=== PATIENT | male | born 1975 ===

== ENCOUNTER → 2020-04-21 14:13 | Outpatient (BNVA) | payer OTHER, SELFPAY | PROVIDERS: PCP Student in an Organized Health Care Education/Training Program; Referring Provider Student in an Organized Health Care Education/Training Program; Visit Provider Internal Medicine | DX: E83.52 Hypercalcemia (principal); E21.3 Hyperparathyroidism, unspecified; E55.9 Vitamin D deficiency, unspecified; Z79.899 Other long term (current) drug therapy | CPT/HCPCS: 99202 ==

== ENCOUNTER 2020-04-28 14:43 | Outpatient (REF) | payer OTHER, SELFPAY | END 2020-04-28 14:44 | disposition home or self-care (01) | LOC: HO.LAB 14:43 | PROVIDERS: PCP Student in an Organized Health Care Education/Training Program; Visit Provider Internal Medicine | DX: Z20.828 Contact with and (suspected) exposure to other viral communicable diseases (principal) | CPT/HCPCS: C9803; U0003 ==

== ENCOUNTER 2020-05-18 12:07 | Outpatient (REF) | payer OTHER, SELFPAY ==
[2020-05-18 13:45] LABS: Albumin Level 4.7 g/dL (3.5-5.0); Estimated Glomerular Filt Rate > 60; Phosphorus 2.6 mg/dL (2.7-4.5)
[2020-05-18 14:01] LABS: Free T4 (Free Thyroxine) 0.89 ng/dL (0.71-1.85); Thyroid Stimulating Hormone 0.96 uIU/mL (0.32-4.0)
[2020-05-19 22:43] LABS: Calcium (PTHI) 11.8 mg/dL (8.6-10.3); PTHI 44 pg/mL (14-64)
[2020-05-20 15:17] LABS: Calcium, Ionized 6.2 mg/dL (4.8-5.6)
[2020-05-22 14:07] LABS: Vitamin D 25-OH, D2 <4 ng/mL; Vitamin D 25-OH, D3 20 ng/mL; Vitamin D 25-OH, Total 20 ng/mL (30-100)
== END 2020-05-18 12:08 | disposition home or self-care (01) ==
LOC: HO.LAB 12:07
PROVIDERS: PCP Student in an Organized Health Care Education/Training Program; Visit Provider Internal Medicine
DX: E21.3 Hyperparathyroidism, unspecified (principal); E55.9 Vitamin D deficiency, unspecified
CPT/HCPCS: 82040; 82306; 82310; 82330; 82565; 83970; 84100; 84439; 84443

== ENCOUNTER 2020-05-20 12:25 | Outpatient (REF) | payer OTHER, SELFPAY ==
[2020-05-20 14:52] LABS: Total Volume 24 Hour Urine 1600 mL
[2020-05-20 15:05] LABS: Creatinine, 24Hr Urine 0.8 G/Day (1.0-2.0); Creatinine, mg/dL 47.94
[2020-05-24 18:18] LABS: Calcium, 24 Hr Urine 189 mg/24 h; Calcium/Creatinine Ratio 231 mg/g creat (30-210); Creatinine 24Hr Urine 0.82 g/24 h (0.50-2.15)
== END 2020-05-20 12:26 | disposition home or self-care (01) ==
LOC: HO.LNP 12:25
PROVIDERS: Visit Provider Internal Medicine
DX: E21.3 Hyperparathyroidism, unspecified (principal)
CPT/HCPCS: 82340; 82570

== ENCOUNTER 2020-05-31 13:13 | Outpatient (REF) | payer OTHER, SELFPAY ==
--- NOTE | 2020-05-31 13:17 | MM_ITS ---
EXAMINATION: BONE DENSITOMETRY CLINICAL INDICATION: Hyperparathyroidism, unspecified. Age 44, male. COMPARISON: None (current study represents initial baseline exam). TECHNIQUE: Using a [employer] DXA System (software version: 13.1) manufactured by [employer], dual-energy x-ray absorptiometry was performed of the lumbar spine, left hip, and left forearm radius 33%. The images are of good technical quality. Based on ISCD (International Society for Clinical Densitometry) standards of reporting, Z-scores instead of T-scores are reported in this male patient younger than age 50. Summary results are attached. FINDINGS: AP SPINE L1-L4: BMD 0.883 g/cm2, T-score -2.8, Z-score -2.4, Z-score below expected range for age. LEFT FEMUR, NECK: BMD 0.774 g/cm2, T-score -2.3, Z-score -1.6, Z-score within expected range for age. LEFT FEMUR, TOTAL: BMD 0.821 g/cm2, T-score -1.9, Z-score -1.5, Z-score within expected range for age. LEFT FOREARM RADIUS 33%: BMD 0.924 g/cm2, T-score -0.8, Z-score -0.8, Z-score within expected range for age. IDENTIFIED RISK FACTORS: Hyperparathyroidism, secondary osteoporosis. HISTORY OF FRACTURE: None listed. MEDICATIONS: Vitamin D. MM/XR DEXA appendicular skeleton IMPRESSION: 1. DIAGNOSIS: Based on the lowest Z-score value of -2.4 in the lumbar spine, the patient's bone density is below the expected range for age. 2. 10-YEAR FRACTURE RISK PREDICTION, FRAX: Major osteoporotic fracture (clinical spine, forearm, hip or shoulder) 1.8%. Hip fracture 0.4%. 3. Treatment Recommendations: NOF guidelines recommend consideration for treatment in postmenopausal women and men age 50 and older presenting with the following: -A hip or vertebral (clinical or morphometric) fracture. -T-score less than or equal to -2.5 at the femoral neck or spine after appropriate evaluation to exclude secondary causes. -Low bone mass at the hip or spine and a 10-year fracture probability by FRAX of greater than or equal to 3% for hip fracture or greater than or equal to 20% for major osteoporotic fracture based on the [place] adapted WHO algorithm. 4. Other Recommendations: All treatment decisions require clinical judgment and consideration of individual patient factors, including patient preferences, comorbidities, previous drug use, risk factors not captured in the FRAX model (e.g. frailty, falls, vitamin D deficiency, increased bone turnover, interval significant decline in bone density) and possible under or overestimation of fracture risk by FRAX. Additional medical evaluation for secondary cause of low bone mineral density may be appropriate. FUTURE SCAN RECOMMENDATION: People with diagnosed cases of osteoporosis or at high risk for fracture should have regular bone mineral density tests. For patients eligible for Medicare, routine testing is allowed once every 2 years. The testing frequency can be increased to one year for patients who have rapidly progressing disease, those who are receiving or discontinuing medical therapy to restore bone mass, or have additional risk factors.
--- NOTE | 2020-05-31 13:49 | US_ITS ---
EXAMINATION: US THYROID CLINICAL INFORMATION: Hyperparathyroidism. COMPARISON: None TECHNIQUE: Linear transducer turner-scale and color Doppler examination with attention to the region of the thyroid. FINDINGS: SIZE: Measurements of the thyroid lobes and nodules are given in sagittal, anteroposterior and transverse dimensions respectively. Right Thyroid Lobe: 3.8 x 1.3 x 1.4 cm, volume 3.6 mL. Parenchyma: The gland echotexture is homogeneous. Thyroid vascularity is normal. Left Thyroid Lobe: 3.1 x 1.0 x 1.5 cm, volume 2.4 mL. Parenchyma: The gland echotexture is homogeneous. Thyroid vascularity is normal. Isthmus: 0.3 cm in maximum AP dimension. RIGHT THYROID LOBE: No nodules. ISTHMUS: No nodules. LEFT THYROID LOBE: No nodules. NODES: No lymphadenopathy is seen in the tissue surrounding the thyroid gland. US/US thyroid IMPRESSION: Unremarkable sonographic appearance of the thyroid gland. No focal thyroid nodules identified.
== END 2020-05-31 13:14 | disposition home or self-care (01) ==
LOC: HO.MAMMO 13:13
PROVIDERS: Visit Provider Internal Medicine
DX: E21.3 Hyperparathyroidism, unspecified (principal)
CPT/HCPCS: 76536; 77081

== ENCOUNTER → 2020-06-03 11:16 | Outpatient (BNVA) | payer OTHER, SELFPAY | PROVIDERS: PCP Student in an Organized Health Care Education/Training Program; Visit Provider Internal Medicine | DX: Z13.89 Encounter for screening for other disorder (principal) | CPT/HCPCS: Q3014 ==

== ENCOUNTER 2020-06-13 15:21 | Emergency (ER) | payer OTHER, SELFPAY ==
[2020-06-13 17:17] VITALS: BP 168/85; PULSE 90; RESP 18; TEMP 36.4; O2SAT 99; BMI 25.0
--- NOTE | 2020-06-13 18:38 | CT_ITS ---
EXAMINATION: CT ABDOMEN AND PELVIS WITH CONTRAST CLINICAL INFORMATION: Abdominal pain. Flank pain. COMPARISON: CT scan abdomen pelvis 08/17/2019 TECHNIQUE: Multidetector volumetric images were obtained from the superior aspect of the liver through the pubic symphysis following administration 85 mL of Omnipaque 350 intravenous contrast. Sagittal and coronal reformatted images were obtained on the technologist's workstation. Oral contrast: No This CT examination was performed using dose optimization techniques as appropriate, variously including the following: *Automated exposure control *Adjustment of mA and/or kV according to patient size (this includes techniques or standardized protocols for targeted exams where dose is matched to indication/reason for exam; i.e. extremities or head) *Use of iterative reconstruction technique DLP: 567 mGy-cm FINDINGS: LUNG BASES: There is a small hiatal hernia. Lung bases are normally aerated. There is no pleural effusion. LIVER, GALLBLADDER, AND BILIARY TREE: The liver is normal in size, shape, and attenuation. No focal hepatic lesion or biliary ductal dilatation is present. Status post cholecystectomy. PANCREAS: Unremarkable. SPLEEN: Unremarkable. ADRENAL GLANDS: Unremarkable. KIDNEYS AND URETERS: The kidneys are normal in size, shape, and attenuation. No hydronephrosis, hydroureter, or calculi seen. No perinephric stranding. 1.3 cm cortical cyst upper pole of right kidney. There is a several millimeter cyst in the cortex upper pole of left kidney. BLADDER: Unremarkable. GASTROINTESTINAL TRACT: The small and large bowel are unremarkable. The appendix is unremarkable. There is a hiatal hernia. ABDOMINAL WALL: No significant hernia is appreciated. LYMPH NODES: Normal. VASCULAR: Unremarkable. PELVIC VISCERA: Unremarkable. OSSEOUS STRUCTURES: Unremarkable. CT/CT abdomen pelvis w con IMPRESSION: No acute abnormality CT scan abdomen pelvis.
[2020-06-13 18:46] LABS: MANUAL DIFF FLAG NO
[2020-06-13 18:53] LABS: Basophils Absolute Auto 0.1 X10*3/uL (0.0-0.2); Basophils Percent Auto 0.5 % (0-2); Eosinophils Absolute Auto 0.2 X10*3/uL (0.0-0.4); Eosinophils Percent Auto 1.7 % (0-4); Hematocrit 37.3 % (42-52); Imm Gran Abs Auto 0.04 X10*3/uL (0.00-0.03); Imm Gran Pct Auto 0.3 % (0.0-0.4); Lymphocytes Absolute Auto 3.4 X10*3/uL (1.2-4.9); Lymphocytes Percent Auto 29.3 % (20-40); Mean Corpuscular HGB Conc 32.2 g/dl (31.0-36.0); Mean Corpuscular Hemoglobin 26.7 pg (27.0-33.0); Mean Corpuscular Volume 82.9 fL (80-98); Mean Platelet Volume 11.4 fL (9.4-12.4); Monocytes Absolute Auto 0.9 X10*3/uL (0.1-1.2); Monocytes Percent Auto 7.9 % (2-11); Neutrophils Absolute Auto 6.9 X10*3/uL (2.0-8.3); Neutrophils Percent Auto 60.3 % (45-73); Platelet Count 498 X10*3/uL (160-400); Red Cell Distribution Width 14.8 % (11.0-16.0); White Blood Count 11.5 X10*3/uL (4.8-10.8)
[2020-06-13 18:55] LABS: INTERNATIONAL NORM RATIO 1.1 (0.9-1.1); Prothrombin Time 13.2 SEC (10.8-13.0)
[2020-06-13] MEDS: 0.9 % Sodium Chloride 1,000 ML 999 ML IV (18:57)
[2020-06-13] MEDS: Morphine Sulfate 4 MG/ML CARTRIDGE IVPUSH (18:58)
[2020-06-13] MEDS: ondansetron HCL 4 MG/2 ML VIAL IVPUSH (18:58)
[2020-06-13 19:32] LABS: Alanine Aminotransferase 20 U/L (0-40); Albumin Level 5.1 g/dL (3.5-5.0); Alkaline Phosphatase 82 U/L (39-117); Anion Gap 15 (12-20); Aspartate Amino Transferase 22 U/L (5-37); Bilirubin Total 0.2 mg/dL (0.0-1.0); Blood Urea Nitrogen 14 mg/dL (9-16); Calcium 12.5 mg/dL (8.4-10.2); Carbon Dioxide 26 mmol/L (22-29); Chloride 107 mmol/L (96-108); Creatinine Clr Calc Pharmacy 58.2; Estimated Glomerular Filt Rate > 60; Glucose Random 90 mg/dL (60-115); Potassium 4.1 mmol/l (3.3-5.1); Sodium 144 mmol/L (135-145); Total Protein 8.6 g/dL (6.5-8.0)
[2020-06-13 20:00] VITALS: BP 106/69; PULSE 70
[2020-06-13] MEDS: iohexoL 350 MG/ML 100 ML INFUS..BTL IV (20:41)
--- NOTE | 2020-06-13 21:50 | ECG_ITS ---
Test Reason : ABDOMINAL PAIN Blood Pressure : / mmHG Vent. Rate : 067 BPM Atrial Rate : 067 BPM P-R Int : 152 ms QRS Dur : 114 ms QT Int : 386 ms P-R-T Axes : 056 011 007 degrees QTc Int : 407 ms Normal sinus rhythm Incomplete right bundle branch block Borderline ECG When compared with ECG of 07-APR-2016 01:44, Vent. rate has decreased BY 41 BPM Incomplete right bundle branch block has replaced Right bundle branch block QT has shortened Referred By: Ab Ridley Electronically Signed By:URIAH CUETO
[2020-06-13 21:54] LABS: Influenza A PCR NEGATIVE (Negative); Influenza B PCR NEGATIVE (Negative); Resp Syncy Virus RNA Qual PCR NEGATIVE (Negative); SARS COV2 PCR INHOUSE NEGATIVE (Negative)
--- NOTE | 2020-06-13 22:16 | ED.ABDPAIN ---
HPI - Abdominal Pain General Chief Complaint: Abdominal Pain Stated Complaint: abdominal pain Time Seen by Provider: 06/13/20 18:28 Source: patient and family Mode of arrival: wheelchair Limitations: physical limitation History of Present Illness HPI narrative: This is 44-year-old male with past medical history that is significant for hypertension, cerebral palsy chronically bed/wheelchair bound, chronic anemia, gastroesophageal reflux disease, chronic gastritis, chronic hyperglycemia with surgical history of cholecystectomy who presents with his sister with complaint of 1 day of lower back/right flank pain radiating to the front. Pain described as positional improved with certain positions but worse with certain positions. There is no associated nausea vomiting diarrhea. No fever. MD elicited complaint: flank pain Pertinent past history: none Associated symptoms: denies other symptoms Related Data Home Medications Medication Instructions Recorded Confirmed baclofen 10 mg tablet 10 mg PO TID 04/21/20 06/03/20 clonazepam 0.5 mg tablet 0.5 mg PO BEDTIME 04/21/20 06/03/20 fenofibrate 150 mg capsule 150 mg PO DAILY 04/21/20 06/03/20 hydrochlorothiazide 25 mg tablet 25 mg PO DAILY 04/21/20 06/03/20 pantoprazole 40 mg tablet,delayed 40 mg PO DAILY 04/21/20 06/03/20 release simvastatin 40 mg tablet 40 mg PO DAILY 04/21/20 06/03/20 ascorbic acid (vitamin C) 500 mg 500 mg PO BID 06/03/20 06/03/20 tablet gemfibrozil 600 mg tablet 600 mg PO BID 06/03/20 06/03/20 glycerin (adult) supp IA DAILY 06/03/20 06/03/20 ketoconazole 2 % shampoo TOPICAL 06/03/20 06/03/20 lansoprazole 30 mg delayed 30 mg SUBLINGUAL BID 06/03/20 06/03/20 release,disintegrating tablet ondansetron HCl 4 mg tablet 0 mg PO 06/03/20 06/03/20 polyethylene glycol 3350 17 17 g PO DAILY 06/03/20 06/03/20 gram/dose oral powder Previous Rx's Medication Instructions Recorded metoclopramide HCl 5 mg/5 mL oral 5 mg PO QIDACHS 30 Days #600 ml NS 04/25/20 solution cholecalciferol (vitamin D3) 25 25 mcg PO DAILY 30 Days #30 cap 06/04/20 mcg (1,000 unit) capsule simethicone 125 mg capsule 125 mg PO TID-QID 30 Days #120 cap 06/10/20 Allergies Allergy/AdvReac Type Severity Reaction Status Date / Time No Known Allergies Allergy Verified 06/03/20 11:20 [No Known Allergies*] Review of Systems Review of Systems Constitutional: No Weight loss, No Fever, No Chills, No Night Sweats, No Fatigue, No Malaise ENT/Mouth: No Hearing loss, No Ear Pain, No Nasal Congestion, No Sinus Pain, No Hoarseness, No sore throat, No Rhinorrhea, No Swallowing Difficulty Eyes: No Eye Pain, No Swelling, No Redness, No Foreign Body, No Discharge, No Vision Changes Cardiovascular: No Chest Pain, No SOB, No Dyspnea on Exertion, No Orthopnea, No Edema, No Palpitations Respiratory: No Cough, No Sputum, No Wheezing, No Smoke Exposure, No Dyspnea Gastrointestinal: No Nausea, No Vomiting, No Diarrhea, No Constipation, + abdominal Pain Genitourinary: no irregular bleeding, No Dysuria, No Urinary Frequency, No Hematuria, No Urinary Incontinence, No Urgency, No Flank Pain, No Urinary Flow Changes, No Hesitancy Musculoskeletal: No joint pain, No Myalgias, No Joint Swelling Skin: No Skin Lesions, No rash Neuro: No Weakness, No Numbness, No Paresthesias, No Loss of Consciousness, No Dizziness, No Headache Psych: No Social Issues Heme/Lymph: No Bruising, No Bleeding,No Lymphadenopathy Endocrine: No Polyuria, No Polydipsia, No Temperature Intolerance Physical Exam Vital Signs: Vital Signs: Last Vital Signs Temp 97.6 F 06/13/20 17:17 Pulse 70 06/13/20 20:00 Resp 18 06/13/20 17:17 BP 106/69 06/13/20 20:00 Pulse Ox 99 06/13/20 17:17 Body Mass Index 25.0 Reviewed Const: Other: Appears and chronic contracted state with lower extremity General: cooperative and healthy appearing; No acute distress or intoxicated appearing Orientation/consciousness: patient oriented x3 HENMT: Head: Yes normal to inspection Ears: hearing grossly normal bilaterally Eyes: General: appearance normal, both eyes and all related structures Visual : normal visual by confrontation Neck: Neck: Yes normal visual inspection and No tender Thyroid: Thyroid normal Chest: Chest palpation & inspection: normal inspection of the chest Resp: Effort & Inspection: normal respiratory effort Cardio: Jugular venous distension: no JVD GI: Inspection: Yes normal to inspection Percussion: Yes normal to percussion Auscultation: normal bowel sounds : General: Yes no CVA tenderness Back/Spine/Pelvis: Back: no CVA tenderness Skin: General skin exam: no rashes or lesions noted Neuro: General: patient oriented x3 Extrem: General: Yes normal to inspection Course Course Course Narrative: In reviewed 44-year-old male with past medical history of cerebral palsy, hypertension, chronic anemia, gastroesophageal reflux disease, hypercalcemia who is being followed for this by Endocrinology as well as primary care question hydration related versus parathyroid and surgical history of cholecystectomy presenting with complaint of nonspecific flank/back/abdomen pain. Will check labs given his limited history will check abdomen/pelvis CT with IV contrast. Additional notes review- Endocrinology is no hypercalcemia thought to be related to hyperparathyroidism due to his inappropriate PTH head-up patient workup plan for surgical parathyroidectomy Procedure has been pushed back couple times secondary to the COVID. Reevaluation(s) Reevaluation #1: Labs show hypercalcemia at 12.5 otherwise overtly chronic appearing. Abdominal/pelvis CT with IV contrast unremarkable. Pain likely related to the hyperglycemia patient was initially given 500 cc given body weight case discussed with attending Dr. Melara recommendation for additional fluids, EKG and recheck calcium. At this time plan for repeat calcium at 23:30 patient has been resting comfortably. EKG nondiagnostic. Findings/plan reviewed with the sister if the repeat calcium is improved to increase hydration to be discharged home with close follow-up. Sign-out to PA January pending repeat labs and re-evaluation. MDM - Abdominal Pain Medical Records Attestation: I reviewed the patient's medical records. Medical records narrative: 08/17/2019 admission for nausea vomiting reviewed Lab Data Attestation: I reviewed the patient's lab results. Lab results narrative: Result diagrams: 06/13/20 18:40 06/13/20 18:40 Labs: Lab Results 06/13/20 06/13/20 06/13/20 Range/Units 18:40 18:40 18:40 WBC 11.5 H (4.8-10.8) X10*3/uL RBC 4.50 L (4.60-5.80) X10*6/uL Hgb 12.0 L (14.0-18.0) g/dl Hct 37.3 L (42-52) % MCV 82.9 (80-98) fL MCH 26.7 L (27.0-33.0) pg MCHC 32.2 (31.0-36.0) g/dl RDW 14.8 (11.0-16.0) % Plt Count 498 H (160-400) X10*3/uL MPV 11.4 (9.4-12.4) fL Immature Gran % (Auto) 0.3 (0.0-0.4) % Neut % (Auto) 60.3 (45-73) % Lymph % (Auto) 29.3 (20-40) % [place] % (Auto) 7.9 (2-11) % Eos % (Auto) 1.7 (0-4) % Baso % (Auto) 0.5 (0-2) % Lymph # (Auto) 3.4 (1.2-4.9) X10*3/uL [place] # (Auto) 0.9 (0.1-1.2) X10*3/uL Eos # (Auto) 0.2 (0.0-0.4) X10*3/uL Baso # (Auto) 0.1 (0.0-0.2) X10*3/uL Abs Immat Gran (auto) 0.04 H (0.00-0.03) X10*3/uL Absolute Neuts (auto) 6.9 (2.0-8.3) X10*3/uL Absolute Nucleated RBC 0.000 (0.0-0.012) X10*3/uL Nucleated RBC % (auto) 0.0 (0.0-0.2) /100WBC PT 13.2 H (10.8-13.0) SEC INR 1.1 (0.9-1.1) APTT 38.0 (24.1-38.0) SEC Sodium 144 (135-145) mmol/L Potassium 4.1 (3.3-5.1) mmol/l Chloride 107 (96-108) mmol/L Carbon Dioxide 26 (22-29) mmol/L Anion Gap 15 (12-20) BUN 14 (9-16) mg/dL Creatinine 1.05 (0.5-1.4) mg/dL Estim Creat Clear Calc 58.2 Estimated GFR > 60 Random Glucose 90 (60-115) mg/dL Calcium 12.5 H* (8.4-10.2) mg/dL Total Bilirubin 0.2 (0.0-1.0) mg/dL AST 22 (5-37) U/L ALT 20 (0-40) U/L Alkaline Phosphatase 82 (39-117) U/L Total Protein 8.6 H (6.5-8.0) g/dL Albumin 5.1 H (3.5-5.0) g/dL Coronavirus (PCR) (Negative) Influenza Type A (PCR) (Negative) Influenza Type B (PCR) (Negative) RSV RNA Qual (PCR) (Negative) 06/13/20 Range/Units 21:01 WBC (4.8-10.8) X10*3/uL RBC (4.60-5.80) X10*6/uL Hgb (14.0-18.0) g/dl Hct (42-52) % MCV (80-98) fL MCH (27.0-33.0) pg MCHC (31.0-36.0) g/dl RDW (11.0-16.0) % Plt Count (160-400) X10*3/uL MPV (9.4-12.4) fL Immature Gran % (Auto) (0.0-0.4) % Neut % (Auto) (45-73) % Lymph % (Auto) (20-40) % [place] % (Auto) (2-11) % Eos % (Auto) (0-4) % Baso % (Auto) (0-2) % Lymph # (Auto) (1.2-4.9) X10*3/uL [place] # (Auto) (0.1-1.2) X10*3/uL Eos # (Auto) (0.0-0.4) X10*3/uL Baso # (Auto) (0.0-0.2) X10*3/uL Abs Immat Gran (auto) (0.00-0.03) X10*3/uL Absolute Neuts (auto) (2.0-8.3) X10*3/uL Absolute Nucleated RBC (0.0-0.012) X10*3/uL Nucleated RBC % (auto) (0.0-0.2) /100WBC PT (10.8-13.0) SEC INR (0.9-1.1) APTT (24.1-38.0) SEC Sodium (135-145) mmol/L Potassium (3.3-5.1) mmol/l Chloride (96-108) mmol/L Carbon Dioxide (22-29) mmol/L Anion Gap (12-20) BUN (9-16) mg/dL Creatinine (0.5-1.4) mg/dL Estim Creat Clear Calc Estimated GFR Random Glucose (60-115) mg/dL Calcium (8.4-10.2) mg/dL Total Bilirubin (0.0-1.0) mg/dL AST (5-37) U/L ALT (0-40) U/L Alkaline Phosphatase (39-117) U/L Total Protein (6.5-8.0) g/dL Albumin (3.5-5.0) g/dL Coronavirus (PCR) NEGATIVE (Negative) Influenza Type A (PCR) NEGATIVE (Negative) Influenza Type B (PCR) NEGATIVE (Negative) RSV RNA Qual (PCR) NEGATIVE (Negative) Discharge Plan Discharge Clinical Impression: Hypercalcemia Prescriptions: No Action metoclopramide HCl 5 mg/5 mL solution 5 mg PO QIDACHS 30 Days Qty: 600 RF: 5 cholecalciferol (vitamin D3) 25 mcg (1,000 unit) capsule 25 mcg PO DAILY 30 Days Qty: 30 RF: 11 simethicone [Gas Relief (simethicone)] 125 mg capsule 125 mg PO TID-QID 30 Days Qty: 120 RF: 2 hydrochlorothiazide 25 mg tablet 25 mg PO DAILY RF: 0 baclofen 10 mg tablet 10 mg PO TID RF: 0 clonazepam 0.5 mg tablet 0.5 mg PO BEDTIME RF: 0 simvastatin 40 mg tablet 40 mg PO DAILY RF: 0 pantoprazole [Protonix] 40 mg tablet,delayed release (DR/EC) 40 mg PO DAILY RF: 0 fenofibrate 150 mg capsule 150 mg PO DAILY RF: 0 ondansetron HCl 4 mg tablet 0 mg PO RF: 0 ketoconazole 2 % shampoo topical RF: 0 ascorbic acid (vitamin C) 500 mg tablet 500 mg PO BID RF: 0 polyethylene glycol 3350 17 gram/dose powder 17 g PO DAILY RF: 0 gemfibrozil 600 mg tablet 600 mg PO BID RF: 0 glycerin (adult) Suppository IA DAILY RF: 0 lansoprazole 30 mg tablet,disintegrat, delay rel 30 mg sublingual BID RF: 0 PMFSH Past Medical History Medical History (Updated 06/13/20 @ 22:33 by Ab Ridley NP) Abdominal bloating GERD (gastroesophageal reflux disease) HTN (hypertension) Hypercalcemia Hyperparathyroidism Iron deficiency anemia Osteoporosis Vitamin D deficiency Surgical History History of esophagogastroduodenoscopy (EGD) Hx of cholecystectomy Hx of oral surgery Family History Family History Father Emphysema of lung Liver disease Mother Scoliosis Hepatitis Phlebitis Lymphoma Sister Nephrolithiasis Social History Social History Alcohol intake: never Smoking Status: Never smoker Smoked in Last 30 Days: No Use of substances other than those prescribed or required for medical reasons: No Advance Directives: No Advance Directives Information Provided: Yes
[2020-06-13] MEDS: 0.9 % Sodium Chloride 1,500 ML 999 ML IV (22:43)
[2020-06-13 23:16] LABS: Glucose Urine UA NEG (NEG); Leukocyte Esterase Urine NEG (NEG); Nitrite Urine NEG (NEG); Urine Blood NEG (NEG); Urine Ketones NEG (NEG); Urine Protein NEG (NEG-TRACE)
[2020-06-13 23:17] LABS: Appearance Urine CLEAR; Color Urine YELLOW
[2020-06-14] VITALS: BP 122/77; PULSE 66; RESP 16; TEMP 36.7; O2SAT 99
[2020-06-14] MEDS: Ketorolac Tromethamine 30 MG/ML VIAL IVPUSH (00:29)
[2020-06-14 02:00] VITALS: BP 130/70; PULSE 69; TEMP 36.7; O2SAT 99
[2020-06-14 02:02] LABS: Squamous Epithelial Cell Urine TRACE /LPF
[2020-06-14 02:03] LABS: Bacteria Urine TRACE /LPF
== END 2020-06-14 02:47 | disposition home or self-care (01) ==
PROVIDERS: Nurse Practitioner Primary Care; Physician Assistant; Emergency Provider Student in an Organized Health Care Education/Training Program; PCP Student in an Organized Health Care Education/Training Program
DX: E83.52 Hypercalcemia (principal); R10.13 Epigastric pain; G80.9 Cerebral palsy, unspecified; I10 Essential (primary) hypertension; Z79.899 Other long term (current) drug therapy; Z11.59 Encounter for screening for other viral diseases
CPT/HCPCS: 0241U; 36415; 74177; 80053; 81001; 82310; 85025; 85610; 85730; 93005; 96361; 96374; 96375; 99284; J1885; J2270; J2405; Q9967

== ENCOUNTER 2020-06-17 09:45 | Outpatient (REF) | payer OTHER, SELFPAY ==
[2020-06-17 11:05] LABS: Albumin Level 4.7 g/dL (3.5-5.0); Calcium 10.8 mg/dL (8.4-10.2); Estimated Glomerular Filt Rate > 60
== END 2020-06-17 09:46 | disposition home or self-care (01) ==
LOC: HO.LAB 09:45
PROVIDERS: PCP Student in an Organized Health Care Education/Training Program; Visit Provider Internal Medicine
DX: E21.3 Hyperparathyroidism, unspecified (principal)
CPT/HCPCS: 82040; 82310; 82565

== ENCOUNTER 2020-06-23 08:12 | Outpatient (REF) | payer OTHER, SELFPAY ==
[2020-06-23 13:39] LABS: Albumin Level 4.8 g/dL (3.5-5.0); Estimated Glomerular Filt Rate > 60
== END 2020-06-23 08:13 | disposition home or self-care (01) ==
LOC: HO.LAB 08:12
PROVIDERS: Absent Provider Internal Medicine; PCP Student in an Organized Health Care Education/Training Program; Visit Provider Internal Medicine Gastroenterology
DX: E21.3 Hyperparathyroidism, unspecified (principal); K21.9 Gastro-esophageal reflux disease without esophagitis; K58.1 Irritable bowel syndrome with constipation; E83.52 Hypercalcemia; Z99.3 Dependence on wheelchair; R11.0 Nausea; K30 Functional dyspepsia; Z79.899 Other long term (current) drug therapy
CPT/HCPCS: 36415; 82040; 82310; 82565; 99212

== ENCOUNTER 2020-07-02 09:42 | Outpatient (REF) | payer OTHER, SELFPAY ==
[2020-07-02 10:52] LABS: Blood Urea Nitrogen 11 mg/dL (9-16); Estimated Glomerular Filt Rate > 60
== END 2020-07-02 09:43 | disposition home or self-care (01) ==
LOC: HO.MDS 09:42
PROVIDERS: PCP Student in an Organized Health Care Education/Training Program; Visit Provider Internal Medicine
DX: M81.0 Age-related osteoporosis without current pathological fracture (principal)
CPT/HCPCS: 36415; 82565; 84520; 96365; J3489

== ENCOUNTER 2020-07-13 12:10 | Outpatient (REF) | payer OTHER, SELFPAY ==
[2020-07-13 12:55] LABS: Hematocrit 33.3 % (42-52); Hemoglobin 10.2 g/dl (14.0-18.0); Mean Corpuscular HGB Conc 30.6 g/dl (31.0-36.0); Mean Corpuscular Hemoglobin 25.4 pg (27.0-33.0); Mean Corpuscular Volume 82.8 fL (80-98); Mean Platelet Volume 11.6 fL (9.4-12.4); Platelet Count 508 X10*3/uL (160-400); Red Blood Count 4.02 X10*6/uL (4.60-5.80); Red Cell Distribution Width 14.1 % (11.0-16.0); White Blood Count 6.4 X10*3/uL (4.8-10.8)
[2020-07-13 13:18] LABS: Albumin Level 4.7 g/dL (3.5-5.0); Blood Urea Nitrogen 12 mg/dL (9-16); Estimated Glomerular Filt Rate > 60
[2020-07-13 13:19] LABS: Alanine Aminotransferase 18 U/L (0-40); Albumin Level 4.8 g/dL (3.5-5.0); Alkaline Phosphatase 88 U/L (39-117); Anion Gap 13 (12-20); Aspartate Amino Transferase 21 U/L (5-37); Bilirubin Direct 0.2 mg/dL (0.0-0.5); Bilirubin Total 0.3 mg/dL (0.0-1.0); Blood Urea Nitrogen 11 mg/dL (9-16); Carbon Dioxide 25 mmol/L (22-29); Chloride 108 mmol/L (96-108); Cholesterol 119 mg/dL; Estimated Glomerular Filt Rate > 60; Glucose Random 90 mg/dL (60-115); HDL Cholesterol 34 mg/dL; LDL Cholesterol Calculated 63 mg/dl; Potassium 4.7 mmol/l (3.3-5.1); Sodium 141 mmol/L (135-145); Total Protein 8.1 g/dL (6.5-8.0); Triglycerides 114 mg/dL
[2020-07-13 13:26] LABS: Calcium 11.3 mg/dL (8.4-10.2)
[2020-07-13 13:39] LABS: Vitamin D 25-OH Total 29.7 ng/mL (>30)
[2020-07-14 15:52] LABS: Calcium (PTHI) 11.4 mg/dL (8.6-10.3); PTHI 121 pg/mL (14-64)
== END 2020-07-13 12:11 | disposition home or self-care (01) ==
LOC: HO.LAB 12:10
PROVIDERS: PCP Student in an Organized Health Care Education/Training Program; Referring Provider Student in an Organized Health Care Education/Training Program; Visit Provider Internal Medicine
DX: E55.9 Vitamin D deficiency, unspecified (principal); M81.0 Age-related osteoporosis without current pathological fracture; E21.3 Hyperparathyroidism, unspecified
CPT/HCPCS: 36415; 80048; 80061; 80076; 82040; 82306; 82310; 82565; 83970; 84520; 85027

== ENCOUNTER 2020-07-21 13:00 | Outpatient (REF) | payer OTHER, SELFPAY ==
[2020-07-21 14:38] LABS: Albumin Level 4.6 g/dL (3.5-5.0); Phosphorus 1.7 mg/dL (2.7-4.5)
[2020-07-21 15:00] LABS: Vitamin D 25-OH Total 30.5 ng/mL (>30)
[2020-07-22 12:47] LABS: Calcium (PTHI) 11.5 mg/dL (8.6-10.3); PTHI 55 pg/mL (14-64)
[2020-07-22 15:07] LABS: Calcium, Ionized 6.2 mg/dL (4.8-5.6)
== END 2020-07-21 13:01 | disposition home or self-care (01) ==
LOC: HO.LAB 13:00
PROVIDERS: PCP Student in an Organized Health Care Education/Training Program; Visit Provider Internal Medicine
DX: E55.9 Vitamin D deficiency, unspecified (principal); E21.3 Hyperparathyroidism, unspecified
CPT/HCPCS: 36415; 82040; 82306; 82310; 82330; 83970; 84100

== ENCOUNTER 2020-07-28 07:55 | Outpatient (REF) | payer OTHER, SELFPAY ==
[2020-07-28 10:17] LABS: Albumin Level 4.6 g/dL (3.5-5.0); Calcium 10.4 mg/dL (8.4-10.2); Phosphorus 1.7 mg/dL (2.7-4.5)
[2020-07-29 10:02] LABS: Calcium (PTHI) 10.7 mg/dL (8.6-10.3); PTHI 70 pg/mL (14-64)
== END 2020-07-28 07:56 | disposition home or self-care (01) ==
LOC: HO.LAB 07:55
PROVIDERS: PCP Student in an Organized Health Care Education/Training Program; Visit Provider Internal Medicine
DX: E21.3 Hyperparathyroidism, unspecified (principal)
CPT/HCPCS: 36415; 82040; 82310; 83970; 84100

== ENCOUNTER 2020-08-04 11:09 | Outpatient (REF) | payer OTHER, SELFPAY ==
[2020-08-04 12:11] LABS: Albumin Level 4.8 g/dL (3.5-5.0)
[2020-08-04 12:36] LABS: Vitamin D 25-OH Total 34.2 ng/mL (>30)
[2020-08-06 10:37] LABS: Calcium (PTHI) 11.4 mg/dL (8.6-10.3); PTHI 75 pg/mL (14-64)
== END 2020-08-04 11:10 | disposition home or self-care (01) ==
LOC: HO.LAB 11:09
PROVIDERS: PCP Student in an Organized Health Care Education/Training Program; Visit Provider Internal Medicine
DX: E83.52 Hypercalcemia (principal)
CPT/HCPCS: 36415; 82040; 82306; 82310; 83970

== ENCOUNTER 2020-08-16 10:28 | Outpatient (REF) | payer OTHER, SELFPAY ==
[2020-08-18 10:36] LABS: Calcium (PTHI) 12.8 mg/dL (8.6-10.3); PTHI 1 pg/mL (14-64)
== END 2020-08-16 10:29 | disposition home or self-care (01) ==
LOC: HO.LAB 10:28
PROVIDERS: Visit Provider Internal Medicine
DX: E21.3 Hyperparathyroidism, unspecified (principal)
CPT/HCPCS: 36415; 82310; 83970

== ENCOUNTER 2020-08-20 18:13 | Emergency (ER) | payer OTHER, SELFPAY ==
--- NOTE | 2020-08-20 | ECG_ITS ---
Test Reason : NUMBNESS Blood Pressure : / mmHG Vent. Rate : 074 BPM Atrial Rate : 074 BPM P-R Int : 144 ms QRS Dur : 110 ms QT Int : 404 ms P-R-T Axes : 041 013 020 degrees QTc Int : 448 ms Normal sinus rhythm Incomplete right bundle branch block Possible Inferior infarct , age undetermined but could be normal variant Abnormal ECG When compared with ECG of 13-JUN-2020 22:17, No significant change was found Referred By: Generic ED Physician Electronically Signed By:URIAH CUETO
[2020-08-20 18:29] VITALS: BP 117/75; PULSE 76; RESP 18; TEMP 36.9; O2SAT 98; BMI 26.5
--- NOTE | 2020-08-20 19:52 | ED.NEUROSD ---
HPI - Neuro Symptoms/Deficit General Chief Complaint: Neuro Symptoms/Deficit Stated Complaint: endocrine issue Time Seen by Provider: 08/20/20 19:08 Source: patient and family Limitations: no limitations History of Present Illness HPI Narrative: Patient history of cerebral palsy hyperparathyroidism status post parathyroidectomy done on 08/09 was on 6 tablets of calcium since then for last 4 days rate decreased to 2 tablets a day after blood report showed calcium level of 12 for last 2 days patient complaining of tingling sensation in the legs in the hands and around the lips feeling numbness also feeling muscle cramps no diarrhea no nausea no vomiting Onset (ago): day(s) (2) Related Data Home Medications Medication Instructions Recorded Confirmed baclofen 10 mg tablet 10 mg PO TID 04/21/20 06/23/20 clonazepam 0.5 mg tablet 0.5 mg PO BEDTIME 04/21/20 06/23/20 fenofibrate 150 mg capsule 150 mg PO DAILY 04/21/20 06/23/20 hydrochlorothiazide 25 mg tablet 25 mg PO DAILY 04/21/20 06/23/20 pantoprazole 40 mg tablet,delayed 40 mg PO DAILY 04/21/20 06/03/20 release simvastatin 40 mg tablet 40 mg PO DAILY 04/21/20 06/23/20 ascorbic acid (vitamin C) 500 mg 500 mg PO BID 06/03/20 06/23/20 tablet gemfibrozil 600 mg tablet 600 mg PO BID 06/03/20 06/23/20 glycerin (adult) supp MN DAILY 06/03/20 06/23/20 ketoconazole 2 % shampoo TOPICAL 06/03/20 06/23/20 lansoprazole 30 mg delayed 30 mg SUBLINGUAL BID 06/03/20 06/23/20 release,disintegrating tablet ondansetron HCl 4 mg tablet 0 mg PO 06/03/20 06/23/20 polyethylene glycol 3350 17 17 g PO DAILY 06/03/20 06/23/20 gram/dose oral powder Previous Rx's Medication Instructions Recorded metoclopramide HCl 5 mg/5 mL oral 5 mg PO QIDACHS 30 Days #600 ml NS 04/25/20 solution cholecalciferol (vitamin D3) 25 25 mcg PO DAILY 30 Days #30 cap 06/04/20 mcg (1,000 unit) capsule simethicone 125 mg capsule 125 mg PO TID-QID 30 Days #120 cap 06/10/20 zoledronic acid 5 mg/100 mL in See Rx Instructions IV ONCE 1 Days 06/24/20 mannitol 5 %-water intravenous #100 ml piggybck cinacalcet 30 mg tablet 30 mg PO DAILY 30 Days #30 tab 07/15/20 Allergies Allergy/AdvReac Type Severity Reaction Status Date / Time No Known Allergies Allergy Verified 08/20/20 18:29 [No Known Allergies*] Review of Systems Review of Systems: Constitutional : No Weight loss, No Fever, No Chills ENT/Mouth : No sore throat, No Rhinorrhea Eyes: No Eye Pain, No Swelling Cardiovascular : No Chest Pain, no palpitations Respiratory : No Cough, No Sputum, no shortness of breath Gastrointestinal : no Nausea, No Vomiting, No Diarrhea, No abdominal Pain, no black stools Genitourinary : No Dysuria, No Urinary Frequency Musculoskeletal : No joint pain, No Myalgias, No Joint Swelling Skin : No Skin Lesions, No rash Neuro : No new Weakness, + Numbness, No Dizziness, No Headache Psych : No Anxiety/Panic, No Depression Heme/Lymph: No Bruising, No Lymphadenopathy Endocrine : No Polyuria, No Polydipsia All other systems reviewed and are negative [facility] Past Medical History Medical History (Updated 08/21/20 @ 00:00 by Ayaka Avila) Abdominal bloating Cerebral palsy GERD (gastroesophageal reflux disease) HTN (hypertension) Hypercalcemia Hyperparathyroidism Iron deficiency anemia Nausea Osteoporosis Vitamin D deficiency Surgical History History of esophagogastroduodenoscopy (EGD) Hx of cholecystectomy Hx of colonoscopy Hx of oral surgery Family History Family History Father Emphysema of lung Liver disease Mother Scoliosis Hepatitis Phlebitis Lymphoma Sister Nephrolithiasis Diabetes Lymphoma Social History Social History Household Members: Family Housing: Apartment Alcohol intake: never Smoking Status: Never smoker Use of substances other than those prescribed or required for medical reasons: No Advance Directives: No Advance Directives Information Provided: Yes Physical Exam Vital Signs: Vital Signs: Last Vital Signs Temp 98.4 F 08/20/20 18:29 Pulse 79 08/20/20 20:00 Resp 15 08/20/20 20:00 BP 113/65 08/20/20 20:00 Pulse Ox 99 08/20/20 20:00 Body Mass Index 26.5 Appearance: Alert. Oriented X3. No acute distress. Eyes: Pupils equal, round and reactive to light. ENT: Pharynx normal. Neck: Normal inspection. Neck supple. CVS: Normal heart rate and rhythm. Pulses normal. Respiratory: No respiratory distress. Breath sounds normal. Abdomen: Soft and nontender. Bowel sounds are present, no mass palpable, no CVA tenderness Skin: Skin warm and dry. Normal skin color. Normal skin turgor. Extremities: No lower extremity edema. Neuro: Oriented X 3. Residual weakness lower extremities from cerebral palsy nonambulatory MDM - Neuro Symptoms/Deficit MDM Narrative Medical decision making narrative: Patient nonspecific paresthesia initially it was thought because of hypocalcemia patient having symptoms but labs came back to normal. Etiology of paresthesia not very clear patient advised to follow with his PCP Medical Records Attestation: I reviewed the patient's medical records. Lab Data Attestation: I reviewed the patient's lab results. Result diagrams: 08/20/20 20:14 08/20/20 20:14 Labs: Lab Results 08/20/20 08/20/20 Range/Units 20:14 20:14 WBC 9.0 (4.8-10.8) X10*3/uL RBC 3.43 L (4.60-5.80) X10*6/uL Hgb 8.4 L (14.0-18.0) g/dl Hct 27.5 L (42-52) % MCV 80.2 (80-98) fL MCH 24.5 L (27.0-33.0) pg MCHC 30.5 L (31.0-36.0) g/dl RDW 13.9 (11.0-16.0) % Plt Count 534 H (160-400) X10*3/uL MPV 11.1 (9.4-12.4) fL Immature Gran % (Auto) 0.3 (0.0-0.4) % Neut % (Auto) 60.7 (45-73) % Lymph % (Auto) 28.0 (20-40) % Gooding % (Auto) 8.7 (2-11) % Eos % (Auto) 1.7 (0-4) % Baso % (Auto) 0.6 (0-2) % Lymph # (Auto) 2.5 (1.2-4.9) X10*3/uL Gooding # (Auto) 0.8 (0.1-1.2) X10*3/uL Eos # (Auto) 0.2 (0.0-0.4) X10*3/uL Baso # (Auto) 0.1 (0.0-0.2) X10*3/uL Abs Immat Gran (auto) 0.03 (0.00-0.03) X10*3/uL Absolute Neuts (auto) 5.5 (2.0-8.3) X10*3/uL Absolute Nucleated RBC 0.000 (0.0-0.012) X10*3/uL Nucleated RBC % (auto) 0.0 (0.0-0.2) /100WBC Sodium 140 (135-145) mmol/L Potassium 3.7 (3.3-5.1) mmol/L Chloride 107 (96-108) mmol/L Carbon Dioxide 26 (22-29) mmol/L Anion Gap 11 L (12-20) BUN 13 (9-16) mg/dL Creatinine 1.04 (0.5-1.4) mg/dL Estim Creat Clear Calc 73.7 Estimated GFR > 60 Random Glucose 107 (60-115) mg/dL Calcium 9.3 D (8.4-10.2) mg/dL Phosphorus 2.8 (2.7-4.5) mg/dL Magnesium 2.0 (1.6-2.6) mg/dL Total Bilirubin 0.2 (0.0-1.0) mg/dL Direct Bilirubin < 0.2 (0.0-0.5) mg/dL AST 18 (5-37) U/L ALT 12 (0-40) U/L Alkaline Phosphatase 79 (39-117) U/L Total Protein 7.7 (6.5-8.0) g/dL Albumin 4.4 (3.5-5.0) g/dL ECG Data Attestation: I personally reviewed and interpreted this ECG as follows: Interpretation: Normal sinus rhythm and incomplete right motor branch block no acute ST T wave changes normal axis impression no acute ischemia Discharge Plan Discharge Clinical Impression: Paresthesia Patient Disposition: Home, Self-Care Instructions: Paresthesia (ED) Additional Instructions: Continue medications as prescribed by PCP Your calcium level is normal. Follow with PCP Prescriptions: No Action metoclopramide HCl 5 mg/5 mL solution 5 mg PO QIDACHS 30 Days Qty: 600 RF: 5 cholecalciferol (vitamin D3) 25 mcg (1,000 unit) capsule 25 mcg PO DAILY 30 Days Qty: 30 RF: 11 simethicone [Gas Relief (simethicone)] 125 mg capsule 125 mg PO TID-QID 30 Days Qty: 120 RF: 2 zoledronic [id number] [Reclast] 5 mg/100 mL piggyback See Rx Instructions IV ONCE 1 Days Qty: 100 RF: 0 cinacalcet 30 mg tablet 30 mg PO DAILY 30 Days Qty: 30 RF: 1 hydrochlorothiazide 25 mg tablet 25 mg PO DAILY RF: 0 baclofen 10 mg tablet 10 mg PO TID RF: 0 clonazepam 0.5 mg tablet 0.5 mg PO BEDTIME RF: 0 simvastatin 40 mg tablet 40 mg PO DAILY RF: 0 pantoprazole [Protonix] 40 mg tablet,delayed release (DR/EC) 40 mg PO DAILY RF: 0 fenofibrate 150 mg capsule 150 mg PO DAILY RF: 0 ondansetron HCl 4 mg tablet 0 mg PO RF: 0 ketoconazole 2 % shampoo topical RF: 0 ascorbic acid (vitamin C) 500 mg tablet 500 mg PO BID RF: 0 polyethylene glycol 3350 17 gram/dose powder 17 g PO DAILY RF: 0 gemfibrozil 600 mg tablet 600 mg PO BID RF: 0 glycerin (adult) Suppository MN DAILY RF: 0 lansoprazole 30 mg tablet,disintegrat, delay rel 30 mg sublingual BID RF: 0 Interventions: ED Discharge Assessment Last Done: 08/20/20 21:17 Discharge Date/Time: 08/20/20 21:38 Print Language: Indonesian
[2020-08-20 20:00] VITALS: BP 113/65; PULSE 79; RESP 15; O2SAT 99
[2020-08-20 20:20] LABS: MANUAL DIFF FLAG NO
[2020-08-20 20:23] LABS: Basophils Absolute Auto 0.1 X10*3/uL (0.0-0.2); Basophils Percent Auto 0.6 % (0-2); Eosinophils Absolute Auto 0.2 X10*3/uL (0.0-0.4); Eosinophils Percent Auto 1.7 % (0-4); Hematocrit 27.5 % (42-52); Hemoglobin 8.4 g/dl (14.0-18.0); Imm Gran Abs Auto 0.03 X10*3/uL (0.00-0.03); Imm Gran Pct Auto 0.3 % (0.0-0.4); Lymphocytes Absolute Auto 2.5 X10*3/uL (1.2-4.9); Mean Corpuscular HGB Conc 30.5 g/dl (31.0-36.0); Mean Corpuscular Hemoglobin 24.5 pg (27.0-33.0); Mean Corpuscular Volume 80.2 fL (80-98); Mean Platelet Volume 11.1 fL (9.4-12.4); Monocytes Absolute Auto 0.8 X10*3/uL (0.1-1.2); Monocytes Percent Auto 8.7 % (2-11); Neutrophils Absolute Auto 5.5 X10*3/uL (2.0-8.3); Neutrophils Percent Auto 60.7 % (45-73); Platelet Count 534 X10*3/uL (160-400); Red Blood Count 3.43 X10*6/uL (4.60-5.80); Red Cell Distribution Width 13.9 % (11.0-16.0)
[2020-08-20] MEDS: Calcium Gluconate/NaCl,Iso-Osm 2 GM/100 ML PLAST..BAG IV (20:40)
[2020-08-20 20:46] LABS: Alanine Aminotransferase 12 U/L (0-40); Albumin Level 4.4 g/dL (3.5-5.0); Alkaline Phosphatase 79 U/L (39-117); Anion Gap 11 (12-20); Aspartate Amino Transferase 18 U/L (5-37); Bilirubin Direct < 0.2 mg/dL (0.0-0.5); Bilirubin Total 0.2 mg/dL (0.0-1.0); Blood Urea Nitrogen 13 mg/dL (9-16); Calcium 9.3 mg/dL (8.4-10.2); Carbon Dioxide 26 mmol/L (22-29); Chloride 107 mmol/L (96-108); Creatinine Clr Calc Pharmacy 73.7; Estimated Glomerular Filt Rate > 60; Glucose Random 107 mg/dL (60-115); Phosphorus 2.8 mg/dL (2.7-4.5); Potassium 3.7 mmol/L (3.3-5.1); Sodium 140 mmol/L (135-145); Total Protein 7.7 g/dL (6.5-8.0)
== END 2020-08-20 21:38 | disposition home or self-care (01) ==
PROVIDERS: Emergency Provider Internal Medicine; PCP Student in an Organized Health Care Education/Training Program
DX: R20.2 Paresthesia of skin (principal); G80.9 Cerebral palsy, unspecified; I10 Essential (primary) hypertension; E05.90 Thyrotoxicosis, unspecified without thyrotoxic crisis or storm; Z90.89 Acquired absence of other organs; Z79.899 Other long term (current) drug therapy
CPT/HCPCS: 36415; 80048; 80076; 83735; 84100; 85025; 93005; 96365; 96366; 99284; J0610

== ENCOUNTER 2020-08-23 08:25 | Outpatient (REF) | payer OTHER, SELFPAY ==
[2020-08-23 09:25] LABS: Albumin Level 4.4 g/dL (3.5-5.0); Calcium 9.5 mg/dL (8.4-10.2)
[2020-08-24 13:57] LABS: Calcium (PTHI) 9.9 mg/dL (8.6-10.3); PTHI 15 pg/mL (14-64)
== END 2020-08-23 08:26 | disposition home or self-care (01) ==
LOC: HO.LAB 08:25
PROVIDERS: PCP Student in an Organized Health Care Education/Training Program; Visit Provider Internal Medicine
DX: E83.52 Hypercalcemia (principal)
CPT/HCPCS: 36415; 82040; 82310; 83970

== ENCOUNTER 2020-08-30 10:28 | Outpatient (REF) | payer OTHER, SELFPAY ==
[2020-08-30 12:08] LABS: Albumin Level 4.5 g/dL (3.5-5.0); Calcium 10.2 mg/dL (8.4-10.2)
[2020-08-31 16:16] LABS: Calcium (PTHI) 10.2 mg/dL (8.6-10.3); PTHI 6 pg/mL (14-64)
== END 2020-08-30 10:29 | disposition home or self-care (01) ==
LOC: HO.LAB 10:28
PROVIDERS: PCP Student in an Organized Health Care Education/Training Program; Visit Provider Internal Medicine
DX: E21.3 Hyperparathyroidism, unspecified (principal); D64.9 Anemia, unspecified
CPT/HCPCS: 36415; 82040; 82310; 83970

== ENCOUNTER → 2020-08-30 11:11 | Outpatient (BNV) | payer OTHER, SELFPAY | PROVIDERS: PCP Student in an Organized Health Care Education/Training Program; Visit Provider Internal Medicine Medical Oncology | DX: D64.9 Anemia, unspecified (principal) | CPT/HCPCS: 99213; 99214 ==

== ENCOUNTER → 2020-09-01 08:48 | Outpatient (BNVA) | payer OTHER, SELFPAY | PROVIDERS: PCP Student in an Organized Health Care Education/Training Program; Visit Provider Internal Medicine Gastroenterology | DX: Z13.89 Encounter for screening for other disorder (principal) | CPT/HCPCS: Q3014 ==

== ENCOUNTER 2020-09-07 12:52 | Outpatient (REF) | payer OTHER, SELFPAY | END 2020-09-07 12:53 | disposition home or self-care (01) | LOC: HO.LAB 12:52 | PROVIDERS: PCP Student in an Organized Health Care Education/Training Program; Visit Provider Internal Medicine | DX: Z13.89 Encounter for screening for other disorder (principal) ==

== ENCOUNTER → 2020-09-08 12:05 | Outpatient (BNVA) | payer OTHER, SELFPAY | PROVIDERS: PCP Student in an Organized Health Care Education/Training Program; Visit Provider Internal Medicine | DX: Z13.89 Encounter for screening for other disorder (principal) | CPT/HCPCS: Q3014 ==

== ENCOUNTER 2020-10-11 12:11 | Outpatient (REF) | payer OTHER, SELFPAY ==
[2020-10-11 14:34] LABS: Albumin Level 4.4 g/dL (3.5-5.0); Calcium 9.7 mg/dL (8.4-10.2); Estimated Glomerular Filt Rate > 60
[2020-10-12 14:01] LABS: Calcium (PTHI) 9.8 mg/dL (8.6-10.3); PTHI 12 pg/mL (14-64)
== END 2020-10-11 12:12 | disposition home or self-care (01) ==
LOC: HO.LAB 12:11
PROVIDERS: PCP Student in an Organized Health Care Education/Training Program; Visit Provider Internal Medicine
DX: E21.3 Hyperparathyroidism, unspecified (principal)
CPT/HCPCS: 36415; 82040; 82310; 82565; 83970

== ENCOUNTER → 2020-11-08 11:11 | Outpatient (BNVA) | payer OTHER, SELFPAY | PROVIDERS: PCP Student in an Organized Health Care Education/Training Program; Visit Provider Internal Medicine | DX: Z13.89 Encounter for screening for other disorder (principal) | CPT/HCPCS: Q3014 ==

== ENCOUNTER 2020-12-17 14:41 | Outpatient (REF) | payer OTHER, SELFPAY | END 2020-12-17 14:42 | disposition home or self-care (01) | LOC: HO.LAB 14:41 | PROVIDERS: PCP Student in an Organized Health Care Education/Training Program; Referring Provider Student in an Organized Health Care Education/Training Program; Visit Provider Internal Medicine | DX: Z13.89 Encounter for screening for other disorder (principal) ==

== ENCOUNTER → 2021-01-10 10:20 | Outpatient (BNVA) | payer OTHER, SELFPAY | PROVIDERS: PCP Student in an Organized Health Care Education/Training Program; Visit Provider Internal Medicine Gastroenterology | DX: Z13.89 Encounter for screening for other disorder (principal) | CPT/HCPCS: Q3014 ==

== ENCOUNTER → 2021-02-07 10:54 | Outpatient (BNVA) | payer OTHER, SELFPAY | PROVIDERS: PCP Student in an Organized Health Care Education/Training Program; Visit Provider Internal Medicine | DX: E21.3 Hyperparathyroidism, unspecified (principal); E55.9 Vitamin D deficiency, unspecified; M81.0 Age-related osteoporosis without current pathological fracture; E83.52 Hypercalcemia; Z79.899 Other long term (current) drug therapy | CPT/HCPCS: Q3014 ==

== ENCOUNTER 2021-06-19 16:54 | Emergency (ER) | payer OTHER, SELFPAY ==
--- NOTE | ~2021-06-19 | XR_ITS ---
EXAMINATION: XR CHEST CLINICAL INFORMATION: Chest pain. COMPARISON: Chest radiograph dated from 08/17/2019. TECHNIQUE: AP view of the chest was obtained. FINDINGS: Stable appearance of the cardiomediastinal silhouette with a persistent hiatal hernia. Similar asymmetrically decreased left-sided lung volumes and mild elevation of left hemidiaphragm with left lower lobe subsegmental atelectasis. No new focal airspace opacities, pleural effusions or pneumothorax. No acute osseous abnormalities. Right upper quadrant surgical clips. XR/XR chest 1V IMPRESSION: No acute cardiopulmonary findings.
--- NOTE | ~2021-06-19 | CT_ITS ---
EXAMINATION: CT ANGIOGRAM OF THE CHEST WITH AND WITHOUT CONTRAST (CT PULMONARY ANGIOGRAM FOR PE) CLINICAL INFORMATION: Reason for Exam pleuritic CP, SOB COMPARISON: 01/22/2015 TECHNIQUE: Prior to contrast administration, noncontrast localization images were obtained. Subsequently, multidetector volumetric imaging was performed from the thoracic inlet to below the diaphragms following the administration of 65 mL Omnipaque 350 intravenous contrast. No contrast reaction reported Sagittal, coronal, and MIP oblique sagittal reformatted images were obtained on the CT workstation, uploaded to PACS, and reviewed. This CT examination was performed using dose optimization techniques as appropriate, variously including the following: *Automated exposure control *Adjustment of mA and/or kV according to patient size (this includes techniques or standardized protocols for targeted exams where dose is matched to indication/reason for exam; i.e. extremities or head) *Use of iterative reconstruction technique Total exam dose-length product 284 mGy-cm FINDINGS: QUALITY OF STUDY/CONTRAST BOLUS: Satisfactory. PULMONARY ARTERIES: No central or segmental pulmonary emboli. THORACIC AORTA: No aneurysm or dissection. LUNG: No focal consolidation, nodules or masses. Mild dependent atelectasis. PLEURA: No pleural effusion or pneumothorax. MEDIASTINUM: There is a moderate-sized sliding-type hiatal hernia. There is thickening of the distal esophagus with fluid fluid level, likely due to reflux esophagitis. Heart is normal in size. No adenopathy. Thyroid gland is normal. No evidence of septal bowing or right heart strain. CHEST WALL/AXILLA: No axillary or internal mammary lymphadenopathy. OSSEOUS STRUCTURES: No acute or suspicious osseous abnormality. UPPER ABDOMEN: Status post cholecystectomy. No reflux of contrast into the hepatic veins to suggest elevated right heart pressures. CT/CT angio chest PE protocol IMPRESSION: 1. No acute pulmonary findings. No evidence of pulmonary emboli. 2. Moderate sized hiatal hernia. Wall thickening and fluid in the distal esophagus vs. the possibility of reflux esophagitis. VTE: negative
[2021-06-19 17:42] VITALS: BP 113/68; PULSE 104; RESP 18; TEMP 37; O2SAT 98; BMI 26.5
--- NOTE | 2021-06-19 17:45 | ECG_ITS ---
Test Reason : chest tightness Blood Pressure : / mmHG Vent. Rate : 072 BPM Atrial Rate : 072 BPM P-R Int : 124 ms QRS Dur : 104 ms QT Int : 404 ms P-R-T Axes : 025 -05 000 degrees QTc Int : 442 ms Normal sinus rhythm with sinus arrhythmia Incomplete right bundle branch block Minimal voltage criteria for LVH, may be normal variant ( R in aVL ) Borderline ECG When compared with ECG of 20-AUG-2020 19:20, No significant change was found Referred By: Generic ED Physician Electronically Signed By:EDGARDO HOSKINS MD
[2021-06-19 18:02] LABS: MANUAL DIFF FLAG NO
[2021-06-19 18:04] LABS: Basophils Percent Auto 0.2 % (0-2); Eosinophils Absolute Auto 0.1 X10*3/uL (0.0-0.4); Eosinophils Percent Auto 0.7 % (0-4); Hematocrit 36.3 % (42.0-52.0); Hemoglobin 10.9 g/dl (14.0-18.0); Imm Gran Abs Auto 0.06 X10*3/uL (0.00-0.03); Imm Gran Pct Auto 0.3 % (0.0-0.4); Lymphocytes Absolute Auto 2.2 X10*3/uL (1.2-4.9); Lymphocytes Percent Auto 12.3 % (20-40); Mean Corpuscular Hemoglobin 21.5 pg (27.0-33.0); Mean Corpuscular Volume 71.7 fL (80.0-98.0); Mean Platelet Volume 10.4 fL (9.4-12.4); Monocytes Absolute Auto 1.1 X10*3/uL (0.1-1.2); Neutrophils Absolute Auto 14.3 x10*3/uL (2.0-8.3); Neutrophils Percent Auto 80.5 % (45-73); Platelet Count 328 X10*3/uL (160-400); Red Blood Count 5.06 X10*6/uL (4.60-5.80); Red Cell Distribution Width 18.3 % (11.0-16.0); White Blood Count 17.8 X10*3/uL (4.8-10.8)
[2021-06-19 18:17] LABS: Anion Gap 11 (12-20); Blood Urea Nitrogen 23 mg/dL (9-16); Calcium 9.3 mg/dL (8.4-10.2); Carbon Dioxide 26 mmol/L (22-29); Chloride 108 mmol/L (96-108); Creatinine Clr Calc Pharmacy 105.3; Estimated Glomerular Filt Rate > 60; Glucose Random 96 mg/dL (60-115); Potassium 3.7 mmol/L (3.3-5.1); Sodium 141 mmol/L (135-145)
[2021-06-19 18:17] LABS: COVID-19 Test Negative (Negative)
[2021-06-19 18:24] LABS: Troponin-I High Sensitivity < 3.5 ng/L (<3.5-35.0)
--- NOTE | 2021-06-19 19:42 | ED.GENADULT ---
HPI - General Adult General Chief complaint: Upper Respiratory Symptoms <MANASA Goode - Last Filed: 06/19/21 21:02> Stated complaint: chest pain vomiting <MANASA Goode - Last Filed: 06/19/21 21:02> Time Seen by Provider: 06/19/21 19:29 <MANASA Goode - Last Filed: 06/19/21 21:02> Source: patient <MANASA Goode - Last Filed: 06/19/21 21:02> Mode of arrival: ambulatory <MANASA Goode Last Filed: 06/19/21 21:02> Limitations: no limitations <MANASA Goode Last Filed: 06/19/21 21:02> History of Present Illness HPI narrative: This is a 45-year-old male past medical history significant for cerebral palsy, hyperparathyroidism, GERD, HTNm anemia presenting to the emergency department with 5 days of nausea, vomiting, diarrhea, dry cough and chest tightness. Patient tells me that his chest tightness is worse with inspiration. He also reports shortness of breath with just sitting there. He is wheelchair-bound. At home his family members are all getting over COVID-19. He is fully vaccinated, he does not smoke. Patient tells me he has not been able to drink much or EEG due to his diarrhea. <MANASA Goode - Last Filed: 06/19/21 21:02> Onset (ago): day(s) (5) <MANASA Goode - Last Filed: 06/19/21 21:02> Location: chest <MANASA Goode - Last Filed: 06/19/21 21:02> Radiation: non-radiation <MANASA Goode Last Filed: 06/19/21 21:02> Severity: moderate <MANASA Goode Last Filed: 06/19/21 21:02> Quality: other (pressure) <MANASA Goode Last Filed: 06/19/21 21:02> Pain Consistency: constant <MANASA Goode Last Filed: 06/19/21 21:02> Relieving factors: none <MANASA Goode - Last Filed: 06/19/21 21:02> Exacerbating factors: none <MANASA Goode - Last Filed: 06/19/21 21:02> Associated symptoms: loss of appetite, nausea/vomiting and shortness of breath <MANASA Goode - Last Filed: 06/19/21 21:02> Treatments prior to arrival: none <MANASA Goode - Last Filed: 06/19/21 21:02> Related Data Home medications: Home Medications Medication Instructions Recorded Confirmed baclofen 10 mg tablet 10 mg PO TID 04/21/20 02/07/21 clonazepam 0.5 mg tablet 0.5 mg PO BEDTIME 04/21/20 02/07/21 fenofibrate 150 mg capsule 150 mg PO DAILY 04/21/20 02/07/21 hydrochlorothiazide 25 mg tablet 25 mg PO DAILY 04/21/20 02/07/21 simvastatin 40 mg tablet 40 mg PO DAILY 04/21/20 02/07/21 ascorbic acid (vitamin C) 500 mg 500 mg PO BID 06/03/20 02/07/21 tablet gemfibrozil 600 mg tablet 600 mg PO BID 06/03/20 02/07/21 glycerin (adult) 1 supp TN DAILY 06/03/20 02/07/21 ketoconazole 2 % shampoo 2 appl TOPICAL DAILY 06/03/20 02/07/21 polyethylene glycol 3350 17 17 g PO DAILY 06/03/20 02/07/21 gram/dose oral powder ondansetron HCl 4 mg tablet 4 mg PO .COMPLEX tab 11/08/20 02/07/21 Previous Rx's Medication Instructions Recorded cholecalciferol (vitamin D3) 25 25 mcg PO DAILY 30 Days #30 cap 06/04/20 mcg (1,000 unit) capsule zoledronic acid 5 mg/100 mL in See Rx Instructions IV ONCE 1 Days 06/24/20 mannitol 5 %-water intravenous #100 ml piggybck (Reclast) metoclopramide HCl 5 mg/5 mL oral 10 mg (10 mL) PO .TID and HS #600 02/09/21 solution ml simethicone 125 mg capsule (Gas 125 mg PO .QID #120 cap 02/09/21 Relief Extra Strength) lansoprazole 30 mg delayed 30 mg PO BID #60 tab 03/03/21 release,disintegrating tablet azithromycin 250 mg tablet See Rx Instructions .ROUTE 06/19/21 .COMPLEX #6 tab <MANASA Goode - Last Filed: 06/19/21 21:02> Allergies/adverse reactions: Allergies Allergy/AdvReac Type Severity Reaction Status Date / Time No Known Allergies Allergy Verified 02/07/21 12:58 [No Known Allergies*] <MANASA Goode Last Filed: 06/19/21 21:02> Review of Systems Review of Systems: Constitutional : No Weight loss, No Fever, No Chills, No Fatigue, No Malaise ENT/Mouth : No sore throat, No Rhinorrhea Eyes: No Eye Pain, No Swelling, No Redness Cardiovascular : + Chest Pain, + SOB, No Dyspnea on Exertion, No Orthopnea, No Edema, No Palpitations Respiratory : + Cough, No Sputum, No Wheezing Gastrointestinal : + Nausea, + Vomiting, + Diarrhea, No Constipation, No abdominal Pain, No Hematochezia, No Melena Genitourinary : No Dysuria, No Urinary Frequency, No Hematuria, Musculoskeletal : No joint pain, No Myalgias, No Joint Swelling Skin : No Skin Lesions, No rash Neuro : No Weakness, No Numbness, No Dizziness, No Headache Psych : No Anxiety/Panic, No Depression All other systems reviewed and are negative <MANASA Goode - Last Filed: 06/19/21 21:02> Yes all other systems are reviewed and are negative <MANASA Goode - Last Filed: 06/19/21 21:02> PENDING SALE TO [facility] Past Medical History Attestation statement: The following information was validated with the patient. <MANASA Goode - Last Filed: 06/19/21 21:02> Source: old records reviewed and nursing notes reviewed <MANASA Goode Last Filed: 06/19/21 21:02> Medical History: Medical History Abdominal bloating Cerebral palsy Constipation by delayed colonic transit Delayed gastric emptying GERD (gastroesophageal reflux disease) HTN (hypertension) Hypercalcemia Hyperparathyroidism Iron deficiency anemia Nausea Osteoporosis Vitamin D deficiency <MANASA Goode - Last Filed: 06/19/21 21:02> Surgical History: Surgical History History of esophagogastroduodenoscopy (EGD) Hx of cholecystectomy Hx of colonoscopy Hx of oral surgery S/P removal of parathyroid gland <MANASA Goode - Last Filed: 06/19/21 21:02> Family History Family History: Family History Father Emphysema of lung Liver disease Mother Scoliosis Hepatitis Phlebitis Lymphoma Sister Nephrolithiasis Diabetes Lymphoma <MANASA Goode - Last Filed: 06/19/21 21:02> Social History Social History: Social History Household Members: Family Housing: Apartment Alcohol intake: current Alcohol intake frequency: does not drink Advance Directives: No Advance Directives Information Provided: Yes <MANASA Goode - Last Filed: 06/19/21 21:02> Physical Exam Vital Signs: Vital Signs: Last Vital Signs Temp 98.6 F 06/19/21 17:42 Pulse 104 H 06/19/21 17:42 Resp 18 06/19/21 17:42 BP 113/68 06/19/21 17:42 Pulse Ox 98 06/19/21 17:42 BMI result Body Mass Index 26.5 VSS <MANASA Goode - Last Filed: 06/19/21 21:02> Vital Signs: Last Vital Signs Temp 98.6 F 06/19/21 17:42 Pulse 104 H 06/19/21 17:42 Resp 18 06/19/21 17:42 BP 113/68 06/19/21 17:42 Pulse Ox 98 06/19/21 17:42 BMI result Body Mass Index 26.5 <Jocelyn Lewis MD - Last Filed: 06/19/21 22:23> Appearance: Alert.? Oriented X3.? No acute distress.? Head: Normocephalic, atraumatic, no step-offs or deformities Eyes: Pupils equal, round and reactive to light.? ENT: Pharynx normal.? Neck: Normal inspection.? Neck supple.? CVS: Normal heart rate and rhythm.? Pulses normal.? Respiratory: No respiratory distress.? Breath sounds normal.? Abdomen: Soft and nontender.? Skin: Skin warm and dry.? Normal skin color.? Normal skin turgor.? Extremities: No lower extremity edema.? No calf ttp. 5/5 strength to bilateral upper and lower extremities Back: No midline tenderness, no C-spine tenderness, full range of motion, no CVA tenderness bilaterally Neuro: Oriented X 3.? No motor deficit.? No sensory deficit. <MANASA Goode - Last Filed: 06/19/21 21:02> Course Course Course Narrative: I discussed the CT findings with the patient and him and his family/caretakers. Patient does not have a P. However, patient did test positive for RSV. Patient's oxygen saturation remains at 98% on room air. Patient cannot be ambulated, patient is chronically wheelchair-bound. I discussed with the patient's floor representative that if he develops any respiratory distress, new symptoms, he needs to return to the emergency room. At this time, patient is calm, breathing comfortably, oxygen saturation 98% on room air. <Jocelyn Lewis MD - Last Filed: 06/19/21 22:23> Reevaluation(s) Reevaluation #1: Elevated white blood cell count, will be given Rocephin. White blood cell count could be elevated secondary to patients nausea, vomiting and diarrhea. Baseline anemia is noted. BUN is noted to be elevated 23 likely secondary to dehydration and poor p.o. intake. Troponin negative. Rapid COVID negative. Flu/COVID/RSV pending. D-dimer is noted to be elevated, CTA of the chest will be done to rule out PE. <MANASA Goode - Last Filed: 06/19/21 21:02> Time: 20:53 <MANASA Goode - Last Filed: 06/19/21 21:02> Reevaluation #2: Sign out will be given to Mecca Lewis Pending CTA. <MANASA Goode - Last Filed: 06/19/21 21:02> Time: 20:58 <MANASA Goode - Last Filed: 06/19/21 21:02> Medical Decision Making MDM Narrative Medical decision making narrative: 1944 45 yo M pmhx cerebral palsy, hyperparathyroidism, GERD, HTN, anemia presenting w/ 5 days N/V/D, dry cough, pleuritic CP, and anorexia X5 days. + Recent sick contacts, family members who he lives with recovering from COVID PE benign. Patient in wheelchair Plan: labs, covid, fluids, zofran, trop, ekg, dimer <MANASA Goode - Last Filed: 06/19/21 21:02> Medical Records Medical records reviewed: Yes I reviewed the patient's medical records. <MANASA Goode - Last Filed: 06/19/21 21:02> Lab Data Lab results reviewed: Yes I reviewed the patient's lab results. <MANASA Goode - Last Filed: 06/19/21 21:02> Result diagrams: : 06/19/21 17:58 06/19/21 17:58 <MANASA Goode - Last Filed: 06/19/21 21:02> Labs: Lab Results 06/19/21 06/19/21 06/19/21 Range/Units 17:50 17:57 17:58 WBC 17.8 H (4.8-10.8) X10*3/uL RBC 5.06 (4.60-5.80) X10*6/uL Hgb 10.9 L (14.0-18.0) g/dl Hct 36.3 L (42.0-52.0) % MCV 71.7 L (80.0-98.0) fL MCH 21.5 L (27.0-33.0) pg MCHC 30.0 L (31.0-36.0) g/dl RDW 18.3 H (11.0-16.0) % Plt Count 328 (160-400) X10*3/uL MPV 10.4 (9.4-12.4) fL Immature Gran % (Auto) 0.3 (0.0-0.4) % Neut % (Auto) 80.5 H (45-73) % Lymph % (Auto) 12.3 L (20-40) % [place] % (Auto) 6.0 (2-11) % Eos % (Auto) 0.7 (0-4) % Baso % (Auto) 0.2 (0-2) % Lymph # (Auto) 2.2 (1.2-4.9) X10*3/uL [place] # (Auto) 1.1 (0.1-1.2) X10*3/uL Eos # (Auto) 0.1 (0.0-0.4) X10*3/uL Baso # (Auto) 0.0 (0.0-0.2) X10*3/uL Abs Immat Gran (auto) 0.06 H (0.00-0.03) X10*3/uL Absolute Neuts (auto) 14.3 H (2.0-8.3) x10*3/uL Absolute Nucleated RBC 0.000 (0.0-0.012) X10*3/uL Nucleated RBC % (auto) 0.0 (0.0-0.2) /100WBC D-Dimer High Sensitivty NG/ML Sodium (135-145) mmol/L Potassium (3.3-5.1) mmol/L Chloride (96-108) mmol/L Carbon Dioxide (22-29) mmol/L Anion Gap (12-20) BUN (9-16) mg/dL Creatinine (0.5-1.4) mg/dL Estim Creat Clear Calc Estimated GFR Random Glucose (60-115) mg/dL Calcium (8.4-10.2) mg/dL Troponin I High Sens < 3.5 (<3.5-35.0) ng/L COVID-19 (JAIME) Negative (Negative) COVID-19 Clin Com See Note Influenza Type A (PCR) (Negative) Influenza Type B (PCR) (Negative) RSV RNA Qual (PCR) (Negative) SARS-CoV-2 RNA (RT-PCR) (Negative) 06/19/21 06/19/21 06/19/21 Range/Units 17:58 19:58 20:36 WBC (4.8-10.8) X10*3/uL RBC (4.60-5.80) X10*6/uL Hgb (14.0-18.0) g/dl Hct (42.0-52.0) % MCV (80.0-98.0) fL MCH (27.0-33.0) pg MCHC (31.0-36.0) g/dl RDW (11.0-16.0) % Plt Count (160-400) X10*3/uL MPV (9.4-12.4) fL Immature Gran % (Auto) (0.0-0.4) % Neut % (Auto) (45-73) % Lymph % (Auto) (20-40) % [place] % (Auto) (2-11) % Eos % (Auto) (0-4) % Baso % (Auto) (0-2) % Lymph # (Auto) (1.2-4.9) X10*3/uL [place] # (Auto) (0.1-1.2) X10*3/uL Eos # (Auto) (0.0-0.4) X10*3/uL Baso # (Auto) (0.0-0.2) X10*3/uL Abs Immat Gran (auto) (0.00-0.03) X10*3/uL Absolute Neuts (auto) (2.0-8.3) x10*3/uL Absolute Nucleated RBC (0.0-0.012) X10*3/uL Nucleated RBC % (auto) (0.0-0.2) /100WBC D-Dimer High Sensitivty 264 NG/ML Sodium 141 (135-145) mmol/L Potassium 3.7 (3.3-5.1) mmol/L Chloride 108 (96-108) mmol/L Carbon Dioxide 26 (22-29) mmol/L Anion Gap 11 L (12-20) BUN 23 H (9-16) mg/dL Creatinine 0.72 (0.5-1.4) mg/dL Estim Creat Clear Calc 105.3 Estimated GFR > 60 Random Glucose 96 (60-115) mg/dL Calcium 9.3 (8.4-10.2) mg/dL Troponin I High Sens (<3.5-35.0) ng/L COVID-19 (JAIME) (Negative) COVID-19 Clin Com Influenza Type A (PCR) NEGATIVE (Negative) Influenza Type B (PCR) NEGATIVE (Negative) RSV RNA Qual (PCR) POSITIVE A (Negative) SARS-CoV-2 RNA (RT-PCR) NEGATIVE (Negative) <MANASA Goode - Last Filed: 06/19/21 21:02> Lab Results 06/19/21 06/19/21 06/19/21 Range/Units 17:50 17:57 17:58 WBC 17.8 H (4.8-10.8) X10*3/uL RBC 5.06 (4.60-5.80) X10*6/uL Hgb 10.9 L (14.0-18.0) g/dl Hct 36.3 L (42.0-52.0) % MCV 71.7 L (80.0-98.0) fL MCH 21.5 L (27.0-33.0) pg MCHC 30.0 L (31.0-36.0) g/dl RDW 18.3 H (11.0-16.0) % Plt Count 328 (160-400) X10*3/uL MPV 10.4 (9.4-12.4) fL Immature Gran % (Auto) 0.3 (0.0-0.4) % Neut % (Auto) 80.5 H (45-73) % Lymph % (Auto) 12.3 L (20-40) % [place] % (Auto) 6.0 (2-11) % Eos % (Auto) 0.7 (0-4) % Baso % (Auto) 0.2 (0-2) % Lymph # (Auto) 2.2 (1.2-4.9) X10*3/uL [place] # (Auto) 1.1 (0.1-1.2) X10*3/uL Eos # (Auto) 0.1 (0.0-0.4) X10*3/uL Baso # (Auto) 0.0 (0.0-0.2) X10*3/uL Abs Immat Gran (auto) 0.06 H (0.00-0.03) X10*3/uL Absolute Neuts (auto) 14.3 H (2.0-8.3) x10*3/uL Absolute Nucleated RBC 0.000 (0.0-0.012) X10*3/uL Nucleated RBC % (auto) 0.0 (0.0-0.2) /100WBC D-Dimer High Sensitivty NG/ML Sodium (135-145) mmol/L Potassium (3.3-5.1) mmol/L Chloride (96-108) mmol/L Carbon Dioxide (22-29) mmol/L Anion Gap (12-20) BUN (9-16) mg/dL Creatinine (0.5-1.4) mg/dL Estim Creat Clear Calc Estimated GFR Random Glucose (60-115) mg/dL Calcium (8.4-10.2) mg/dL Troponin I High Sens < 3.5 (<3.5-35.0) ng/L COVID-19 (JAIME) Negative (Negative) COVID-19 Clin Com See Note Influenza Type A (PCR) (Negative) Influenza Type B (PCR) (Negative) RSV RNA Qual (PCR) (Negative) SARS-CoV-2 RNA (RT-PCR) (Negative) 06/19/21 06/19/21 06/19/21 Range/Units 17:58 19:58 20:36 WBC (4.8-10.8) X10*3/uL RBC (4.60-5.80) X10*6/uL Hgb (14.0-18.0) g/dl Hct (42.0-52.0) % MCV (80.0-98.0) fL MCH (27.0-33.0) pg MCHC (31.0-36.0) g/dl RDW (11.0-16.0) % Plt Count (160-400) X10*3/uL MPV (9.4-12.4) fL Immature Gran % (Auto) (0.0-0.4) % Neut % (Auto) (45-73) % Lymph % (Auto) (20-40) % [place] % (Auto) (2-11) % Eos % (Auto) (0-4) % Baso % (Auto) (0-2) % Lymph # (Auto) (1.2-4.9) X10*3/uL [place] # (Auto) (0.1-1.2) X10*3/uL Eos # (Auto) (0.0-0.4) X10*3/uL Baso # (Auto) (0.0-0.2) X10*3/uL Abs Immat Gran (auto) (0.00-0.03) X10*3/uL Absolute Neuts (auto) (2.0-8.3) x10*3/uL Absolute Nucleated RBC (0.0-0.012) X10*3/uL Nucleated RBC % (auto) (0.0-0.2) /100WBC D-Dimer High Sensitivty 264 NG/ML Sodium 141 (135-145) mmol/L Potassium 3.7 (3.3-5.1) mmol/L Chloride 108 (96-108) mmol/L Carbon Dioxide 26 (22-29) mmol/L Anion Gap 11 L (12-20) BUN 23 H (9-16) mg/dL Creatinine 0.72 (0.5-1.4) mg/dL Estim Creat Clear Calc 105.3 Estimated GFR > 60 Random Glucose 96 (60-115) mg/dL Calcium 9.3 (8.4-10.2) mg/dL Troponin I High Sens (<3.5-35.0) ng/L COVID-19 (JAIME) (Negative) COVID-19 Clin Com Influenza Type A (PCR) NEGATIVE (Negative) Influenza Type B (PCR) NEGATIVE (Negative) RSV RNA Qual (PCR) POSITIVE A (Negative) SARS-CoV-2 RNA (RT-PCR) NEGATIVE (Negative) <Jocelyn Lewis MD - Last Filed: 06/19/21 22:23> Critical Care Time Critical Care Time Critical Care Time: No <MANASA Goode - Last Filed: 06/19/21 21:02> Discharge Plan Discharge Clinical Impression: Nausea & vomiting, Chest pain not due to acute coronary syndrome, Gastroenteritis, RSV infection <MANASA Goode - Last Filed: 06/19/21 21:02> Patient Disposition: Home, Self-Care <MANASA Goode - Last Filed: 06/19/21 21:02> Instructions: Gastroenteritis (ED), Acute Nausea and Vomiting (ED), Acute Diarrhea (ED) <MANASA Goode Last Filed: 06/19/21 21:02> Additional Instructions: Take your medications as prescribed. If you were prescribed antibiotics today, it is important that you take your medication to their entirety, do not skip any doses, do not finish them early. Follow-up with your primary care provider this week. Return to the emergency department with new or worsening symptoms. In case of emergency call 911 Today COVID test was negative. However, due to patient's recent sick contacts I advised patient to quarantine for 5-7 days. Please wear a mask. Please practice social distancing. <MANASA Goode Last Filed: 06/19/21 21:02> Prescriptions: New azithromycin 250 mg tablet See Rx Instructions .ROUTE .COMPLEX Qty: 6 RF: 0 No Action cholecalciferol (vitamin D3) 25 mcg (1,000 unit) capsule 25 mcg PO DAILY 30 Days Qty: 30 RF: 11 zoledronic [id number] [Reclast] 5 mg/100 mL piggyback See Rx Instructions IV ONCE 1 Days Qty: 100 RF: 0 metoclopramide HCl 5 mg/5 mL solution 10 mg PO .TID and HS Qty: 600 RF: 5 simethicone [Gas Relief Extra Strength] 125 mg capsule 125 mg PO .QID Qty: 120 RF: 5 lansoprazole 30 mg tablet,disintegrat, delay rel 30 mg PO BID Qty: 60 RF: 5 hydrochlorothiazide 25 mg tablet 25 mg PO DAILY RF: 0 baclofen 10 mg tablet 10 mg PO TID RF: 0 clonazepam 0.5 mg tablet 0.5 mg PO BEDTIME RF: 0 simvastatin 40 mg tablet 40 mg PO DAILY RF: 0 fenofibrate 150 mg capsule 150 mg PO DAILY RF: 0 ketoconazole 2 % shampoo 2 appl topical DAILY RF: 0 ascorbic acid (vitamin C) 500 mg tablet 500 mg PO BID RF: 0 polyethylene glycol 3350 17 gram/dose powder 17 g PO DAILY RF: 0 gemfibrozil 600 mg tablet 600 mg PO BID RF: 0 glycerin (adult) Suppository 1 supp TN DAILY RF: 0 ondansetron HCl 4 mg tablet 4 mg PO .COMPLEX RF: 0 <MANASA Goode Last Filed: 06/19/21 21:02> Referrals: Physician,Unknown J [Primary Care Provider] - 2 days <MANASA Goode - Last Filed: 06/19/21 21:02> Stand Alone Forms: Work/School Release <MANASA Goode - Last Filed: 06/19/21 21:02>
[2021-06-19] MEDS: 0.9 % Sodium Chloride 1,000 ML 999 ML IV ×2 (20:17→21:24)
[2021-06-19 20:41] LABS: Influenza A PCR NEGATIVE (Negative); Influenza B PCR NEGATIVE (Negative); Resp Syncy Virus RNA Qual PCR POSITIVE (Negative); SARS COV2 PCR INHOUSE NEGATIVE (Negative)
[2021-06-19 20:48] LABS: D Dimer High Sensitivity 264 NG/ML
[2021-06-19] MEDS: ondansetron HCL 4 MG/2 ML VIAL IVPUSH (21:23)
[2021-06-19] MEDS: cefTRIAXone sodium 1 GM in 0.9 % Sodium Chloride 50 ML IV (21:23)
--- NOTE | 2021-06-19 21:24 | PC.NURSE ---
PT transferred to CT scan via wheelchair.
[2021-06-19] MEDS: iohexoL 350 MG/ML 100 ML INFUS..BTL 65 ML IV (21:38)
== END 2021-06-19 22:59 | disposition home or self-care (01) ==
PROVIDERS: Physician Assistant; Emergency Provider Emergency Medicine
DX: K52.9 Noninfective gastroenteritis and colitis, unspecified (principal); R07.89 Other chest pain; B97.4 Respiratory syncytial virus as the cause of diseases classified elsewhere; D64.9 Anemia, unspecified; I10 Essential (primary) hypertension; G80.9 Cerebral palsy, unspecified; Z20.822 Contact with and (suspected) exposure to COVID-19; Z99.3 Dependence on wheelchair
CPT/HCPCS: 0241U; 36415; 71045; 71275; 80048; 84484; 85025; 85379; 87635; 93005; 96361; 96365; 96375; 99284; J0696; J2405; Q9967

== ENCOUNTER → 2021-08-01 10:33 | Outpatient (BNVA) | payer OTHER, SELFPAY | PROVIDERS: PCP Student in an Organized Health Care Education/Training Program; Visit Provider Internal Medicine Gastroenterology | DX: K59.01 Slow transit constipation (principal); K30 Functional dyspepsia | CPT/HCPCS: 99212 ==

== ENCOUNTER 2021-08-08 10:06 | Outpatient (REF) | payer OTHER, SELFPAY ==
[2021-08-08 11:30] LABS: Albumin Level 4.2 g/dL (3.5-5.0); Calcium 9.5 mg/dL (8.4-10.2); Estimated Glomerular Filt Rate > 60
[2021-08-08 11:34] LABS: Vitamin D 25-OH Total 31.1 ng/mL (>30)
[2021-08-08 11:41] LABS: Phosphorus 2.5 mg/dL (2.7-4.5)
[2021-08-09 13:02] LABS: Calcium (PTHI) 9.3 mg/dL (8.6-10.3); PTHI 19 pg/mL (14-64)
[2021-08-09 14:26] LABS: Calcium, Ionized 4.9 mg/dL (4.8-5.6)
== END 2021-08-08 10:07 | disposition home or self-care (01) ==
LOC: HO.LAB 10:06
PROVIDERS: PCP Student in an Organized Health Care Education/Training Program; Visit Provider Internal Medicine
DX: E55.9 Vitamin D deficiency, unspecified (principal); E21.3 Hyperparathyroidism, unspecified
CPT/HCPCS: 36415; 82040; 82306; 82310; 82330; 82565; 83970; 84100

== ENCOUNTER → 2021-08-10 09:10 | Outpatient (BNVA) | payer OTHER, SELFPAY | PROVIDERS: PCP Student in an Organized Health Care Education/Training Program; Visit Provider Internal Medicine | DX: E21.3 Hyperparathyroidism, unspecified (principal); E55.9 Vitamin D deficiency, unspecified; M81.0 Age-related osteoporosis without current pathological fracture | CPT/HCPCS: Q3014 ==

== ENCOUNTER 2021-09-17 06:21 | Emergency (ER) | payer OTHER, SELFPAY ==
--- NOTE | ~2021-09-17 | XR_ITS ---
EXAMINATION: XR CHEST CLINICAL INFORMATION: Cough COMPARISON: CTA chest and chest x-ray 06/19/2021 TECHNIQUE: Frontal view of the chest was obtained. FINDINGS: Cardiac silhouette is at the upper limits of normal in size. Lungs are hypoinflated. There is no lobar consolidation. No pleural effusion or pneumothorax. XR/XR chest 1V IMPRESSION: No acute pulmonary pathology.
[2021-09-17 06:47] VITALS: BP 151/68; PULSE 92; RESP 18; TEMP 36.6; O2SAT 97; BMI 26.5
[2021-09-17 08:54] VITALS: BP 111/58; PULSE 82; RESP 16; TEMP 37.2; O2SAT 98
--- NOTE | 2021-09-17 09:09 | ED_ITS ---
HPI - URI/Sore Throat General Chief Complaint: Upper Respiratory Symptoms Stated Complaint: cough fever Time Seen by Provider: 09/17/21 08:38 Source: patient and family Mode of arrival: ambulatory Limitations: language barrier ([place]-speaking) History of Present Illness HPI Narrative: 45-year-old male who is [place]-speaking presenting to the ED with family member at bedside he has the significant past medical history for cerebral palsy is wheelchair-bound, hypoparathyroidism, GERD, hypertension and anemia presenting to the ED with complaints of 3 days of subjective fevers, chills, nasal congestion/rhinorrhea, sore throat, dry cough with chest congestion/shortness of breath. Patient is vaccinated to COVID and the flu. They deny any recent travel or sick contacts or any recent hospitalizations. They report that they gave him an albuterol updraft last night which helped for his cough/shortness of breath. They also have been giving him Robitussin. Family member reports that 2 days ago he was having some diarrhea which has resolved. They deny any actual measured fevers, dizziness, headaches, neck pain/stiffness, trouble swallowing, dyspnea on exertion, orthopnea, palpitations, chest pain, paresthesias, nausea/vomiting/constipation, abdominal pain, lower extremity edema or calf tenderness, rashes or any other symptoms complaints or concerns at this time. MD elicited complaint: fever, cough, sore throat, rhinorrhea and nasal congestion Onset (ago): day(s) (3) Consistency: constant and progressively worsening Severity: moderate Able to tolerate fluids by mouth: Yes Exacerbating factors: swallowing and deep breaths Relieving factors: nothing Associated symptoms: fever, chills, myalgias, rhinorrhea, nasal congestion, sore throat, cough, shortness of breath and diarrhea Treatments prior to arrival: none Related Data Home Medications Medication Instructions Recorded Confirmed baclofen 10 mg tablet 10 mg PO TID 04/21/20 08/10/21 clonazepam 0.5 mg tablet 0.5 mg PO BEDTIME PRN 04/21/20 08/10/21 fenofibrate 150 mg capsule 150 mg PO DAILY 04/21/20 08/10/21 simvastatin 40 mg tablet 40 mg PO DAILY 04/21/20 08/10/21 ascorbic acid (vitamin C) 500 mg 500 mg PO BID 06/03/20 08/10/21 tablet gemfibrozil 600 mg tablet 600 mg PO BID 06/03/20 08/10/21 glycerin (adult) 1 supp CO DAILY 06/03/20 08/10/21 ketoconazole 2 % shampoo 2 appl TOPICAL DAILY 06/03/20 08/10/21 polyethylene glycol 3350 17 17 g PO DAILY 06/03/20 08/10/21 gram/dose oral powder ondansetron HCl 4 mg tablet 4 mg PO .COMPLEX PRN tab 11/08/20 08/10/21 cholecalciferol (vitamin D3) 25 25 mcg PO DAILY 08/01/21 08/10/21 mcg (1,000 unit) tablet Previous Rx's Medication Instructions Recorded metoclopramide HCl 5 mg/5 mL oral 10 mg (10 mL) PO .TID and HS #600 02/09/21 solution ml lansoprazole 30 mg delayed 30 mg PO BID #60 tab 08/23/21 release,disintegrating tablet simethicone 125 mg capsule (Gas 125 mg PO .QID #120 cap 09/02/21 Relief Extra Strength) albuterol sulfate 0.63 mg/3 mL 0.63 mg (3 mL) INHALATION QID PRN 09/17/21 solution for nebulization #75 ml albuterol sulfate 90 mcg/actuation 1 inh INHALATION QID PRN #8.5 g 09/17/21 aerosol inhaler azithromycin 250 mg tablet See Rx Instructions .ROUTE 09/17/21 .COMPLEX #6 tab codeine 10 mg-guaifenesin 100 mg/5 5 ml PO Q6H PRN #120 ml 09/17/21 mL oral liquid (Guaifenesin AC) prednisone 20 mg tablet 40 mg PO DAILY 5 Days #10 tab 09/17/21 Allergies Allergy/AdvReac Type Severity Reaction Status Date / Time No Known Allergies Allergy Verified 08/10/21 11:19 [No Known Allergies*] Review of Systems Review of Systems: Constitutional : No Weight loss, + Fever, + Chills, No Night Sweats, + Fatigue, + Malaise ENT/Mouth : No Hearing loss, + Ear Pain, + Nasal Congestion, No Sinus Pain, No Hoarseness, + sore throat, + Rhinorrhea, No Swallowing Difficulty Eyes: No Eye Pain, No Swelling, No Redness, No Foreign Body, No Discharge, No Vision Changes Cardiovascular : No Chest Pain, + SOB, No Dyspnea on Exertion, No Orthopnea, No Edema, No Palpitations Respiratory : + Cough, No Sputum, No Wheezing, No Smoke Exposure Gastrointestinal : No Nausea, No Vomiting, No Diarrhea, No Constipation, No abdominal Pain, No Hematochezia, No Melena Genitourinary : no irregular bleeding, No Dysuria, No Urinary Frequency, No Hematuria, No Urinary Incontinence, No Urgency, No Flank Pain, No Urinary Flow Changes, No Hesitancy Musculoskeletal : No joint pain, + Myalgias, No Joint Swelling Skin : No Skin Lesions, No rash Neuro : No Weakness, No Numbness, No Paresthesias, No Loss of Consciousness, No Dizziness, No Headache Psych : No Anxiety/Panic, No Depression, No SI/HI/AH/VH, No Social Issues, Heme/Lymph: No Bruising, No Bleeding,No Lymphadenopathy Endocrine : No Polyuria, No Polydipsia, No Temperature Intolerance Yes all other systems are reviewed and are negative [facility] Past Medical History Attestation statement: The following information was validated with the patient. Medical History Abdominal bloating Cerebral palsy Constipation by delayed colonic transit Delayed gastric emptying GERD (gastroesophageal reflux disease) HTN (hypertension) Hypercalcemia Hyperparathyroidism Iron deficiency anemia Nausea Osteoporosis Vitamin D deficiency Surgical History History of esophagogastroduodenoscopy (EGD) Hx of cholecystectomy Hx of colonoscopy Hx of oral surgery S/P removal of parathyroid gland Family History Family History Father Emphysema of lung Liver disease Mother Scoliosis Hepatitis Phlebitis Lymphoma Sister Nephrolithiasis Diabetes Lymphoma Social History Social History Household Members: Family Housing: Apartment Alcohol intake: current Alcohol intake frequency: does not drink Patient Tobacco Use Status: Never used Tobacco Advance Directives: Yes Advance Directives Information Provided: Yes Advance Directives on File: No Physical Exam Vital Signs: Vital Signs: Last Vital Signs Temp 98.9 F 09/17/21 08:54 Pulse 82 09/17/21 08:54 Resp 16 09/17/21 08:54 BP 111/58 L 09/17/21 08:54 Pulse Ox 98 09/17/21 08:54 BMI result Body Mass Index 26.5 vital signs have been reviewed as normal and appeared to be correct. Blood pressure 151/68. Heart rate normal. Respiration rate normal. Temperature normal. Oxygen saturation normal. Appearance: Alert. Oriented X3. No acute distress. Head: Normal external exam. Normocephalic. Atraumatic. Eyes: PERRLA. EOMI. Conjunctiva and sclera normal. Eyelids normal. ENT: EAC normal. TM's Normal. Pharynx normal. Uvula midline. Moist mucous membranes. No lesions/ulcerations or masses noted on the tongue. Normal voice. No trismus noted. No drooling noted. No muffled voice noted. Neck: Normal inspection. Neck supple. FROM. No adenopathy. Thyroid Normal. No meningeal signs. No neck mass noted. CVS: Normal heart rate and rhythm. Heart sound normal. Pulses normal throughout. No murmurs/rales/gallops. Respiratory: No respiratory distress. Painless inspiration. Breath sounds normal. No wheezes/rales/rhonchi noted. Chest nontender. No crepitus is noted. No accessory muscle usage noted or decreased air movement noted. No signs of trauma. Abdomen: Soft and nontender. Bowel sounds normal in all 4 quadrants. No distention noted. No organomegaly noted. No visible injury noted. Back: No CVA tenderness. Full range of motion noted. Nontender. No signs of trauma. Patient neuro intact bilaterally and distally on all 4 extremities. Patient's reflexes intact bilaterally and distally on all 4 extremities. No rashes/lesion/induration/fluctuance or signs of infection noted. Skin: Skin warm and dry. Normal skin color. Normal skin turgor. No rashes/lesions/lacerations noted. Extremities: No lower extremity edema. No calf tenderness is noted. Extremities exhibit normal range of motion and nontender. Neuro: Oriented X 3. Patient at baseline for motor no new deficits. No sensory deficit. Reflexes normal. No focal neuro deficits noted. CN's II-XII intact bilaterally? Vascular: + radial pulses/+ 2 distal pedal pulses/+2 dorsalis pedis b/l. Normal cap refill. No cyanosis noted to upper extremity nails and lower extremity toes nails. Course Course Course Narrative: 9am - 45-year-old male who is [place]-speaking presenting to the ED with family member at bedside he has the significant past medical history for cerebral palsy is wheelchair-bound, hypoparathyroidism, GERD, hypertension and anemia presenting to the ED with complaints of 3 days of subjective fevers, chills, nasal congestion/rhinorrhea, sore throat, dry cough with chest congestion/shortness of breath. Patient is vaccinated to COVID and the flu. They deny any recent travel or sick contacts or any recent hospitalizations. They report that they gave him an albuterol updraft last night which helped for his cough/shortness of breath. They also have been giving him Robitussin. Family member reports that 2 days ago he was having some diarrhea which has resolved. Plan: COVID/flu/strep swab. Chest x-ray and re-evaluate. Reevaluation(s) Reevaluation #1: - patient negative for COVID/flu/strep. Chest x-ray within normal limits. Therefore I discussed with the patient the family at bedside that most likely he has a bronchitis will DC home with antibiotics and symptomatic treatment instructions return if any new or worsening symptoms a follow-up with primary care provider and continue taking his previously prescribed medications as previously prescribed. Patient and family at bedside understand agree this plan. Time: 09:53 MDM - URI/Sore Throat Medical Records Attestation: I reviewed the patient's medical records. Lab Data Attestation: I reviewed the patient's lab results. Labs: Lab Results 09/17/21 09/17/21 09/17/21 Range/Units 09:03 09:03 09:14 COVID-19 (JAIME) Negative (Negative) COVID-19 Clin Com See Note Influenza Type A (SUDEEP) Negative (Negative) Influenza Type B (SUDEEP) Negative (Negative) Influenza A & B Note See Note S. pyogenes GrpA SUDEEP Negative (Negative) Imaging Data Chest x-ray: Attestation: I personally reviewed and interpreted this imaging study as follows: Radiologist's impression: FINDINGS: Cardiac silhouette is at the upper limits of normal in size. Lungs are hypoinflated. There is no lobar consolidation. No pleural effusion or pneumothorax. XR/XR chest 1V IMPRESSION: No acute pulmonary pathology. Discharge Plan Discharge Clinical Impression: Bronchitis Patient Disposition: Home, Self-Care Instructions: Acute Bronchitis (ED) Prescriptions: New albuterol sulfate 0.63 mg/3 mL solution for nebulization 0.63 mg inhalation QID PRN (Reason: shortness of breath or wheezing) Qty: 75 0RF azithromycin 250 mg tablet See Rx Instructions .ROUTE .COMPLEX Qty: 6 0RF Rx Instructions: take 500 mg today (day 1), then 250 mg for 4 days (days 2-5) codeine-guaifenesin [Guaifenesin AC] 10-100 mg/5 mL liquid 5 ml PO Q6H PRN (Reason: cold symptoms) Qty: 120 0RF albuterol sulfate 90 mcg/actuation HFA aerosol inhaler 1 inh inhalation QID PRN (Reason: shortness of breath or wheezing) Qty: 8.5 0RF prednisone 20 mg tablet 40 mg PO DAILY 5 Days Qty: 10 0RF No Action metoclopramide HCl 5 mg/5 mL solution 10 mg PO .TID and HS Qty: 600 5RF lansoprazole 30 mg tablet,disintegrat, delay rel 30 mg PO BID Qty: 60 5RF simethicone [Gas Relief Extra Strength] 125 mg capsule 125 mg PO .QID Qty: 120 5RF baclofen 10 mg tablet 10 mg PO TID 0RF clonazepam 0.5 mg tablet 0.5 mg PO BEDTIME PRN (Reason: Insomnia) 0RF Rx Instructions: administer 30 minutes before bedtime simvastatin 40 mg tablet 40 mg PO DAILY 0RF fenofibrate 150 mg capsule 150 mg PO DAILY 0RF ketoconazole 2 % shampoo 2 appl topical DAILY 0RF ascorbic acid (vitamin C) 500 mg tablet 500 mg PO BID 0RF polyethylene glycol 3350 17 gram/dose powder 17 g PO DAILY 0RF gemfibrozil 600 mg tablet 600 mg PO BID 0RF glycerin (adult) Suppository 1 supp CO DAILY 0RF ondansetron HCl 4 mg tablet 4 mg PO .COMPLEX PRN (Reason: Nausea) 0RF Rx Instructions: 4 mg PO; cholecalciferol (vitamin D3) 25 mcg (1,000 unit) tablet 25 mcg PO DAILY 0RF Referrals: Nicolle Pretty MD [Primary Care Provider] - 2 days Print Language: [place]
[2021-09-17 09:28] LABS: COVID-19 Test Negative (Negative); IDNOW Serial# 16C4AD1C; Influenza A Negative (Negative); Influenza B2 Negative (Negative)
[2021-09-17 09:37] LABS: Strep A Nucleic Acid Negative (Negative)
== END 2021-09-17 10:13 | disposition home or self-care (01) ==
PROVIDERS: Physician Assistant Medical; Emergency Provider Emergency Medicine; PCP Student in an Organized Health Care Education/Training Program
DX: J40 Bronchitis, not specified as acute or chronic (principal); Z20.822 Contact with and (suspected) exposure to COVID-19; I10 Essential (primary) hypertension; G80.9 Cerebral palsy, unspecified; Z79.02 Long term (current) use of antithrombotics/antiplatelets; Z79.899 Other long term (current) drug therapy
CPT/HCPCS: 36415; 71045; 87502; 87635; 87651; 99283; 99285

== ENCOUNTER 2022-02-07 09:58 | Outpatient (REF) | payer OTHER, SELFPAY ==
[2022-02-07 11:26] LABS: Alanine Aminotransferase 32 U/L (0-40); Albumin Level 4.3 g/dL (3.5-5.0); Alkaline Phosphatase 87 U/L (39-117); Anion Gap 14 (12-20); Aspartate Amino Transferase 32 U/L (5-37); Bilirubin Total 0.3 mg/dL (0.0-1.0); Blood Urea Nitrogen 14 mg/dL (9-16); Calcium 9.2 mg/dL (8.4-10.2); Carbon Dioxide 25 mmol/L (22-29); Chloride 106 mmol/L (96-108); Estimated Glomerular Filt Rate > 60; Glucose Random 97 mg/dL (60-115); Phosphorus 3.2 mg/dL (2.7-4.5); Potassium 4.3 mmol/L (3.3-5.1); Sodium 141 mmol/L (135-145); Total Protein 7.8 g/dL (6.5-8.0)
[2022-02-07 11:36] LABS: Vitamin D 25-OH Total 38.9 ng/mL (>30)
[2022-02-09 16:13] LABS: Calcium (PTHI) 9.4 mg/dL (8.6-10.3); PTHI 27 pg/mL (16-77)
== END 2022-02-07 09:59 | disposition home or self-care (01) ==
LOC: HO.LAB 09:58
PROVIDERS: PCP Student in an Organized Health Care Education/Training Program; Visit Provider Internal Medicine
DX: E55.9 Vitamin D deficiency, unspecified (principal); E21.3 Hyperparathyroidism, unspecified
CPT/HCPCS: 36415; 80053; 82306; 83970; 84100

== ENCOUNTER → 2022-02-08 08:59 | Outpatient (BNVA) | payer OTHER, SELFPAY | PROVIDERS: PCP Student in an Organized Health Care Education/Training Program; Visit Provider Internal Medicine | DX: E21.3 Hyperparathyroidism, unspecified (principal); E55.9 Vitamin D deficiency, unspecified; M81.0 Age-related osteoporosis without current pathological fracture | CPT/HCPCS: Q3014 ==

== ENCOUNTER 2022-03-10 10:35 | Outpatient (REF) | payer OTHER, SELFPAY ==
[2022-03-10 12:18] LABS: Alanine Aminotransferase 41 U/L (0-40); Albumin Level 4.3 g/dL (3.5-5.0); Alkaline Phosphatase 86 U/L (39-117); Anion Gap 18 (12-20); Aspartate Amino Transferase 41 U/L (5-37); Bilirubin Total 0.2 mg/dL (0.0-1.0); Blood Urea Nitrogen 13 mg/dL (9-16); Calcium 9.5 mg/dL (8.4-10.2); Carbon Dioxide 20 mmol/L (22-29); Chloride 106 mmol/L (96-108); Estimated Glomerular Filt Rate > 60; Glucose Random 86 mg/dL (60-115); Phosphorus 2.9 mg/dL (2.7-4.5); Potassium 4.4 mmol/L (3.3-5.1); Sodium 140 mmol/L (135-145); Total Protein 8.1 g/dL (6.5-8.0)
[2022-03-10 12:38] LABS: Free T4 (Free Thyroxine) 0.96 ng/dL (0.71-1.85); Thyroid Stimulating Hormone 1.27 uIU/mL (0.32-4.0)
[2022-03-13 17:25] LABS: Calcium (PTHI) 9.6 mg/dL (8.6-10.3); PTHI 16 pg/mL (16-77)
== END 2022-03-10 10:36 | disposition home or self-care (01) ==
LOC: HO.LAB 10:35
PROVIDERS: PCP Student in an Organized Health Care Education/Training Program; Visit Provider Internal Medicine
DX: E21.3 Hyperparathyroidism, unspecified (principal)
CPT/HCPCS: 36415; 80053; 83970; 84100; 84439; 84443

== ENCOUNTER 2022-05-23 12:03 | Outpatient (REF) | payer OTHER, SELFPAY ==
[2022-05-23 14:24] LABS: Alanine Aminotransferase 29 U/L (0-40); Albumin Level 4.4 g/dL (3.5-5.0); Alkaline Phosphatase 84 U/L (39-117); Anion Gap 10 (12-20); Aspartate Amino Transferase 29 U/L (5-37); Bilirubin Direct < 0.2 mg/dL (0.0-0.5); Bilirubin Total 0.2 mg/dL (0.0-1.0); Blood Urea Nitrogen 11 mg/dL (9-16); Calcium 8.9 mg/dL (8.4-10.2); Carbon Dioxide 26 mmol/L (22-29); Chloride 109 mmol/L (96-108); Cholesterol 137 mg/dL; Estimated Glomerular Filt Rate > 60; Glucose Random 90 mg/dL (60-115); HDL Cholesterol 31 mg/dL; LDL Cholesterol Calculated 48 mg/dl; Potassium 4.4 mmol/L (3.3-5.1); Sodium 141 mmol/L (135-145); Total Protein 7.7 g/dL (6.5-8.0); Triglycerides 293 mg/dL
[2022-05-23 14:41] LABS: Alanine Aminotransferase 30 U/L (0-40); Albumin Level 4.4 g/dL (3.5-5.0); Alkaline Phosphatase 86 U/L (39-117); Anion Gap 11 (12-20); Aspartate Amino Transferase 35 U/L (5-37); Bilirubin Total 0.2 mg/dL (0.0-1.0); Blood Urea Nitrogen 11 mg/dL (9-16); Carbon Dioxide 25 mmol/L (22-29); Chloride 108 mmol/L (96-108); Estimated Glomerular Filt Rate > 60; Glucose Random 88 mg/dL (60-115); Phosphorus 2.4 mg/dL (2.7-4.5); Potassium 4.4 mmol/L (3.3-5.1); Sodium 140 mmol/L (135-145); Total Protein 7.7 g/dL (6.5-8.0); Vitamin D 25-OH Total 41.5 ng/mL (>30)
[2022-05-25 14:14] LABS: Calcium (PTHI) 9.2 mg/dL (8.6-10.3); PTHI 34 pg/mL (16-77)
== END 2022-05-23 12:04 | disposition home or self-care (01) ==
LOC: HO.LAB 12:03
PROVIDERS: Internal Medicine; PCP Student in an Organized Health Care Education/Training Program; Visit Provider Student in an Organized Health Care Education/Training Program
DX: E61.1 Iron deficiency (principal); E78.00 Pure hypercholesterolemia, unspecified; I10 Essential (primary) hypertension; E55.9 Vitamin D deficiency, unspecified; E21.3 Hyperparathyroidism, unspecified
CPT/HCPCS: 36415; 80048; 80053; 80061; 80076; 82248; 82306; 83970; 84100

== ENCOUNTER 2022-06-08 08:59 | Outpatient (REF) | payer OTHER, SELFPAY | END 2022-06-08 09:00 | disposition home or self-care (01) | LOC: HO.MDS 08:59 | PROVIDERS: Visit Provider Internal Medicine Medical Oncology | DX: D50.9 Iron deficiency anemia, unspecified (principal) | CPT/HCPCS: 96365; J1756 ==

== ENCOUNTER 2022-06-14 23:14 | Inpatient (IN) | payer OTHER, SELFPAY ==
--- NOTE | ~2022-06-14 | XR_ITS ---
EXAMINATION: XR CHEST CLINICAL INFORMATION: Cough and fever COMPARISON: 09/17/2021 TECHNIQUE: Frontal view of the chest was obtained. FINDINGS: Normal symmetric lung volumes. No parenchymal consolidation. No pleural effusion. No pneumothorax. Cardiomediastinal silhouette and pulmonary vascularity are within normal limits. No acute osseous abnormalities. XR/XR chest 1V IMPRESSION: No acute findings
[2022-06-14 23:20] VITALS: BP 126/86; PULSE 138; RESP 20; TEMP 36.4; O2SAT 97; BMI 26.5
--- NOTE | 2022-06-14 23:38 | ECG_ITS ---
Test Reason : TACHYCARDIA Blood Pressure : / mmHG Vent. Rate : 137 BPM Atrial Rate : 137 BPM P-R Int : 118 ms QRS Dur : 126 ms QT Int : 374 ms P-R-T Axes : 007 015 -01 degrees QTc Int : 564 ms Sinus tachycardia Right bundle branch block Cannot rule out Inferior infarct , age undetermined Abnormal ECG When compared with ECG of 19-JUN-2021 18:03, Vent. rate has increased BY 65 BPM Right bundle branch block has replaced Incomplete right bundle branch block Minimal criteria for Inferior infarct are now Present Referred By: Generic ED Physician Electronically Signed By:EDGARDO HOSKINS MD
--- NOTE | 2022-06-14 23:52 | ED_ITS ---
HPI - General Adult General Chief complaint: General Medical Stated complaint: ?Vomiting Blood/Weakness/Cough Time Seen by Provider: 06/14/22 23:40 Source: patient and family (Sister) Mode of arrival: ambulatory Limitations: no limitations History of Present Illness HPI narrative: 46-year-old male with past medical history significant for cerebral palsy patient is wheelchair/bedbound, hypertension, anemia the patient require iron infusions. Sister at the bedside concern of coughing and patient yesterday had vomiting black vomitus thinks is blood. No lower GI bleeding, another family member at home who is sick. Patient on arrival is tachycardic and have fever. Patient declined CP, no abdominal pain, no diarrhea. Related Data Home Medications Medication Instructions Recorded Confirmed baclofen 10 mg tablet 10 mg PO TID 04/21/20 05/23/22 clonazepam 0.5 mg tablet 0.5 mg PO BEDTIME PRN Insomnia 04/21/20 05/23/22 fenofibrate 150 mg capsule 150 mg PO DAILY 04/21/20 05/23/22 simvastatin 40 mg tablet 40 mg PO DAILY 04/21/20 05/23/22 ascorbic acid (vitamin C) 500 mg 500 mg PO BID 06/03/20 05/23/22 tablet gemfibrozil 600 mg tablet 600 mg PO BID 06/03/20 05/23/22 glycerin (adult) 1 supp SD DAILY 06/03/20 05/23/22 ketoconazole 2 % shampoo 2 appl topical DAILY 06/03/20 05/23/22 cholecalciferol (vitamin D3) 25 25 mcg PO DAILY 08/01/21 05/23/22 mcg (1,000 unit) tablet Previous Rx's Medication Instructions Recorded albuterol sulfate 0.63 mg/3 mL 0.63 mg (3 mL) inhalation QID PRN 09/17/21 solution for nebulization shortness of breath or wheezing #75 mL albuterol sulfate 90 mcg/actuation 1 inh inhalation QID PRN shortness 09/17/21 aerosol inhaler of breath or wheezing #8.5 grams metoclopramide HCl 5 mg/5 mL oral 10 mg (10 mL) PO .TID and HS #600 11/23/21 solution mL calcium carb,cit ER 600 mg-vit D3 1 tab PO BID 30 days #60 tabs 03/15/22 12.5 mcg (500 unit) tablet,ext.rel (Citracal-D3 Slow Release) lansoprazole 30 mg delayed 30 mg PO BID #60 tabs 04/14/22 release,disintegrating tablet Allergies Allergy/AdvReac Type Severity Reaction Status Date / Time No Known Allergies Allergy Verified 05/23/22 13:07 [No Known Allergies*] Review of Systems Review of Systems: All other systems are reviewed and are negative Constitutional: Reports as per HPI and Reports no additional constitutional complaints Eyes: Reports as per HPI and Reports no additional eye complaints Reports system reviewed and no additional complaints, except as documented Cardiovascular: Reports as per HPI and Reports no additional cardiovascular complaints Respiratory: Reports as per HPI and Reports no additional respiratory complaints Gastrointestinal: Reports as per HPI and Reports no additional gastrointestinal complaints Genitourinary: Reports no additional female genitourinary complaints Musculoskeletal: Reports no additional musculoskeletal complaints Skin/Breast: Reports system reviewed and no additional complaints, except as d ocu Psychiatric: Reports no additional psychiatric complaints Endocrine: Reports no additional endocrine complaints Hematologic/Lymphatic: Reports no additional hematologic/lymphatic complaints Allergic/Immunologic: Reports no additional allergic/immunologic complaints Reports system reviewed and no additional complaints, except as documented and Reports Abnormal speech present [facility] Past Medical History Medical History Abdominal bloating Cerebral palsy Constipation by delayed colonic transit Delayed gastric emptying GERD (gastroesophageal reflux disease) HTN (hypertension) Hypercalcemia Hyperparathyroidism Iron deficiency anemia Nausea Osteoporosis Vitamin D deficiency Surgical History History of esophagogastroduodenoscopy (EGD) Hx of cholecystectomy Hx of colonoscopy Hx of oral surgery S/P removal of parathyroid gland Family History Family History Father Emphysema of lung Liver disease Mother Scoliosis Hepatitis Phlebitis Lymphoma Sister Nephrolithiasis Diabetes Lymphoma Social History Social History Household Members: Family Housing: Apartment Are you a primary care support representative to a significant other at home: No Do you presently have visiting nurse or other home services: No Alcohol intake: current Alcohol intake frequency: does not drink Patient Tobacco Use Status: Never used Tobacco Advance Directives: No Advance Directives Information Provided: Yes service: No Current occupational status: disabled Physical Exam ED Vital Signs: Vital Signs - 24 hr 06/14/22 23:20 06/14/22 23:55 06/15/22 01:43 Temperature 97.6 F 101.5 F H 98.6 F Pulse Rate 138 H 137 H 121 H Respiratory Rate 20 21 H 36 H Blood Pressure 126/86 113/74 127/69 Pulse Oximetry 97 100 98 Oxygen Delivery Method Room Air Room Air Room Air BMI result Body Mass Index 26.5 Vital signs have been reviewed as appeared to be correct. Blood pressure normal. Heart rate elevated. Respiration rate normal. Temperature elevated. Oxygen saturation normal. Appearance: Alert. No acute distress. Head: Normal external exam. Normocephalic. Atraumatic. No Cedeno signs noted. No raccoon eyes noted Eyes: PERRLA. EOMI. Conjunctiva and sclera normal. Eyelids normal. ENT: TM's Normal. Pharynx normal. Uvula midline. Moist mucous membranes. No trismus noted. No drooling noted. No muffled voice noted. Neck: Normal inspection. Neck supple. FROM. No adenopathy. Thyroid Normal. No meningeal signs. No neck mass noted. CVS: Normal heart rate and rhythm. Heart sound normal. No murmurs noted. Pulses normal throughout. Respiratory: No respiratory distress. Painless inspiration. Breath sounds normal. No wheezes/rales/rhonchi noted. Chest nontender. No accessory muscle usage noted or decreased air movement noted. Abdomen: Soft and nontender. Bowel sounds normal in all 4 quadrants. No distention noted. No organomegaly noted. No visible injury noted. Rectal exam: Brown stool trace positive for blood, no melena. Back: No CVA tenderness. Full range of motion noted. Skin: Skin warm and dry. Normal skin color. Normal skin turgor. No rashes/lesions/lacerations noted. Extremities: No lower extremity edema. Extremities exhibit normal range of motion. Extremities nontender. Course Course Course Narrative: 46-year-old male with history of mild cerebral palsy. 1. Main complaint of hematemesis had 1 episode yesterday but nothing today in the emergency department. Patient was given Protonix in the ED. 2. Patient with chronic anemia with subtle drop of his H&H will transfuse 2 units of blood. 3. Patient meet criteria for search but no actual bacterial infection as a source however patient is positive for influenza a which will exclude the patient from the sepsis measures. 4. Patient initially was tachycardic with high fever which is improved with IV hydration and Tylenol. 5. Admit the patient for monitoring and further evaluation. Medications Administered Discontinued Medications Generic Name Dose Route Start Last Admin Trade Name Freq PRN Reason Stop Dose Admin Acetaminophen 650 mg 06/14/22 23:50 06/15/22 00:17 Acetaminophen 325 Mg Tablet PO 06/14/22 23:51 650 mg ONCE ONE Administration Sodium Chloride 1,000 mls @ 999 mls/hr 06/14/22 23:50 06/15/22 00:17 Ns IV 06/15/22 00:50 999 mls/hr .Q1H1M ONE Administration Ceftriaxone Sodium 1 gm/ 50 mls @ 100 mls/hr 06/14/22 23:50 06/15/22 00:46 Sodium Chloride IV 06/15/22 00:19 Infused ONCE ONE Infusion Ondansetron HCl 4 mg 06/14/22 23:55 06/15/22 00:17 Ondansetron Hcl 4 Mg/2 Ml Vial IVPUSH 06/14/22 23:56 4 mg ONCE ONE Administration Pantoprazole Sodium 40 mg 06/14/22 23:55 06/15/22 00:17 Pantoprazole Sodium 40 Mg/10 Ml Vial IVPUSH 06/14/22 23:56 40 mg ONCE ONE Administration Medical Decision Making Differential Diagnosis Differential Diagnoses: The differential diagnosis associated with the presentation includes (Sepsis/septic shock/pneumonia/viral infection/GI bleed.) Admission/Observation Consideration of admission/observation: Escalation of care including admission/observation considered Consult Healthcare Provider Management of the patient was discussed with: Hospitalist Lab Data MDM Lab Attestation statement: I reviewed the patient's lab results. Result Diagrams: 06/15/22 00:08 06/15/22 00:08 Labs: Lab Results 06/15/22 06/15/22 06/15/22 Range/Units 00:08 00:08 00:08 WBC 16.1 H (4.8-10.8) X10*3/uL RBC 3.78 L (4.60-5.80) X10*6/uL Hgb 7.8 L (14.0-18.0) g/dl Hct 26.7 L (42.0-52.0) % MCV 70.6 L (80.0-98.0) fL MCH 20.6 L (27.0-33.0) pg MCHC 29.2 L (31.0-36.0) g/dl RDW 20.6 H (11.0-16.0) % Plt Count 354 (160-400) X10*3/uL MPV 10.4 (9.4-12.4) fL Absolute Nucleated RBC 0.090 H (0.0-0.012) X10*3/uL Nucleated RBC % (auto) 0.6 H (0.0-0.2) /100WBC Sodium 139 (135-145) mmol/L Potassium 3.9 (3.3-5.1) mmol/L Chloride 101 (96-108) mmol/L Carbon Dioxide 25 (22-29) mmol/L Anion Gap 17 (12-20) BUN 23 H D (9-16) mg/dL Creatinine 0.84 (0.5-1.4) mg/dL Estim Creat Clear Calc 89.3 Estimated GFR > 60 Random Glucose 134 H D (60-115) mg/dL Lactic Acid (0.5-2.0) mmol/L Calcium 9.1 (8.4-10.2) mg/dL Total Bilirubin 0.2 (0.0-1.0) mg/dL AST 46 H (5-37) U/L ALT 40 (0-40) U/L Alkaline Phosphatase 70 (39-117) U/L Troponin I High Sens 18.8 D (<3.5-35.0) ng/L B-Natriuretic Peptide (<100) pg/mL Total Protein 7.5 (6.5-8.0) g/dL Albumin 4.2 (3.5-5.0) g/dL Lipase (8-78) U/L Stool Occult Blood (NEGATIVE) Influenza Type A (PCR) (Negative) Influenza Type B (PCR) (Negative) RSV RNA Qual (PCR) (Negative) SARS-CoV-2 RNA (RT-PCR) (Negative) 06/15/22 06/15/22 06/15/22 Range/Units 00:08 00:08 00:08 WBC (4.8-10.8) X10*3/uL RBC (4.60-5.80) X10*6/uL Hgb (14.0-18.0) g/dl Hct (42.0-52.0) % MCV (80.0-98.0) fL MCH (27.0-33.0) pg MCHC (31.0-36.0) g/dl RDW (11.0-16.0) % Plt Count (160-400) X10*3/uL MPV (9.4-12.4) fL Absolute Nucleated RBC (0.0-0.012) X10*3/uL Nucleated RBC % (auto) (0.0-0.2) /100WBC Sodium (135-145) mmol/L Potassium (3.3-5.1) mmol/L Chloride (96-108) mmol/L Carbon Dioxide (22-29) mmol/L Anion Gap (12-20) BUN (9-16) mg/dL Creatinine (0.5-1.4) mg/dL Estim Creat Clear Calc Estimated GFR Random Glucose (60-115) mg/dL Lactic Acid 3.1 H* (0.5-2.0) mmol/L Calcium (8.4-10.2) mg/dL Total Bilirubin (0.0-1.0) mg/dL AST (5-37) U/L ALT (0-40) U/L Alkaline Phosphatase (39-117) U/L Troponin I High Sens (<3.5-35.0) ng/L B-Natriuretic Peptide 16 (<100) pg/mL Total Protein (6.5-8.0) g/dL Albumin (3.5-5.0) g/dL Lipase 27 (8-78) U/L Stool Occult Blood (NEGATIVE) Influenza Type A (PCR) (Negative) Influenza Type B (PCR) (Negative) RSV RNA Qual (PCR) (Negative) SARS-CoV-2 RNA (RT-PCR) (Negative) 06/15/22 06/15/22 Range/Units 00:10 00:28 WBC (4.8-10.8) X10*3/uL RBC (4.60-5.80) X10*6/uL Hgb (14.0-18.0) g/dl Hct (42.0-52.0) % MCV (80.0-98.0) fL MCH (27.0-33.0) pg MCHC (31.0-36.0) g/dl RDW (11.0-16.0) % Plt Count (160-400) X10*3/uL MPV (9.4-12.4) fL Absolute Nucleated RBC (0.0-0.012) X10*3/uL Nucleated RBC % (auto) (0.0-0.2) /100WBC Sodium (135-145) mmol/L Potassium (3.3-5.1) mmol/L Chloride (96-108) mmol/L Carbon Dioxide (22-29) mmol/L Anion Gap (12-20) BUN (9-16) mg/dL Creatinine (0.5-1.4) mg/dL Estim Creat Clear Calc Estimated GFR Random Glucose (60-115) mg/dL Lactic Acid (0.5-2.0) mmol/L Calcium (8.4-10.2) mg/dL Total Bilirubin (0.0-1.0) mg/dL AST (5-37) U/L ALT (0-40) U/L Alkaline Phosphatase (39-117) U/L Troponin I High Sens (<3.5-35.0) ng/L B-Natriuretic Peptide (<100) pg/mL Total Protein (6.5-8.0) g/dL Albumin (3.5-5.0) g/dL Lipase (8-78) U/L Stool Occult Blood POSITIVE (NEGATIVE) Influenza Type A (PCR) POSITIVE A (Negative) Influenza Type B (PCR) NEGATIVE (Negative) RSV RNA Qual (PCR) NEGATIVE (Negative) SARS-CoV-2 RNA (RT-PCR) NEGATIVE (Negative) Independent Interpretation I performed an independent interpretation of an: Plain X-Ray (No acute pathology.) Radiology Impression Discussion of test interpretation with radiology: I have reviewed the radiologist's reading. Discharge Plan Discharge Clinical Impression: Influenza A, Anemia, Hematemesis, Acidosis, lactic Patient Disposition: Admitted As Inpatient
[2022-06-14 23:55] VITALS: BP 113/74; PULSE 137; RESP 21; TEMP 38.6; O2SAT 100
[2022-06-15] VITALS (14 sets, daily range): BP systolic 108–135; BP diastolic 50–83; PULSE 87–121; RESP 15–36; TEMP 36.8–37.6; O2SAT 94–100
--- OUTSIDE RECORDS SUMMARY | 2022-06-15 00:15 | XMS_ITS | Continuity of Care Document ---
:1975 Author Organization [address] [place] [phone]- Care Team Providers Name Role Phone Nicolle Pretty MD Primary Care Physician [id number] Date(s): 10/25/20 - 11/01/[address] [place] [phone]- Attending Physician: Jersey Rodríguez MD Referring Physician: Nguyen Mir MD Allergies, Adverse Reactions, Alerts Substance Reaction Severity Status NKA Active Medications baclofen 10 mg oral tablet 10 mg, 1, tablet, By Mouth, 3 times a day, Refills 0, Maintenance, 07/20/16 14:00:21 Start Date: 07/20/16 Status: Orderedcholecalciferol 1000 intl units oral tablet 1 tablet = 1,000 International_Units, By Mouth, Daily, # 30 tablet, 0 Refills, Maintenance, 07/08/2112:46:00 EST, Tablet, Partial fill upon patient request if the prescription is for a schedule II opioid drug. Start Date: 07/08/20 Status: Orderedfenofibrate 150 mg oral capsule 1 capsule = 150 mg, By Mouth, Daily, # 90 capsule, 0 Refills, Maintenance, 07/08/20 13:47:00 EST, Capsule, Partial fill upon patient request if the prescription is for a schedule II opioid drug. Start Date: 07/08/20 Status: OrderedFlonase 50 mcg/inh nasal spray 1 sprays, Daily at bedtime, PRN Dry Nasal Passages, 0 Refills, Maintenance, 07/20/16 14:02:37 EST Start Date: 07/20/16 Status: Orderedhydrochlorothiazide 25 mg oral tablet 25 mg, 1, tablet, By Mouth, Daily, # 30 tablet, Refills 0, Maintenance, 09/30/20 12:55:00 EDT, Partial fill upon patient request if the prescription is for a schedule II opioid drug. Start Date: 09/30/20 Status: Orderedketoconazole 2% topical cream 1 application, Topically, Daily, PRN Other, to affected area on head, # 30 Gm, 0 Refills, Maintenance, 07/08/20 13:47:00 EST, Cream, Partial fill upon patient request if the prescription is for a schedule II opioid drug. Start Date: 07/08/20 Status: OrderedKlonoPIN 0.5 mg oral tablet 1 tablet = 0.5 mg, By Mouth, Daily at bedtime, PRN Sleep, 0 Refills, Maintenance, 07/20/16 14:01:39 EST Start Date: 07/20/16 Status: OrderedLopid 600 mg oral tablet 600 mg, 1, tablet, By Mouth, 2 times a day, Refills 0, Maintenance, 07/20/16 14:01:23 Start Date: 07/20/16 Status: Orderedmetoclopramide 5 mg oral tablet 1 tablet = 5 mg, By Mouth, 4 times a day, # 120 tablet, 0 Refills, Maintenance, 07/08/20 13:48:00 EST, Tablet, Partial fill upon patient request if the prescription is for a schedule II opioid drug. Start Date: 07/08/20 Status: Orderedondansetron 4 mg oral tablet 1 tablet = 4 mg, By Mouth, Every 8 hours, PRN Nausea, # 9 tablet, 0 Refills, Maintenance, 07/08/20 13:48:00 EST, Tablet, Partial fill upon patient request if the prescription is for a schedule II opioid drug. Start Date: 07/08/20 Stop Date: 07/11/20 Status: OrderedPrevacid 30 mg oral enteric coated capsule 1 capsule = 30 mg, By Mouth, 2 times a day, 0 Refills, Maintenance, 07/20/16 14:01:12 EST Start Date: 07/20/16 Status: Orderedsimethicone 125 mg oral capsule 1 capsule = 125 mg, By Mouth, 4 times a day, PRN Gas, # 30 capsule, 0 Refills, Maintenance, 07/08/2112:48:00 EST, Capsule, Partial fill upon patient request if the prescription is for a schedule II opioid drug. Start Date: 07/08/20 Status: Orderedsimvastatin 40 mg oral tablet 40 mg, 1, tablet, By Mouth, Daily, Refills 0, Maintenance, 07/20/16 14:00:33 EST Start Date: 07/20/16 Status: OrderedVitamin C 500 mg oral tablet 1 tablet = 500 mg, By Mouth, 2 times a day, 0 Refills, Maintenance, 07/20/16 13:59:54 EST Start Date: 07/20/16 Status: Orderedzoledronic acid 5 mg/100 mL intravenous solution = 5 mg, IV Infusion, Once, 0 Refills, Maintenance, 07/08/20 13:49:00 EST, Partial fill upon patient request if the prescription is for a schedule II opioid drug. Start Date: 07/08/20 Status: Ordered Vital Signs Most recent to oldest [Reference Range]: 1 Height 160 cm (10/25/20 2:22 PM) Pulse Rate [55-90 bpm] 67 bpm (10/25/20 2:22 PM) Blood Pressure [90-138/55-84 mm Hg] 129/80 mm Hg (10/25/20 2:22 PM) Respiratory Rate [16-30 br/min] 16 br/min (10/25/20 2:22 PM) Temperature [96.8-100.4 DegF] 98.9 DegF (10/25/20 2:22 PM) Blood pressure sites Arm, right (10/25/20 2:22 PM) Temperature Route Temporal (10/25/20 2: PM)
--- OUTSIDE RECORDS SUMMARY | 2022-06-15 00:15 | XMS_ITS | Continuity of Care Document ---
:1975 Author Organization [address] [place] [phone]- Care Team Providers Name Role Phone Nicolle Pretty MD Primary Care Physician [facility] Date(s): 08/23/20 - 08/30/[address] [place] [phone]- Encounter Diagnosis Primary hyperparathyroidism (Discharge Diagnosis) - 08/23/20 Postop check (Discharge Diagnosis) - 08/23/20 Attending Physician: Jan Varma Referring Physician: Nicolle Pretty MD Allergies, Adverse Reactions, Alerts Substance Reaction [...] 07/20/16 14:02:37 EST Start Date: 07/20/16 Status: Orderedketoconazole 2% topical cream 1 application, [...] 07/20/16 14:01:12 EST Start Date: 07/20/16 Status: Orderedserum albumin and calcium level serum albumin and calcium level, See Instructions, # 1 each, Refills 0, Tot. Refills 0, Maintenance,please obtain one week after surgery, 08/09/20 12:15:00 EST, Supply Start Date: 08/09/20 Status: Orderedsimethicone 125 mg oral capsule 1 [...] opioid drug. Start Date: 07/08/20 Status: Ordered Problem List Diagnosis Diagnosis Type Effective Health Clinical Informant Dates Status Service Primary Discharge 08/23/20 hyperparathyroidism Diagnosis Postop check Discharge 08/23/20 Diagnosis
--- OUTSIDE RECORDS SUMMARY | 2022-06-15 00:15 | XMS_ITS | Continuity of Care Document ---
:1975 Author Organization [address] [place] [phone]- Care Team Providers Name Role Phone Nicolle Pretty MD [id number] Date(s): 07/08/20 - 07/15/[address] [place] [phone]- Attending Physician: Nguyen Mir MD Referring Physician: Otilia Webber DO Allergies, Adverse Reactions, Alerts Substance Reaction Severity [...] OrderedFlonase 50 mcg/inh nasal spray 1 sprays, Daily, 0 Refills, Maintenance, 07/20/16 14:02:37 Start Date: 07/20/16 Status: Orderedketoconazole 2% ketoconazole 2%, Refills 0, Maintenance, 07/20/16 14:02:04, Compound Start Date: 07/20/16 Status: Orderedketoconazole 2% topical cream 1 application, Topically, Daily, # 30 Gm, 0 Refills, Maintenance, 07/08/20 13:47:00 EST, Cream, Partial fill upon patient request if the prescription is for a schedule II opioid drug. Start Date: 07/08/20 Status: OrderedKlonoPIN 0.5 mg oral tablet 1 tablet = 0.5 mg, By Mouth, 3 times a day, 0 Refills, Maintenance, 07/20/16 14:01:39 Start Date: 07/20/16 Status: OrderedLopid 600 mg [...] II opioid drug. Start Date: 07/08/20 Status: OrderedMiraLax oral powder for reconstitution = 17 Gm, By Mouth, Daily, dissolve in water before taking, # 255 Gm, 0 Refills, Maintenance, 07/20/16 14:00:07, REC Powder Start Date: 07/20/16 Status: Orderedondansetron 4 mg oral tablet 1 tablet = 4 mg, By Mouth, Every 8 hours, # 9 tablet, 0 Refills, Maintenance, 07/08/20 13:48:00 EST,Tablet, Partial fill upon patient request if the prescription is for a schedule II opioid drug. Start Date: 07/08/20 Stop Date: 07/11/20 Status: OrderedPrevacid 30 mg oral enteric coated capsule 1 capsule = 30 mg, By Mouth, Daily, 0 Refills, Maintenance, 07/20/16 14:01:12 Start Date: 07/20/16 Status: Orderedsimethicone 125 mg oral capsule 1 capsule = 125 mg, By Mouth, 4 times a day, # 30 capsule, 0 Refills, Maintenance, 07/08/20 13:48:00EST, Capsule, Partial fill upon patient request if the prescription is for a schedule II opioid drug. Start Date: 07/08/20 Status: Orderedsimvastatin 40 mg oral tablet 40 mg, 1, tablet, By Mouth, Daily at bedtime, Refills 0, Maintenance, 07/20/16 14:00:33 Start Date: 07/20/16 Status: OrderedVitamin C 500 mg oral tablet 1 tablet = 500 mg, By Mouth, Daily, 0 Refills, Maintenance, 07/20/16 13:59:54 Start Date: 07/20/16 Status: Orderedzoledronic acid 5 mg/100 mL intravenous solution = 5 mg, IV Infusion, Once, 0 Refills, Maintenance, 07/08/20 13:49:00 EST, Partial fill upon patient request if the prescription is for a schedule II opioid drug. Start Date: 07/08/20 Status: Ordered Vital Signs Most recent to oldest [Reference Range]: 1 Pulse Rate [55-90 bpm] 71 bpm (07/08/20 1:44 PM) Blood Pressure [90-138/55-84 mm Hg] 143/80 mm Hg *H* (07/08/20 1:44 PM) Respiratory Rate [16-30 br/min] 22 br/min (07/08/20 1:44 PM) Temperature [96.8-100.4 DegF] 98.8 DegF (07/08/20 1:44 PM) Blood pressure sites Arm, right (07/08/20 1:44 PM) Temperature Route Temporal (07/08/20 1:44 PM)
--- OUTSIDE RECORDS SUMMARY | 2022-06-15 00:15 | XMS_ITS | Continuity of Care Document ---
:1975 Author Organization [facility] Address [address] [place] [phone]- Care Team Providers Name Role Phone Nicolle Pretty MD Primary Care Physician Encounter [facility] [place] Date(s): 08/09/20 - 08/09/[address] [phone]- Discharge Disposition: A-D/C Home Attending Physician: Nguyen Mir MD Admitting Physician: Nguyen Mir MD Referring Physician: Nguyen Mir MD Allergies, [...] Start Date: 07/08/20 Stop Date: 07/11/20 Status: OrderedoxyCODONE 5 mg oral tablet 5 mg, 1, tablet, By Mouth, Every 6 hours, PRN, for 3 days, # 8 tablet, Refills 0, Tot. Refills 0, Acute 08/12/20 12:15:00 EST, for pain, 08/09/20 12:15:00 EST, Print Requisition, Partial fill upon patient request if the prescription is for a schedule... Start Date: 08/09/20 Stop Date: 08/12/20 Status: OrderedPrevacid 30 mg oral enteric coated [...] opioid drug. Start Date: 07/08/20 Status: Ordered Procedures Procedure Date Related Diagnosis Body Site Status Parathyroidectomy or exploration of 08/09/20 Completed parathyroid(s); Vital Signs Most recent to oldest 1 2 3 [Reference Range]: Height 160.02 cm 160.02 cm (08/09/20 8:37 AM) (08/06/20 9:59 AM) Oxygen Saturation [94-100 %] 97 % 99 % 98 % (08/09/20 1:30 PM) (08/09/20 1:15 PM) (08/09/20 1:0 0 PM) Pulse Rate [55-90 bpm] 86 bpm (08/09/20 8:37 AM) Blood Pressure [90-138/55-84 137/79 mm Hg 141/89 mm Hg 141 /86 mm Hg mm Hg] (08/09/20 1:30 PM) *H* *H* (08/09/20 1:15 PM) (08/09/20 1:00 PM) Respiratory Rate [16-30 16 br/min 17 br/min 18 br/mi n br/min] (08/09/20 1:30 PM) (08/09/20 1:15 PM) (08/09/20 1:0 0 PM) Temperature [96.8-100.4 98.1 DegF 99 DegF DegF] (08/09/20 12:15 PM) (08/09/20 8:37 AM) Liters per Minute 6 L/min 6 L/min 6 L/min (08/09/20 12:45 PM) (08/09/20 12:30 PM) (08/09/20 1 2:15 PM) Mode of Delivery (Oxygen) Room air Room air Room a ir (08/09/20 1:45 PM) (08/09/20 1:30 PM) (08/09/20 1:1 5 PM) Blood pressure sites Arm, left Arm, left (08/09/20 12:15 PM) (08/09/20 8:37 AM) Temperature Route Temporal Temporal (08/09/20 12:15 PM) (08/09/20 8:37 AM) Dry Weight 68.18 kg (08/06/20 9:59 AM)
--- OUTSIDE RECORDS SUMMARY | 2022-06-15 00:15 | XMS_ITS | Continuity of Care Document ---
:1975 Author Organization [address] [place] [phone]- Care Team Providers Name Role Phone Nicolle Pretty MD Primary Care Physician Encounter [facility] [place] Date(s): 09/07/20 - 10/07/[address] [place] [phone]- Allergies, Adverse Reactions, Alerts Substance Reaction Severity [...]
--- OUTSIDE RECORDS SUMMARY | 2022-06-15 00:15 | XMS_ITS | Continuity of Care Document ---
:1975 [address] Organization [address] [place] [id number]- Care Team Providers Name Role Phone Nicolle Pretty MD [id number] Date(s): 10/25/20 - 11/24/[address] [place] [id number] Attending Physician: Segun Browne Admitting Physician: Segun Browne Referring Physician: Segun Browne Allergies, Adverse Reactions, Alerts Substance Reaction Severity [...]
--- OUTSIDE RECORDS SUMMARY | 2022-06-15 00:15 | XMS_ITS | Continuity of Care Document ---
:1975 Author Organization [address] [place] [id number]- Care Team Providers Name Role Phone Nicolle Pretty MD Primary Care Physician Encounter [facility] [place] Date(s): 08/23/20 - 09/22/[address] [place] [id number] Attending Physician: Segun Browne Admitting Physician: Segun Browne Referring Physician: AdmtrSegun Allergies, Adverse Reactions, Alerts Substance Reaction Severity [...]
[2022-06-15] MEDS: cefTRIAXone sodium 1 GM in 0.9 % Sodium Chloride 50 ML IV (00:16)
[2022-06-15] MEDS: ondansetron HCL 4 MG/2 ML VIAL IVPUSH (00:17)
[2022-06-15] MEDS: Acetaminophen 325 MG TABLET 650 MG PO ×2 (00:17→21:36)
[2022-06-15] MEDS: Pantoprazole Sodium 40 MG/10 ML VIAL IVPUSH ×3 (00:17→17:34)
[2022-06-15] MEDS: 0.9 % Sodium Chloride 1,000 ML 999 ML IV (00:17)
[2022-06-15 00:21] LABS: Hematocrit 26.7 % (42.0-52.0); Hemoglobin 7.8 g/dl (14.0-18.0); Mean Corpuscular HGB Conc 29.2 g/dl (31.0-36.0); Mean Corpuscular Hemoglobin 20.6 pg (27.0-33.0); Mean Corpuscular Volume 70.6 fL (80.0-98.0); Mean Platelet Volume 10.4 fL (9.4-12.4); NRBC Pct Auto 0.6 /100WBC (0.0-0.2); Platelet Count 354 X10*3/uL (160-400); Red Blood Count 3.78 X10*6/uL (4.60-5.80); Red Cell Distribution Width 20.6 % (11.0-16.0); White Blood Count 16.1 X10*3/uL (4.8-10.8)
[2022-06-15 00:36] LABS: OBS Int Ctl Valid YES; OBS1 POSITIVE (NEGATIVE)
[2022-06-15 00:44] LABS: Lactic Acid 3.1 mmol/L (0.5-2.0)
[2022-06-15 00:46] LABS: Alanine Aminotransferase 40 U/L (0-40); Albumin Level 4.2 g/dL (3.5-5.0); Alkaline Phosphatase 70 U/L (39-117); Anion Gap 17 (12-20); Aspartate Amino Transferase 46 U/L (5-37); Bilirubin Total 0.2 mg/dL (0.0-1.0); Blood Urea Nitrogen 23 mg/dL (9-16); Calcium 9.1 mg/dL (8.4-10.2); Carbon Dioxide 25 mmol/L (22-29); Chloride 101 mmol/L (96-108); Creatinine Clr Calc Pharmacy 89.3; Estimated Glomerular Filt Rate > 60; Glucose Random 134 mg/dL (60-115); Lipase 27 U/L (8-78); Potassium 3.9 mmol/L (3.3-5.1); Sodium 139 mmol/L (135-145); Total Protein 7.5 g/dL (6.5-8.0)
[2022-06-15 00:51] LABS: Troponin-I High Sensitivity 18.8 ng/L (<3.5-35.0)
[2022-06-15 01:00] LABS: Influenza A PCR POSITIVE (Negative); Influenza B PCR NEGATIVE (Negative); Resp Syncy Virus RNA Qual PCR NEGATIVE (Negative); SARS COV2 PCR INHOUSE NEGATIVE (Negative)
[2022-06-15 01:30] LABS: B Type Natriuretic Peptide 16 pg/mL (<100)
[2022-06-15 02:15] LABS: Reflex Lactate? Lactic Acid Added
[2022-06-15 02:28] LABS: Appearance Urine Clear; Color Urine Yellow; Glucose Urine UA Negative (Negative); Leukocyte Esterase Urine Negative (Negative); Nitrite Urine Negative (Negative); PH 5.5 (5.0-9.0); Specific Gravity - Urine >= 1.030 (1.005-1.025); UMIC TRIGGER UACC YES; Urine Blood Negative (Negative); Urine Ketones Trace mg/dL (Negative); Urine Protein 100 (2+) mg/dL (Neg-Trace)
--- NOTE | 2022-06-15 02:43 | P.HPHOSP_ITS ---
History of Present Illness Date of Service: 06/15/22 Chief Complaint: coffee-ground emesis, febrile 46 yo M with pmhx of cerebral palsy, GERD, HTN, Hyperpatathyroidism, comes into the hospital from home with multiple episodes of coffee-ground emesis as well as subjective fever and generally feeling ill. according to the sister patient has been using naproxen for body aches, for the past 1 month. History is obtained mostly from his primary caregiver, which is his sister, who is german speaking only all other review of system negative On arrival to the ED patient febrile with a fever of 101.5, heart rate of 137, respiratory rate of 21, satting 100% on room air labs were sig for WBC of 14.8, Hgb of 7.8, bl around 9.3, hematocrit of 26.7, lactic acid of 3.1,UA -ve, Flu positive CXR -ve Review of Systems Review of Systems: Yes all other systems are reviewed and are negative [facility] Medical History Abdominal bloating Cerebral palsy Constipation by delayed colonic transit Delayed gastric emptying GERD (gastroesophageal reflux disease) HTN (hypertension) Hypercalcemia Hyperparathyroidism Iron deficiency anemia Nausea Osteoporosis Vitamin D deficiency Family History Father Emphysema of lung Liver disease Mother Scoliosis Hepatitis Phlebitis Lymphoma Sister Nephrolithiasis Diabetes Lymphoma Surgical History History of esophagogastroduodenoscopy (EGD) Hx of cholecystectomy Hx of colonoscopy Hx of oral surgery S/P removal of parathyroid gland Social History Household Members: Family Housing: Apartment Are you a primary assistant child care teacher to a significant other at home: No Do you presently have visiting nurse or other home services: No Alcohol intake: current Alcohol intake frequency: does not drink Patient Tobacco Use Status: Never used Tobacco Advance Directives: No Advance Directives Information Provided: Yes service: No Current occupational status: disabled Meds Allergies Allergy/AdvReac Type Severity Reaction Status Date / Time No Known Allergies Allergy Verified 05/23/22 13:07 [No Known Allergies*] Active Medications: Current Medications Pharmacy Consult (Consult Rx Perform Med Rec) 1 each MISCELLANE ONCE PRN PRN Reason: Consult order Home Medications Medication Instructions Recorded Confirmed Last Taken Type baclofen 10 mg tablet 10 mg PO TID 04/21/20 05/23/22 Unknown History clonazepam 0.5 mg tablet 0.5 mg PO BEDTIME PRN Insomnia 04/21/20 05/23/22 Unknown History fenofibrate 150 mg capsule 150 mg PO DAILY 04/21/20 05/23/22 Unknown History simvastatin 40 mg tablet 40 mg PO DAILY 04/21/20 05/23/22 Unknown History ascorbic acid (vitamin C) 500 mg 500 mg PO BID 06/03/20 05/23/22 Unknown History tablet gemfibrozil 600 mg tablet 600 mg PO BID 06/03/20 05/23/22 Unknown History glycerin (adult) 1 supp [place] DAILY 06/03/20 05/23/22 Unknown History ketoconazole 2 % shampoo 2 appl topical DAILY 06/03/20 05/23/22 Unknown History cholecalciferol (vitamin D3) 25 25 mcg PO DAILY 08/01/21 05/23/22 Unknown History mcg (1,000 unit) tablet Physical Exam Vital Signs and Narrative: Vital Signs: Last Vital Signs Temp 98.6 F 06/15/22 01:43 Pulse 121 H 06/15/22 01:43 Resp 36 H 06/15/22 01:43 BP 127/69 06/15/22 01:43 Pulse Ox 98 06/15/22 01:43 O2 Del Method 06/15/22 01:43 BMI result Body Mass Index 26.5 Const: General: cooperative and no acute distress Eyes: General: appearance normal, both eyes and all related structures Resp: Effort & Inspection: normal respiratory effort Auscultation: clear to auscultation bilaterally Cardio: Rate: regular rate Rhythm: regular rhythm GI: Palpation (GI): Soft to palpation Auscultation: normal bowel sounds Skin: General skin exam: no rashes or lesions noted Neuro: Cognition (Neuro): normal cognition Extrem: Other: body contracted General: Yes no pedal edema Results Labs CBC and Chem 7: 06/15/22 03:08 06/15/22 03:08 Labs: Laboratory Results - last 24 hr 06/15/22 06/15/22 06/15/22 00:08 00:08 00:08 MCV 70.6 L MCH 20.6 L MCHC 29.2 L RDW 20.6 H Plt Count 354 MPV 10.4 Absolute Nucleated RBC 0.090 H Nucleated RBC % (auto) 0.6 H Anion Gap 17 Estim Creat Clear Calc 89.3 Estimated GFR > 60 Random Glucose 134 H D Lactic Acid Calcium 9.1 Total Bilirubin 0.2 AST 46 H ALT 40 Alkaline Phosphatase 70 Troponin I High Sens 18.8 D B-Natriuretic Peptide Total Protein 7.5 Albumin 4.2 Lipase Urine Color Urine Appearance Urine pH Ur Specific [place] Urine Protein Urine Glucose (UA) Urine Ketones Urine Blood Urine Nitrite Ur Leukocyte Esterase Stool Occult Blood Influenza Type A (PCR) Influenza Type B (PCR) RSV RNA Qual (PCR) SARS-CoV-2 RNA (RT-PCR) Crossmatch 06/15/22 06/15/22 06/15/22 00:08 00:08 00:08 MCV MCH MCHC RDW Plt Count MPV Absolute Nucleated RBC Nucleated RBC % (auto) Anion Gap Estim Creat Clear Calc Estimated GFR Random Glucose Lactic Acid 3.1 H* Calcium Total Bilirubin AST ALT Alkaline Phosphatase Troponin I High Sens B-Natriuretic Peptide 16 Total Protein Albumin Lipase 27 Urine Color Urine Appearance Urine pH Ur Specific [place] Urine Protein Urine Glucose (UA) Urine Ketones Urine Blood Urine Nitrite Ur Leukocyte Esterase Stool Occult Blood Influenza Type A (PCR) Influenza Type B (PCR) RSV RNA Qual (PCR) SARS-CoV-2 RNA (RT-PCR) Crossmatch 06/15/22 06/15/22 06/15/22 00:10 00:28 02:03 MCV MCH MCHC RDW Plt Count MPV Absolute Nucleated RBC Nucleated RBC % (auto) Anion Gap Estim Creat Clear Calc Estimated GFR Random Glucose Lactic Acid Calcium Total Bilirubin AST ALT Alkaline Phosphatase Troponin I High Sens B-Natriuretic Peptide Total Protein Albumin Lipase Urine Color Yellow Urine Appearance Clear Urine pH 5.5 Ur Specific [place] >= 1.030 H Urine Protein 100 (2+) H Urine Glucose (UA) Negative Urine Ketones Trace Urine Blood Negative Urine Nitrite Negative Ur Leukocyte Esterase Negative Stool Occult Blood POSITIVE Influenza Type A (PCR) POSITIVE A Influenza Type B (PCR) NEGATIVE RSV RNA Qual (PCR) NEGATIVE SARS-CoV-2 RNA (RT-PCR) NEGATIVE Crossmatch 06/15/22 02:17 MCV MCH MCHC RDW Plt Count MPV Absolute Nucleated RBC Nucleated RBC % (auto) Anion Gap Estim Creat Clear Calc Estimated GFR Random Glucose Lactic Acid Calcium Total Bilirubin AST ALT Alkaline Phosphatase Troponin I High Sens B-Natriuretic Peptide Total Protein Albumin Lipase Urine Color Urine Appearance Urine pH Ur Specific [place] Urine Protein Urine Glucose (UA) Urine Ketones Urine Blood Urine Nitrite Ur Leukocyte Esterase Stool Occult Blood Influenza Type A (PCR) Influenza Type B (PCR) RSV RNA Qual (PCR) SARS-CoV-2 RNA (RT-PCR) Crossmatch See Detail Imaging Radiologist's Impressions: Impressions Chest X-Ray 06/15/22 00:34 IMPRESSION: No acute findings Assessment and Plan (1) Hematemesis: Status: Acute (2) Acute on chronic anemia: Status: Acute (3) Influenza A: Status: Acute (4) Acidosis, lactic: Status: Acute Plan 26-year-old male with past medical history of cerebral palsy, as well as GERD presents to the hospital with hematemesis, also found to be influenza A positive # hematemesis - likely in the setting of naproxen use with history of GERD/ gastritis - hemoglobin drop of 2 units - being transfused 2 units of PRBC - make NPO - GI consulted - pantoprazole 40 b.i.d. - discussed with sister that he should not be taking any NSAIDs given his underlying GERD/gastritis - follow CBC # acute on chronic anemia - likely secondary to hematemesis - will treat with 2 units of PRBC - follow CBC - GI consult # influenza A - no evidence of pneumonia - no hypoxia - will start on Tamiflu - monitor respiratory status # lactic acidosis - likely secondary to dehydration in the setting of hematemesis and anemia - improved with IV fluids DVT prophylaxis: SCDs given patient's hematemesis with acute anemia patient required minimum 2 night inpatient hospital stay for further management and evaluation by GI Time Spent With Patient Time: Total time managing care of this patient today ____ minutes. Quality Stroke Does the patient have a stroke diagnosis?: No VTE Prior VTE?: No VTE Risk Level:: Medical - moderate - high VTE Device Contraindication: N/A - Device Ordered VTE Drug Contraindication: Treatment Not Indicated
[2022-06-15 03:04] LABS: Bacteria Urine None Seen (None Seen); Hyaline Casts Urine 0-2 /LPF (0-2); Squamous Epithelial Cell Urine 0-2 /HPF (0-2); WBC Urine 0-5 /HPF (0-5)
[2022-06-15 03:13] LABS: MANUAL DIFF FLAG NO
[2022-06-15 03:14] LABS: Basophils Absolute Auto 0.1 X10*3/uL (0.0-0.2); Basophils Percent Auto 0.4 % (0-2); Hematocrit 22.8 % (42.0-52.0); Imm Gran Abs Auto 0.09 X10*3/uL (0.00-0.03); Imm Gran Pct Auto 0.6 % (0.0-0.4); Lymphocytes Absolute Auto 1.5 X10*3/uL (1.2-4.9); Lymphocytes Percent Auto 10.4 % (20-40); Mean Corpuscular HGB Conc 29.8 g/dl (31.0-36.0); Mean Corpuscular Hemoglobin 20.9 pg (27.0-33.0); Mean Corpuscular Volume 69.9 fL (80.0-98.0); Mean Platelet Volume 10.5 fL (9.4-12.4); Monocytes Absolute Auto 1.3 X10*3/uL (0.1-1.2); Monocytes Percent Auto 8.4 % (2-11); NRBC Pct Auto 0.7 /100WBC (0.0-0.2); Neutrophils Absolute Auto 11.9 x10*3/uL (2.0-8.3); Neutrophils Percent Auto 80.2 % (45-73); Platelet Count 299 X10*3/uL (160-400); Red Blood Count 3.26 X10*6/uL (4.60-5.80); Red Cell Distribution Width 20.4 % (11.0-16.0); White Blood Count 14.8 X10*3/uL (4.8-10.8)
[2022-06-15 03:17] LABS: Hemoglobin 6.8 g/dl (14.0-18.0)
[2022-06-15 03:31] LABS: Anion Gap 13 (12-20); Blood Urea Nitrogen 22 mg/dL (9-16); Carbon Dioxide 24 mmol/L (22-29); Chloride 106 mmol/L (96-108); Estimated Glomerular Filt Rate > 60; Glucose Random 135 mg/dL (60-115); Potassium 3.7 mmol/L (3.3-5.1); Sodium 139 mmol/L (135-145)
[2022-06-15 03:34] LABS: ~Lactic Acid-LAB USE ONLY 2.3 mmol/L (0.5-2.0)
[2022-06-15] MEDS: Oseltamivir Phosphate 75 MG CAPSULE PO (03:39)
--- NOTE | 2022-06-15 03:52 | PC.NURSE ---
PT denies pain, no SOB, no CP, no apparent distress, blood continues to be running.
--- NOTE | 2022-06-15 04:57 | PC.NURSE ---
First unit of RBC's completed. Pt alert and oriented to baseline. No apparent distress noted. No blood reaction noted. Sister is at bedside.
[2022-06-15 05:12] LABS: Reflex Lactate? 2 Y
--- NOTE | 2022-06-15 05:29 | PC.NURSE ---
Second unit of RBC's started.
[2022-06-15 07:00] LABS: ~Lactic Acid-LAB USE ONLY 1.8 mmol/L (0.5-2.0)
--- NOTE | 2022-06-15 08:13 | PC.NURSE ---
Second unit of blood infusing. Pt sleeping at this time. Family at bedside
--- NOTE | 2022-06-15 08:35 | PM.GICN ---
History of Present Illness Data of Consult Service Date: 06/15/22 Requesting physician: Heather Valencia Primary Care Provider: Nicolle Pretty MD HPI Reason for consult: Upper GI bleed/coffee-ground emesis 46 YM with cerebral palsy, GERD, HTN, Hyperpatathyroidism,? gastroparesis and chronic anemia, parathyridectomy seen [place] [facility] [place] from home with? multiple episodes of coffee-ground emesis and subjective fever and generally feeling ill.? Unable to obtain hx from patient since he has cerebral palsy. History is obtained from pt's sister and primary caregiver, who is scottish speaking only On arrival to the ED patient febrile with a fever of 101.5, heart rate of 137, respiratory rate of 21, O2 saturation 100% on room air labs were sig for WBC of 14.8, Hgb of 7.8, bl around 9.3, hematocrit of 26.7, lactic acid of 3.1,UA -ve, Flu positive, CXR -ve Pt was admitted for further management and transfused 2 Units of PRBCs. Pt is followed in GI by Dr Ochoa for severe gastroparesis, on reglan on PPI Has ASHA, sees Dr Denny for iron transfusions PAST GI HEARN: colonoscopy 2018--hemorrhoids, otherwise no masses or inflammation EGD 2019--moderate hiatal hernia with erosive esophagitis - circumferential erosive changes over 2-3 cms from the GEJ Antral biopsies were negative for H Pylori. CT 05/2020---nml, no acute findings Pt had a ba swallow and capsule endoscopy at [facility] --reults not available Review of Systems Review of Systems: Yes Unobtainable due to mental status (cerebral palsy) [facility] Past Medical History Medical History Abdominal bloating Cerebral palsy Constipation by delayed colonic transit Delayed gastric emptying GERD (gastroesophageal reflux disease) HTN (hypertension) Hypercalcemia Hyperparathyroidism Iron deficiency anemia Nausea Osteoporosis Vitamin D deficiency Family History Family History Father Emphysema of lung Liver disease Mother Scoliosis Hepatitis Phlebitis Lymphoma Sister Nephrolithiasis Diabetes Lymphoma Surgical History Surgical History History of esophagogastroduodenoscopy (EGD) Hx of cholecystectomy Hx of colonoscopy Hx of oral surgery S/P removal of parathyroid gland Social History Social History Household Members: Family Housing: Apartment Are you a primary vision care associate to a significant other at home: No Do you presently have visiting nurse or other home services: Yes (pt sister is his PAPER MILL MANAGER) Alcohol intake: current Alcohol intake frequency: does not drink Patient Tobacco Use Status: Never used Tobacco Second Hand Smoke Exposure: No service: No Current occupational status: disabled Meds Allergies Allergy/AdvReac Type Severity Reaction Status Date / Time No Known Allergies Allergy Verified 05/23/22 13:07 [No Known Allergies*] Active Medications: Current Medications Acetaminophen (Acetaminophen Supp 650 Mg Supp.Rect) 650 mg DE Q6H PRN PRN Reason: Pain, Mild (Pain Scale 1-3) Docusate Sodium (Docusate Sodium 100 Mg Capsule) 100 mg PO DAILY PRN PRN Reason: Constipation Lactated Ringer's (Lr) 1,000 mls @ 100 mls/hr IVCONT .Q10H [facility], [facility] Last Admin: 06/15/22 07:53 Dose: Not Given Ondansetron HCl (Ondansetron Hcl 4 Mg/2 Ml Vial) 4 mg IVPUSH Q8H PRN PRN Reason: Nausea and Vomiting Oseltamivir Phosphate (Oseltamivir Phosphate 75 Mg Capsule) 75 mg PO Q24H [facility]1983 Stop: 06/19/22 02:46 Last Admin: 06/15/22 03:39 Dose: 75 mg Pantoprazole Sodium (Pantoprazole Sodium 40 Mg/10 Ml Vial) 40 mg IVPUSH BID@0630,1630 [facility] Pharmacy Consult (Consult Rx Perform Med Rec) 1 each MISCELLANE ONCE PRN PRN Reason: Consult order Sodium Chloride (0.9 % Sodium Chloride Flush 3 Ml Syringe) 3 ml IVFLUSH QSHIFT [facility] Home Medications Medication Instructions Recorded Confirmed Last Taken Type baclofen 10 mg tablet 10 mg PO BID 04/21/20 06/15/22 06/14/22 History clonazepam 0.5 mg tablet 0.5 mg PO BEDTIME PRN Insomnia 04/21/20 06/15/22 06/14/22 History simvastatin 40 mg tablet 40 mg PO DAILY 04/21/20 06/15/22 06/14/22 History ascorbic acid (vitamin C) 500 mg 500 mg PO BID 06/03/20 06/15/22 06/14/22 History tablet glycerin (adult) 1 supp DE DAILY PRN Constipation 06/03/20 06/15/22 Unknown History ketoconazole 2 % shampoo 2 appl topical DAILY 06/03/20 06/15/22 06/14/22 History cholecalciferol (vitamin D3) 25 25 mcg PO DAILY 08/01/21 06/15/22 06/14/22 History mcg (1,000 unit) tablet lansoprazole 30 mg delayed 30 mg PO BID@0630,1630 06/15/22 06/15/22 06/14/22 History release,disintegrating tablet metoclopramide HCl 5 mg/5 mL oral 10 mg PO QIDACHS 06/15/22 06/15/22 06/14/22 History solution Physical Exam Vital Signs: Vital Signs: Last Vital Signs Temp 99.6 F 06/15/22 05:41 Pulse 87 06/15/22 07:50 Resp 24 H 06/15/22 07:50 BP 115/50 L 06/15/22 07:50 Pulse Ox 99 06/15/22 07:50 O2 Del Method 06/15/22 07:50 BMI result Body Mass Index 26.5 Const: General: no acute distress Nutritional Appearance: overweight Orientation/consciousness: patient oriented x3 Limitations: language barrier and other limitations (Cerebral palsy) HEENT: Head: Yes normal to inspection Ears: hearing grossly normal bilaterally Eyes: Sclerae: sclerae normal Pupils: Equal, round and reactive pupils present Neck: Neck: Yes normal visual inspection Chest: Chest palpation & inspection: normal inspection of the chest Resp: Effort & Inspection: normal respiratory effort Auscultation: clear to auscultation bilaterally Cardio: Palpation: normal PMI Rate: regular rate Rhythm: regular rhythm Heart sounds: S1 normal heart sound present, S2 normal heart sound present and no murmurs GI: Inspection: Yes scar (RUQ) Palpation (GI): Soft to palpation, nontender and No hepatosplenomegaly present Auscultation: normal bowel sounds Rectal Exam - Male: Yes deferred Skin: General skin exam: no rashes or lesions noted Neuro: General: patient oriented x3, gait normal and moves all extremities Cranial nerves: Yes Equal, round and reactive pupils present Psych: Appearance: grossly normal Mental Status: mental status grossly normal Results Labs 06/16/22 06:00 06/16/22 06:00 Labs: Short CBC 06/15/22 06/15/22 Range/Units 00:08 03:08 WBC 16.1 H 14.8 H (4.8-10.8) X10*3/uL Hgb 7.8 L 6.8 L* (14.0-18.0) g/dl Hct 26.7 L 22.8 L (42.0-52.0) % Plt Count 354 299 (160-400) X10*3/uL BMP 06/15/22 06/15/22 00:08 03:08 Sodium 139 139 Potassium 3.9 3.7 Chloride 101 106 Carbon Dioxide 25 24 BUN 23 H D 22 H Creatinine 0.84 0.79 Calcium 9.1 8.0 L D Liver Function 06/15/22 Range/Units 00:08 Total Bilirubin 0.2 (0.0-1.0) mg/dL AST 46 H (5-37) U/L ALT 40 (0-40) U/L Alkaline Phosphatase 70 (39-117) U/L Albumin 4.2 (3.5-5.0) g/dL Urine 06/15/22 Range/Units 02:03 Urine Color Yellow Urine Appearance Clear Urine pH 5.5 (5.0-9.0) Ur Specific [place] >= 1.030 H (1.005-1.025) Urine Protein 100 (2+) H (Neg-Trace) mg/dL Urine Glucose (UA) Negative (Negative) mg/dL Assessment and Plan (1) Acute on chronic anemia: Status: Resolved (2) Anemia: Status: Inactive (3) GERD (gastroesophageal reflux disease): Status: Inactive (4) Gastroparesis: Status: Inactive Plan 46 YM with cerebral palsy, GERD, HTN, Hyperpatathyroidism,? gastroparesis and chronic anemia, parathyridectomy seen at [facility] [place] from home with? multiple episodes of coffee-ground emesis as well as subjective fever and generally feeling ill.? UGIB likely from recurrent erosive esophagitis, PUD or UGI AVMs. According to the sister patient has been using naproxen for body aches, for the past 1 month. Pt was transfused 2 U of PRBC overnight with increase in H & H to 9.7 & 30.9. RECOMMENDATIONS: 1. Agree with IV PPI twice daily 2. Monitor H & H twice daily x 24 hrs 2. Proceed with EGD today Pt's sister, Winter, was contacted with the help of a Polish rv detailer, Pranay # [id number] and she agreed to proceeding with an EGD today. Pt has a FU appt on 07/14/[address] Ochoa Time Spent With Patient Time: Total time managing care of this patient today ____ minutes. Procedures Date of Service Date of Service: 06/15/22
[2022-06-15] MEDS: 0.9 % Sodium Chloride Flush 3 ML SYRINGE IVFLUSH ×2 (09:00→17:34)
--- NOTE | 2022-06-15 09:57 | PHA.MEDREC ---
Pharmacy Consult ? Medication Reconciliation Pharmacy has completed the medication reconciliation. Patient's family member confirmed all medications. Maty Moraes, KarenD
[2022-06-15 10:16] LABS: Hematocrit 30.9 % (42.0-52.0); Hemoglobin 9.7 g/dl (14.0-18.0); Mean Corpuscular HGB Conc 31.4 g/dl (31.0-36.0); Mean Corpuscular Hemoglobin 23.7 pg (27.0-33.0); Mean Corpuscular Volume 75.6 fL (80.0-98.0); Mean Platelet Volume 10.6 fL (9.4-12.4); NRBC Pct Auto 0.8 /100WBC (0.0-0.2); Platelet Count 242 X10*3/uL (160-400); Red Blood Count 4.09 X10*6/uL (4.60-5.80); Red Cell Distribution Width 21.7 % (11.0-16.0); White Blood Count 12.4 X10*3/uL (4.8-10.8)
[2022-06-15 10:24] LABS: INTERNATIONAL NORM RATIO 1.2 (0.9-1.1); Prothrombin Time 14.3 SEC (10.0-13.1)
--- NOTE | 2022-06-15 11:30 | PM.EVENT ---
Event Note Date of Service: 06/15/22 Event Note: 46 yo M with pmhx of cerebral palsy, GERD, HTN, Hyperpatathyroidism,? comes into the hospital from home with? multiple episodes of coffee-ground emesis as well as subjective fever and generally feeling ill.? according to the sister patient has been using naproxen for body aches, for the past 1 month. History is obtained mostly from his primary caregiver, which is his sister, who is mexican speaking only. At present patient awake alert no recurrent episode of hematemesis since admission Patient awake alert in no distress Lungs clear to auscultation Abdomen soft no epigastric tenderness Assessment plan 26-year-old male with past medical history of cerebral palsy, as well as GERD presents to the hospital with hematemesis, also found to be influenza A positive #? hematemesis? likely in the setting of naproxen use with history of GERD/ gastritis Hemo [place] in home on arrival 7.8 dropped to 6.8 received 2 units of packed RBC hemoglobin improved to 9.7, no recurrent episode of hematemesis Case discussed with Dr. Kumar patient will undergo upper endoscopy, continue NPO, IV Protonix 40 mg b.i.d., follow CBC Recommended not to use NSAIDs due to underlying history of GERD/gastritis #? acute on chronic acute blood loss anemia Follow CBC #? influenza A -? no evidence of pneumonia, no hypoxia, continue Tamiflu, supportive care with cough medication and oxygen # lactic acidosis -? likely secondary to dehydration in the setting of hematemesis and anemia, improved with IV fluids # cerebral palsy continue baclofen and as needed clonazepam, med reconciliation done ?DVT prophylaxis:? SCDs Time Spent With Patient Time: Total time managing care of this patient today ____ minutes.
[2022-06-15] MEDS: Lactated Ringers 1,000 ML 100 ML IVCONT (13:59)
--- NOTE | 2022-06-15 14:57 | PM.OP ---
Brief Operative Note Date of Service: 06/15/22 Pre-op diagnosis: Upper GI bleeding, severe anemia Post-op diagnosis: other (Erosive esophagitis, hiatal hernia, gastritis) Procedure: EGD WITH BIOPSIES Surgeon: Rukhsana Kumar MD Anesthesia: GETA Was an Developer Prover Upholstering used for this Procedure?: Yes Developer Prover Upholstering: Kenisha Hartman Estimated blood loss (mL): 0 Pathology: other (A. Gastric antrum) Condition: stable Disposition: PACU
--- NOTE | 2022-06-15 14:59 | P.OP_ITS ---
Operative Note Operative Note Date of Service: 06/15/22 Narrative: Pre-op diagnosis: Upper GI bleeding, severe anemia Post-op diagnosis:?other (Erosive esophagitis, hiatal hernia, gastritis) Surgeon: Rukhsana Kumar MD Anesthesia:?GETA FLEXIBLE TRANSORAL UPPER GASTROINTESTINAL ENDOSCOPY WITH BIOPSIES Consent: Indications for the procedure and potential complications of bleeding, perforation, reaction to medications and missed diagnosis were discussed with the patient and informed consent was obtained. Instrument: Olympus GIF H 190 mid size upper endoscope Monitoring: Vital signs and clinical assessment, continuous EKG monitoring, Pulse oximetry, Carbon Dioxide monitoring and blood pressure monitoring were done throughout the procedure. Procedure: The patient was placed in the left lateral decubitis position and pre-procedure medications were administered and a bite block was placed. The endoscope was inserted into the mouth and advanced under direct vision to the third part of duodenum. A careful inspection was made as the upper endoscope was withdrawn including a retroflexed examination of the proximal stomach; Findings and interventions are described below. Findings: Larynx: ET tube in place Esophagus: GE junction at 32 cms, hiatal hernia 32 to 35 cms. Severe erosive esophagitis (LA Grade C) with linear erosions and ulcers from 28 to 32 cms. Stomach: Mild gastric erythema. Biopsies were obtained. Grade 2 flap valve on retroflexed examination of the cardia. Duodenum: Normal bulb and descending duodenum Intervention: Biopsies as noted above Impression and Post Procedure Diagnosis: Endoscopy Findings: ESOPHAGUS: GE junction at 32 cms, hiatal hernia 32 to 35 cms. Severe erosive esophagitis (LA Grade C) with linear erosions and ulcers from 28 to 32 cms. STOMACH: Antral gastritis No blood or active bleeding seen in the UGI tract during EGD. Coffee ground emesis likely from severe erosive esophagitis. Plan: Await pathology results. Add sucralfate suspension twice daily for erosive esophagitis. OK to Dc home in the am if repeat H & H is stable Patient has an appointment on 07/14/22 in the GI Clinic with Dr Ochoa. Advise repeat EGD/with possible colonoscopy (crane of anemia) in 3 months to confirm esophagitis has healed. Above findings were reviewed with the patient's sister with the help of a Estonian Electronic Induction Hardener (José # [id number]) GERD handout was given in the discharge area. Pt's sister was advised to discontinue Naproxen and use acetaminophen instead Sister reported pt has been compliant with Prevacid twice a day
[2022-06-15] MEDS: Sucralfate Oral Suspension 1 GM/10 ML ORAL.SUSP PO (21:36)
[2022-06-15] MEDS: Baclofen 10 MG TABLET PO (21:36)
[2022-06-15] MEDS: Ascorbic Acid 500 MG TABLET PO (21:36)
[2022-06-16] VITALS: BP 115/55; PULSE 78; RESP 18; TEMP 37.3; O2SAT 97
[2022-06-16] MEDS: Oseltamivir Phosphate 75 MG CAPSULE PO (03:05)
[2022-06-16] MEDS: Lactated Ringers 1,000 ML 100 ML IVCONT (03:05)
[2022-06-16 03:32] VITALS: BP 122/70; PULSE 77; RESP 18; TEMP 37.1; O2SAT 96
[2022-06-16] MEDS: guaiFENesin DM 100/10/5 ML 5 ML SYRUP PO ×2 (04:42→09:18)
[2022-06-16] MEDS: Pantoprazole Sodium 40 MG/10 ML VIAL IVPUSH (06:16)
[2022-06-16] MEDS: Sucralfate Oral Suspension 1 GM/10 ML ORAL.SUSP PO ×2 (06:16→12:14)
[2022-06-16 06:28] LABS: Anion Gap 10 (12-20); Blood Urea Nitrogen 14 mg/dL (9-16); Calcium 7.9 mg/dL (8.4-10.2); Carbon Dioxide 25 mmol/L (22-29); Chloride 109 mmol/L (96-108); Creatinine Clr Calc Pharmacy 108.8; Estimated Glomerular Filt Rate > 60; Glucose Random 97 mg/dL (60-115); Potassium 3.7 mmol/L (3.3-5.1); Sodium 140 mmol/L (135-145)
[2022-06-16 06:35] LABS: Hematocrit 27.5 % (42.0-52.0); Hemoglobin 8.6 g/dl (14.0-18.0); Mean Corpuscular HGB Conc 31.3 g/dl (31.0-36.0); Mean Corpuscular Hemoglobin 23.8 pg (27.0-33.0); Mean Platelet Volume 10.8 fL (9.4-12.4); NRBC Pct Auto 0.4 /100WBC (0.0-0.2); Platelet Count 236 X10*3/uL (160-400); Red Blood Count 3.62 X10*6/uL (4.60-5.80); Red Cell Distribution Width 21.2 % (11.0-16.0); White Blood Count 9.1 X10*3/uL (4.8-10.8)
[2022-06-16 07:48] VITALS: BP 115/55; PULSE 80; RESP 16; TEMP 37.1; O2SAT 95
--- NOTE | 2022-06-16 07:50 | HO.POSTANES ---
Post Anesthesia Evaluation Post Anesthesia Evaluation Vital Signs: Vital Signs Temp Pulse Resp BP Pulse Ox O2 Del Method 06/16/22 03:32 98.8 F 77 18 122/70 96 Room Air 06/16/22 00:00 99.2 F 78 18 115/55 L 97 Room Air Anesthesia: General Endotracheal-GETA Mental Status: Awake Pain Control: Satisfactory Nausea/Vomiting: None Hydration: Adequate Anesthesia-Related Issues: No Anes. Related Issues
[2022-06-16] MEDS: Ascorbic Acid 500 MG TABLET PO (09:09)
[2022-06-16] MEDS: Cholecalciferol (Vitamin D3) 25 MCG TABLET PO (09:09)
[2022-06-16] MEDS: Baclofen 10 MG TABLET PO (09:09)
[2022-06-16] MEDS: ondansetron HCL 4 MG/2 ML VIAL IVPUSH (09:18)
--- NOTE | 2022-06-16 10:42 | PM.DS ---
DS: Providers Provider Date of Service: 06/16/22 Date of admission: 06/15/22 02:39 Primary care physician: Nicolle Pretty MD Consults: 06/15/22 08:41 Consult to Gastroenterology Routine Consulting Provider: Candido Ochoa Reason for consultation: hemetemesis Has provider been notified: No DS: Diagnosis Discharge Diagnosis (1) Acute on chronic anemia: Status: Acute (2) Anemia: Status: Acute (3) GERD (gastroesophageal reflux disease): Status: Acute (4) Gastroparesis: Status: Acute DS: Summary Hospital Course Hospital Course: Chief Complaint: coffee-ground emesis, febrile 46 yo M with pmhx of cerebral palsy, GERD, HTN, Hyperpatathyroidism,? comes into the hospital from home with? multiple episodes of coffee-ground emesis as well as subjective fever and generally feeling ill.? according to the sister patient has been using naproxen for body aches, for the past 1 month. History is obtained mostly from his primary caregiver, which is his sister, who is haitian speaking only ?all other review of system negative On arrival to the ED patient febrile with a fever of 101.5, heart rate of 137, respiratory rate of 21, satting 100% on room air labs were sig for WBC of 14.8, Hgb of 7.8, bl around 9.3, hematocrit of 26.7, lactic acid of 3.1,UA -ve, Flu positive CXR -ve Hospital course: #?He hematemesis? likely in the setting of naproxen use with history of GERD/ gastritis--He was transffused 2 units with improvement in H/H. He had EGD by Dr. Kumar with the following finding and recommendation ESOPHAGUS: GE junction at 32 cms, hiatal hernia 32 to 35 cms. Severe erosive esophagitis (LA Grade C) with linear erosions and ulcers from 28 to 32 cms. STOMACH: Antral gastritis No blood or active bleeding seen in the UGI tract during EGD. Coffee ground emesis likely from severe erosive esophagitis. Plan: Await pathology results. Add sucralfate suspension twice daily for erosive esophagitis. OK to Dc home in the am if repeat H & H is stable Patient has an appointment on 07/14/22 in the GI Clinic with? Dr Ochoa. Advise repeat EGD/possible colonoscopy in 3 months to confirm esophagitis has healed. Advised to stop Naproxen which is now discontinued #? acute on chronic acute blood loss anemia--transfused as above and to resume weekly iron infusion #? influenza A -? no evidence of pneumonia, no hypoxia, continue Tamiflu x 5 days. Robitussin codein for cough # lactic acidosis -? likely secondary to dehydration in the setting of hematemesis and anemia, improved with IV fluids # cerebral palsy continue baclofen and as needed clonazepam, med reconciliation done Time Spent with Patient Time attestation: Total time managing care of this patient today ____ minutes. Discharge coordination time: Greater than 30 minutes Quality: Safe Use of Opioids Does Pt have an Active Cancer Diagnosis on the Problem List?: No Quality: Stroke Does the patient have a stroke diagnosis?: No Physical Exam Vital Signs: Vital Signs: Last Vital Signs Temp 98.7 F 06/16/22 07:48 Pulse 80 06/16/22 07:48 Resp 16 06/16/22 07:48 BP 115/55 L 06/16/22 07:48 Pulse Ox 95 06/16/22 07:48 O2 Del Method 06/16/22 07:48 O2 Flow Rate 0 06/15/22 15:29 BMI result Body Mass Index 26.5 Const: Other: General: AO X 3, no acute distress Resp: CTA bilateral CVS: S1,S2,RRR GI: +BS, NT, no distention Skin: No rash Neuro: motor grossly intact Psych: appropriate affect DS: Data Data Completed and Pending Pending studies at discharge: Pending at discharge 06/15/22 14:50 Surgical [PTH] Routine Labs on day of discharge: Laboratory Results - last 24 hr 06/16/22 06/16/22 06:00 06:00 WBC 9.1 RBC 3.62 L Hgb 8.6 L Hct 27.5 L MCV 76.0 L MCH 23.8 L MCHC 31.3 RDW 21.2 H Plt Count 236 MPV 10.8 Absolute Nucleated RBC 0.040 H Nucleated RBC % (auto) 0.4 H Sodium 140 Potassium 3.7 Chloride 109 H Carbon Dioxide 25 Anion Gap 10 L BUN 14 Creatinine 0.69 Estim Creat Clear Calc 108.8 Estimated GFR > 60 Random Glucose 97 Calcium 7.9 L Preliminary micro results at discharge 06/15/22 00:09 Blood Culture - Preliminary Blood - Venous No growth after 24 hours. 06/15/22 00:09 Blood Culture - Preliminary Blood - Venous No growth after 24 hours. Discharge Plan Discharge Anticipated Discharge Date/Time: 06/16/22 10:32 Patient Disposition: Home, Self-Care Discharge Diagnosis: Acute on chronic anemia Referrals: Nicolle Pretty MD [Primary Care Provider] - 1 Week Discharge Medications: New oseltamivir [Tamiflu] 75 mg Capsule 75 mg PO BID Qty: 8 0RF codeine-guaifenesin 10-100 mg/5 mL liquid 5 ml PO Q6H PRN (Reason: cough) Qty: 120 0RF Continued albuterol sulfate 0.63 mg/3 mL solution for nebulization 0.63 mg inhalation QID PRN (Reason: shortness of breath or wheezing) Qty: 75 0RF albuterol sulfate 90 mcg/actuation HFA aerosol inhaler 1 inh inhalation QID PRN (Reason: shortness of breath or wheezing) Qty: 8.5 0RF metoclopramide HCl 5 mg/5 mL solution 10 mg PO QIDACHS lansoprazole 30 mg tablet,disintegrat, delay rel 30 mg PO BID@0630,1630 baclofen 10 mg tablet 10 mg PO BID clonazepam 0.5 mg tablet 0.5 mg PO BEDTIME PRN (Reason: Insomnia) Rx Instructions: administer 30 minutes before bedtime simvastatin 40 mg tablet 40 mg PO DAILY ketoconazole 2 % shampoo 2 appl topical DAILY ascorbic acid (vitamin C) 500 mg tablet 500 mg PO BID glycerin (adult) Suppository 1 supp [place] DAILY PRN (Reason: Constipation) cholecalciferol (vitamin D3) 25 mcg (1,000 unit) tablet 25 mcg PO DAILY Discontinued naproxen 500 mg tablet 1 tab PO DAILY PRN (Reason: Pain) Discharge Orders: Discharge Order (Routine); Ordered 06/16/22 Ordered By: Eduardo Dean Diet: Advance to usual diet Activity on Discharge: As tolerated Stand Alone Forms: Patient Portal Discharge page Care Plan Goals: Recovery from influenza. Control of anemia Health Concerns: Chronic anemia Chronic iron deficiency Influenza Plan of Treatment: Take Tamiflu as directed for influenza Follow-up on weekly IM on infusion Take Robitussin with codein for cough Assessment: As above
[2022-06-16 11:34] VITALS: BP 104/58; PULSE 82; RESP 16; TEMP 37.3; O2SAT 96
--- NOTE | 2022-06-16 12:09 | MHC.CM.PN ---
pt lives with sister who is is hcp and service center manager he is being dcd today ,alisia ovi notified of dc
== END 2022-06-16 13:06 | disposition home or self-care (01) | DRG 193 ==
LOC: HO.ED 06-15 02:09 → HO.EDOVER 06-15 02:48 → HO.IMC 06-15 11:56
PROVIDERS: Hospitalist; Internal Medicine Gastroenterology; Admitting Provider Internal Medicine; Emergency Provider Emergency Medicine; PCP Student in an Organized Health Care Education/Training Program; Visit Provider Internal Medicine
PROC: 0DJ08ZZ Inspection of Upper Intestinal Tract, Via Natural or Artificial Opening Endoscopic (ICD-10-PCS; CPT 43235; principal; 2022-06-15 14:00)
DX: J10.1 Influenza due to other identified influenza virus with other respiratory manifestations (principal); K22.11 Ulcer of esophagus with bleeding; K29.71 Gastritis, unspecified, with bleeding; D62 Acute posthemorrhagic anemia; E87.20 Acidosis, unspecified; K44.9 Diaphragmatic hernia without obstruction or gangrene; G80.9 Cerebral palsy, unspecified; E86.0 Dehydration; K31.84 Gastroparesis; T39.315A Adverse effect of propionic acid derivatives, initial encounter; Z99.3 Dependence on wheelchair; Z79.899 Other long term (current) drug therapy
CPT/HCPCS: 0241U; 36415; 71045; 80048; 80053; 81001; 82272; 83605; 83690; 83880; 84484; 85025; 85027; 85610; 86850; 86900; 86901; 86923; 87040; 87205; 88305; 88342; 93005; 99285; J0330; J0696; J1100; J2405; P9016

== ENCOUNTER 2022-06-27 12:05 | Outpatient (REF) | payer OTHER, SELFPAY | END 2022-06-27 12:06 | disposition home or self-care (01) | LOC: HO.MDS 12:05 | PROVIDERS: PCP Student in an Organized Health Care Education/Training Program; Visit Provider Internal Medicine Medical Oncology | DX: D50.9 Iron deficiency anemia, unspecified (principal) | CPT/HCPCS: 96365; J1756 ==

== ENCOUNTER 2022-07-05 11:51 | Outpatient (REF) | payer OTHER, SELFPAY | END 2022-07-05 11:52 | disposition home or self-care (01) | LOC: HO.MDS 11:51 | PROVIDERS: Visit Provider Internal Medicine Medical Oncology | DX: D50.9 Iron deficiency anemia, unspecified (principal) | CPT/HCPCS: 96365; J1756 ==

== ENCOUNTER 2022-07-05 13:35 | Outpatient (REF) | payer OTHER, SELFPAY ==
--- NOTE | ~2022-07-05 | MM_ITS ---
EXAMINATION: BONE DENSITOMETRY CLINICAL INDICATION: Hyperparathyroidism. Male, age 46. COMPARISON: Baseline BD dated 05/31/2020. TECHNIQUE: Using a fintonic DXA System (software version: 13.1) manufactured by [employer], dual-energy x-ray absorptiometry was performed of the lumbar spine, left hip, and left forearm radius 33%. The images are of good technical quality. Based on ISCD (International Society for Clinical Densitometry) standards of reporting, Z-scores instead of T-scores are reported in this male patient younger than age 50. Summary results are attached. FINDINGS: AP SPINE L2-L4 (excluding L1): The data of L1-L4 has been changed to exclude the L1 vertebral body because degenerative changes may cause overestimation of the lumbar spine density. Current: BMD 0.841 g/cm2, T-score -3.3, Z-score -2.9, Z-score below expected range for age, -2.7% decrease from baseline (<5% change is not significant). Baseline: BMD 0.864 g/cm2. LEFT FEMUR, NECK: Current: BMD 0.481 g/cm2, T-score -4.5, Z-score -3.8, Z-score below expected range for age. Baseline: BMD 0.777 g/cm2. LEFT FEMUR, TOTAL: Current: BMD 0.402 g/cm2, T-score -4.9, Z-score -4.4, Z-score below expected range for age, 51.0% decrease from baseline (<5% change is not significant). Baseline: BMD 0.821 g/cm2. LEFT FOREARM RADIUS 33%: BMD 1.006 g/cm2, T-score 0.2, Z-score 0.2, Z-score within expected range for age. Baseline: BMD 0.924 g/cm2. IDENTIFIED RISK FACTORS: Hyperparathyroid, low calcium intake. HISTORY OF FRACTURE: None listed. MEDICATIONS: Calcium, vitamin D. MM/XR DEXA appendicular skeleton IMPRESSION: 1. DIAGNOSIS: Based on the lowest Z-score value of -4.4 in the total femur, the patient's bone density is below the expected range for age. 2. 10-YEAR FRACTURE RISK PREDICTION, FRAX: Not performed in this patient outside the age range of 50-90 years. 3. Treatment Recommendations: NOF guidelines recommend consideration for treatment in postmenopausal women and men age 50 and older presenting with the following: -A hip or vertebral (clinical or morphometric) fracture. -T-score less than or equal to -2.5 at the femoral neck or spine after appropriate evaluation to exclude secondary causes. -Low bone mass at the hip or spine and a 10-year fracture probability by FRAX of greater than or equal to 3% for hip fracture or greater than or equal to 20% for major osteoporotic fracture based on the [place] adapted WHO algorithm. 4. Other Recommendations: All treatment decisions require clinical judgment and consideration of individual patient factors, including patient preferences, comorbidities, previous drug use, risk factors not captured in the FRAX model (e.g. frailty, falls, vitamin D deficiency, increased bone turnover, interval significant decline in bone density) and possible under or overestimation of fracture risk by FRAX. Additional medical evaluation for secondary cause of low bone mineral density may be appropriate. FUTURE SCAN RECOMMENDATION: People with diagnosed cases of osteoporosis or at high risk for fracture should have regular bone mineral density tests. For patients eligible for Medicare, routine testing is allowed once every 2 years. The testing frequency can be increased to one year for patients who have rapidly progressing disease, those who are receiving or discontinuing medical therapy to restore bone mass, or have additional risk factors.
== END 2022-07-05 13:36 | disposition home or self-care (01) ==
LOC: HO.MAMMO 13:35
PROVIDERS: Visit Provider Internal Medicine
DX: Z13.820 Encounter for screening for osteoporosis (principal); E21.3 Hyperparathyroidism, unspecified
CPT/HCPCS: 77081

== ENCOUNTER 2022-07-12 12:00 | Outpatient (REF) | payer OTHER, SELFPAY ==
[2022-07-12 12:41] LABS: MANUAL DIFF FLAG NO
[2022-07-12 12:43] LABS: Basophils Absolute Auto 0.1 X10*3/uL (0.0-0.2); Basophils Percent Auto 0.7 % (0-2); Eosinophils Absolute Auto 0.2 X10*3/uL (0.0-0.4); Eosinophils Percent Auto 2.3 % (0-4); Hematocrit 37.1 % (42.0-52.0); Hemoglobin 11.3 g/dl (14.0-18.0); Imm Gran Abs Auto 0.01 X10*3/uL (0.00-0.03); Imm Gran Pct Auto 0.1 % (0.0-0.4); Lymphocytes Absolute Auto 2.1 X10*3/uL (1.2-4.9); Lymphocytes Percent Auto 27.6 % (20-40); Mean Corpuscular HGB Conc 30.5 g/dl (31.0-36.0); Mean Corpuscular Hemoglobin 23.8 pg (27.0-33.0); Mean Corpuscular Volume 78.1 fL (80.0-98.0); Mean Platelet Volume 10.4 fL (9.4-12.4); Monocytes Absolute Auto 0.6 X10*3/uL (0.1-1.2); Neutrophils Absolute Auto 4.6 x10*3/uL (2.0-8.3); Neutrophils Percent Auto 61.3 % (45-73); Platelet Count 394 X10*3/uL (160-400); Red Blood Count 4.75 X10*6/uL (4.60-5.80); Red Cell Distribution Width 23.3 % (11.0-16.0); White Blood Count 7.4 X10*3/uL (4.8-10.8)
== END 2022-07-12 12:01 | disposition home or self-care (01) ==
LOC: HO.MDS 12:00
PROVIDERS: Visit Provider Internal Medicine Medical Oncology
DX: D50.9 Iron deficiency anemia, unspecified (principal)
CPT/HCPCS: 36415; 85025; 96365; J1756

== ENCOUNTER 2022-07-19 12:16 | Outpatient (REF) | payer OTHER, SELFPAY | END 2022-07-19 12:17 | disposition home or self-care (01) | LOC: HO.MDS 12:16 | PROVIDERS: Visit Provider Internal Medicine Medical Oncology | DX: D50.9 Iron deficiency anemia, unspecified (principal) | CPT/HCPCS: 96365; J1756 ==

== ENCOUNTER 2022-07-25 13:41 | Outpatient (REF) | payer OTHER, SELFPAY ==
[2022-07-25 14:45] LABS: MANUAL DIFF FLAG NO
[2022-07-25 14:48] LABS: Basophils Absolute Auto 0.1 X10*3/uL (0.0-0.2); Basophils Percent Auto 0.8 % (0-2); Eosinophils Absolute Auto 0.1 X10*3/uL (0.0-0.4); Eosinophils Percent Auto 1.4 % (0-4); Hematocrit 42.8 % (42.0-52.0); Hemoglobin 13.5 g/dl (14.0-18.0); Imm Gran Abs Auto 0.03 X10*3/uL (0.00-0.03); Imm Gran Pct Auto 0.3 % (0.0-0.4); Lymphocytes Absolute Auto 2.7 X10*3/uL (1.2-4.9); Lymphocytes Percent Auto 29.9 % (20-40); Mean Corpuscular HGB Conc 31.5 g/dl (31.0-36.0); Mean Corpuscular Hemoglobin 25.2 pg (27.0-33.0); Mean Corpuscular Volume 79.9 fL (80.0-98.0); Mean Platelet Volume 10.5 fL (9.4-12.4); Monocytes Absolute Auto 0.7 X10*3/uL (0.1-1.2); Monocytes Percent Auto 7.6 % (2-11); Neutrophils Absolute Auto 5.4 x10*3/uL (2.0-8.3); Platelet Count 371 X10*3/uL (160-400); Red Blood Count 5.36 X10*6/uL (4.60-5.80); Red Cell Distribution Width 23.6 % (11.0-16.0)
== END 2022-07-25 13:42 | disposition home or self-care (01) ==
LOC: HO.MDS 13:41
PROVIDERS: Visit Provider Internal Medicine Medical Oncology
DX: D50.9 Iron deficiency anemia, unspecified (principal)
CPT/HCPCS: 36415; 85025; J1756

== ENCOUNTER → 2022-08-14 10:45 | Outpatient (BNVA) | payer OTHER, SELFPAY | PROVIDERS: PCP Student in an Organized Health Care Education/Training Program; Visit Provider Internal Medicine | DX: E21.3 Hyperparathyroidism, unspecified (principal); M81.0 Age-related osteoporosis without current pathological fracture; G80.9 Cerebral palsy, unspecified; E55.9 Vitamin D deficiency, unspecified; Z99.3 Dependence on wheelchair | CPT/HCPCS: 99212 ==

== ENCOUNTER 2022-08-14 11:47 | Outpatient (REF) | payer OTHER, SELFPAY ==
[2022-08-14 14:43] LABS: Alanine Aminotransferase 56 U/L (0-40); Albumin Level 4.3 g/dL (3.5-5.0); Alkaline Phosphatase 83 U/L (39-117); Anion Gap 12 (12-20); Aspartate Amino Transferase 28 U/L (5-37); Bilirubin Total 0.2 mg/dL (0.0-1.0); Blood Urea Nitrogen 11 mg/dL (9-16); Calcium 9.5 mg/dL (8.4-10.2); Carbon Dioxide 26 mmol/L (22-29); Chloride 107 mmol/L (96-108); Estimated Glomerular Filt Rate > 60; Glucose Random 85 mg/dL (60-115); Phosphorus 2.5 mg/dL (2.7-4.5); Potassium 4.3 mmol/L (3.3-5.1); Sodium 141 mmol/L (135-145); Total Protein 7.7 g/dL (6.5-8.0)
[2022-08-14 14:57] LABS: Vitamin D 25-OH Total 36.1 ng/mL (>30)
[2022-08-15 13:58] LABS: Calcium (PTHI) 9.9 mg/dL (8.6-10.3); PTHI 14 pg/mL (16-77)
[2022-08-16 22:18] LABS: Alkaline Phosphatase Bone 12.7 mcg/L (7.0-18.3)
[2022-08-18 22:39] LABS: N-Telopeptide 23 (9-60); NTXCreaRU 58 mg/dL (20-320)
== END 2022-08-14 11:48 | disposition home or self-care (01) ==
LOC: HO.10HDL 11:47
PROVIDERS: Visit Provider Internal Medicine
DX: M81.0 Age-related osteoporosis without current pathological fracture (principal); E55.9 Vitamin D deficiency, unspecified
CPT/HCPCS: 36415; 80053; 82306; 82523; 83970; 84075; 84100

== ENCOUNTER → 2022-08-21 13:45 | Outpatient (BNVA) | payer OTHER, SELFPAY | PROVIDERS: PCP Student in an Organized Health Care Education/Training Program; Visit Provider Internal Medicine Gastroenterology | DX: D50.8 Other iron deficiency anemias (principal); K31.84 Gastroparesis; K59.01 Slow transit constipation | CPT/HCPCS: 99212 ==

== ENCOUNTER 2022-08-31 09:48 | Outpatient (REF) | payer OTHER, SELFPAY ==
[2022-08-31 10:47] LABS: Blood Urea Nitrogen 19 mg/dL (9-16); Estimated Glomerular Filt Rate > 60
== END 2022-08-31 09:49 | disposition home or self-care (01) ==
LOC: HO.MDS 09:48
PROVIDERS: Visit Provider Internal Medicine
DX: M81.0 Age-related osteoporosis without current pathological fracture (principal)
CPT/HCPCS: 36415; 82565; 84520; 96365; J3489

== ENCOUNTER → 2022-09-29 10:37 | Outpatient (BNVA) | payer OTHER, SELFPAY | PROVIDERS: PCP Student in an Organized Health Care Education/Training Program; Visit Provider Surgery | DX: K21.00 Gastro-esophageal reflux disease with esophagitis, without bleeding (principal); K44.9 Diaphragmatic hernia without obstruction or gangrene | CPT/HCPCS: 99212 ==

== ENCOUNTER 2022-10-19 08:34 | Day surgery (SDC) | payer OTHER, SELFPAY ==
--- NOTE | 2022-10-18 09:19 | HO.ANESPROP2 ---
Documented by User: Ciara Babcock NP 10/18/22 09:24 HPI - Anesthesia Eval Consult details Narrative: 46yo M for Upper Endoscopy s/p EGD 05/2022 with [facility] Active Problems Active Problems: All Active Problems (Updated 10/13/22 @ 10:03 by Sebastián Denny MD) Esophagitis (Acute) GERD (gastroesophageal reflux disease) (Acute) Hiatal hernia (Acute) Constipation by delayed colonic transit (Acute) Delayed gastric emptying (Acute) Anemia (Acute) Nausea (Acute) Abdominal bloating (Acute) Osteoporosis (Acute) Hyperparathyroidism (Acute) Vitamin D deficiency (Acute) Hypercalcemia (Acute) Past Medical History Medical History (Updated 10/18/22 @ 13:13 by Brittany Klein PA-C) Abdominal bloating Anemia Cerebral palsy Constipation by delayed colonic transit Delayed gastric emptying Gastroparesis GERD (gastroesophageal reflux disease) HTN (hypertension) Hypercalcemia Hyperparathyroidism Iron deficiency anemia Nausea Osteoporosis Vitamin D deficiency Family History Family History Father Emphysema of lung Liver disease Mother Scoliosis Hepatitis Phlebitis Lymphoma Sister Nephrolithiasis Diabetes Lymphoma Surgical History Surgical History History of esophagogastroduodenoscopy (EGD) Hx of cholecystectomy Hx of colonoscopy Hx of oral surgery S/P removal of parathyroid gland Social History Social History Household Members: Family Housing: Apartment Are you a primary child daycare worker to a significant other at home: No Do you presently have visiting nurse or other home services: Yes (pt sister is his [employer]M COVERER) Alcohol intake: current Alcohol intake frequency: does not drink Patient Tobacco Use Status: Never used Tobacco Second Hand Smoke Exposure: No service: No Current occupational status: disabled Meds Allergies Allergy/AdvReac Type Severity Reaction Status Date / Time No Known Allergies Allergy Verified 10/19/22 08:55 [No Known Allergies*] Home Medications Medication Instructions Recorded Confirmed Last Taken Type clonazepam 0.5 mg tablet 0.5 mg PO BEDTIME PRN Insomnia 04/21/20 10/19/22 06/14/22 History simvastatin 40 mg tablet 40 mg PO DAILY 04/21/20 10/19/22 06/14/22 History ascorbic acid (vitamin C) 500 mg 500 mg PO BID 06/03/20 10/19/22 06/14/22 History tablet glycerin (adult) 1 supp [place] DAILY PRN Constipation 06/03/20 10/19/22 Unknown History ketoconazole 2 % shampoo 2 appl topical DAILY 06/03/20 10/19/22 06/14/22 History baclofen 10 mg tablet 20 mg PO BID 08/14/22 10/19/22 Unknown History Exam Exam Date and Time: October 18, 2022 0919 Pertinent Lab Results Pertinent Lab Results: Laboratory Tests 10/13/22 10/13/22 09:40 09:40 WBC 8.6 RBC 5.59 Hgb 14.7 Hct 45.9 Plt Count 333 Sodium 140 Potassium 4.3 Chloride 107 Carbon Dioxide 24 BUN 14 Creatinine 0.78 Narrative Narrative: EKG 05/2022 Vent. Rate : 137 BPM ? ? Atrial Rate : 137 BPM ?? P-R Int : 118 ms? QRS Dur : 126 ms ? ? QT Int : 374 ms ? ? ? P-R-T Axes : 007 015 -01 degrees ?? QTc Int : 564 ms ? Sinus tachycardia Right bundle branch block Cannot rule out Inferior infarct , age undetermined Abnormal ECG When compared with ECG of 19-JUN-2021 18:03, Vent. rate has increased BY? 65 BPM Right bundle branch block has replaced Incomplete right bundle branch block Minimal criteria for Inferior infarct are now Present Assessment and Plan Assessment Anesthesia Assessment: Chart Reviewed Documented by User: Major Ny MD 10/19/22 16:50 HPI - Anesthesia Eval Consult details Narrative: 46yo M for Upper Endoscopy Cerebral palsy , delayed gastric emptying , hiatal hernia Denies any chest pain, SOB or any cardiac problems . s/p EGD 05/2022 [facility] Past Medical History Medical History (Updated 10/18/22 @ 13:13 by Brittany Klein PA-C) Abdominal bloating Anemia Cerebral palsy Constipation by delayed colonic transit Delayed gastric emptying Gastroparesis GERD (gastroesophageal reflux disease) HTN (hypertension) Hypercalcemia Hyperparathyroidism Iron deficiency anemia Nausea Osteoporosis Vitamin D deficiency Functional capacity: wheelchair bound Family History Family History Father Emphysema of lung Liver disease Mother Scoliosis Hepatitis Phlebitis Lymphoma Sister Nephrolithiasis Diabetes Lymphoma Family history of problems with anesthesia: No Surgical History Surgical History History of esophagogastroduodenoscopy (EGD) Hx of cholecystectomy Hx of colonoscopy Hx of oral surgery S/P removal of parathyroid gland History of Problems with Anesthesia: No Social History Social History Household Members: Family Housing: Apartment Are you a primary child daycare worker to a significant other at home: No Do you presently have visiting nurse or other home services: Yes (pt sister is his [employer] COVERER) Alcohol intake: current Alcohol intake frequency: does not drink Patient Tobacco Use Status: Never used Tobacco Second Hand Smoke Exposure: No service: No Current occupational status: disabled Meds Allergies Allergy/AdvReac Type Severity Reaction Status Date / Time No Known Allergies Allergy Verified 10/19/22 08:55 [No Known Allergies*] Home Medications Medication Instructions Recorded Confirmed Last Taken Type clonazepam 0.5 mg tablet 0.5 mg PO BEDTIME PRN Insomnia 04/21/20 10/19/22 06/14/22 History simvastatin 40 mg tablet 40 mg PO DAILY 04/21/20 10/19/22 06/14/22 History ascorbic acid (vitamin C) 500 mg 500 mg PO BID 06/03/20 10/19/22 06/14/22 History tablet glycerin (adult) 1 supp NH DAILY PRN Constipation 06/03/20 10/19/22 Unknown History ketoconazole 2 % shampoo 2 appl topical DAILY 06/03/20 10/19/22 06/14/22 History baclofen 10 mg tablet 20 mg PO BID 08/14/22 10/19/22 Unknown History Exam Airway Mallampati Class: IV Neck ROM: Full Loose/Missing/Broken Teeth: Yes Assessment and Plan Assessment Anesthesia Assessment: Anesthesia Plan Discussed (with HCP , sister ) Final Anesthetic Review Family History of Problems with Anesthesia: No History of Problems with Anesthesia: No NPO: Yes ASA Class: III Final Preanesthetic Review: Meds/Allgs Chart Reviewed and Anes Risks/Benef Reviewed Patient Risk: Intermediate Procedure Risk: Intermediate Assessment/Block/Sedation in SS: Assess/Block/Sedation-SS Anesthetic Plan Anesthetic Plan: MAC: Disposition: Standard PACU
[2022-10-18 14:04] LABS: COVID-19 Test Negative (Negative); IDNOW Serial# BCCEAD1C
--- NOTE | 2022-10-19 07:53 | MHC.SHP ---
Pre-Procedural Eval Section A Date of Service: 10/19/22 The patient is an INPATIENT: No The History & Physical has been completed within 30 days and I have reviewed it.: Yes Section B Chief Complaint: Diaphragmatic hernia without obstruction or gangre Relevant Family History (Specify if Yes): No Relevant Social History: None Present Medications: None Medical History: No relevant PMH History of Previous Operations: No relevant previous surgery Allergies: Allergies Allergy/AdvReac Type Severity Reaction Status Date / Time No Known Allergies Allergy Verified 10/13/22 09:45 [No Known Allergies*] Review of Systems Sugical H&P ROS: Negative: Constitution, Cardiovascular, Respiratory, Neurological, Psychiatric, Hem-Onc, Allergic/Immunologic, Genitourinary, Musculoskeletal, Integumentary, Endocrine and Eyes/Ears/Nose/Throat and Yes, Specify: Gastrointestinal (hematemesis and GERD) Exam Surgical H&P Exam: Normal: HEENT, Normal: Heart, Normal: Lungs, Normal: Extremities, Normal: Abdomen, Normal: Skin and Normal: Neurological Plan Diagnosis/Plan: Unchanged (Plan for EGD to assess the hiatal hernia and the cause of hematemesis. Risks of perforation and bleeding were discussed with the patient) I have reviewed the history and physical and performed a pertinent physical examination on my patient. No changes have occurred unless specified. Time Spent With Patient Time: Total time managing care of this patient today ____ minutes.
[2022-10-19 08:51] VITALS: BMI 26.6
[2022-10-19 09:08] VITALS: BP 132/82; PULSE 65; RESP 16; TEMP 36.6; O2SAT 98
[2022-10-19] MEDS: Lactated Ringers 1,000 ML 100 ML IVCONT (09:21)
[2022-10-19] MEDS: Famotidine/PF 20 MG/2 ML VIAL IVPUSH (10:05)
[2022-10-19] MEDS: Metoclopramide HCl 10 MG/2 ML VIAL 5 MG IVPUSH (10:08)
--- NOTE | 2022-10-19 10:51 | P.BOP_ITS ---
Brief Operative Note Date of Service: 10/19/22 Pre-op diagnosis: Diaphragmatic hernia and hematemesis Post-op diagnosis: same (Same and esophagitis) Procedure: PROCEDURE DATE: 10/19/2022 PREOPERATIVE DIAGNOSIS: GERD and obesity POSTOPERATIVE DIAGNOSIS: ?Same as above. 1) Large hiatal hernia, 2) esophagitis III PROCEDURE: [id number] with biopsies Surgeon: ?Benito Rader M.D.. Ph.D. Roofing Machine Operator: None ? Anesthesia: IV sedation Estimated blood loss: ?Minimal FINDINGS AND PROCEDURE: ? OPERATIVE INDICATIONS: ?The patient is a 46 year old male with cerebral palsy known to me who was referred for a large diaphragmatic hernia. He has severe GERD and recently reported coffee ground emesis. He presents for an endoscopy and a biopsy. Risks and complications of the surgery were discussed with the patient in advance particularly the possibility of perforation or bleeding that may require surgical intervention. The patient understood the risks and was in agreement with the plan. ? PROCEDURE: After informed consent was obtained by the patient, the patient was ?transferred to the Operating Room and was placed in the supine position.? After successful induction of IV sedation, a mouth block was inserted and the patient was placed in the left lateral decubitus position. An upper endoscopy was performed next, the oropharynx and esophagus appeared within the normal limits. There was a large hiatal hernia. The z-line was irregular with tongus of gastric mucosa protruding into the esophagus in more than 50% circumference and it was located at 34cm from incisors.. Two biopsies were obtained from the GE junction. The crura were located about 46cm from incisors The stomach was entered and it appeared to be of normal size. There was no gastritis at distal antrum. There was no stricture or ulcer. A biopsy was obtained from the distal antrum. No significant bleeding was noted from any of the biopsy sites. The scope was then advanced into the duodenum which appeared to be normal as well. At that point the duodenum ?and the stomach were decompressed and the scope was withdrawn from the patient's mouth. The patient extubated and was transferred in stable condition to the Recovery Room for further care. I was present and performed all steps of the procedure. There were no residents to assist with this case. Benito Rader M.D., Ph.D. Surgeon: Jerad Rader MD Anesthesia: MAC Was an Roofing Machine Operator used for this Procedure?: No Estimated blood loss (mL): 0 IV fluids (mL): 400 Urine output (mL): 0 (No [place] to record output) Pathology: other (1) antrum x1, 2) GE junction x2) Condition: stable Disposition: PACU
[2022-10-19 10:52] VITALS: BP 111/50; PULSE 60; RESP 19; TEMP 36.5; O2SAT 100
[2022-10-19 11:07] VITALS: BP 99/51; PULSE 65; RESP 18; O2SAT 100
[2022-10-19 11:22] VITALS: BP 108/57; PULSE 79; RESP 18; TEMP 36.3; O2SAT 97
== END 2022-10-19 11:55 | disposition home or self-care (01) ==
PROVIDERS: Nurse Practitioner; PCP Student in an Organized Health Care Education/Training Program; Visit Provider Surgery
PROC: 0DJ08ZZ Inspection of Upper Intestinal Tract, Via Natural or Artificial Opening Endoscopic (ICD-10-PCS; CPT 43235; principal; 2022-10-19 10:10)
DX: K44.9 Diaphragmatic hernia without obstruction or gangrene (principal); K92.0 Hematemesis; K20.90 Esophagitis, unspecified without bleeding; K21.9 Gastro-esophageal reflux disease without esophagitis; G80.9 Cerebral palsy, unspecified; R09.89 Other specified symptoms and signs involving the circulatory and respiratory systems; D64.9 Anemia, unspecified; K59.01 Slow transit constipation; I10 Essential (primary) hypertension; D50.9 Iron deficiency anemia, unspecified; M81.0 Age-related osteoporosis without current pathological fracture; E55.9 Vitamin D deficiency, unspecified; E21.3 Hyperparathyroidism, unspecified; Z79.899 Other long term (current) drug therapy; Z20.822 Contact with and (suspected) exposure to COVID-19; Z90.49 Acquired absence of other specified parts of digestive tract
CPT/HCPCS: 43239; 87635; 88305; 88342; J2765

== ENCOUNTER → 2022-11-01 10:09 | Outpatient (REF) | payer OTHER, SELFPAY ==
--- NOTE | ~2022-11-01 | XR_ITS ---
EXAMINATION: XR CHEST CLINICAL INFORMATION: Diaphragmatic hernia without obstruction. COMPARISON: 06/15/[address] angiography of the chest of 06/19/2021. TECHNIQUE: 2 views of the chest were obtained. FINDINGS: The cardiopericardial silhouette is enlarged. No evidence of airspace edema. There is some mild vascular prominence seen. Moderate-sized hiatal hernia is evident. No pneumothorax or pleural effusion. XR/XR chest 2V IMPRESSION: Moderate-sized hiatal hernia. Enlarged cardiopericardial silhouette. No significant acute parenchymal disease.
--- NOTE | 2022-11-01 10:15 | ECG_ITS ---
Test Reason : k20.90 Blood Pressure : / mmHG Vent. Rate : 075 BPM Atrial Rate : 075 BPM P-R Int : 142 ms QRS Dur : 130 ms QT Int : 402 ms P-R-T Axes : 071 -11 -05 degrees QTc Int : 448 ms Normal sinus rhythm Right bundle branch block Minimal voltage criteria for LVH, may be normal variant ( R in aVL ) Abnormal ECG When compared with ECG of 14-JUN-2022 23:33, Vent. rate has decreased BY 62 BPM Referred By: Jerad Rader Electronically Signed By:Rayo Alarcon
== END ==
LOC: HO.CARD 10:09
PROVIDERS: PCP Student in an Organized Health Care Education/Training Program; Visit Provider Surgery
DX: K20.90 Esophagitis, unspecified without bleeding (principal); K21.9 Gastro-esophageal reflux disease without esophagitis; K44.9 Diaphragmatic hernia without obstruction or gangrene
CPT/HCPCS: 71046; 93005

== ENCOUNTER 2022-11-07 08:38 | Outpatient (REF) | payer OTHER, SELFPAY ==
--- NOTE | ~2022-11-07 | FL_ITS ---
PROCEDURE: XR FLUOROSCOPY UPPER GI WITH AIR CLINICAL INFORMATION: Gastroesophageal reflux disease without esophagitis. COMPARISON: Previous barium swallow February [address] of the abdomen and pelvis May 2020. TECHNIQUE: Single contrast upper GI was performed with thin barium. Exam was performed with the patient semiupright with assistance. Additional drinking esophagram images were performed with the patient upright in a stretcher with overhead exams. Prone drinking images and air contrast exam not performed due to patient's limited mobility. FINDINGS: The esophagus is slightly dilated or patulous. There is a small fixed hiatal hernia probably similar to prior exams. There is abnormal esophageal motility and delayed emptying contrast from the stomach. No gastroesophageal reflux was observed with the patient in the upright position. Prone drinking PRAKASH esophagram again was not performed. FLUOROSCOPY TIME: 1.1 minutes. DOSE AREA PRODUCT: 8 Gy-cm2. TOTAL DOSE: 39 mGy. IMAGES: 17 fluoroscopic images and 4 overhead images. FL/FL upper GI w air IMPRESSION: Limited exam. Slightly dilated patulous esophagus with the decreased esophageal motility. Small fixed hiatal hernia probably similar to previous exams. There is delayed emptying contrast from the esophagus and stomach. No reflux observed with the patient upright. Prone drinking PRAKASH esophagram not performed.
== END 2022-11-07 08:39 | disposition home or self-care (01) ==
LOC: HO.XRAY 08:38
PROVIDERS: PCP Student in an Organized Health Care Education/Training Program; Visit Provider Surgery
DX: K21.9 Gastro-esophageal reflux disease without esophagitis (principal); K44.9 Diaphragmatic hernia without obstruction or gangrene
CPT/HCPCS: 74246

== ENCOUNTER 2022-11-10 10:13 | Outpatient (REF) | payer OTHER, SELFPAY ==
--- NOTE | ~2022-11-10 | US_ITS ---
EXAMINATION: US COMPLETE ABDOMEN WITH LIVER ELASTOGRAPHY CLINICAL INFORMATION: Diaphragmatic hernia without obstruction or gangrene. COMPARISON: CT abdomen and pelvis dated 08/17/2019; abdominal ultrasound dated 12/10/2014. TECHNIQUE: Real-time imaging of the abdominal viscera. Noninvasive ultrasound liver fibrosis assessment is performed using Carolee ElastPQ point quantification shear wave elastography (2D-SWE) with a C5-2 MHz transducer. Multiple elastography samples are obtained. FINDINGS: PANCREAS: Normal. The visualized pancreatic neck and proximal body are normal in appearance. The remainder of the pancreas is obscured from visualization by the overlying bowel gas. ABDOMINAL AORTA: Poorly visualized due to overlapping bowel gas. INFERIOR VENA CAVA: Visualized portions are normal. LIVER: Normal. The liver demonstrates normal size, contour and echogenicity. No focal lesion or intrahepatic biliary duct dilatation. The right lobe measures 12.5 cm in length. The left lobe measures 10.1 cm in length. Portal flow is towards the liver (hepatopetal). Shear wave liver elastography median stiffness is 1.29 m/s (reference: normal median stiffness is 1.3 m/s or less). IQR/median stiffness to assess sampling precision is 0.09 (reference: good quality data set is IQR/median stiffness of 0.15 or less). GALLBLADDER: Surgically absent. COMMON BILE DUCT: Normal in caliber measuring 0.3 cm in diameter. RIGHT KIDNEY: Imaging limited by overlapping bowel gas. No hydronephrosis. No renal calculi or focal parenchymal lesions. The kidney measures 8.0 cm in maximum dimension. LEFT KIDNEY: Normal. No hydronephrosis. No renal calculi or focal parenchymal lesions. The kidney measures 10.9 cm in maximum dimension. SPLEEN: Normal. The spleen measures 8.0 cm in maximum dimension. FREE FLUID: None. US/US abdomen comp w elastography IMPRESSION: 1. Liver elastography: Measurements are consistent with a high probability of normal liver stiffness. 2. The gallbladder is surgically absent. 3. Technically limited examination. REFERENCE: Society of Radiologists in Ultrasound Liver Stiffness Thresholds (2019): LIVER STIFFNESS THRESHOLDS: *Liver Stiffness equal or less than 1.3 m/s: High probability of being normal. *Liver Stiffness less than 1.7 m/s: In the absence of other known clinical signs, rules out compensated advanced chronic liver disease. *Liver Stiffness 1.7-2.1 m/s: Suggestive of compensated advanced chronic liver disease but need further test for confirmation. *Liver Stiffness over 2.1 m/s: Rules in compensated advanced chronic liver disease. *Liver Stiffness over 2.4 m/s: Suggestive of clinically significant portal hypertension. QUALITY OF DATA SET: *IQR/Median value equal or less than 0.15 implies a quality data set. *IQR/Median value over 0.15 implies a poor quality data set. SIGNIFICANT CHANGE FROM PRIOR EXAM: Significant change if liver stiffness measurement is 10% or greater from prior exam. OTHER CONSIDERATIONS: The stage of liver fibrosis may be overestimated in the setting of acute hepatitis, liver inflammation, elevated liver function tests, hepatic vascular congestion, obstructive cholestasis, non-fasting state, and infiltrative diseases such as amyloidosis and lymphoma. In some patients with NAFLD, the liver stiffness thresholds for compensated advanced chronic liver disease may be lower. In causes other than viral hepatitis and NAFLD, liver stiffness thresholds are not well established.
== END 2022-11-10 10:14 | disposition home or self-care (01) ==
LOC: HO.US 10:13
PROVIDERS: PCP Student in an Organized Health Care Education/Training Program; Visit Provider Surgery
DX: K44.9 Diaphragmatic hernia without obstruction or gangrene (principal); K21.9 Gastro-esophageal reflux disease without esophagitis
CPT/HCPCS: 76705; 76981

== ENCOUNTER 2022-11-22 08:24 | Outpatient (REF) | payer OTHER, SELFPAY | END 2022-11-22 08:25 | disposition home or self-care (01) | LOC: HO.RESP 08:24 | PROVIDERS: PCP Student in an Organized Health Care Education/Training Program; Visit Provider Surgery | DX: Z13.89 Encounter for screening for other disorder (principal) ==

== ENCOUNTER → 2022-11-28 10:15 | Outpatient (BNVA) | payer OTHER, SELFPAY | PROVIDERS: PCP Student in an Organized Health Care Education/Training Program; Visit Provider Surgery | DX: K44.9 Diaphragmatic hernia without obstruction or gangrene (principal); K21.9 Gastro-esophageal reflux disease without esophagitis | CPT/HCPCS: Q3014 ==

== ENCOUNTER 2022-12-07 15:33 | Emergency (ER) | payer OTHER, SELFPAY ==
--- NOTE | ~2022-12-07 | CT_ITS ---
EXAMINATION: CT ABDOMEN AND PELVIS WITHOUT CONTRAST CLINICAL INFORMATION: Back pain. Flank pain. Nausea and vomiting. COMPARISON: CT of the abdomen and pelvis done on 06/13/2020 and abdominal ultrasound done on 11/10/2022. TECHNIQUE: Multidetector volumetric imaging was performed from the superior aspect of the liver through the pubic symphysis. Sagittal and coronal reformatted images were obtained on the technologist's workstation. This CT examination was performed using dose optimization techniques as appropriate, variously including the following: *Automated exposure control *Adjustment of mA and/or kV according to patient size (this includes techniques or standardized protocols for targeted exams where dose is matched to indication/reason for exam; i.e. extremities or head) *Use of iterative reconstruction technique DLP: 348 mGy-cm FINDINGS: Technically limited study due to motion artifacts affecting mid to lower abdominal evaluation. LUNG BASES: Moderate size posterior mediastinal hiatal hernia is noted, similar to prior study. Both lung bases are clear. LIVER, GALLBLADDER, AND BILIARY TREE: The liver is normal in size, shape, and attenuation. No focal hepatic lesion or biliary ductal dilatation is present. The gallbladder is surgically absent. PANCREAS: Unremarkable. SPLEEN: Unremarkable. ADRENAL GLANDS: Unremarkable. KIDNEYS AND URETERS: The kidneys are normal in size, shape, and attenuation. No hydronephrosis, or hydroureter seen. No perinephric stranding. There is a sub-5 mm punctate nonobstructing right renal calculus present at mid posterior calyx (224:4). BLADDER: Unremarkable. GASTROINTESTINAL TRACT: The small and large bowel are unremarkable. The appendix is unremarkable (469:4). ABDOMINAL WALL: No significant hernia is appreciated. LYMPH NODES: Normal. VASCULAR: Unremarkable. PELVIC VISCERA: There is no pelvic mass present. No evidence of any free fluid and/or free air. OSSEOUS STRUCTURES: No suspicious focal lesion. Incidental note is made of a bone island at the right femoral head. CT/CT abdomen pelvis wo IV con IMPRESSION: 1. Solitary sub-5 mm punctate nonobstructing right renal calculus. 2. Moderate-sized posterior mediastinal hiatal hernia and surgically absent gallbladder. 3. Otherwise unremarkable study. Fleischner guidelines were followed.
[2022-12-07 16:02] VITALS: BP 127/85; PULSE 83; RESP 18; TEMP 36.7; O2SAT 99; BMI 45.8
[2022-12-07 16:32] LABS: MANUAL DIFF FLAG NO
[2022-12-07 16:34] LABS: Basophils Absolute Auto 0.1 X10*3/uL (0.0-0.2); Basophils Percent Auto 0.6 % (0-2); Eosinophils Absolute Auto 0.2 X10*3/uL (0.0-0.4); Eosinophils Percent Auto 1.8 % (0-4); Hematocrit 44.4 % (42.0-52.0); Hemoglobin 14.6 g/dl (14.0-18.0); Imm Gran Abs Auto 0.04 X10*3/uL (0.00-0.03); Imm Gran Pct Auto 0.4 % (0.0-0.4); Lymphocytes Absolute Auto 2.7 X10*3/uL (1.2-4.9); Lymphocytes Percent Auto 26.6 % (20-40); Mean Corpuscular HGB Conc 32.9 g/dl (31.0-36.0); Mean Corpuscular Hemoglobin 27.7 pg (27.0-33.0); Mean Corpuscular Volume 84.1 fL (80.0-98.0); Mean Platelet Volume 10.9 fL (9.4-12.4); Monocytes Absolute Auto 0.8 X10*3/uL (0.1-1.2); Neutrophils Absolute Auto 6.4 x10*3/uL (2.0-8.3); Neutrophils Percent Auto 62.6 % (45-73); Platelet Count 332 X10*3/uL (160-400); Red Blood Count 5.28 X10*6/uL (4.60-5.80); Red Cell Distribution Width 14.8 % (11.0-16.0); White Blood Count 10.2 X10*3/uL (4.8-10.8)
[2022-12-07 16:53] LABS: Alanine Aminotransferase 33 U/L (0-40); Albumin Level 4.4 g/dL (3.5-5.0); Alkaline Phosphatase 71 U/L (39-117); Anion Gap 9 (12-20); Aspartate Amino Transferase 26 U/L (5-37); Bilirubin Total 0.4 mg/dL (0.0-1.0); Blood Urea Nitrogen 12 mg/dL (9-16); Calcium 9.2 mg/dL (8.4-10.2); Carbon Dioxide 26 mmol/L (22-29); Chloride 109 mmol/L (96-108); Creatinine Clr Calc Pharmacy 74.7; Estimated Glomerular Filt Rate > 60; Glucose Random 101 mg/dL (60-115); Potassium 3.9 mmol/L (3.3-5.1); Sodium 140 mmol/L (135-145); Total Protein 8.1 g/dL (6.5-8.0)
[2022-12-07 17:45] LABS: Appearance Urine Clear; Color Urine Yellow; Glucose Urine UA Negative (Negative); Leukocyte Esterase Urine Negative (Negative); Nitrite Urine Negative (Negative); Specific Gravity - Urine 1.015 (1.005-1.025); Urine Blood Negative (Negative); Urine Ketones Negative (Negative); Urine Protein Negative (Neg-Trace)
--- NOTE | 2022-12-07 18:23 | ED_ITS ---
HPI - General Adult General Chief complaint: General Medical Stated complaint: Back pain/n Time Seen by Provider: 12/07/22 18:19 Source: patient and family Mode of arrival: wheelchair Limitations: no limitations History of Present Illness HPI narrative: 47 yo male with a history of cerebral palsy, osteoporosis presents to the ER for diffuse back pain and nausea. He states that his back pain started this morning as well as the nausea. He describes his pain as pitching and stabbing pain and states that the pain does not radiate however location of pain changes. Worse with movement better at rest . He denies injury to his back. He has no history of prior kidney stones. Patient denies saddle paresthesias, numbness, tingling, urinary/bowel incontinence and retention, fevers, chills, recent upper respiratory infection, chest pain, shortness of breath, vomiting, abdominal pain, changes in urination or bowel habits Onset (ago): day(s) Location: back Radiation: non-radiation Severity: severe Quality: stabbing and sharp Pain Consistency: intermittent Relieving factors: none Exacerbating factors: none Associated symptoms: nausea/vomiting Treatments prior to arrival: none Related Data Home Medications Medication Instructions Recorded Confirmed clonazepam 0.5 mg tablet 0.5 mg PO BEDTIME PRN Insomnia 04/21/20 10/19/22 simvastatin 40 mg tablet 40 mg PO DAILY 04/21/20 10/19/22 ascorbic acid (vitamin C) 500 mg 500 mg PO BID 06/03/20 10/19/22 tablet glycerin (adult) 1 supp NH DAILY PRN Constipation 06/03/20 10/19/22 ketoconazole 2 % shampoo 2 appl topical DAILY 06/03/20 10/19/22 baclofen 10 mg tablet 20 mg PO BID 08/14/22 10/19/22 Previous Rx's Medication Instructions Recorded cholecalciferol (vitamin D3) 25 25 mcg PO DAILY 30 days #30 tabs 07/13/22 mcg (1,000 unit) tablet sucralfate 100 mg/mL oral 1 g (10 mL) PO BID #414 mL 08/21/22 suspension lansoprazole 30 mg delayed 30 mg PO BID@0630,1630 #60 tabs 09/26/22 release,disintegrating tablet famotidine 40 mg/5 mL (8 mg/mL) 40 mg (5 mL) PO DAILY 30 days #150 11/06/22 oral suspension mL metoclopramide HCl 5 mg/5 mL oral 10 mg (10 mL) PO QIDACHS #500 mL 12/06/22 solution lidocaine 5 % topical patch 1 patch topical DAILY PRN pain #15 12/07/22 ea morphine 15 mg immediate release 15 mg PO Q6H PRN pain 5 days #10 12/07/22 tablet tabs ondansetron 4 mg disintegrating 4 mg PO Q6H PRN nausea and 12/07/22 tablet vomiting #14 tabs Allergies Allergy/AdvReac Type Severity Reaction Status Date / Time No Known Allergies Allergy Verified 11/28/22 10:42 [No Known Allergies*] Review of Systems Review of Systems: Constitutional : No Weight loss, No Fever, No Chills, ENT/Mouth : No Hearing loss, No Ear Pain, No Nasal Congestion, No Sinus Pain, No Hoarseness, No sore throat, No Rhinorrhea, No Swallowing Difficulty Cardiovascular : No Chest Pain, No SOB Respiratory : No Cough, No Dyspnea Gastrointestinal : No Nausea, No Vomiting, No Diarrhea, No abdominal Pain, No Hematochezia, No Melena Genitourinary : No Dysuria, No Urinary Frequency, No Hematuria, No Urinary Incontinence, Musculoskeletal : positive back pain Skin : No Skin Lesions, No rash Neuro : No Weakness, No Numbness, No Paresthesias, no loss of bowel or bladder incontinence, no saddle anesthesia Yes all other systems are reviewed and are negative PMFSH Past Medical History Attestation statement: The following information was validated with the patient. Source: old records reviewed and nursing notes reviewed Medical History Abdominal bloating Anemia Cerebral palsy Constipation by delayed colonic transit Delayed gastric emptying Gastroparesis GERD (gastroesophageal reflux disease) HTN (hypertension) Hypercalcemia Hyperparathyroidism Iron deficiency anemia Nausea Osteoporosis Vitamin D deficiency Surgical History History of esophagogastroduodenoscopy (EGD) Hx of cholecystectomy Hx of colonoscopy Hx of oral surgery S/P removal of parathyroid gland Family History Family History Father Emphysema of lung Liver disease Mother Scoliosis Hepatitis Phlebitis Lymphoma Sister Nephrolithiasis Diabetes Lymphoma Social History Social History Household Members: Family Housing: Apartment Are you a primary primary health care nurse to a significant other at home: No Do you presently have visiting nurse or other home services: Yes (pt sister is his TELECOMMUNICATIONS NETWORK ENGINEER) Alcohol intake: never Patient Tobacco Use Status: Never used Tobacco Smoked in Last 30 Days: No Second Hand Smoke Exposure: No Use of substances other than those prescribed or required for medical reasons: No Advance Directives: Yes Advance Directives on File: Yes Advance Directives Date on File: 10/20/22 service: No Current occupational status: disabled Physical Exam ED Vital Signs: Vital Signs - 24 hr 12/07/22 16:02 12/07/22 19:45 Temperature 98.1 F 98.6 F Pulse Rate 83 72 Respiratory Rate 18 16 Blood Pressure 127/85 129/82 Pulse Oximetry 99 96 Oxygen Delivery Method Room Air Room Air BMI result Body Mass Index 45.8 vss Appearance: Alert.? Oriented X3.? No acute distress.? Head: Normocephalic, atraumatic, no step-offs or deformities Eyes: Pupils equal, round and reactive to light.? ENT: Pharynx normal.? Neck: Normal inspection.? Neck supple.? CVS: Normal heart rate and rhythm.? Pulses normal.? Respiratory: No respiratory distress.? Breath sounds normal.? Abdomen: Soft and nontender.? Skin: Skin warm and dry.? Normal skin color.? Normal skin turgor.? Extremities: No lower extremity edema.? No calf ttp. 5/5 strength to bilateral upper and lower extremities Back: No midline tenderness, no C-spine tenderness, full range of motion, no CVA tenderness bilaterally + tenderness to lumbar and thoracic bilateral paraspinous muscles throughout. Neuro: Oriented X 3.? No motor deficit.? No sensory deficit. CN 2-12 intact . No saddle paresthesias. Course Reevaluation(s) Reevaluation #1: CBC appears to be within normal limits. Chemistry unremarkable. Normal inflammatory markers therefore low suspicion for epidural abscess, cauda equina. Patient's UA without infection, no red blood cells. CT of the abdomen pelvis with a saddle sub 5 mm punctate nonobstructing right renal calculi, moderate- sized posterior mediastinal hiatal hernia in surgically absent gallbladder, will have him follow-up with General surgery for this hernia as soon as possible ( patient and family aware of this finding from previous scans and has been seen by multiple specialists) . I suspect patient's back pain is musculoskeletal in nature. Patient feeling better after pain medicine. Will have him follow up with [facility]. Educated patient on diagnosis and treatment plan, answered all question, patient verbalizes understanding. At this time patient will be discharged home, advised to return with new or worsening symptoms. Educated on worrisome signs and symptoms and when to return. At this time I feel comfortable discharge home. Time: 20:21 Medications Administered Discontinued Medications Generic Name Dose Route Start Last Admin Trade Name Freq PRN Reason Stop Dose Admin Lidocaine 2 patch 12/07/22 19:04 12/07/22 19:36 Lidocaine 4 % Patch Adh..Patch TRANSDERMA 12/07/22 19:05 2 patch ONCE ONE Administration Protocol Morphine Sulfate 5 mg 12/07/22 19:11 12/07/22 19:35 Morphine Sulfate Oral Olga 10 Mg/5 Ml Solution PO 12/07/22 19:12 5 mg ONCE ONE Administration Medical Decision Making Medical Decision Making [facility] Narrative: 47-year-old male presents with back pain, nausea that started this morning. Physical exam significant for tenderness to lumbar and thoracic bilateral paraspinous muscles throughout. Concerns for thoracic/lumbar paraspinous spasms. Unlikely cauda equina, epidural abscess, cord compression. Will rule out kidney stones, UTI. I do not suspect dissection, fracture dislocation as this is atraumatic. PErC negative [facility] PE Plan labs, urine, imaging, pain meds. Differential Diagnosis Differential Diagnoses: The differential diagnosis associated with the presentation includes Concerns for thoracic/lumbar paraspinous spasms. Unlikely cauda equina, epidural abscess, cord compression. Will rule out kidney stones, UTI. I do not suspect dissection, fracture dislocation as this is atraumatic.PErC negative [facility] PE Admission/Observation Consideration of admission/observation: Escalation of care including admission/observation considered Unlikely Lab Data [facility] Lab Attestation statement: I reviewed the patient's lab results. 12/07/22 16:27 12/07/22 16:27 Labs: Lab Results 12/07/22 12/07/22 12/07/22 Range/Units 16:27 16:27 16:43 WBC 10.2 (4.8-10.8) X10*3/uL RBC 5.28 (4.60-5.80) X10*6/uL Hgb 14.6 (14.0-18.0) g/dl Hct 44.4 (42.0-52.0) % MCV 84.1 (80.0-98.0) fL MCH 27.7 (27.0-33.0) pg MCHC 32.9 (31.0-36.0) g/dl RDW 14.8 (11.0-16.0) % Plt Count 332 (160-400) X10*3/uL MPV 10.9 (9.4-12.4) fL Immature Gran % (Auto) 0.4 (0.0-0.4) % Neut % (Auto) 62.6 (45-73) % Lymph % (Auto) 26.6 (20-40) % [place] % (Auto) 8.0 (2-11) % Eos % (Auto) 1.8 (0-4) % Baso % (Auto) 0.6 (0-2) % Lymph # (Auto) 2.7 (1.2-4.9) X10*3/uL [place] # (Auto) 0.8 (0.1-1.2) X10*3/uL Eos # (Auto) 0.2 (0.0-0.4) X10*3/uL Baso # (Auto) 0.1 (0.0-0.2) X10*3/uL Abs Immat Gran (auto) 0.04 H (0.00-0.03) X10*3/uL Absolute Neuts (auto) 6.4 (2.0-8.3) x10*3/uL Absolute Nucleated RBC 0.000 (0.0-0.012) X10*3/uL Nucleated RBC % (auto) 0.0 (0.0-0.2) /100WBC Sodium 140 (135-145) mmol/L Potassium 3.9 (3.3-5.1) mmol/L Chloride 109 H (96-108) mmol/L Carbon Dioxide 26 (22-29) mmol/L Anion Gap 9 L (12-20) BUN 12 (9-16) mg/dL Creatinine 0.71 (0.5-1.4) mg/dL Estim Creat Clear Calc 74.7 Estimated GFR > 60 Random Glucose 101 (60-115) mg/dL Calcium 9.2 (8.4-10.2) mg/dL Total Bilirubin 0.4 (0.0-1.0) mg/dL AST 26 (5-37) U/L ALT 33 (0-40) U/L Alkaline Phosphatase 71 (39-117) U/L C-Reactive Protein 0.10 (< or = 0.50) mg/dL Total Protein 8.1 H (6.5-8.0) g/dL Albumin 4.4 (3.5-5.0) g/dL Urine Color Yellow Urine Appearance Clear Urine pH 8.0 (5.0-9.0) Ur Specific [place] 1.015 (1.005-1.025) Urine Protein Negative (Neg-Trace) mg/dL Urine Glucose (UA) Negative (Negative) mg/dL Urine Ketones Negative (Negative) mg/dL Urine Blood Negative (Negative) Urine Nitrite Negative (Negative) Ur Leukocyte Esterase Negative (Negative) Independent Interpretation I performed an independent interpretation of an: CT Scan ( CT/CT abdomen pelvis wo IV con IMPRESSION: 1. Solitary sub-5 mm punctate nonobstructing right renal calculus. 2. Moderate-sized posterior mediastinal hiatal hernia and surgically absent gallbladder. 3. Otherwise unremarkable study. Fleischner guidelines were followed.) Radiology Impression Discussion of test interpretation with radiology: I have reviewed the radiologist's reading. External Record Review External record reviewed: Inpatient record, Office record, Outpatient record, Prior outpatient labs, Prior outpatient radiology, Primary care record and Outside ED record Prescription Management I considered prescription management with: Pain Medication Core Measures AMI core measures followed: Yes Measure exclusions: not indicated Critical Care Time Critical Care Time Critical Care Time: No Discharge Plan Discharge Clinical Impression: Back pain, Kidney stone, Hernia, hiatal Patient Disposition: Home, Self-Care Instructions: Hiatal Hernia (ED), Back Pain (ED) Additional Instructions: Take your medications as prescribed. If you were prescribed antibiotics today, it is important that you take your medication to their entirety, do not skip any doses, do not finish them early. Follow-up with your primary care provider this week. Please follow-up as soon as possible with General surgery to discuss hiatal hernia. Return to the emergency department with new or worsening symptoms. Such as fevers, chills, chest pain, shortness of breath, nausea, vomiting, dizziness, headache, vision changes, lethargy, loss of control of urine or stool, numbness or tingling In case of emergency call 911 Please ask the pharmacist bowel a pill crusher screen repairer/can you crush morphine in to your foods A narcotic has been sent to your pharmacy please take this as prescribed. Do not take more than the prescribed dose. Narcotic medications can cause addiction. Please do not mix them with alcohol. Do not take them while driving or operating machinery. Do not take them with any other narcotics. Do not sh are them with friends or family. They can cause constipation. Take them only for severe pain. [place] cele medicamentos seg?n lo prescrito. Si le recetaron antibi?ticos hoy, es importante que tome lay medicamento en lay totalidad, no se salte ninguna dosis, no los termine antes de tiempo. Seguimiento con lay proveedor de atenci?n primaria esta semana. Realice un seguimiento lo antes posible con Cirug?a general para hablar sobre la hernia de hiato. Regrese al departamento de emergencias con s?ntomas nuevos o que empeoran. Hasty fiebre, escalofr?os, dolor de pecho, dificultad para respirar, n?useas, v?mitos, mareos, dolor de daniela, cambios en la visi?n, letargo, p?rdida del control de la orina o las heces, entumecimiento u hormigueo. En fabian de emergencia llama al 911 Por favor, p?ricky al farmac?utico que le d? un triturador de pastillas/?puede triturar la morfina en cele alimentos? Se mcclure enviado un narc?luis a lay farmacia, t?gonzalez seg?n lo prescrito. No tome m?s de la dosis prescrita. Los medicamentos narc?ticos pueden causar adicci?n. Por favor, no los mezcle con alcohol. No los tome mientras conduce u opera maquinaria. No los tome con lexx?n otro narc?luis. No los comparta con amigos o familiares. Pueden causar estre?imiento. T?melos s?lo para el dolor hali. CT/CT abdomen pelvis wo IV con IMPRESSION: ? 1. Solitary sub-5 mm punctate nonobstructing right renal calculus. 2. Moderate-sized posterior mediastinal hiatal hernia and surgically absent gallbladder. 3. Otherwise unremarkable study. ? Fleischner guidelines were followed. CT/CT abdomen pelvis wo IV con IMPRESI?N: 1. C?lculo renal derecho puntiforme nii de menos de 5 mm que no obstruye. 2. Hernia hiatal mediast?bita posterior de chana?o moderado y cirug?a ves?cula biliar ausente. 3. Por lo dem?s, estudio anodino. Se siguieron las pautas de Maximusner. Prescriptions: New morphine 15 mg tablet 15 mg PO Q6H PRN (Reason: pain) 5 Days Qty: 10 0RF Rx Instructions: Partial Fill upon patient request. lidocaine 5 % adhesive patch,medicated 1 patch topical DAILY PRN (Reason: pain) Qty: 15 0RF Rx Instructions: leave on most painful area for up to 12 hrs ondansetron 4 mg tablet,disintegrating 4 mg PO Q6H PRN (Reason: nausea and vomiting) Qty: 14 0RF No Action cholecalciferol (vitamin D3) 25 mcg (1,000 unit) tablet 25 mcg PO DAILY 30 Days Qty: 30 11RF lansoprazole 30 mg tablet,disintegrat, delay rel 30 mg PO BID@0630,1630 Qty: 60 1RF famotidine 40 mg/5 mL (8 mg/mL) suspension 40 mg PO DAILY 30 Days Qty: 150 2RF metoclopramide HCl 5 mg/5 mL solution 10 mg PO QIDACHS Qty: 500 0RF clonazepam 0.5 mg tablet 0.5 mg PO BEDTIME PRN (Reason: Insomnia) Rx Instructions: administer 30 minutes before bedtime simvastatin 40 mg tablet 40 mg PO DAILY baclofen 10 mg tablet 20 mg PO BID ketoconazole 2 % shampoo 2 appl topical DAILY ascorbic acid (vitamin C) 500 mg tablet 500 mg PO BID glycerin (adult) Suppository 1 supp NH DAILY PRN (Reason: Constipation) sucralfate 100 mg/mL suspension 1 g PO BID Qty: 414 0RF [place] [facility] [place] Group[place] - 1 day Physician,Unknown J [Primary Care Provider] - 2 days Stand Alone Forms: Work/School Release
[2022-12-07] MEDS: Morphine Sulfate Oral Sol 10 MG/5 ML SOLUTION 5 MG PO (19:35)
[2022-12-07] MEDS: Lidocaine 4 % Patch ADH..PATCH 2 PATCH TRANSDERMA (19:36)
[2022-12-07 19:45] VITALS: BP 129/82; PULSE 72; RESP 16; TEMP 37; O2SAT 96
[2022-12-07 20:00] VITALS: BP 134/80; PULSE 73; RESP 16; TEMP 36.2; O2SAT 98
[2022-12-07 20:27] LABS: Erythrocyte Sedimentation Rate 10 MM/HR (0-15)
--- NOTE | 2022-12-07 20:49 | PC.NURSE ---
d/c w wind turbine technician андрей. no questions from family/pt upon discharge. has belongings. no PIV. vss. talking w/o issue. no visible distress noted.
== END 2022-12-07 20:52 | disposition home or self-care (01) ==
PROVIDERS: Physician Assistant; Emergency Provider Emergency Medicine
DX: M54.9 Dorsalgia, unspecified (principal); N20.0 Calculus of kidney; K44.9 Diaphragmatic hernia without obstruction or gangrene; Z79.899 Other long term (current) drug therapy
CPT/HCPCS: 36415; 74176; 80053; 81003; 85025; 85652; 86140; 99284

== ENCOUNTER 2023-01-04 14:26 | Outpatient (REF) | payer OTHER, SELFPAY | END 2023-01-04 14:27 | disposition home or self-care (01) | LOC: HO.LNP 14:26 | PROVIDERS: Visit Provider Student in an Organized Health Care Education/Training Program | DX: F41.9 Anxiety disorder, unspecified (principal); R45.0 Nervousness | CPT/HCPCS: 80307 ==

== ENCOUNTER 2023-02-12 09:00 | Outpatient (AMB) | payer OTHER, SELFPAY ==
--- NOTE | 2023-02-12 09:01 | A.OFFVIS_ITS ---
Intake Intake Visit Reasons: Hyperparathyroidism Intake Note: Hyperparathyroidism follow up Circular Ripsaw Operator Required: No Allergies No Known Allergies [No Known Allergies*] Allergy (Verified 02/12/23 09:34) Medication List - Last Reconciled 02/12/23 by Otilia Webber, ascorbic acid (vitamin C) 500 mg PO BID baclofen 20 mg PO BID cholecalciferol (vitamin D3) 25 mcg PO DAILY 30 days clonazepam 0.5 mg PO BEDTIME PRN famotidine 40 mg (5 mL) PO DAILY 30 days glycerin (adult) 1 supp CA DAILY PRN ketoconazole 2% 2 appl topical DAILY lansoprazole 30 mg PO BID@0630,1630 lidocaine 5% 1 patch topical DAILY PRN metoclopramide HCl 10 mg (10 mL) PO QIDACHS morphine 15 mg PO Q6H PRN 5 days ondansetron 4 mg PO Q6H PRN simvastatin 40 mg PO DAILY HPI HPI Comments History of Present Illness Details 47 YO M with PMHx Iron Deficiency Anemia who is seen in F/U for hyperparathyroidism. He is also wheelchair bound and nonambulatory due to cerebral palsy. First noted to have high calcium in 2018, but was first made aware of this in 2019. Calcium dating back to 2018 has been as high as 12.0. He was recently evaluated by Heme-Onc for iron deficiency anemia and was noted to have labs consistent with hyperparathyroidism 02/10/2020 with Clacium 11.9, Albumin 4.4, Creatinine 0.86 and PTH 51. Unfortunately Vitamin D was not checked. He was on HCTZ at that time. I asked him to stop the HCTZ and labs were repeated 3 weeks later 05/18/2020. This confirmed hyperparathyroidism with Calcium 11.8, Albumin 4.7, Vitamin D 20 and PTH 44. 24 Hour urinary calcium was WNL. He did have a DEXA scan which revealed Osteoporosis of the spine, and Osteopenia of the hips. His distal forearm was WNL. He was treated with 1 dose of IV Reclast in Jun 2020 due to severe hypercalcemia with symptoms of intractable abdominal pain. Calcium did not decline after this, so he was started on Sensipar and continued this until shortly before his parathyroidectomy. He was referred to Dr. Nguyen Mir and underwent a R superior and R inferior parathyroidectomy 08/09/2020. Intraoperative PTH declined from 79-21, indicating cure. Remains on Citracal 2 tabs PO daily. Has not repeated labs. Sister states he received IV reclast in early 2022, but unable to locate documentation. DEXA: 07/05/2022 FINDINGS: AP SPINE L2-L4 (excluding L1):? The data of L1-L4 has been changed to exclude the L1 vertebral body because degenerative changes may cause overestimation of the lumbar spine density.? Current: BMD 0.841 g/cm2, T-score -3.3, Z-score -2.9, Z-score below expected range for age, -2.7% decrease from baseline (<5% change is not significant).? Baseline: BMD 0.864 g/cm2. LEFT FEMUR, NECK: Current: BMD 0.481 g/cm2, T-score -4.5, Z-score -3.8, Z-score below expected range for age. Baseline: BMD 0.777 g/cm2. LEFT FEMUR, TOTAL: Current: BMD 0.402 g/cm2, T-score -4.9, Z-score -4.4, Z-score below expected range for age, 51.0% decrease from baseline (<5% change is not significant).? Baseline: BMD 0.821 g/cm2. LEFT FOREARM RADIUS 33%: BMD 1.006 g/cm2, T-score 0.2, Z-score 0.2, Z-score within expected range for age.? Baseline: BMD 0.924 g/cm2. Thyroid US: 05/31/2020 FINDINGS: SIZE: Measurements of the thyroid lobes and nodules are given in sagittal, anteroposterior and transverse dimensions respectively. Right Thyroid Lobe: 3.8 x 1.3 x 1.4 cm, volume 3.6 mL. Parenchyma: The gland echotexture is homogeneous. Thyroid vascularity is normal. Left Thyroid Lobe: 3.1 x 1.0 x 1.5 cm, volume 2.4 mL. Parenchyma: The gland echotexture is homogeneous. Thyroid vascularity is normal. Isthmus: 0.3 cm in maximum AP dimension. RIGHT THYROID LOBE: No nodules. ISTHMUS: No nodules. LEFT THYROID LOBE: No nodules. NODES: No lymphadenopathy is seen in the tissue surrounding the thyroid gland. Labs: Laboratory Tests 06/16/22 06:00 Sodium 140 Potassium 3.7 Creatinine 0.69 Estimated GFR > 60 PFSH Medical History Abdominal bloating Anemia Cerebral palsy Constipation by delayed colonic transit Delayed gastric emptying Gastroparesis GERD (gastroesophageal reflux disease) HTN (hypertension) Hypercalcemia Hyperparathyroidism Iron deficiency anemia Nausea Osteoporosis Vitamin D deficiency Surgical History History of esophagogastroduodenoscopy (EGD) Hx of cholecystectomy Hx of colonoscopy Hx of oral surgery S/P removal of parathyroid gland Family History Father Emphysema of lung Liver disease Mother Scoliosis Hepatitis Phlebitis Lymphoma Sister Nephrolithiasis Diabetes Lymphoma Social History Household Members: Family Housing: Apartment Are you a primary director of career resources to a significant other at home: No Do you presently have visiting nurse or other home services: Yes (pt sister is his ENTERTAINMENT DIRECTOR) Alcohol intake: never Patient Tobacco Use Status: Never used Tobacco Second Hand Smoke Exposure: No Advance Directives Date on File: 10/20/22 service: No Current occupational status: disabled Assessment & Plan Assessment & Plan (1) Osteoporosis: Code(s): M81.0 - Age-related osteoporosis without current pathological fracture Qualifiers: Osteoporosis type: unspecified Presence of current pathological fracture: unspecified Qualified Code(s): M81.0 - Age-related osteoporosis without current pathological fracture Plan: Patient with Osteoporsis of the spine and Osteopenia of the hip. Osteoporosis is severe. We reviewed he is at high risk for a fracture. I have asked my nurse to inquire and locate documentation of IV reclast. If he did not receive it, we will dose it now given his decline in BMD. If he did receive it, he will be due for his next dose 1 year from prior. I asked that he repeat labs today and I will notify them of any abnormalities. All questions were answered. He is in agreement with this plan of care. I spent 20 minutes in reviewing the record, seeing the patient and documenting in the medical record, including 5 minutes on the phone with the Patient. (2) Hyperparathyroidism: Code(s): E21.3 - Hyperparathyroidism, unspecified Plan: Patient is S/P a 2 gland parathyroidectomy. PTH did meet curative criteria. Remains on Calcium citrate 600 mg PO BID. Will continue. (3) Vitamin D deficiency: Code(s): E55.9 - Vitamin D deficiency, unspecified Plan: Patient remains on Vitamin D supplementation. Will repeat levels now. Telehealth Telehealth Location of provider rendering services: practice address Location of patient: address on file Patient Identification confirmed using: Name, : Yes Telehealth method: voice only Patient verbally consented to treatment: Yes Patient verbally consented to billing insurance company: Yes Patient informed of any privacy concerns related to visit: Yes Coding Level of Care Code Tele Est Pt Level 3 (13416) Diagnoses Osteoporosis M81.0 Osteoporosis type: unspecified Presence of current pathological fracture: unspecified Hyperparathyroidism E21.3 Vitamin D deficiency E55.9
== END 2023-02-12 11:52 | disposition home or self-care (01) ==
LOC: HO.ENCR 09:00
PROVIDERS: Visit Provider Internal Medicine
DX: M81.0 Age-related osteoporosis without current pathological fracture (principal); E21.3 Hyperparathyroidism, unspecified; E55.9 Vitamin D deficiency, unspecified
CPT/HCPCS: 99441

== ENCOUNTER → 2023-02-12 09:00 | Outpatient (BNVA) | payer OTHER, SELFPAY | PROVIDERS: Visit Provider Internal Medicine ==

== ENCOUNTER 2023-02-13 13:29 | Outpatient (REF) | payer OTHER, SELFPAY ==
[2023-02-13 16:33] LABS: Alanine Aminotransferase 40 U/L (0-40); Albumin Level 4.4 g/dL (3.5-5.0); Alkaline Phosphatase 69 U/L (39-117); Anion Gap 12 (12-20); Aspartate Amino Transferase 32 U/L (5-37); Bilirubin Total 0.3 mg/dL (0.0-1.0); Blood Urea Nitrogen 15 mg/dL (9-16); Calcium 10.1 mg/dL (8.4-10.2); Carbon Dioxide 25 mmol/L (22-29); Chloride 109 mmol/L (96-108); Estimated Glomerular Filt Rate > 60; Glucose Random 79 mg/dL (60-115); Phosphorus 2.3 mg/dL (2.7-4.5); Potassium 3.8 mmol/L (3.3-5.1); Sodium 142 mmol/L (135-145)
[2023-02-13 16:49] LABS: Vitamin D 25-OH Total 42.5 ng/mL (>30)
[2023-02-14 16:29] LABS: Calcium (PTHI) 9.7 mg/dL (8.6-10.3); PTHI 15 pg/mL (16-77)
[2023-02-17 22:53] LABS: Alkaline Phosphatase Bone 9.6 mcg/L (7.0-18.3)
== END 2023-02-13 13:30 | disposition home or self-care (01) ==
LOC: HO.LAB 13:29
PROVIDERS: PCP Student in an Organized Health Care Education/Training Program; Visit Provider Internal Medicine
DX: M81.0 Age-related osteoporosis without current pathological fracture (principal); E55.9 Vitamin D deficiency, unspecified
CPT/HCPCS: 36415; 80053; 82306; 83970; 84075; 84100

== ENCOUNTER 2023-02-14 12:37 | Outpatient (REF) | payer OTHER, SELFPAY ==
[2023-02-21 20:48] LABS: N-Telopeptide 37 (9-60); NTXCreaRU 147 mg/dL (20-320)
== END 2023-02-14 12:38 | disposition home or self-care (01) ==
LOC: HO.LNP 12:37
PROVIDERS: Visit Provider Internal Medicine
DX: M81.0 Age-related osteoporosis without current pathological fracture (principal)
CPT/HCPCS: 82523

== ENCOUNTER 2023-04-13 11:23 | Outpatient (AMB) | payer OTHER, SELFPAY ==
[2023-04-13 11:30] VITALS: BP 112/68; PULSE 82; BMI 46.7
--- NOTE | 2023-04-13 11:30 | MHC.OFFVIS ---
Intake Vital Signs 04/13/23 11:30 Height 4 ft Weight 153 lb BMI 46.7 BP 112/68 Blood Pressure Location Rt brachial Position Sitting Pulse 82 Intake Visit Reasons: follow up Intake Note: Eliazar presents in the office as a follow up. CC: Needs refill for his acid medications and gas. 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 RECAP: Had been seeing Jacques before Has JB, sees Dr Denny for iron transfusions Severe gastroparesis, on reglan on PPI ?had a ba swallow and capsule endoscopy at [facility] --reults not available he had admission 05/2022 with coffee ground emesis and had EGD with LA grade C esophagitis TESTS: colonoscopy 2017--hemorrhoids, otherwise no masses or inflammation EGD 2018--moderate hiatal hernia with erosive esophagitis CT 05/2020---nml, no acute findings I referred him to Dr Ramírez in Bariatrics for hiatal hernia repair but managed conservatively per his last note as he was improving INTERIM: He is doing well per mum minimal reflux and regurg diet changes have helped denies abdominal pain good appetite he has to use enemas for constipation still taking reglan-- would like refill on carfate EXAM: GENERAL: The patient is in wheelchair, contractures noted VITAL SIGNS:see workflow HEENT: Nonicteric sclerae, PERRLA, EOMI. Oropharynx clear. Moist mucous membranes. Conjunctivae appear well perfused. No thyroid mass. CHEST: Chest wall is nontender. HEART: Regular rate and rhythm without murmurs. LUNGS: Clear to auscultation bilaterally. ABDOMEN: Soft, positive bowel sounds, nontender, no organomegaly.no flank tenderness SKIN: No rash, no excessive bruising, petechiae, or purpura. NEUROLOGIC: contracted, thin legs, minimal movement A/P: 1/ Chronic Jb anemia prob due to esophagitis from his hiatal hernia--this has improved 2/ Gastroparesis, related to CP 3/ constipation related to slow GI motility PLAN: // cont with current treatment plan, labs look good, HGB has normalized as well 2/ periodic check on nutrients b12, ferritin, Mag, Vit D--shoudl take MV daily and vit D supplement PFSH Medical History Gastroparesis Anemia Constipation by delayed colonic transit Delayed gastric emptying Cerebral palsy Nausea Abdominal bloating Osteoporosis GERD (gastroesophageal reflux disease) HTN (hypertension) Iron deficiency anemia Hyperparathyroidism Vitamin D deficiency Hypercalcemia Surgical History S/P removal of parathyroid gland Hx of colonoscopy History of esophagogastroduodenoscopy (EGD) Hx of oral surgery Hx of cholecystectomy Family History Father Emphysema of lung Liver disease Mother Scoliosis Hepatitis Phlebitis Lymphoma Sister Nephrolithiasis Diabetes Lymphoma Social History Household Members: Family Housing: Apartment Are you a primary patient centered care specialist to a significant other at home: No Do you presently have visiting nurse or other home services: Yes (pt sister is his COMPUTER SYSTEMS SECURITY ANALYST) Alcohol intake: never Patient Tobacco Use Status: Never used Tobacco Second Hand Smoke Exposure: No Advance Directives Date on File: 10/20/22 service: No Current occupational status: disabled Physical Exam Vital Signs: Last Vital Signs Pulse 82 04/13/23 11:30 BP 112/68 04/13/23 11:30 BMI result Body Mass Index 46.7 Assessment & Plan Assessment & Plan (1) Esophagitis: Code(s): K20.90 - Esophagitis, unspecified without bleeding (2) GERD (gastroesophageal reflux disease): Comment: known moderate size hiatal hernia Code(s): K21.9 - Gastro-esophageal reflux disease without esophagitis (3) Hiatal hernia: Code(s): K44.9 - Diaphragmatic hernia without obstruction or gangrene Medications: New sucralfate 10 mL PO BID 1,000 mL 2RF Refilled famotidine 40 mg (5 mL) PO DAILY 30 days 150 mL 2RF Coding Level of Care Code Est Pt Level 3 (45058) Diagnoses Esophagitis K20.90 GERD (gastroesophageal reflux disease) K21.9 Hiatal hernia K44.9
== END 2023-04-13 12:25 | disposition home or self-care (01) ==
PROVIDERS: PCP Student in an Organized Health Care Education/Training Program; Visit Provider Internal Medicine Gastroenterology
DX: K20.90 Esophagitis, unspecified without bleeding (principal); K21.9 Gastro-esophageal reflux disease without esophagitis; K44.9 Diaphragmatic hernia without obstruction or gangrene
CPT/HCPCS: 99213

== ENCOUNTER → 2023-04-13 11:23 | Outpatient (BNVA) | payer OTHER, SELFPAY | PROVIDERS: Visit Provider Internal Medicine Gastroenterology | DX: K20.90 Esophagitis, unspecified without bleeding (principal); K21.9 Gastro-esophageal reflux disease without esophagitis; K44.9 Diaphragmatic hernia without obstruction or gangrene | CPT/HCPCS: 99212 ==

== ENCOUNTER 2023-08-13 11:37 | Outpatient (REF) | payer OTHER, SELFPAY ==
[2023-08-16 02:18] LABS: TS Negative Control Passed; TS Panel A 0; TS Panel B 0; TS Positive Control Passed; TSpotTB Negative (Negative)
== END 2023-08-13 11:38 | disposition home or self-care (01) ==
LOC: HO.HHCL 11:37
PROVIDERS: Visit Provider Student in an Organized Health Care Education/Training Program
DX: Z11.1 Encounter for screening for respiratory tuberculosis (principal)
CPT/HCPCS: 36415; 86481

== ENCOUNTER 2023-08-21 13:43 | Outpatient (REF) | payer OTHER, SELFPAY | END 2023-08-21 13:44 | disposition home or self-care (01) | LOC: HO.LAB 13:43 | PROVIDERS: PCP Student in an Organized Health Care Education/Training Program; Visit Provider Internal Medicine Endocrinology, Diabetes & Metabolism | DX: Z13.89 Encounter for screening for other disorder (principal) ==

== ENCOUNTER 2023-08-23 14:46 | Outpatient (REF) | payer OTHER, SELFPAY ==
[2023-08-23 15:59] LABS: Albumin Level 4.4 g/dL (3.5-5.0); Calcium 9.5 mg/dL (8.4-10.2)
[2023-08-23 16:13] LABS: Parathyroid Hormone Intact 26.4 pg/mL (8.7-77.1)
== END 2023-08-23 14:47 | disposition home or self-care (01) ==
LOC: HO.LAB 14:46
PROVIDERS: Visit Provider Internal Medicine Endocrinology, Diabetes & Metabolism
DX: M81.0 Age-related osteoporosis without current pathological fracture (principal)
CPT/HCPCS: 36415; 82040; 82310; 83970

== ENCOUNTER 2023-08-27 13:42 | Outpatient (AMB) | payer OTHER, SELFPAY ==
--- NOTE | 2023-08-27 13:47 | A.OFFVIS_ITS ---
Intake Vital Signs 08/27/23 13:48 Height 4 ft BP 104/72 Blood Pressure Location Lt brachial Position Sitting Pulse 90 Pulse Source Pulse Oximeter Intake Visit Reasons: Hyperparathyroidism-confirmed Intake Note: Patient present today for Hyperparathyroidism follow up visit. Lithographic Stripper Required: Yes Lithographic Stripper Language: Mining Engineer Name: Scarlett medical staff Information Interpreted: non-clinical & clinical Accompanied by: Sister Allergies No Known Allergies [No Known Allergies*] Allergy (Verified 08/27/23 13:54) Medication List - Last Reconciled 08/27/23 by Robin Miller MD ascorbic acid (vitamin C) 500 mg PO BID baclofen 20 mg PO BID cholecalciferol (vitamin D3) 25 mcg PO DAILY clonazepam 0.5 mg PO BEDTIME PRN famotidine 5 mL PO DAILY ketoconazole 2% 2 appl topical DAILY lansoprazole 30 mg PO BID lidocaine 5% 1 patch topical DAILY PRN lidocaine-prilocaine 2.5-2.5 % topical DAILY metoclopramide HCl 10 mg (10 mL) PO QID ondansetron 4 mg PO Q6H PRN simvastatin 40 mg PO DAILY sucralfate 10 mL PO BID HPI HPI Comments History of Present Illness0 Details 47 YO M with PMHx Iron Deficiency Anemia who is seen in F/U for hyperparathyroidism. He is also wheelchair bound and nonambulatory due to cerebral palsy. Patient last saw Dr. Amin 02/12/2023 First noted to have high calcium in 2018, but was first made aware of this in 2019. Calcium dating back to 2018 has been as high as 12.0. He was recently evaluated by Heme-Onc for iron deficiency anemia and was noted to have labs consistent with hyperparathyroidism 02/10/2020 with Clacium 11.9, Albumin 4.4, Creatinine 0.86 and PTH 51. Unfortunately Vitamin D was not checked. He was on HCTZ at that time. I asked him to stop the HCTZ and labs were repeated 3 weeks later 05/18/2020. This confirmed hyperparathyroidism with Calcium 11.8, Albumin 4.7, Vitamin D 20 and PTH 44. 24 Hour urinary calcium was WNL. He did have a DEXA scan which revealed Osteoporosis of the spine, and Osteopenia of the hips. His distal forearm was WNL. He was treated with 1 dose of IV Reclast in Jun 2020 due to severe hypercalcemia with symptoms of intractable abdominal pain. Calcium did not decline after this, so he was started on Sensipar and continued this until shortly before his parathyroidectomy. He was referred to Dr. Nguyen Mir and underwent a R superior and R inferior parathyroidectomy 08/09/2020. Intraoperative PTH declined from 79-21, indicating cure. Remains on Citracal 2 tabs PO daily. Has not repeated labs. Sister states he received IV reclast in early 2022, but unable to locate documentation. DEXA: 07/05/2022 FINDINGS: AP SPINE L2-L4 (excluding L1):? The data of L1-L4 has been changed to exclude the L1 vertebral body because degenerative changes may cause overestimation of the lumbar spine density.? Current: BMD 0.841 g/cm2, T-score -3.3, Z-score -2.9, Z-score below expected range for age, -2.7% decrease from baseline (<5% change is not significant).? Baseline: BMD 0.864 g/cm2. LEFT FEMUR, NECK: Current: BMD 0.481 g/cm2, T-score -4.5, Z-score -3.8, Z-score below expected range for age. Baseline: BMD 0.777 g/cm2. LEFT FEMUR, TOTAL: Current: BMD 0.402 g/cm2, T-score -4.9, Z-score -4.4, Z-score below expected range for age, 51.0% decrease from baseline (<5% change is not significant).? Baseline: BMD 0.821 g/cm2. LEFT FOREARM RADIUS 33%: BMD 1.006 g/cm2, T-score 0.2, Z-score 0.2, Z-score within expected range for age.? Baseline: BMD 0.924 g/cm2. Thyroid US: 05/31/2020 FINDINGS: SIZE: Measurements of the thyroid lobes and nodules are given in sagittal, anteroposterior and transverse dimensions respectively. Right Thyroid Lobe: 3.8 x 1.3 x 1.4 cm, volume 3.6 mL. Parenchyma: The gland echotexture is homogeneous. Thyroid vascularity is normal. Left Thyroid Lobe: 3.1 x 1.0 x 1.5 cm, volume 2.4 mL. Parenchyma: The gland echotexture is homogeneous. Thyroid vascularity is normal. Isthmus: 0.3 cm in maximum AP dimension. RIGHT THYROID LOBE: No nodules. ISTHMUS: No nodules. LEFT THYROID LOBE: No nodules. NODES: No lymphadenopathy is seen in the tissue surrounding the thyroid gland. Labs: Laboratory Tests 06/16/22 06:00 Sodium 140 Potassium 3.7 Creatinine 0.69 Estimated GFR > 60 PFSH Medical History Gastroparesis Anemia Constipation by delayed colonic transit Delayed gastric emptying Cerebral palsy Nausea Abdominal bloating Osteoporosis GERD (gastroesophageal reflux disease) HTN (hypertension) Iron deficiency anemia Hyperparathyroidism Vitamin D deficiency Hypercalcemia Surgical History S/P removal of parathyroid gland Hx of colonoscopy History of esophagogastroduodenoscopy (EGD) Hx of oral surgery Hx of cholecystectomy Family History Father Emphysema of lung Liver disease Mother Scoliosis Hepatitis Phlebitis Lymphoma Sister Nephrolithiasis Diabetes Lymphoma Social History Household Members: Family Housing: Apartment Are you a primary nurse care manager to a significant other at home: No Do you presently have visiting nurse or other home services: Yes (pt sister is his GO CART MECHANIC) Alcohol intake: never Patient Tobacco Use Status: Never used Tobacco Second Hand Smoke Exposure: No Advance Directives Date on File: 10/20/22 service: No Current occupational status: disabled Physical Exam Vital Signs: Last Vital Signs Pulse 90 08/27/23 13:48 BP 104/72 08/27/23 13:48 Assessment & Plan Assessment & Plan (1) Osteoporosis: Code(s): M81.0 - Age-related osteoporosis without current pathological fracture Qualifiers: Osteoporosis type: unspecified Presence of current pathological fracture: unspecified Qualified Code(s): M81.0 - Age-related osteoporosis without current pathological fracture Plan: This is a 47-year-old male with a history of severe osteoporosis and cerebral palsy and primary hyperparathyroidism status post parathyroidectomy with normalization of PTH and calcium. Plan is to talk to the patient about potentially starting anabolic. I would rather avoid the use of Forteo or Tymlos considering the past history of primary hyperparathyroidism and would favor the use of Evenity off-label this is does not have a male indication of present. If this is not possible, would use an alternative anabolic like Tymlos or Forteo Coding Level of Care Code Est Pt Level 3 (20843) Diagnoses Osteoporosis, unspecified osteoporosis type, unspecified pathological fracture presence M81.0 Osteoporosis type: unspecified Presence of current pathological fracture: unspecified
[2023-08-27 13:48] VITALS: BP 104/72; PULSE 90
== END 2023-08-27 14:11 | disposition home or self-care (01) ==
PROVIDERS: Referring Provider Student in an Organized Health Care Education/Training Program; Visit Provider Internal Medicine Endocrinology, Diabetes & Metabolism
DX: M81.0 Age-related osteoporosis without current pathological fracture (principal)
CPT/HCPCS: 99213

== ENCOUNTER → 2023-08-27 13:42 | Outpatient (BNVA) | payer OTHER, SELFPAY | PROVIDERS: Referring Provider Student in an Organized Health Care Education/Training Program; Visit Provider Internal Medicine Endocrinology, Diabetes & Metabolism | DX: M81.0 Age-related osteoporosis without current pathological fracture (principal) | CPT/HCPCS: 99212 ==

== ENCOUNTER 2023-09-19 11:12 | Outpatient (REF) | payer OTHER, SELFPAY ==
[2023-09-19 13:21] LABS: MANUAL DIFF FLAG NO
[2023-09-19 13:47] LABS: Basophils Absolute Auto 0.1 X10*3/uL (0.0-0.2); Basophils Percent Auto 0.5 % (0-2); Eosinophils Absolute Auto 0.3 X10*3/uL (0.0-0.4); Eosinophils Percent Auto 2.8 % (0-4); Hemoglobin 14.1 g/dl (14.0-18.0); Imm Gran Abs Auto 0.03 X10*3/uL (0.00-0.03); Imm Gran Pct Auto 0.3 % (0.0-0.4); Lymphocytes Absolute Auto 2.7 X10*3/uL (1.2-4.9); Lymphocytes Percent Auto 29.3 % (20-40); Mean Corpuscular HGB Conc 31.3 g/dl (31.0-36.0); Mean Corpuscular Hemoglobin 26.7 pg (27.0-33.0); Mean Corpuscular Volume 85.1 fL (80.0-98.0); Mean Platelet Volume 11.4 fL (9.4-12.4); Monocytes Absolute Auto 0.9 X10*3/uL (0.1-1.2); Monocytes Percent Auto 10.1 % (2-11); Neutrophils Absolute Auto 5.2 x10*3/uL (2.0-8.3); Platelet Count 359 X10*3/uL (160-400); Red Blood Count 5.29 X10*6/uL (4.60-5.80); Red Cell Distribution Width 14.8 % (11.0-16.0); White Blood Count 9.2 X10*3/uL (4.8-10.8)
[2023-09-19 14:07] LABS: Alanine Aminotransferase 65 U/L (0-40); Albumin Level 4.4 g/dL (3.5-5.0); Alkaline Phosphatase 89 U/L (39-117); Anion Gap 14 (12-20); Aspartate Amino Transferase 50 U/L (5-37); Bilirubin Total 0.2 mg/dL (0.0-1.0); Blood Urea Nitrogen 11 mg/dL (9-16); Calcium 9.4 mg/dL (8.4-10.2); Carbon Dioxide 25 mmol/L (22-29); Chloride 106 mmol/L (96-108); Estimated Glomerular Filt Rate > 60; Glucose Random 100 mg/dL (60-115); Magnesium 2.2 mg/dL (1.6-2.6); Potassium 4.3 mmol/L (3.3-5.1); Sodium 141 mmol/L (135-145); Total Protein 8.2 g/dL (6.5-8.0)
[2023-09-19 14:24] LABS: Parathyroid Hormone Intact 35.3 pg/mL (8.7-77.1)
[2023-09-19 14:25] LABS: TSH reflex Free T4 1.71 uIU/mL (0.32-4.0); Vitamin D 25-OH Total 47.5 ng/mL (>30)
[2023-09-19 14:33] LABS: Folate 15.4 ng/mL (> or = 4.0); Vitamin B12 841 pg/mL (200-900)
== END 2023-09-19 11:13 | disposition home or self-care (01) ==
LOC: HO.HHCL 11:12
PROVIDERS: Visit Provider Family Medicine
DX: E66.9 Obesity, unspecified (principal); E55.9 Vitamin D deficiency, unspecified
CPT/HCPCS: 36415; 80053; 82306; 82607; 82746; 83735; 83970; 84443; 85025

== ENCOUNTER → 2023-10-03 10:53 | Outpatient (BNVA) | payer OTHER, SELFPAY | PROVIDERS: Visit Provider Internal Medicine Endocrinology, Diabetes & Metabolism ==

== ENCOUNTER 2024-02-27 12:56 | Outpatient (AMB) | payer OTHER, SELFPAY ==
--- NOTE | 2024-02-27 13:20 | A.OFFVIS_ITS ---
Vital Signs 02/27/24 13:21 BMI Reason not done Patient refused/unable BP 124/74 Blood Pressure Location Rt brachial Position Sitting Pulse 81 Pulse Source Pulse Oximeter Intake Visit Reasons: f/u osteoporosis Intake Note: Patient present today for Osteoporosis follow up. Weights And Measures Inspector Required: Yes Weights And Measures Inspector Language: Developmental Mathematics Instructor Services: Weights And Measures Inspector Present Weights And Measures Inspector Name: Bessie BIGGS Information Interpreted: non-clinical & clinical Accompanied by: Mother Allergies No Known Allergies [No Known Allergies*] Allergy (Verified 02/27/24 13:22) Medication List - Last Reconciled 02/27/24 by Robin Miller MD ascorbic acid (vitamin C) 500 mg PO BID baclofen 20 mg PO BID cholecalciferol (vitamin D3) 25 mcg PO DAILY clonazepam 0.5 mg PO BEDTIME PRN famotidine 5 mL PO DAILY ketoconazole 2% 2 appl topical DAILY lansoprazole 30 mg PO BID lidocaine 5% 1 patch topical DAILY PRN metoclopramide HCl 10 mg (10 mL) PO QID ondansetron 4 mg PO Q6H PRN simvastatin 40 mg PO DAILY sucralfate 10 mL PO BID HPI Comments Details: 47 YO M with PMHx Iron Deficiency Anemia who is seen in F/U for hyperparathyroidism. He is also wheelchair bound and nonambulatory due to cerebral palsy. Patient last saw Dr. Amin 02/12/2023 First noted to have high calcium in 2018, but was first made aware of this in 2019. Calcium dating back to 2018 has been as high as 12.0. He was recently evaluated by Heme-Onc for iron deficiency anemia and was noted to have labs consistent with hyperparathyroidism 02/10/2020 with Clacium 11.9, Albumin 4.4, Creatinine 0.86 and PTH 51. Unfortunately Vitamin D was not checked. He was on HCTZ at that time. I asked him to stop the HCTZ and labs were repeated 3 weeks later 05/18/2020. This confirmed hyperparathyroidism with Calcium 11.8, Albumin 4.7, Vitamin D 20 and PTH 44. 24 Hour urinary calcium was WNL. He did have a DEXA scan which revealed Osteoporosis of the spine, and Osteopenia of the hips. His distal forearm was WNL. He was treated with 1 dose of IV Reclast in Jun 2020 due to severe hypercalcemia with symptoms of intractable abdominal pain. Calcium did not decline after this, so he was started on Sensipar and continued this until shortly before his parathyroidectomy. He was referred to Dr. Nguyen Mir and underwent a R superior and R inferior parathyroidectomy 08/09/2020. Intraoperative PTH declined from 79-21, indicating cure. Remains on Citracal 2 tabs PO daily. Has not repeated labs. Sister states he received IV reclast in early 2022, but unable to locate documentation. DEXA: 07/05/2022 FINDINGS: AP SPINE L2-L4 (excluding L1):? The data of L1-L4 has been changed to exclude the L1 vertebral body because degenerative changes may cause overestimation of the lumbar spine density.? Current: BMD 0.841 g/cm2, T-score -3.3, Z-score -2.9, Z-score below expected range for age, -2.7% decrease from baseline (<5% change is not significant).? Baseline: BMD 0.864 g/cm2. LEFT FEMUR, NECK: Current: BMD 0.481 g/cm2, T-score -4.5, Z-score -3.8, Z-score below expected range for age. Baseline: BMD 0.777 g/cm2. LEFT FEMUR, TOTAL: Current: BMD 0.402 g/cm2, T-score -4.9, Z-score -4.4, Z-score below expected range for age, 51.0% decrease from baseline (<5% change is not significant).? Baseline: BMD 0.821 g/cm2. LEFT FOREARM RADIUS 33%: BMD 1.006 g/cm2, T-score 0.2, Z-score 0.2, Z-score within expected range for age.? Baseline: BMD 0.924 g/cm2. Thyroid US: 05/31/2020 FINDINGS: SIZE: Measurements of the thyroid lobes and nodules are given in sagittal, anteroposterior and transverse dimensions respectively. Right Thyroid Lobe: 3.8 x 1.3 x 1.4 cm, volume 3.6 mL. Parenchyma: The gland echotexture is homogeneous. Thyroid vascularity is normal. Left Thyroid Lobe: 3.1 x 1.0 x 1.5 cm, volume 2.4 mL. Parenchyma: The gland echotexture is homogeneous. Thyroid vascularity is normal. Isthmus: 0.3 cm in maximum AP dimension. RIGHT THYROID LOBE: No nodules. ISTHMUS: No nodules. LEFT THYROID LOBE: No nodules. NODES: No lymphadenopathy is seen in the tissue surrounding the thyroid gland. Labs: Laboratory Tests 06/16/22 06:00 Sodium 140 Potassium 3.7 Creatinine 0.69 Estimated GFR > 60 On Tymlos for 5 mos . No fx since last . Tolerating medication nicely. PFSH Medical History Gastroparesis Anemia Constipation by delayed colonic transit Delayed gastric emptying Cerebral palsy Nausea Abdominal bloating Osteoporosis GERD (gastroesophageal reflux disease) HTN (hypertension) Iron deficiency anemia Hyperparathyroidism Vitamin D deficiency Hypercalcemia Surgical History S/P removal of parathyroid gland Hx of colonoscopy History of esophagogastroduodenoscopy (EGD) Hx of oral surgery Hx of cholecystectomy Family History Father Emphysema of lung Liver disease Mother Scoliosis Hepatitis Phlebitis Lymphoma Sister Nephrolithiasis Diabetes Lymphoma Social History Household Members: Family Housing: Apartment Are you a primary intensive care specialist to a significant other at home: No Do you presently have visiting nurse or other home services: Yes (pt sister is his ELECTRONIC SCIENCE TEACHER) Alcohol intake: never Patient Tobacco Use Status: Never used Tobacco Second Hand Smoke Exposure: No Advance Directives Date on File: 10/20/22 service: No Current occupational status: disabled Physical Exam Vital Signs: Last Vital Signs Pulse 81 02/27/24 13:21 BP 124/74 02/27/24 13:21 Assessment & Plan Assessment & Plan (1) Osteoporosis: Code(s): M81.0 - Age-related osteoporosis without current pathological fracture Category: Medical Qualifiers: Osteoporosis type: unspecified Presence of current pathological fracture: unspecified Qualified Code(s): M81.0 - Age-related osteoporosis without current pathological fracture Plan: This is a 47-year-old male with a history of severe osteoporosis and cerebral palsy and primary hyperparathyroidism status post parathyroidectomy with normalization of PTH and calcium. Plan is to continue the Tymlos for full 18 month course and then transition to Prolia Orders: Orders XR DEXA axial skeleton 5 Months M81.0 - Age-related osteoporosis without current pathological fracture Coding Level of Care Code Est Pt Level 3 (91069) Diagnoses Osteoporosis, unspecified osteoporosis type, unspecified pathological fracture presence M81.0 Osteoporosis type: unspecified Presence of current pathological fracture: unspecified
[2024-02-27 13:21] VITALS: BP 124/74; PULSE 81
== END 2024-02-27 13:44 | disposition home or self-care (01) ==
PROVIDERS: Visit Provider Internal Medicine Endocrinology, Diabetes & Metabolism
DX: M81.0 Age-related osteoporosis without current pathological fracture (principal)
CPT/HCPCS: 99213

== ENCOUNTER → 2024-02-27 12:56 | Outpatient (BNVA) | payer OTHER, SELFPAY | PROVIDERS: Visit Provider Internal Medicine Endocrinology, Diabetes & Metabolism | DX: M81.0 Age-related osteoporosis without current pathological fracture (principal); Z99.3 Dependence on wheelchair | CPT/HCPCS: 99212 ==

== ENCOUNTER 2024-03-20 14:17 | Outpatient (REF) | payer OTHER, SELFPAY ==
[2024-03-26 12:04] LABS: Nordiazepam, GCMS Urine NEGATIVE
[2024-03-26 12:05] LABS: Alphahydroxymidazolam,GCMS Ur NEGATIVE; Alphahydroxytriazolam, GCMS Ur NEGATIVE; Alprazolam, GCMS Urine NEGATIVE; Flurazepam Metabolite,GCMS Ur NEGATIVE; Lorazepam GCMS Urine NEGATIVE; Oxazepam, GCMS Urine NEGATIVE; Temazepam, GCMS Urine NEGATIVE
[2024-03-26 12:08] LABS: Aminoclonazepam, GCMS Urine 88 (H)
== END 2024-03-20 14:18 | disposition home or self-care (01) ==
LOC: HO.CHCLNP 14:17
PROVIDERS: Visit Provider Student in an Organized Health Care Education/Training Program
DX: F41.9 Anxiety disorder, unspecified (principal)
CPT/HCPCS: 80346

== ENCOUNTER 2024-04-25 09:33 | Outpatient (AMB) | payer OTHER, SELFPAY ==
--- NOTE | 2024-04-25 09:41 | MHC.OFFVIS ---
Vital Signs 04/25/24 09:42 Height 5 ft 3 in Weight 152 lb BMI 26.9 BP 125/74 Blood Pressure Location Lt brachial Position Sitting Pulse 71 Intake Visit Reasons: 8 month follow N/S last appt 02/01/24 Intake Note: Eliazar presents in the office as a 8 month follow up. CC: No concners just a routine follow up! 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 RECAP: Had been seeing Jacques before Has JB, sees Dr Denny for iron transfusions Severe gastroparesis, on reglan on PPI had a ba swallow and capsule endoscopy at [facility] --reults not available he had admission 05/2022 with coffee ground emesis and had EGD with LA grade C esophagitis TESTS: colonoscopy 2017--hemorrhoids, otherwise no masses or inflammation EGD 2018--moderate hiatal hernia with erosive esophagitis CT 05/2020---nml, no acute findings I referred him to Dr Ramírez in Bariatrics for hiatal hernia repair but managed conservatively per his last note as he was improving INTERIM: He has improved heartburn with meds and diet changes still has constipation and requires enema 4 times/week denies abdominal pain good appetite no blood in stool, or melena HGB has been stable at 14 g/dl EXAM: GENERAL: The patient is in wheelchair, contractures noted VITAL SIGNS:see workflow HEENT: Nonicteric sclerae, PERRLA, EOMI. Oropharynx clear. Moist mucous membranes. Conjunctivae appear well perfused. No thyroid mass. CHEST: Chest wall is nontender. HEART: Regular rate and rhythm without murmurs. LUNGS: Clear to auscultation bilaterally. ABDOMEN: Soft, positive bowel sounds, nontender, no organomegaly.no flank tenderness SKIN: No rash, no excessive bruising, petechiae, or purpura. NEUROLOGIC: contracted, thin legs, minimal movement A/P: 1/ Chronic Jb anemia --resolved with PPI 2/ Gastroparesis, related to CP-on reglan -no SE 3/ constipation related to slow GI motility PLAN: /1/ cont with current treatment plan, HGB has normalized with treatment 2/ periodic check on nutrients b12, ferritin, Mag, Vit D--taking MV daily and vit D supplement PFSH Medical History Gastroparesis Anemia Constipation by delayed colonic transit Delayed gastric emptying Cerebral palsy Nausea Abdominal bloating Osteoporosis GERD (gastroesophageal reflux disease) HTN (hypertension) Iron deficiency anemia Hyperparathyroidism Vitamin D deficiency Hypercalcemia Surgical History S/P removal of parathyroid gland Hx of colonoscopy History of esophagogastroduodenoscopy (EGD) Hx of oral surgery Hx of cholecystectomy Family History Father Emphysema of lung Liver disease Mother Scoliosis Hepatitis Phlebitis Lymphoma Sister Nephrolithiasis Diabetes Lymphoma Social History Household Members: Family Housing: Apartment Are you a primary child care giver to a significant other at home: No Do you presently have visiting nurse or other home services: Yes (pt sister is his DUPLIGRAPH OPERATOR) Alcohol intake: never Patient Tobacco Use Status: Never used Tobacco Second Hand Smoke Exposure: No Advance Directives Date on File: 10/20/22 service: No Current occupational status: disabled Physical Exam Vital Signs: Last Vital Signs Pulse 71 04/25/24 09:42 BP 125/74 04/25/24 09:42 BMI result Body Mass Index 26.9 Assessment & Plan Assessment & Plan (1) Esophagitis: Code(s): K20.90 - Esophagitis, unspecified without bleeding Category: Medical Plan: see above Coding Level of Care Code Est Pt Level 3 (45276) Diagnoses Esophagitis K20.90
[2024-04-25 09:42] VITALS: BP 125/74; PULSE 71; BMI 26.9
== END 2024-04-25 10:20 | disposition home or self-care (01) ==
PROVIDERS: Visit Provider Internal Medicine Gastroenterology
DX: K20.90 Esophagitis, unspecified without bleeding (principal)
CPT/HCPCS: 99213

== ENCOUNTER → 2024-04-25 09:33 | Outpatient (BNVA) | payer OTHER, SELFPAY | PROVIDERS: Visit Provider Internal Medicine Gastroenterology | DX: K20.90 Esophagitis, unspecified without bleeding (principal) | CPT/HCPCS: 99212 ==

== ENCOUNTER 2024-06-05 17:31 | Outpatient (REF) | payer OTHER, SELFPAY ==
[2024-06-09 11:56] LABS: Alphahydroxymidazolam,GCMS Ur NEGATIVE; Alphahydroxytriazolam, GCMS Ur NEGATIVE; Alprazolam, GCMS Urine NEGATIVE; Aminoclonazepam, GCMS Urine 84 (H); Flurazepam Metabolite,GCMS Ur NEGATIVE; Lorazepam GCMS Urine NEGATIVE; Nordiazepam, GCMS Urine NEGATIVE; Oxazepam, GCMS Urine NEGATIVE; Temazepam, GCMS Urine NEGATIVE
== END 2024-06-05 17:32 | disposition home or self-care (01) ==
LOC: HO.HHCLNP 17:31
PROVIDERS: Visit Provider Student in an Organized Health Care Education/Training Program
DX: F41.9 Anxiety disorder, unspecified (principal)
CPT/HCPCS: 80346

== ENCOUNTER 2024-07-14 12:03 | Outpatient (REF) | payer OTHER, SELFPAY ==
[2024-07-14 14:03] LABS: Alanine Aminotransferase 37 U/L (0-40); Albumin Level 4.5 g/dL (3.5-5.0); Alkaline Phosphatase 103 U/L (39-117); Anion Gap 12 (12-20); Aspartate Amino Transferase 36 U/L (5-37); Bilirubin Direct 0.1 mg/dL (0.0-0.5); Bilirubin Total 0.4 mg/dL (0.0-1.0); Blood Urea Nitrogen 16 mg/dL (9-16); Calcium 9.8 mg/dL (8.4-10.2); Carbon Dioxide 28 mmol/L (22-29); Chloride 106 mmol/L (96-108); Cholesterol 142 mg/dL (<200); Estimated Glomerular Filt Rate > 60; Glucose Random 90 mg/dL (60-115); HDL Cholesterol 35 mg/dL (>40); LDL Cholesterol Calculated 34 mg/dL (<100); Potassium 3.6 mmol/L (3.3-5.1); Sodium 142 mmol/L (135-145); Total Protein 8.6 g/dL (6.5-8.0); Triglycerides 368 mg/dL (<150)
--- OUTSIDE RECORDS SUMMARY | 2024-07-14 17:01 | XMS_ITS | Encounter Summary ---
Author Organization [facility] Address [address] [place] [address] Care Team Providers Care Forester Aide Name Role Phone Nicolle Pretty MD Primary Care Provider [phone] Reason for Visit * Reason Onset Date Comments Durable Medical Equipment 08/14/2023 Encounter Details Date Type Department Care Team ([facility] st Contact Info) Description 08/14/2023 Telephone [facility] MEDICINE [address] [place], [place] [phone] Nicolle Pretty MD [address] [place], [place] [phone] Durable Medical Equipment Social History Tobacco Use Types Packs/Day Years Used Date Smoking Tobacco: Never Passive Smoke Exposure: Never Smokeless Tobacco: Never Alcohol Use Standard Drinks/Week Comments Never 0 (1 standard drink = 0.6 oz pur e alcohol) Housing Stability Answer Date Recorded What is your housing situation today? I have lelo moya 04/09/[address] you li ve. Do you have problems with any of the following? None of the above 04/09/2023 Food Insecurity Answer Date Recorded Within the past 12 months, y ou worried that your food would run out before you got money to buy more: Never True 04/09/2023 Within the past 12 months,th e food you bought just didn't last and you didn't have enough money to get more: Never True Transportation Answer Date Recorded In the past 12 months, has l ack of transportation kept you from medical appts, meetings, work or from getting things needed for daily living? No 04/09/2023 Utilities Answer Date Recorded In the past 12 months, has t he electric, gas, oil or water company threatened to shut off services in your home? No 04/09/2023 Sex and Gender Information Value Date Recorded Sex Assigned at Male 04/17/2022 10:17 AM EDT Legal Sex Male 10:17 AM EDT Gender Identity Choose not to disclose 10:17 AM EDT Sexual Orientation Choose not to disclose 2021 10:17 AM EDT documented as of this encounter Miscellaneous Notes * Telephone Encounter - Nicolle Pretty MD - 08/15/2023 12:02 PM EST Ok to send script * Telephone Encounter - Andressa Parekh LPN - 08/14/2023 2:33 PM EST Please review message below and advise. * Telephone Encounter - Olga Talavera - 08/14/2023 2:01 PM EST Tc from pt sister requesting DME on position bed mattress. documented in this encounter Plan of Treatment Upcoming Encounters Date Type Department Care Team (Late st Contact Info) Description 08/25/2024 2:30 PM EDT Telemedicine [facility] MED & PEDS [address] [place] [address] Nolvia Gonzalez, DONAVAN [address] [place] [address] 09/26/2024 1:00 PM EDT Office Visit [facility] ADULT DENTAL [address] [place] [address] Elizabeth, Shahrzad [address] [place] [address] documented as of this encounter Visit Diagnoses Not on filedocumented in this encounter Care Teams Forester Aide Relationship Specialty Start Date End Date Nicolle Pretty MD [address] [place] [address] PCP - General Family Medicine 04/29/12 Dr. choudhary Consulting Physician 09/13/23 Dr. Cloud Consulting Physician Hematology 09/13/23 Dr. Adam Miller Consulting Physician Endocrinology 09/13/23 documented as of this encounter
--- OUTSIDE RECORDS SUMMARY | 2024-07-14 17:01 | XMS_ITS | Encounter Summary ---
Author Organization [facility] Address [address] [place] [address] [address] [place] [address] Care Team Providers Care X Ray Inspector Name Role Phone Nicolle Pretty MD Primary Care Provider [phone] Encounter Details Date Type Department Care Team (Latest Contact Info) Description 01/26/2022 Abstract [facility] CONVERSIONS Dental, Provider, DDS Social History Tobacco Use Types Packs/Day Years Used Date Smoking Tobacco: Never Assessed Sex and Gender Information Value Date Recorded Sex Assigned at Male 04/17/2022 10:17 AM EDT Legal Sex Male 10:17 AM EDT Gender Identity Choose not to disclose 10:17 AM EDT Sexual Orientation Choose not to disclose 2021 10:17 AM EDT documented as of this encounter Plan of Treatment Upcoming Encounters Date Type Department Care Team (Late st Contact Info) Description 08/25/2024 2:30 PM EDT Telemedicine [facility] MED & PEDS [address] [place] [address] Nolvia Gonzalez, DONAVAN [address] [place] [address] 09/26/2024 1:00 PM EDT Office Visit [facility] ADULT DENTAL [address] [place] [address] Elizabeth, Shahrzad [address] [place] [address] documented as of this encounter Visit Diagnoses Not on filedocumented in this encounter Care Teams X Ray Inspector Relationship Specialty Start Date End Date Nicolle Pretty MD [address] [place] [address] PCP - General Family Medicine 04/29/12 Dr. choudhary Consulting Physician 09/13/23 Dr. Cloud Consulting Physician Hematology 09/13/23 Dr. Adam Miller Consulting Physician Endocrinology 09/13/23 documented as of this encounter
--- OUTSIDE RECORDS SUMMARY | 2024-07-14 17:01 | XMS_ITS | Encounter Summary ---
Author Organization [employer] Address [address] [place] [address] Care Team Providers Care Hospital Corpsman Name Role Phone Nicolle Pretty MD Primary Care Provider [phone] Reason for Visit * Reason Onset Date Comments Prior Authorization 12/18/2023 Paperwork/Forms 12/18/2023 Encounter Details Date Type Department Care Team (Late st Contact Info) Description 12/18/2023 Telephone [facility] MEDICINE [address] [place] [address] Nicolle Pretty MD [address] [place] [address] Prior Authorization; Paperwork/Forms Social History Tobacco Use Types Packs/Day Years [...] encounter Miscellaneous Notes * Telephone Encounter - Chris Rubi - 12/18/2023 9:41 AM EDT Tc from [facility] with [facility] stating they received a script for air conditioning however [facility] is requesting a letter of medical necessity. Please contact at [phone] documented in this encounter Plan of Treatment Upcoming Encounters Date Type Department Care Team (Late st Contact Info) Description 08/25/2024 2:30 PM EDT Telemedicine [facility] MED [facility] PEDS [address] [place] [address] Nolvia Gonzalez, DONAVAN [address] [place] [address] 09/26/2024 1:00 PM EDT Office Visit [facility] ADULT DENTAL [address] [place] [address] Elizabeth, Shahrzad [address] [place] [address] documented as of this encounter Visit Diagnoses Not on filedocumented in this encounter Care Teams Hospital Corpsman Relationship Specialty Start Date End Date Nicolle Pretty MD [address] [place] [address] PCP - General Family Medicine 04/29/12 Dr. choudhary Consulting Physician 09/13/23 Dr. Cloud Consulting Physician Hematology 09/13/23 Dr. Adam Miller Consulting Physician Endocrinology 09/13/23 documented as of this encounter
--- OUTSIDE RECORDS SUMMARY | 2024-07-14 17:01 | XMS_ITS | Encounter Summary ---
Author Organization [facility] Address [address] [place] [address] Care Team Providers Care Theoretical Physicist Name Role Phone Nicolle Pretty MD Primary Care Provider [phone] Reason for Visit * Reason Onset Date Comments Appointment Request 01/29/2024 Encounter Details Date Type Department Care Team ([facility] st Contact Info) Description 01/29/2024 Telephone [facility] MEDICINE [address] [place], [place] [phone] Nicolle Pretty MD [address] [place], [place] [phone] Appointment Request Social History Tobacco Use Types Packs/Day Years [...] t he electric, gas, oil or water [employer] threatened to shut off services in your home? No 04/09/2023 Sex and Gender Information Value Date Recorded Sex Assigned at Male 04/17/2022 10:17 AM EDT Legal Sex Male 10:17 AM EDT Gender Identity Choose not to disclose 10:17 AM EDT Sexual Orientation Choose not to disclose 2021 10:17 AM EDT documented as of this encounter Miscellaneous Notes * Telephone Encounter - Olegario Mcmahan Lebron - 01/29/2024 11:23 AM EDT Tc from pt sister requesting to r/s WAITER[employer] appt for 01/30/24 due to Brother being COVID POSITIVE documented in this encounter Plan of Treatment Upcoming Encounters Date Type Department Care Team (Late st Contact Info) Description 08/25/2024 2:30 PM EDT Telemedicine [facility] CHC MED & PEDS [address] [place] [address] Nolvia Gonzalez, RN [address] [place] [address] 09/26/2024 1:00 PM EDT Office Visit [facility] ADULT DENTAL [address] [place] [address] Elizabeth, Shahrzad [address] [place] [address] documented as of this encounter Visit Diagnoses Not on filedocumented in this encounter Care Teams Theoretical Physicist Relationship Specialty Start Date End Date Nicolle Pretty MD [address] [place] [address] PCP - General Family Medicine 04/29/12 Dr. choudhary Consulting Physician 09/13/23 Dr. Cloud Consulting Physician Hematology 09/13/23 Dr. Adam Miller Consulting Physician Endocrinology 09/13/23 documented as of this encounter
--- OUTSIDE RECORDS SUMMARY | 2024-07-14 17:01 | XMS_ITS | Clinical Summary ---
Author Organization [employer] Address [address] [facility] 7t [place] [address] Care Team Providers Care Curing Press Maintainer Name Role Phone Nicolle Pretty MD Primary Care Provider [phone] Allergies No known active allergies Medications lansoprazole (Prevacid) [address] capsule Take 1 capsule by mouth every 12 (twelve) hours. 02/23/20 22 Active glycerin (GNP Glycerin, Adult,) 2.1 g suppository use per rectum daily 11/23/19 22 Active acetaminophen (Tylenol) 500 MG tablet Take 2 tablets by mouth in the morning and 2 tablets at noon and 2 tablets in the evening and 2 tablets before bedtime. 12/27/19 18 Active fluticasone (Flonase) 50 MCG/ACT nasal spray Administer 2 sprays into affected nostril(s) at bed time. 04/12/20 16 Active Cholecalciferol 25 MCG (1000 UT) chewable tablet Acti ve cinacalcet (Sensipar) 30 MG tablet Take 1 tablet by mouth at bed time. Active ferrous sulfate 300 (60 Fe) MG/5ML syrup Take 10 mL by mouth at bed time. 11/20/19 19 Active gemfibrozil (Lopid) 600 MG tablet Take 1 tablet by mouth every 12 (twelve) hours. 11/08/19 19 Active zoledronic acid (Reclast) 5 MG/100ML solution Ac tive clonazePAM (KlonoPIN) 0.5 MG tabletIndications :Anxiety TAKE 1 TABLET BY MOUTH AT BEDTIME NEEDED FOR ANXIETY 20 tablet 06/14/20 23 Active famotidine (Pepcid) 40 MG/5ML suspension TAKE 5ml BY MOUTH EVERY DAY 09/06/19 24 Active ondansetron ODT (Zofran-ODT) 4 MG disintegrating tablet DISSOLVE 1 TABLET ON TONGUE EVERY 6 HOURS NEEDED FOR NAUSEA AND VOMITING 12/09/19 23 Active sucralfate (Carafate) 1 GM/10ML suspension TAKE 10 ML BY MOUTH TWICE DAILY 08/10/19 24 Active metoclopramide (Reglan) 5 MG/5ML solutionIndicatio ns:Gastroparesis Take 10 mg by mouth 3 times daily. Active Diclofenac Sodium 1 % gel APPLY 5 GRAMS TO AFFECTED AREA(S) FOUR TIMES DAILY 200 g 3 11/02/19 24 Active Tymlos 3120 MCG/1.56ML solution pen-injector 10/29/19 24 Active simvastatin (Zocor) 40 MG tablet TAKE 1 TABLET BY MOUTH EVERY DAY IN THE EVENING 90 tablet 3 03/20/20 24 Active baclofen (Lioresal) 20 MG tabletIndications :Spastic hemiplegic cerebral palsy (CMS/HCC) TAKE 1 TABLET BY MOUTH TWICE DAILY 60 tablet 2 07/08/19 25 Active ketoconazole (NIZOral) 2 % shampooIndication s:Seborrheic dermatitis APPLY TOPICALLY TO THE AFFECTED AREA(S) EVERY DAY FOR 7 DAYS (LEAVE ON FOR 5 MINUTES THEN RINSE) 120 mL 2 07/08/19 25 Active clonazePAM (KlonoPIN) 0.5 MG tabletIndications :Anxiety disorder, unspecified TAKE 1 TABLET BY MOUTH EVERY DAY AT BEDTIME NEEDED 20 tablet 07/10/19 25 Active baclofen (Lioresal) 20 MG tabletIndications :Spastic hemiplegic cerebral palsy (CMS/HCC) TAKE 1 TABLET BY MOUTH TWICE DAILY 60 tablet 2 04/09/20 24 2024 Discontinued ketoconazole (NIZOral) 2 % shampooIndication s:Seborrheic dermatitis APPLY TOPICALLY TO THE AFFECTED AREA(S) EVERY DAY FOR 7 DAYS, LEAVE ON FOR 5 MINUTES, THEN RINSE OFF 120 mL 2 04/09/20 24 2024 Discontinued clonazePAM (KlonoPIN) 0.5 MG tabletIndications :Anxiety disorder, unspecified TAKE 1 TABLET BY MOUTH EVERY DAY AT BEDTIME NEEDED 20 tablet 06/06/20 24 2024 Discontinued Active Problems Problem Noted Date Diagnosed Date Dental abscess 11/02/2023 Hiatal hernia 09/13/2023 Vitamin D deficiency 09/13/2023 Osteoporosis 09/13/2023 Hyperparathyroidism 09/13/2023 Hypercalcemia 09/13/2023 Delayed gastric emptying 09/13/2023 Constipation by delayed colonic transit 09/13/19 Abdominal bloating 09/13/2023 Decreased mobility 09/13/2023 Dental calculus 12/05/2022 Pain of right lower extremity 11/22/2017 Abdominal pain 07/26/2011 Cerebral palsy 07/26/2011 Gallbladder calculus 07/26/2011 Gastroesophageal reflux disease 04/21/2011 Anemia 04/05/2009 Pure hypercholesterolemia 04/05/2009 Essential hypertension 03/05/2009 Encounters Date Type Department Care Team Description 07/10/2024 Refill [facility] [address] [place] [address] Bessie Mishra MD Anxiety disorder, unspecified 07/05/2024 Refill [facility] MEDICINE [address] [place] [address] Nicolle Pretty MD Spastic hemiplegic cerebral palsy (CMS/HCC); Seborrheic dermatitis 06/05/2024 2:00 PM EST Clinical Support [facility] [address] [place] [address] Nolvia Gonzalez RN Anxiety 06/05/2024 Refill [facility] [address] [place] [address] Nolvia Gonzalez RN Anxiety disorder, unspecified 06/05/2024 Travel 06/05/2024 Telephone [facility] [address] [place] [address] Nicolle Pretty MD Med Refill 05/22/2024 1:00 PM EST Office Visit [facility] ADULT DENTAL [address] [place] [address] Shahrzad Johnson Dental calculus (Primary Dx) 05/06/2024 Refill [facility] [address] [place] [address] Nicolle Pretty MD Anxiety disorder, unspecified 04/24/2024 11:00 AM EST Office Visit [facility] [address] [place] [address] Nicolle Pretty MD Essential hypertension (Primary Dx); Pure hypercholesterolemia ; Encounter for immunization 04/24/2024 Travel 04/17/2024 Patient Outreach [facility] MED & PEDS [address] [place] [address] Nicolle Pretty MD Pre-visit Planning ([facility] screening is completed) from Last 3 Months Immunizations Name Administration Dates Next Due Influenza injectable quadriv alent IIV4 with preservative 03/25/2019,05/02/2018,03/06/2017,03/02 Influenza injectable quadriv alent preservative free 03/19/2023,03/10/2022,03/10/2021,03/09 Influenza, IIV3, injectable 03/30/2014 Influenza, Injectable, MDCK, preservative free 03/20/2024 Influenza, Split (incl. esequiel fied surface antigen) 03/28/2012 Moderna Covid-19 Vaccine 12+ 06/02/2021,10/27/19 21,09/28/2020 Pfizer Covid-19 Vaccine 12+ 04/24/2024, Pfizer Covid-19 Vaccine 12+ Bivalent 05/17/2022 Pneumococcal Polysaccharide PPSV23 01/15/2015 Tdap 03/06/2017 Social History Tobacco Use Types Packs/Day Years Used Date Smoking Tobacco: Never Passive Smoke Exposure: Never Smokeless Tobacco: Never Tobacco Cessation:Counseling Given: Not Answered Alcohol Use Standard Drinks/Week Comments Never 0 (1 standard drink = 0.6 oz pur e alcohol) Housing Stability Answer Date Recorded What is your housing situation today? I have leloc[place]enne moya 04/09/[address] you [...] not to disclose 2021 10:17 AM EDT Last Filed Vital Signs Vital Sign Reading Time Taken Comments Blood Pressure 132/72 05/22/2024 1:05 PM EST Pulse 74 04/24/2024 10:37 AM EST Temperature 36.3 ??C (97.3 ??F) 04/24/2024 10:[address] Respiratory Rate 12 04/24/2024 10:37 AM EST Oxygen Saturation 96% 04/24/2024 10:37 AM EST Inhaled Oxygen Concentration - - Weight 68.9 kg (152 lb) 04/24/2024 10:37 AM EST Height - - Body Mass Index - - Plan of Treatment Upcoming Encounters Date Type Department Care Team (Late st Contact Info) Description 08/25/2024 2:30 PM EDT Telemedicine [facility] MED & PEDS [address] [place] [address] Nolvia Gonzalez, RN [address] [place] [address] 09/26/2024 1:00 PM EDT Office Visit [facility] ADULT DENTAL [address] [place] [address] Elizabeth, Shahrzad [address] [place] [address] Health Maintenance Due Date Last Done Comments CT Colonography 1976 Colonoscopy 1976 Colorectal Cancer Screening 1976 Depression Screening 1976 FIT DNA/Cologuard 1976 FIT 1976 FOBT 1976 HIV Screening 1976 Sigmoidoscopy 1976 Alcohol/Substance Use Screening 1988 Family Planning (PISQ) 11/12/1991 Hepatitis C Screening 1994 Hepatitis B Vaccines (1 of 3 - 19+ 3-dose series) 11/12/1995 Dental Oral Exam 05/05/2024 11/02/2023, , 01/26/2022, Additional history exists SDOH Screening 09/04/2024 09/05/2023 Dental X-Ray: Bitewings 11/02/2024 11/02/19 24, 01/26/2022, 07/28/2020, Additional history exists Dental Prophylaxis 11/21/2024 05/22/2024, 0 02/20/2024, 11/02/2023, Additional history exists Tobacco Screening 05/22/2025 05/22/2024 Dental X-Ray: Full Mouth 11/02/2026 11/02/2023, 09/2015 Zoster Vaccines (1 of 2) 2026 DTaP/Tdap/Td Vaccines (2 - Td or Tdap) 03/06/2027 03/06/2017 Lipid Panel 05/23/2027 07/14/2024, 12/0 11/2021, 12/14/2021 RSV Patients and Patients Aged 60 years or older (1 - 1-dose 75+ series) 11/12/2051 Pneumococcal Vaccine: Pediatrics (0 to 5 Years) and At-Risk Patients (6 to 64 Years) Aged Out 01/15/2015 No longer eligible based on patient's age to complete this topic Influenza Vaccine Completed 03/20/2024, , 03/10/2022, Additional history exists COVID-19 Vaccine Completed 04/24/2024, , 05/17/2022, Additional history exists HIB Vaccines Aged Out No longer eligi ble based on patient's age to complete this topic HPV Vaccines Aged Out No longer eligi ble based on patient's age to complete this topic Hepatitis A Vaccines Aged Out No long er eligible based on patient's age to complete this topic IPV Vaccines Aged Out No longer eligi ble based on patient's age to complete this topic Meningococcal Vaccine Aged Out No duran frank eligible based on patient's age to complete this topic RSV under 20 months Aged Out No longe r eligible based on patient's age to complete this topic Rotavirus Vaccines Aged Out No longer eligible based on patient's age to complete this topic Procedures Procedure Name Priority Date/Time Associated Diagnosis Comments HEPATIC FUNCTION PANEL Routine 07/14/2024 12:05 PM EST Essential hypertension LIPID PANEL, STANDARD Routine 07/14/2024 12:05 PM EST Essential hypertension Pure hypercholesterolemia BASIC METABOLIC PANEL Routine 07/14/2024 12:05 PM EST Essential hypertension POCT BISMARK-14 URINE DRUG SCREEN Routine 06/05/2024 1:30 PM EST Anxiety DRUG MONITORING, BENZODIAZEPINES, QUANTITATIVE, URINE Routine 06/05/2024 12:00 AM EST ADJUNCTIVE GENERAL SERVICES - PROFESSIONAL VISITS - CASE PRESENTATION, SUBSEQUENT TO DETAILED AND EXTENSIVE TREATMENT PLANNING Routine 05/22/2024 1:00 PM EST Dental calculus ORAL HYGIENE INSTRUCTIONS Routine 05/22/2024 1:00 PM EST Dental calculus PROPHYLAXIS - ADULT Routine 05/22/2024 1 :00 PM EST Dental calculus DIAGNOSTIC - DIAGNOSTIC IMAGING - INTRAORAL - COMPREHENSIVE SERIES OF RADIOGRAPHIC IMAGES Routine 11/02/2023 10:00 AM EDT Dental calculus Dental abscess PERIODIC ORAL EVALUATION - ESTABLISHED PATIENT Routine 11/02/2023 10:00 AM EDT from Last 3 Months or Most Recently Relevant to Health Maintenance Results * (ABNORMAL) Hepatic Function Panel (07/14/2024 12:05 PM EST) Bilirubin, Total 0.4 0.0 - 1.0 mg/dL [facility] Bilirubin, Direct 0.1 0.0 - 0.5 mg/dL [facility] Aspartate Amino Transferase 36 5 - 37 U/L [facility] Alanine Aminotransferase 37 0 - 40 U/L [facility] Total Protein 8.6(H) 6.5 - 8.0 g/dL [facility] Albumin Level 4.5 3.5 - 5.0 g/dL [facility] Alkaline Phosphatase 103 39 - 117 U/L [facility] Blood Venous blood specimen / Unknown 07/14/2024 12:05 PM EST 07/14/2024 1:22 PM EST Nicolle Pretty MD LAB BLOOD ORDERABLES Final Resul t Performing Organization Address [facility] Co de Phone Number [facility] [address] [place] [address] [phone] * (ABNORMAL) Lipid Panel, Standard (07/14/2024 12:05 PM EST) Triglycerides 368(H) <150 mg/dL [facility] Comment:Desirable Triglyceri de: less than 150 mg/dLBorderline High Triglyceride 150-199 mg/dLHigh Triglyceride: 200-499 mg/dLVery High Triglyceride: greater than or equal to 5OO mg/dL Cholesterol 142 <200 mg/dL [facility] Comment:Desirable Cholestero l: less than 200 mg/dLBorderline High Cholesterol: 200-239 mg/dLHigh Cholesterol: greater than 239 mg/dL LDL Cholesterol Calculated 34 <100 mg/dL [facility] Comment:Desirable LDL: less than 100 mg/dLNear Optimal/Above Optimal LDL: 110- 129 mg/dLBorderline High LDL: 130-159 mg/dLHigh LDL: 160-189 mg/dLVery High LDL: greater than or equal to 190 mg/dL HDL Cholesterol 35(L) >40 mg/dL [facility] Comment:Desirable HDL: great er than 40 mg/dL Note: This HDL assay may give artificially low results in patients with liver disease. Blood Venous blood specimen / Unknown 07/14/2024 12:05 PM EST 07/14/2024 1:22 PM EST us Nicolle Pretty MD LAB BLOOD ORDERABLES Final Resul t Performing Organization Address [facility]/ZIP Co de Phone Number [facility] [address] [place] [address] [phone] * Basic Metabolic Panel (07/14/2024 12:05 PM EST) Sodium 142 135 - 145 mmol/L [facility] Potassium 3.6 3.3 - 5.1 mmol/L [facility] Chloride 106 96 - 108 mmol/L [facility] Carbon Dioxide 28 22 - 29 mmol/L [facility] Anion Gap 12 12 - 20 [facility] Urea Nitrogen (BUN) 16 9 - 16 mg/dL [facility] Creatinine, Serum 0.77 0.5 - 1.4 mg/dL [facility] Estimated Glomerular Filt Rate >60 [facility] Comment:Chronic Kidney Disea se: Estimated GFR < 60 mL/min/1.29l7Bewugt Kidney Disease: Estimated GFR < 15 mL/min/1.73m2 Glucose 90 60 - 115 mg/dL [facility] Calcium 9.8 8.4 - 10.2 mg/dL [facility] Blood Venous blood specimen / Unknown 07/14/2024 12:05 PM EST 07/14/2024 1:22 PM EST Nicolle Pretty MD LAB BLOOD ORDERABLES Final Resul t [facility] [address] [place] [address] [phone] * POCT BISMARK-14 Urine Drug Screen (06/05/2024 1:30 PM EST) Urine Urine specimen obtained by clean catch procedure / Unknown 06/05/2024 1:30 PM EST Narrative Nolvia Gonzalez RN - 06/05/2024 1:30 PM EST negative for THC, MOP, OXY, SONIA, MET, AMP, BZO, BAR, MTD, BUPG, TCA, MDMA, PCP, PPX. Lot# [id number] Exp: 05-24-25 Nicolle Pretty MD POINT OF CARE TEST ENTER/EDIT OR DERABLES Final Result * Drug Monitoring, Benzodiazepines, Quantitative, Urine (06/05/2024 12:00 AM EST) Nordiazepam, GCMS Urine NEGATIVE [facility] Oxazepam, GCMS Urine NEGATIVE [facility] Lorazepam GCMS Urine NEGATIVE [facility] Alprazolam, GCMS Urine NEGATIVE [facility] Alphahydroxytriazolam, GCMS Ur NEGATIVE [facility] Temazepam, GCMS Urine NEGATIVE [facility] Alphahydroxymidazolam, GCMS Ur NEGATIVE [facility] Aminoclonazepam, GCMS Urine 84 (H) [facility] Comment:REFERENCE RANGE: <25 ng/mLTHIS TEST PERFORMED AT:[employer] [address] [phone] DIRECTOR: RINKU ANDREWS MD Flurazepam Metabolite,GCMS Ur NEGATIVE [facility] Benzodiazepines Comments SEE NOTE [facility] Comment:This drug testing is for medical treatment only.Analysis was performed as non-forensic testing andthese results should be used only by healthcareproviders to render diagnosis or treatment, or tomonitor progress of medical conditions.Benzodiazepines Notes:Aminoclonazepam detected is consistent with the use ofthe drug Clonazepam.LDT Notes:Confirmation tests were developed and their analyticalperformance characteristics have been determined by[employer]. It has not been cleared or approvedby the FDA. This assay has been validated pursuant tothe CLIA regulations and is used for clinical purposes.Healthcare Providers needing Interpretation assistance,please contact us at [phone] ( )M- F, 8am to 10pm EST 06/05/2024 06/05/2024 us Nicolle Pretty MD LAB URINE ORDERABLES Final Resul t [facility] [address] [place] [address] [phone] from Last 3 Months Insurance [facility] - [facility] Care Teams Curing Press Maintainer Relationship Specialty Start Date End Date Nicolle Pretty MD [address] [place] [phone] PCP - General Family Medicine 04/29/12 Dr. choudhary Consulting Physician 09/13/23 Dr. Cloud Consulting Physician Hematology 09/13/23 Dr. Adam Miller Consulting Physician Endocrinology 09/13/23
--- OUTSIDE RECORDS SUMMARY | 2024-07-14 17:01 | XMS_ITS | Encounter Summary ---
Author Organization [employer] Address [address] [place] [address] Care Team Providers Care Consulting Actuary Name Role Phone Nicolle Pretty MD Primary Care Provider [phone] Reason for Visit * Reason Comments Med Refill Encounter Details Date Type Department Care Team ([facility] st Contact Info) Description 07/05/2024 Refill [facility] MEDICINE [address] [place] [address] Nicolle Pretty MD [address] [place], [place] [phone] Spastic hemiplegic cerebral palsy (CMS/HCC); Seborrheic dermatitis Social History Tobacco Use Types Packs/Day Years [...] Info) Description 08/25/2024 2:30 PM EDT Telemedicine [facility] MED & PEDS [address] [place] [address] Nolvia Gonzalez, DONAVAN [address] [place] [address] 09/26/2024 1:00 PM EDT Office Visit [facility] ADULT DENTAL [address] [place] [address] Elizabeth, Shahrzad [address] [place] [address] documented as of this encounter Visit Diagnoses Diagnosis Spastic hemiplegic cerebral palsy (CMS/HCC) Seborrheic dermatitis Unspecified seborrheic dermatitis documented in this encounter Care Teams Consulting Actuary Relationship Specialty Start Date End Date Nicolle Pretty MD [address] [place] [address] PCP - General Family Medicine 04/29/12 Dr. choudhary Consulting Physician 09/13/23 Dr. Cloud Consulting Physician Hematology 09/13/23 Dr. Adam Miller Consulting Physician Endocrinology 09/13/23 documented as of this encounter
--- OUTSIDE RECORDS SUMMARY | 2024-07-14 17:01 | XMS_ITS | Encounter Summary ---
Author Organization [employer] [facility] Address [address] [place] [address] 7t [place] [address] Care Team Providers Care Derrick Hand Name Role Phone Nicolle Pretty MD Primary Care Provider [phone] Encounter Details Date Type Department Care Team (Latest Contact Info) Description 07/28/2020 Abstract [facility] CONVERSIONS Dental, Provider, DDS Social History Tobacco [...] Info) Description 08/25/2024 2:30 PM EDT Telemedicine [facility] MED & PEDS [address] [place] [address] Nolvia Gonzalez, DONAVAN [address] [place] [address] 09/26/2024 1:00 PM EDT Office Visit [facility] ADULT DENTAL [address] [place] [address] Elizabeth, Shahrzad [address] [place] [address] documented as of this encounter Visit Diagnoses Not on filedocumented in this encounter Care Teams Derrick Hand Relationship Specialty Start Date End Date Nicolle Pretty MD [address] [place] [address] PCP - General Family Medicine 04/29/12 Dr. choudhary Consulting Physician 09/13/23 Dr. Cloud Consulting Physician Hematology 09/13/23 Dr. Adam Miller Consulting Physician Endocrinology 09/13/23 documented as of this encounter
--- OUTSIDE RECORDS SUMMARY | 2024-07-14 17:01 | XMS_ITS | Encounter Summary ---
Author Organization [employer] Address [address] [place] [address] Care Team Providers Care Php Consultant Name Role Phone Nicolle Pretty MD Primary Care Provider Reason for Visit * Reason Onset Date Comments Durable Medical Equipment 12/31/2023 Encounter Details Date Type Department Care Team ([facility] st Contact Info) Description 12/31/2023 Telephone [facility] MEDICINE [address] [place], [place] [phone] Nicolle Pretty MD [address] [place], [place] [phone] Durable Medical Equipment Social History Tobacco Use [...] encounter Miscellaneous Notes * Telephone Encounter - Wing Wolf RN - 12/31/2023 12:37 PM EDT Please advise, tc from [facility]y at [facility]. Requesting for medical necessity letter for air conditioning.They received the order for the air conditioning but need the medical necessity letter. Pt has apptwith PCP on 01/20 to disucss this. Stated to Handy will ask PCP if she will make an addendum to the last medical necessity letter that had was for the shower chair. Handy verbalized understanding andagreement with plan. documented in this encounter Plan of Treatment Upcoming Encounters Date Type Department Care Team (Late st Contact Info) Description 08/25/2024 2:30 PM EDT Telemedicine [facility] MED & PEDS [address] [place] [address] Nolvia Gonzalez, RN [address] [place] [address] 09/26/2024 1:00 PM EDT Office Visit [facility] ADULT DENTAL [address] [place] [address] Elizabeth, Shahrzad [address] [place] [address] documented as of this encounter Visit Diagnoses Not on filedocumented in this encounter Care Teams Php Consultant Relationship Specialty Start Date End Date Nicolle Pretty MD [address] [place] [address] PCP - General Family Medicine 04/29/12 Dr. choudhary Consulting Physician 09/13/23 Dr. Cloud Consulting Physician Hematology 09/13/23 Dr. Adam Miller Consulting Physician Endocrinology 09/13/23 documented as of this encounter
--- OUTSIDE RECORDS SUMMARY | 2024-07-14 17:01 | XMS_ITS | Encounter Summary ---
Author Organization [employer] [facility] Address [address] [place] [address] 7t [place] [address] Care Team Providers Care Quilt Sewer Name Role Phone Nicolle Pretty MD Primary Care Provider Reason for Visit * Reason Comments Med Refill Encounter Details Date Type Department Care Team (Late Contact Info) Description 01/31/2023 Refill [facility] MED & PEDS [address] [place] [address] Nicolle Pretty MD [address] [place] [address] Anxiety disorder, unspecified Social History Tobacco Use Types Packs/Day Years Used Date Smoking Tobacco: Never Passive Smoke Exposure: Never Smokeless Tobacco: Never Alcohol Use Standard Drinks/Week Comments Never 0 (1 standard drink = 0.6 oz pur e alcohol) Sex and Gender Information Value Date Recorded Sex Assigned at Male 04/17/2022 10:17 AM EDT Legal Sex Male 10:17 AM EDT Gender Identity Choose not to disclose 10:17 AM EDT Sexual Orientation Choose not to disclose 2021 10:17 AM EDT documented as of this encounter Plan of Treatment Upcoming Encounters Date Type Department Care Team (Late Contact Info) Description 08/25/2024 2:30 PM EDT Telemedicine [facility] MED & PEDS [address] [place] [address] Nolvia Gonzalez RN [address] [place] [address] 09/26/2024 1:00 PM EDT Office Visit [facility] ADULT DENTAL [address] [place] [address] Shahrzad Johnson [address] [place] [address] documented as of this encounter Visit Diagnoses Diagnosis Anxiety disorder, unspecified documented in this encounter Care Teams Quilt Sewer Relationship Specialty Start Date End Date Nicolle Pretty MD [address] [place] [address] PCP - General Family Medicine 04/29/12 Dr. choudhary Consulting Physician 09/13/23 Dr. Cloud Consulting Physician Hematology 09/13/23 Dr. Adam Miller Consulting Physician Endocrinology 09/13/23 documented as of this encounter
--- OUTSIDE RECORDS SUMMARY | 2024-07-14 17:01 | XMS_ITS | Encounter Summary ---
Author Organization [facility] Address [address] [place] [address] 7t [place] [address] Care Team Providers Care Material Man Name Role Phone Nicolle Pretty MD Primary Care Provider [phone] Encounter Details Date Type Department Care Team (Latest Contact Info) Description 07/01/2018 Abstract [facility] CONVERSIONS Dental, Provider, DDS Social History [...] Info) Description 08/25/2024 2:30 PM EDT Telemedicine [facility] CHC MED & PEDS [address] [place] [address] Nolvia Gonzalez, DONAVAN 505 [place] [address] 09/26/2024 1:00 PM EDT Office Visit [facility] ADULT DENTAL 230 [place] [address] Elizabeth, Shahrzad [address] [place] [address] documented as of this encounter Visit Diagnoses Not on filedocumented in this encounter Care Teams Material Man Relationship Specialty Start Date End Date Nicolle Pretty MD 230 [place] [address] PCP - General Family Medicine 04/29/12 Dr. choudhary Consulting Physician 09/13/23 Dr. Cloud Consulting Physician Hematology 09/13/23 Dr. Adam Miller Consulting Physician Endocrinology 09/13/23 documented as of this encounter
--- OUTSIDE RECORDS SUMMARY | 2024-07-14 17:01 | XMS_ITS | Encounter Summary ---
Demographics Address [address] [place] [address] Work Phone Mobile Phone Home Phone Preferred Language es Marital Status Single Bahai Affiliation Unknown Race Other Race Ethnic Group or Author Organization [employer] Address [address] 7t [place] [address] Care Team Providers Care Lot Porter Name Role Phone Nicolle Pretty MD Primary Care Provider [phone] Reason for Visit * Reason Comments Med Refill Encounter Details Date Type Department Care Team ([facility] st Contact Info) Description 07/10/2024 Refill [facility] CHC MED & PEDS [address] [place], [place] [phone] Bessie Mishra MD 505 [place], [place] [phone] Anxiety disorder, unspecified Social History Tobacco Use [...] Info) Description 08/25/2024 2:30 PM EDT Telemedicine [facility] CHC MED & PEDS [address] [place] [address] Nolvia Gonzalez, RN 505 [place] [address] 09/26/2024 1:00 PM EDT Office Visit [facility] ADULT DENTAL 230 [place] [address] Elizabeth, Shahrzad [address] [place] [address] documented as of this encounter Visit Diagnoses Diagnosis Anxiety disorder, unspecified documented in this encounter Care Teams Lot Porter Relationship Specialty Start Date End Date Nicolle Pretty MD 230 [place] [address] PCP - General Family Medicine 04/29/12 Dr. choudhary Consulting Physician 09/13/23 Dr. Cloud Consulting Physician Hematology 09/13/23 Dr. Adam Miller Consulting Physician Endocrinology 09/13/23 documented as of this encounter
== END 2024-07-14 12:04 | disposition home or self-care (01) ==
LOC: HO.HHCL 12:03
PROVIDERS: Visit Provider Student in an Organized Health Care Education/Training Program
DX: I10 Essential (primary) hypertension (principal); E78.00 Pure hypercholesterolemia, unspecified
CPT/HCPCS: 36415; 80048; 80061; 80076

== ENCOUNTER 2024-08-28 14:16 | Outpatient (REF) | payer OTHER, SELFPAY ==
--- NOTE | ~2024-08-28 | MM_ITS ---
EXAMINATION: DXA BONE DENSITY EXTREMITY HISTORY: Osteoporosis TECHNIQUE: Appography Dual energy absorptiometry (DEXA) of the lumbar spine, total left hip femoral neck, and distal radius was performed. COMPARISON: Comparison is made with the prior examination dated 07/05/2022. FINDINGS: The bone mineral density of the lumbar spine is 0.934 with a T-score of -2.4, and a Z-score of -1.9. This represents a BMD change of 7.1% compared to the prior exam. This is statistically significant. The bone mineral density of the left total hip is 0.847 with a T-score of -1.8, and a Z-score of -1.3. This represents a BMD change of 110.7% compared to the prior exam. This is statistically significant. The bone mineral density of the left femoral neck is 0.649 with a T-score of -3.2, and a Z-score of -2.5. This represents a BMD change of 34.9% compared to the prior exam. The bone mineral density of the distal radius is 1.005 with a T-score of 0.2, and a Z-score of 0.2. This represents a BMD change of -0.1% compared to the prior exam. This is not statistically significant. MM/XR DEXA appendicular skeleton IMPRESSION: Based on bone mineral density, and according to World Health Organization (WHO) criteria, the diagnosis is consistent with osteoporosis. All bone density values are in grams per centimeter squared (g/cm2). Statistically, 68% of repeat scans fall within 1 SD (+/- 0.010 g/cm2 for AP spine L1-L4) and 1 SD (+/- 0.012 g/cm2 for femur total) FRAX is a trademark of the [employer] [place] for Metabolic Bone Disease, a World Health Organization (WHO) Collaborating Center. Electronically signed by: Robin Waldron MD 08/28/2024 03:07 PM EDT
--- OUTSIDE RECORDS SUMMARY | 2024-08-28 18:08 | XMS_ITS | Encounter Summary ---
Author Organization [employer] Address [address] 7[address] [place] [address] Care Team Providers Care Sewer Contractor Name Role Phone Nicolle Pretty MD Primary Care Provider [phone] Reason for Visit * Reason Comments controlled substance treatment Encounter Details Date Type Department Care Team (Latest Contact Info) Description 08/25/2024 2:30 PM EDT Telemedicine [facility] MED & PEDS 505 [place] [address] Nolvia Gonzalez, DONAVAN [address] [place], [place] Long-term current use of benzodiazepine Social History Tobacco Use Types Packs/Day Years [...] the past 12 months, has t he [employer], gas, oil or water company threatened to shut off services in your home? No 04/09/2023 Sex and Gender Information Value Date Recorded Sex Assigned at Male 04/17/2022 10:17 AM EDT Legal Sex Male 10:17 AM EDT Gender Identity Male 08/08/2024 10:07 AM EST Sexual Orientation Straight 08/08/2024 10 :07 AM EST documented as of this encounter Progress Notes * Nolvia Gonzalez RN - 08/25/2024 2:30 PM EDT S: [facility] Televisit. Patient here with sister Winter who is on HIPAA. Patient is taking Clonazepam 0.5mg QHS PRN. Sister meredith has been giving Eliazar Clonazepam at bedtime. States Elkins has been without pills for a few days. Will queue med refill to the provider. Reports no adverse reactions. Denies smoking, ETOH or illicit drugs use. Last PCP appointment was on 04/24/24, no changes in anxiety meds. No other questions/ concerns at this time. O: VSS. Low Risk. FIRER PORTABLE BOILER checked on 08/25/24. Pill count performed over the phone, patient has 0 pills left, 0 expected. A: Benzodiazepine use r/t anxiety. P: Patient to cont. with current medication regimen as needed and take medication only as directed.f/u for next PHYSICIAN OFFICE CLIN [facility] [place] scheduled for 11/24/24 @2pm. f/u sooner PRN. Patient verbalized understanding andagreed to plan. documented in this encounter Plan of Treatment Upcoming Encounters Date Type Department Care Team (Late st Contact Info) Description 09/26/2024 1:00 PM EDT Office Visit [facility] ADULT DENTAL 230 [place] [address] Shahrzad Johnson 230 [place] [address] 10/16/2024 11:30 AM EDT Office Visit [facility] CHC MED & PEDS 505 [place] [address] Nicolle Pretty MD 505 [place] [address] 12/11/2024 11:00 AM EDT Office Visit [facility] OPTOMETRY [address] [place], [place] [phone] Whitney Mejía, CHRISTIANO [address] [place] [address] documented as of this encounter Visit Diagnoses Diagnosis Long-term current use of benzodiazepine documented in this encounter Care Teams Sewer Contractor Relationship Specialty Start Date End Date Nicolle Pretty MD 230 [place] [address] PCP - General Family Medicine 04/29/12 Dr. choudhary Consulting Physician 09/13/23 Dr. Cloud Consulting Physician Hematology 09/13/23 Dr. Adam Miller Consulting Physician Endocrinology 09/13/23 documented as of this encounter
--- OUTSIDE RECORDS SUMMARY | 2024-08-28 18:08 | XMS_ITS | Encounter Summary ---
Demographics Address [address] [place] [address] Work Phone Mobile Phone Home Phone Preferred Language es Marital Status Single Samaritan Affiliation Unknown Race Other Race Ethnic Group or Author Organization [employer] Address [address] 7[address] [place] [address] Care Team Providers Care Systems Designer Name Role Phone Nicolle Pretty MD Primary Care Provider [phone] Encounter Details Date Type Department Care Team (Late st Contact Info) Description 08/28/2024 Orders Only [facility] External Provider, [facility] Social History Tobacco Use Types Packs/Day Years [...] AM EST documented as of this encounter Plan of Treatment Upcoming Encounters Date Type Department Care Team (Late st Contact Info) Description 09/26/2024 1:00 PM EDT Office Visit [facility] ADULT DENTAL 230 [place] [address] Elizabeth, Shahrzad [address] [place] [address] 10/16/2024 11:30 AM EDT Office Visit [facility] CHC MED & PEDS [address] [place] [address] Nicolle Pretty MD 505 [place] [address] 12/11/2024 11:00 AM EDT Office Visit [facility] OPTOMETRY [address] [place] [address] Whitney Mejía, OD [address] [place] [address] documented as of this encounter Procedures Procedure Name Priority Date/Time Associated Diagnosis Comments XR DEXA APPENDICULAR SKELETON Routine 08/28/2024 2:30 PM EDT documented in this encounter Results * XR DEXA APPENDICULAR SKELETON (08/28/2024 2:30 PM EDT) Anatomical Region Laterality Modality Abdomen Radiographic Gabrielle ging 08/28/2024 2:30 PM EDT Narrative 08/28/2024 3:10 PM EDT ? [facility] [place] ? [address] ?[place] [address] ? Mammography Report ? Signed ? Patient: Anavitate,Eliazar ?MR#: [id number] ?? [id number] ? : 1975 ?Acct:[id number] ? Age/Sex: 48 / M ?ADM Date: 03/13/25 ? Loc: HO.MAMMO ? Attending Dr: Robin Miller MD ? Ordering Physician: Robin Miller MD ?Results: ? Date of Service: 08/28/24 ?Follow Up: ? Procedure(s): XR DEXA appendicular skeleton ?? Accession Number(s): [id number] ? cc: Robin Miller MD; Nicolle Pretty MD ? EXAMINATION: ??DXA BONE DENSITY EXTREMITY ? HISTORY: ??Osteoporosis ? TECHNIQUE: Md7 Dual energy absorptiometry (DEXA) ?? of the lumbar spine, total left hip femoral neck, and distal radius was ?? performed. ? COMPARISON: Comparison is made with the prior examination dated ?? 07/05/2022. ? FINDINGS: ? The bone mineral density of the lumbar spine is 0.934 with a T-score of ?? -2.4, and a Z-score of -1.9. ? This represents a BMD change of 7.1% compared to the prior exam. ??This ?? is statistically significant. ? The bone mineral density of the left total hip is 0.847 with a T-score ?? of -1.8, and a Z-score of -1.3. ? This represents a BMD change of 110.7% compared to the prior exam. ? This is statistically significant. ? The bone mineral density of the left femoral neck is 0.649 with a ?? T-score of -3.2, and a Z-score of -2.5. ? This represents a BMD change of 34.9% compared to the prior exam. ? The bone mineral density of the distal radius is 1.005 with a T-score ?? of 0.2, and a Z-score of 0.2. ? This represents a BMD change of -0.1% compared to the prior exam. ??This ?? is not statistically significant. ? MM/XR DEXA appendicular skeleton ?? IMPRESSION: ?? Based on bone mineral density, and according to World Health ?? Organization (WHO) criteria, the diagnosis is consistent with ?? osteoporosis. ? All bone density values are in grams per centimeter squared (g/cm2). ?? Statistically, 68% of repeat scans fall within 1 SD (+/- 0.010 g/cm2 ?? for AP spine L1-L4) and 1 SD (+/- 0.012 g/cm2 for femur total) ?? FRAX is a trademark of the [employer]'s ?? [place] for Metabolic Bone Disease, a World Health Organization (WHO) ?? Collaborating Center. ? Electronically signed by: ??Robin Waldron MD ??08/28/2024 03:07 PM EDT ? Dictated By: ?Robin Waldron MD ? Signed By: ?<Electronically signed by Robin Waldron MD in OV> ?08/28/24 1507 ? DD/ 1430 ? TD/TT: 08/28/24 1459 ? Speed Operator: ? Procedure Note Eliezerannedelmarkimberlyn, Image - 08/28/2024 [facility] [address] [place], [place] [address] Mammography Report Signed Patient: Neisha Wells#: [id number] : 1975Acct:[id number] Age/Sex: 48 / MADM Date: 08/28/24 Loc: HO.MAMMO Attending Dr: Robin Miller MD Ordering Physician: Robin Millerults: Date of Service: 08/28/24Follow Up: Procedure(s): XR DEXA appendicular skeleton Accession Number(s): [id number] cc: Robin Miller MD; Nicolle Pretty MD EXAMINATION: DXA BONE DENSITY EXTREMITY HISTORY: Osteoporosis TECHNIQUE: Md7 Dual energy absorptiometry (DEXA) of the lumbar spine, total left hip femoral neck, and distal radius was performed. COMPARISON: Comparison is made with the prior examination dated 07/05/2022. FINDINGS: The bone mineral density of the lumbar spine is 0.934 with a T-score of -2.4, and a Z-score of -1.9. This represents a BMD change of 7.1% compared to the prior exam. This is statistically significant. The bone mineral density of the left total hip is 0.847 with a T-score of -1.8, and a Z-score of -1.3. This represents a BMD change of 110.7% compared to the prior exam. This is statistically significant. The bone mineral density of the left femoral neck is 0.649 with a T-score of -3.2, and a Z-score of -2.5. This represents a BMD change of 34.9% compared to the prior exam. The bone mineral density of the distal radius is 1.005 with a T-score of 0.2, and a Z-score of 0.2. This represents a BMD change of -0.1% compared to the prior exam. This is not statistically significant. MM/XR DEXA appendicular skeleton IMPRESSION: Based on bone mineral density, and according to World Health Organization (WHO) criteria, the diagnosis is consistent with osteoporosis. All bone density values are in grams per centimeter squared (g/cm2). Statistically, 68% of repeat scans fall within 1 SD (+/- 0.010 g/cm2 for AP spine L1-L4) and 1 SD (+/- 0.012 g/cm2 for femur total) FRAX is a trademark of the [employer] [place] for Metabolic Bone Disease, a World Health Organization (WHO) Collaborating Center. Electronically signed by: Robin Waldron MD 08/28/2024 03:07 PM EDT RP Dictated By: Robin Waldron MD Signed By: <Electronically signed by Robin Waldron MD in OV> 08/28/24 1507 DD/ 1430 TD/TT: 08/28/24 1459 Speed Operator: [facility] External Provider IMG XR PROCEDURES Edited Result - Final documented in this encounter Visit Diagnoses Not on filedocumented in this encounter Care Teams Systems Designer Relationship Specialty Start Date End Date Nicolle Pretty MD [address] [place] [place] [address] PCP - General Family Medicine 04/29/12 Dr. choudhary Consulting Physician 09/13/23 Dr. Cloud Consulting Physician Hematology 09/13/23 Dr. Adam Miller Consulting Physician Endocrinology 09/13/23 documented as of this encounter
--- OUTSIDE RECORDS SUMMARY | 2024-08-28 18:08 | XMS_ITS | Encounter Summary ---
Author Organization [employer] Address [address] [place] [address] 7t [place] [address] Care Team Providers Care Restaurant Kitchen Manager Name Role Phone Nicolle Pretty MD Primary Care Provider [phone] Reason for Visit * Reason Comments Med Refill Encounter Details Date Type Department Care Team (Late Contact Info) Description 01/31/2023 Refill [facility] MED & PEDS [address] [place] [address] Nicolle Pretty MD 505 [place] [address] Anxiety disorder, unspecified Social History Tobacco Use [...] Department Care Team (Late Contact Info) Description 09/26/2024 1:00 PM EDT Office Visit [facility] ADULT DENTAL [address] [place], [place] [phone] Elizabeth, Shahrzad [address] [place] [address] 10/16/2024 11:30 AM EDT Office Visit [facility] MED & PEDS [address] [place] [address] Nicolle Pretty MD [address] [place] [address] 12/11/2024 11:00 AM EDT Office Visit [facility] OPTOMETRY [address] [place] [address] Whitney Mejía, OD [address] [place] [address] documented as of this encounter Visit Diagnoses Diagnosis Anxiety disorder, unspecified documented in this encounter Care Teams Restaurant Kitchen Manager Relationship Specialty Start Date End Date Nicolle Pertty MD 230 [place] [address] PCP - General Family Medicine 04/29/12 Dr. choudhary Consulting Physician 09/13/23 Dr. Cloud Consulting Physician Hematology 09/13/23 Dr. Adam Miller Consulting Physician Endocrinology 09/13/23 documented as of this encounter
--- OUTSIDE RECORDS SUMMARY | 2024-08-28 18:08 | XMS_ITS | Encounter Summary ---
Author Organization [employer] Address [address] 7t [place] [address] Care Team Providers Care Single End Sewer Name Role Phone Nicolle Pretty MD Primary Care Provider [phone] Reason for Visit * Reason Onset Date Comments Nurse Triage 07/31/2024 Encounter Details Date Type Department Care Team ([facility] st Contact Info) Description 07/31/2024 Telephone [facility] MEDICINE [address] [place], [place] [phone] Nicolle Pretty MD [address] [place], [place] [phone] Nurse Triage Social History Tobacco Use Types Packs/Day Years [...] t he electric, gas, oil or water [employer] threatened to shut off services in your home? No 04/09/2023 Sex and Gender Information Value Date Recorded Sex Assigned at Male 04/17/2022 10:17 AM EDT Legal Sex Male 10:17 AM EDT Gender Identity Male 08/08/2024 10:07 AM EST Sexual Orientation Straight 08/08/2024 10 :07 AM EST documented as of this encounter Miscellaneous Notes * Telephone Encounter - Jessica Arreola RN - 07/31/2024 11:07 AM EST Called pt via [facility] filler shredder helper [phone] [place]. Sister Winter answered phone and states that pt. Has been having cough, nausea, body pain and fever x 2 days. Pt. Has Cerebral Palsy. Pt did have Covid test done and it was negative. Pt. Does not have phlegm but has strong cough. Sister has been giving pt. Nyquill and Dayquill for cough and fever. Sister is giving water and apple juice. Last urination was 1 hour. Sister states that she has a nebulizer machine and Albuterol and is wondering if she cangive that to pt. For cough. I can hear pt. In background coughing. Sister denies any wheezing but, cough is consistent at present. Advised that she can give a treatment and see if it helps. Pt. Sister had no idea that she could have pt. Seen by [facility]. Sister declines need for visit today but, [facility] and [facility] read [facility] to me and verified phone number. Advised to callback if anything worsens or changes. Pt. Sister in agreement. Protocol Used: Cough (Adult) Protocol-Based Disposition: Home Care Positive Triage Question: * Cough with no complications * All higher-acuity triage questions were negative Care Advice Discussed: * Reassurance and Education - Cough * Cough Medicines * Coughing Spells * Prevent Dehydration * Avoid Tobacco Smoke * Humidifier * Telephone Encounter - Lenin Jonse - 07/31/2024 11:04 AM EST Symptoms: Cough, Fever, Vomiting, Body Aches Outcome: Talk to a nurse or provider within 15 minutes Reason: Severe headache The caller accepted this outcome. documented in this encounter Plan of Treatment Upcoming Encounters Date Type Department Care Team (Late st Contact Info) Description 09/26/2024 1:00 PM EDT Office Visit [facility] ADULT DENTAL [address] [place] [address] Elizabeth, Shahrzad [address] [place] [address] 10/16/2024 11:30 AM EDT Office Visit [facility] CHC MED & PEDS 505 [place], [place] [phone] Nicolle Pretty MD 505 [place], [place] [phone] 12/11/2024 11:00 AM EDT Office Visit [facility] OPTOMETRY [address] [place] [address] Whitney Mejía, OD [address] [place] [address] documented as of this encounter Visit Diagnoses Not on filedocumented in this encounter Care Teams Single End Sewer Relationship Specialty Start Date End Date Nicolle Pretty MD [address] [place] [address] PCP - General Family Medicine 04/29/12 Dr. choudhary Consulting Physician 09/13/23 Dr. Cloud Consulting Physician Hematology 09/13/23 Dr. Adam Miller Consulting Physician Endocrinology 09/13/23 documented as of this encounter
--- OUTSIDE RECORDS SUMMARY | 2024-08-28 18:08 | XMS_ITS | Encounter Summary ---
Author Organization [employer] Address [address] 7[address] [place] [address] Care Team Providers Care Material Processor Name Role Phone Nicolle Pretty MD Primary Care Provider [phone] Reason for Visit * Reason Onset Date Comments Appointment Request 01/29/2024 Encounter Details Date Type Department Care Team ([facility] st Contact Info) Description 01/29/2024 Telephone [facility] MEDICINE [address] [place], [place] [phone] Nicolle Pretty MD [address] [place], [place] [phone] Appointment Request Social History Tobacco Use Types [...] t he electric, gas, oil or water [employer] threatened to shut off services in your home? No 04/09/2023 Sex and Gender Information Value Date Recorded Sex Assigned at Male 04/17/2022 10:17 AM EDT Legal Sex Male 10:17 AM EDT Gender Identity Male 08/08/2024 10:07 AM EST Sexual Orientation Straight 08/08/2024 10 :07 AM EST documented as of this encounter Miscellaneous Notes * Telephone Encounter - Maldonadochidi Mcmahan Lebron - 01/29/2024 11:23 AM EDT Tc from pt sister requesting to r/s [facility] appt for 01/30/24 due to Brother being COVID POSITIVE documented in this encounter Plan of Treatment Upcoming Encounters Date Type Department Care Team (Late st Contact Info) Description 09/26/2024 1:00 PM EDT Office Visit [facility] ADULT DENTAL [address] [place] [address] Elizabeth, Shahrzad [address] [place] [address] 10/16/2024 11:30 AM EDT Office Visit [facility] CHC MED & PEDS [address] [place] [address] Nicolle Pretty MD 505 [place] [address] 12/11/2024 11:00 AM EDT Office Visit [facility] OPTOMETRY [address] [place] [address] Whitney Mejía, CHRISTIANO [address] [place] [address] documented as of this encounter Visit Diagnoses Not on filedocumented in this encounter Care Teams Material Processor Relationship Specialty Start Date End Date Nicolle Pretty MD [address] [place] [address] PCP - General Family Medicine 04/29/12 Dr. choudhary Consulting Physician 09/13/23 Dr. Cloud Consulting Physician Hematology 09/13/23 Dr. Adam Miller Consulting Physician Endocrinology 09/13/23 documented as of this encounter
--- OUTSIDE RECORDS SUMMARY | 2024-08-28 18:08 | XMS_ITS | Encounter Summary ---
Author Organization [employer] Address [address] [place] [address] Care Team Providers Care Tracer Bullet Section Supervisor Name Role Phone Nicolle Pretty MD Primary Care Provider [phone] Reason for Visit * Reason Onset Date Comments Durable Medical Equipment 12/31/2023 Encounter Details Date Type Department Care Team ([facility] st Contact Info) Description 12/31/2023 Telephone [facility] MEDICINE [address] [place], [place] [phone] Nicolle Pretty MD 505 [place], [place] [phone] Durable Medical Equipment Social History Tobacco Use [...] EDT Please advise, tc from [facility] at [facility]. Requesting for medical necessity letter for [...] Description 09/26/2024 1:00 PM EDT Office Visit [facility] ADULT DENTAL [address] [place] [address] Elizabeth, Shahrzad [address] [place] [address] 10/16/2024 11:30 AM EDT Office Visit [facility] CHC MED & PEDS [address] [place] [address] Nicolle Pretty MD [address] [place] [address] 12/11/2024 11:00 AM EDT Office Visit [facility] OPTOMETRY [address] [place] [address] Whitney Mejía OD [address] [place] [address] documented as of this encounter Visit Diagnoses Not on filedocumented in this encounter Care Teams Tracer Bullet Section Supervisor Relationship Specialty Start Date End Date Nicolle Pretty MD [address] [place] [address] PCP - General Family Medicine 04/29/12 Dr. choudhary Consulting Physician 09/13/23 Dr. Cloud Consulting Physician Hematology 09/13/23 Dr. Adam Miller Consulting Physician Endocrinology 09/13/23 documented as of this encounter
--- OUTSIDE RECORDS SUMMARY | 2024-08-28 18:08 | XMS_ITS | Encounter Summary ---
Author Organization [employer] Address [address] [facility] [address] 7[address] [place] [address] Care Team Providers Care Powderer Name Role Phone Nicolle Pretty MD Primary Care Provider [phone] Reason for Visit * Reason Onset Date Comments Durable Medical Equipment 08/14/2023 Encounter Details Date Type Department Care Team ([facility] st Contact Info) Description 08/14/2023 Telephone [facility] MEDICINE [address] [place], [place] [phone] Nicolle Pretty MD [address] [place], [place] [phone] Durable Medical Equipment Social History Tobacco Use [...] Description 09/26/2024 1:00 PM EDT Office Visit [facility] ADULT DENTAL 230 [place] [address] Elizabeth Shahrzad 230 [place] [address] 10/16/2024 11:30 AM EDT Office Visit [facility] CHC MED & PEDS 505 [place] [address] Nicolle Pretty MD 505 [place] [address] 12/11/2024 11:00 AM EDT Office Visit [facility] OPTOMETRY [address] [place] [address] Whitney Mejía OD 267 [place] [address] documented as of this encounter Visit Diagnoses Not on filedocumented in this encounter Care Teams Powderer Relationship Specialty Start Date End Date Nicolle Pretty MD [address] [place] [phone] PCP - General Family Medicine 04/29/12 Dr. choudhary Consulting Physician 09/13/23 Dr. Cloud Consulting Physician Hematology 09/13/23 Dr. Adam Miller Consulting Physician Endocrinology 09/13/23 documented as of this encounter
--- OUTSIDE RECORDS SUMMARY | 2024-08-28 18:08 | XMS_ITS | Encounter Summary ---
Author Organization [employer] Address [address] 7t [place] [address] Care Team Providers Care Bonderite Operator Name Role Phone Nicolle Pretty MD Primary Care Provider [phone] Encounter Details Date Type Department Care Team (Latest Contact Info) Description 08/25/2024 Travel Social History Tobacco Use Types Packs/Day Years [...] Description 09/26/2024 1:00 PM EDT Office Visit [facility] ADULT DENTAL 230 [place] [address] Shahrzad Johnson 230 [place] [address] 10/16/2024 11:30 AM EDT Office Visit [facility] CHC MED & PEDS 505 [place], [place] [phone] Nicolle Pretty MD 505 [place] [address] 12/11/2024 11:00 AM EDT Office Visit [facility] OPTOMETRY [address] [place] [address] Whitney Mejía, OD 267 [place] [address] documented as of this encounter Visit Diagnoses Not on filedocumented in this encounter Care Teams Bonderite Operator Relationship Specialty Start Date End Date Nicolle Pretty MD 230 [place] [address] PCP - General Family Medicine 04/29/12 Dr. choudhary Consulting Physician 09/13/23 Dr. Cloud Consulting Physician Hematology 09/13/23 Dr. Adam Miller Consulting Physician Endocrinology 09/13/23 documented as of this encounter
--- OUTSIDE RECORDS SUMMARY | 2024-08-28 18:08 | XMS_ITS | Encounter Summary ---
Author Organization [employer] [facility] Address [address] [place] [address] 7 [place] [address] Care Team Providers Care Patient Service Technician Pst Name Role Phone Nicolle Pretty MD Primary Care Provider [phone] Encounter Details Date Type Department Care Team (Latest Contact Info) Description 07/28/2020 Abstract [facility] CONVERSIONS Dental, Provider, DDS Social History [...] Description 09/26/2024 1:00 PM EDT Office Visit [facility] ADULT DENTAL 230 [place] [address] ElizabethBradfordShahrzad 230 [place] [address] 10/16/2024 11:30 AM EDT Office Visit [facility] CHC MED & PEDS 505 [place] [address] Nicolle Pretty MD 505 [place] [address] 12/11/2024 11:00 AM EDT Office Visit [facility] OPTOMETRY [address] [place] [address] Whitney Mejía, OD 267 [place] [address] documented as of this encounter Visit Diagnoses Not on filedocumented in this encounter Care Teams Patient Service Technician Pst Relationship Specialty Start Date End Date Nicolle Pretty MD [address] [place] [address] PCP - General Family Medicine 04/29/12 Dr. choudhary Consulting Physician 09/13/23 Dr. Cloud Consulting Physician Hematology 09/13/23 Dr. Adam Miller Consulting Physician Endocrinology 09/13/23 documented as of this encounter
--- OUTSIDE RECORDS SUMMARY | 2024-08-28 18:08 | XMS_ITS | Encounter Summary ---
Author Organization [employer] [facility] Address [address] [place] [address] 7 [place] [address] Care Team Providers Care Cheese Specialist Name Role Phone Nicolle Pretty MD Primary Care Provider [phone] Encounter Details Date Type Department Care Team (Latest Contact Info) Description 01/26/[address] [facility] CONVERSIONS Dental, Provider, DDS Social History Tobacco [...] Description 09/26/2024 1:00 PM EDT Office Visit [facility] ADULT DENTAL 230 [place] [address] ElizabethBradfordShahrzad [address] [place] [address] 10/16/2024 11:30 AM EDT Office Visit [facility] CHC MED & PEDS 505 [place] [address] Nicolle Pretty MD 505 [place] [address] 12/11/2024 11:00 AM EDT Office Visit [facility] OPTOMETRY [address] [place] [address] Whitney Mejía, OD 267 [place] [address] documented as of this encounter Visit Diagnoses Not on filedocumented in this encounter Care Teams Cheese Specialist Relationship Specialty Start Date End Date Nicolle Pretty MD [address] [place] [address] PCP - General Family Medicine 04/29/12 Dr. choudhary Consulting Physician 09/13/23 Dr. Cloud Consulting Physician Hematology 09/13/23 Dr. Adam Miller Consulting Physician Endocrinology 09/13/23 documented as of this encounter
--- OUTSIDE RECORDS SUMMARY | 2024-08-28 18:08 | XMS_ITS | Clinical Summary ---
Author Organization [employer] Address [address] [facility] 7t [place] [address] Care Team Providers Care Elder Counselor Name Role Phone Nicolle Pretty MD Primary Care Provider [phone] Allergies No known active allergies Medications lansoprazole (Prevacid) [address] capsule Take 1 capsule by mouth every 12 (twelve) hours. Active glycerin (GNP Glycerin, Adult,) 2.1 g suppository use per rectum daily Active acetaminophen (Tylenol) 500 MG tablet Take 2 tablets by mouth in the morning and 2 tablets at noon and 2 tablets in the evening and 2 tablets before bedtime. 018 Active fluticasone (Flonase) 50 MCG/ACT nasal spray Administer 2 sprays into affected nostril(s) at bed time. 016 Active Cholecalciferol 25 MCG (1000 UT) chewable tablet Acti ve cinacalcet (Sensipar) 30 MG tablet Take 1 tablet by mouth at bed time. Active ferrous sulfate 300 (60 Fe) MG/5ML syrup Take 10 mL by mouth at bed time. 019 Active gemfibrozil (Lopid) 600 MG tablet Take 1 tablet by mouth every 12 (twelve) hours. 019 Active zoledronic acid (Reclast) 5 MG/100ML solution Ac tive famotidine (Pepcid) 40 MG/5ML suspension TAKE 5ml BY MOUTH EVERY DAY 024 Active ondansetron ODT (Zofran-ODT) 4 MG disintegrating tablet DISSOLVE 1 TABLET ON TONGUE EVERY 6 HOURS NEEDED FOR NAUSEA AND VOMITING 023 Active sucralfate (Carafate) 1 GM/10ML suspension TAKE 10 ML BY MOUTH TWICE DAILY 024 Active metoclopramide (Reglan) 5 MG/5ML solutionIndicatio ns:Gastroparesis Take 10 mg by mouth 3 times daily. Active Diclofenac Sodium 1 % gel APPLY 5 GRAMS TO AFFECTED AREA(S) FOUR TIMES DAILY 200 g 3 024 Active Tymlos 3120 MCG/1.56ML solution pen-injector 024 Active simvastatin (Zocor) 40 MG tablet TAKE 1 TABLET BY MOUTH EVERY DAY IN THE EVENING 90 tablet 3 024 Active baclofen (Lioresal) 20 MG tabletIndications :Spastic hemiplegic cerebral palsy (CMS/HCC) TAKE 1 TABLET BY MOUTH TWICE DAILY 60 tablet 2 025 Active ketoconazole (NIZOral) 2 % shampooIndication s:Seborrheic dermatitis APPLY TOPICALLY TO THE AFFECTED AREA(S) EVERY DAY FOR 7 DAYS (LEAVE ON FOR 5 MINUTES THEN RINSE) 120 mL 2 025 Active clonazePAM (KlonoPIN) 0.5 MG tabletIndications :Anxiety disorder, unspecified TAKE 1 TABLET BY MOUTH EVERY DAY AT BEDTIME NEEDED 20 tablet 025 Active clonazePAM (KlonoPIN) 0.5 MG tabletIndications :Anxiety TAKE 1 TABLET BY MOUTH AT BEDTIME NEEDED FOR ANXIETY 20 tablet 025 Active clonazePAM (KlonoPIN) 0.5 MG tabletIndications :Anxiety TAKE 1 TABLET BY MOUTH AT BEDTIME NEEDED FOR ANXIETY 20 tablet 023 2024 Discontinued(R eorder (will not trigger notification to Pharmacy)) Active Problems Problem Noted Date Diagnosed Date Long-term current use of benzodiazepine 08/26/19 25 Dental abscess 11/02/2023 Hiatal hernia 09/13/2023 Vitamin D deficiency 09/13/2023 Osteoporosis 09/13/2023 Hyperparathyroidism 09/13/2023 Hypercalcemia 09/13/2023 Delayed gastric emptying 09/13/2023 Constipation by delayed colonic transit 09/13/19 24 Abdominal bloating 09/13/2023 Decreased mobility 09/13/2023 Dental calculus 12/05/2022 Pain of right lower extremity 11/22/2017 Abdominal pain 07/26/2011 Cerebral palsy 07/26/2011 Gallbladder calculus 07/26/2011 Gastroesophageal reflux disease 04/21/2011 Anemia 04/05/2009 Pure hypercholesterolemia 04/05/2009 Essential hypertension 03/05/2009 Encounters Date Type Department Care Team Description 08/28/2024 Orders Only [facility] External Provider, [facility] 08/25/2024 2:30 PM EDT Telemedicine [facility] CHC MED & PEDS [address] [place] [address] Nolvia Gonzalez, DONAVAN Long-term current use of benzodiazepine 08/25/2024 Refill [facility] MED & PEDS [address] [place] [address] Nolvia Gonzalez, DONAVAN Anxiety 08/25/2024 Travel 07/31/2024 Telephone [facility] MEDICINE [address] [place] [address] Nicolle Pretty MD Nurse Triage 07/16/2024 Telephone [facility] WALK-IN CENTER [address] [place] [address] Nicolle Pretty MD results 07/15/2024 Orders Only [facility] CHC MED & PEDS [address] [place] [address] Nicolle Pretty MD 07/10/2024 Refill [facility] CHC MED & PEDS [address] [place] [address] Bessie Mishra MD Anxiety disorder, unspecified 07/05/2024 Refill [facility] MEDICINE [address] [place] [address] Nicolle Pretty MD Spastic hemiplegic cerebral palsy ([facility]/HCC); Seborrheic dermatitis 06/05/2024 2:00 PM EST Clinical Support [facility] CHC MED & PEDS [address] [place] [address] Nolvia Gonzalez, DONAVAN Anxiety 06/05/2024 Refill [facility] CHC MED & PEDS [address] [place] [address] Nolvia Gonzalez, DONAVAN Anxiety disorder, unspecified 06/05/2024 Travel 06/05/2024 Telephone [facility] CHC MED & PEDS [address] [place] [address] Nicolle Prtety MD Med Refill from Last 3 Months Immunizations Name Administration [...] Orientation Straight 08/08/2024 10 :07 AM EST Last Filed Vital Signs Vital Sign Reading [...] PM EDT Office Visit [facility] ADULT DENTAL [address] [place] [address] Elizabeth, Shahrzad 230 [place] [address] 10/16/2024 11:30 AM EDT Office Visit [facility] CHC MED & PEDS [address] [place] [address] Nicolle Pretty MD 505 [place] [address] 12/11/2024 11:00 AM EDT Office Visit [facility] OPTOMETRY [address] [place] [address] Whitney Mejía, OD 267 [place] [address] Health Maintenance Due Date Last Done Comments [...] 05/22/2024 Dental X-Ray: Full Mouth 11/02/2026 11/02/2023, 0509/2015 Zoster Vaccines (1 of 2) 2026 DTaP/Tdap/Td Vaccines (2 - Td or Tdap) 03/06/2027 03/06/2017 Lipid Panel 07/14/2029 07/14/2024, 12/0 11/2021, 12/14/2021 RSV Patients and Patients Aged 60 years or older (1 - 1-dose 75+ series) 11/12/2051 Pneumococcal Vaccine: Pediatrics (0 to 5 Years) and At-Risk Patients (6 to 49) Years) Aged Out 01/15/2015 No longer eligible [...] APPENDICULAR SKELETON Routine 08/28/2024 2:30 PM EDT HEPATIC FUNCTION PANEL Routine 07/14/2024 12:05 PM EST Essential hypertension LIPID PANEL, STANDARD Routine 07/14/2024 12:05 PM EST Essential hypertension Pure hypercholesterolemia BASIC METABOLIC PANEL Routine 07/14/2024 12:05 PM EST Essential hypertension POCT BISMARK-14 URINE DRUG SCREEN Routine 06/05/2024 1:30 PM EST Anxiety DRUG MONITORING, BENZODIAZEPINES, QUANTITATIVE, URINE Routine 06/05/2024 12:00 AM EST PROPHYLAXIS - ADULT Routine 05/22/2024 1 :00 PM EST Dental calculus INTRAORAL - COMPLETE SERIES OF RADIOGRAPHIC IMAGES Routine 11/02/2023 10:00 AM EDT Dental calculus Dental abscess PERIODIC ORAL EVALUATION - ESTABLISHED PATIENT Routine 11/02/2023 10:00 AM EDT from Last 3 Months or Most Recently Relevant to Health Maintenance Results * XR DEXA APPENDICULAR SKELETON (08/28/2024 2:30 PM EDT) Anatomical Region Laterality Modality Abdomen Radiographic Gabrielle ging 08/28/2024 2:30 PM EDT Narrative 08/28/2024 3:10 PM EDT ? [facility] [place] ? [address] ?[place] [address] ? Mammography Report ? Signed ? Patient: Anavitate,Eliazar ?MR#: [id number] ?? 2082 ? : 1975 ?Acct:[id number] ? Age/Sex: 48 / M ?ADM Date: 03/13/25 ? Loc: HO.MAMMO ? Attending Dr: Robin Miller MD ? Ordering Physician: Robin Miller MD ?Results: ? Date of Service: 08/28/24 ?Follow Up: ? Procedure(s): XR DEXA appendicular skeleton ?? Accession Number(s): [id number] ? cc: Robin Miller MD; Nicolle Pretty MD ? EXAMINATION: ??DXA BONE DENSITY EXTREMITY ? HISTORY: ??Osteoporosis ? TECHNIQUE: [employer] Dual energy absorptiometry (DEXA) ?? of the [...] is a trademark of the [employer]'s ?? [place] for Metabolic Bone Disease, a World Health Organization (WHO) ?? Collaborating Center. ? Electronically signed by: ??Robin Waldron MD ??08/28/2024 03:07 PM EDT ? Dictated By: ?Robin Waldron MD ? Signed By: ?<Electronically signed by Robin Waldron MD in OV> ?08/28/24 1507 ? DD/ 1430 ? TD/TT: 08/28/24 1459 ? Lip Cutter And Scorer: ? Procedure Note Linda, Image - 08/28/2024 [facility] [address] [place] [address] Dr. Gillespie, VLAD [address] Mammography Report Signed Patient: Neisha Wells#: [id number] 2082 : 1975Acct:[id number] Age/Sex: 48 / MADM Date: 08/28/24 Loc: HO.MAMMO Attending Dr: Robin Miller MD Ordering Physician: Robin Millerults: Date of Service: 08/28/24Follow Up: Procedure(s): XR DEXA appendicular skeleton Accession Number(s): [id number] cc: Robin Miller MD; Nicolle Pretty MD EXAMINATION: DXA BONE DENSITY EXTREMITY HISTORY: Osteoporosis TECHNIQUE: [employer] Dual energy absorptiometry (DEXA) of the lumbar [...] is a trademark of the [employer]'s [place] for Metabolic Bone Disease, a World Health Organization (WHO) Collaborating Center. Electronically signed by: Robin Waldron MD 08/28/2024 03:07 PM EDT RP Dictated By: Robin Waldron MD Signed By: <Electronically signed by Robin Waldron MD in OV> 08/28/24 1507 DD/ 1430 TD/TT: 08/28/24 1459 Lip Cutter And Scorer: [facility] External Provider IMG XR PROCEDURES Edited Result - Final * (ABNORMAL) Hepatic Function Panel (07/14/2024 12:05 PM EST) Bilirubin, Total 0.4 0.0 - 1.0 mg/dL [facility] Bilirubin, Direct 0.1 0.0 - 0.5 mg/dL [facility] Aspartate Amino Transferase 36 5 - 37 U/L [facility] Alanine Aminotransferase 37 0 - 40 U/L [facility] Total Protein 8.6(H) 6.5 - 8.0 g/dL [facility] Albumin Level 4.5 3.5 - 5.0 g/dL [facility] Alkaline Phosphatase 103 39 - 117 U/L [facility] Blood Venous blood specimen / Unknown 07/14/2024 12:05 PM EST 07/14/2024 1:22 PM EST Nicolle Pretty MD LAB BLOOD ORDERABLES Final Resul t [facility] [address] [place] [phone] * (ABNORMAL) Lipid Panel, Standard (07/14/2024 12:05 PM EST) Triglycerides 368(H) <150 mg/dL [facility] Comment:Desirable Triglyceri de: less than 150 mg/dLBorderline High Triglyceride 150-199 mg/dLHigh Triglyceride: 200-499 mg/dLVery High Triglyceride: greater than or equal to 5OO mg/dL Cholesterol 142 <200 mg/dL [facility] Comment:Desirable Cholestero l: less than 200 mg/dLBorderline High Cholesterol: 200-239 mg/dLHigh Cholesterol: greater than 239 mg/dL LDL Cholesterol Calculated 34 <100 mg/dL [facility] Comment:Desirable LDL: less than 100 mg/dLNear Optimal/Above Optimal LDL: 110- 129 mg/dLBorderline High LDL: 130-159 mg/dLHigh LDL: 160-189 mg/dLVery High LDL: greater than or equal to 190 mg/dL HDL Cholesterol 35(L) >40 mg/dL [facility] Comment:Desirable HDL: great er than 40 mg/dL Note: This HDL assay may give artificially low results in patients with liver disease. Blood Venous blood specimen / Unknown 07/14/2024 12:05 PM EST 07/14/2024 1:22 PM EST us Nicolle Pretty MD LAB BLOOD ORDERABLES Final Resul t [facility] [address] [place] [phone] * Basic Metabolic Panel (07/14/2024 12:05 PM EST) Sodium 142 135 - 145 mmol/L [facility] Potassium 3.6 3.3 - 5.1 mmol/L [facility] Chloride 106 96 - 108 mmol/L [facility] Carbon Dioxide 28 22 - 29 mmol/L [facility] Anion Gap 12 12 - 20 [facility] Urea Nitrogen (BUN) 16 9 - 16 mg/dL [facility] Creatinine, Serum 0.77 0.5 - 1.4 mg/dL [facility] Estimated Glomerular Filt Rate >60 [facility] Comment:Chronic Kidney Disea se: Estimated GFR < 60 mL/min/1.27e0Yrebgz Kidney Disease: Estimated GFR < 15 mL/min/1.73m2 Glucose 90 60 - 115 mg/dL [facility] Calcium 9.8 8.4 - 10.2 mg/dL [facility] Blood Venous blood specimen / Unknown 07/14/2024 12:05 PM EST 07/14/2024 1:22 PM EST Nicolle Pretty MD LAB BLOOD ORDERABLES Final Resul t [facility] [address] [place] [address] [phone] * POCT BISMARK-14 Urine Drug Screen (06/05/2024 1:30 PM EST) Urine Urine specimen obtained by clean catch procedure / Unknown 06/05/2024 1:30 PM EST Narrative Nolvia Gonzalez RN - 06/05/2024 1:30 PM EST negative for THC, MOP, OXY, SONIA, MET, AMP, BZO, BAR, MTD, BUPG, TCA, MDMA, PCP, PPX. Lot# [id number] Exp: 05-24-25 Nicolle Pretty MD POINT OF CARE TEST ENTER/EDIT OR DERABLES Final Result * Drug Monitoring, Benzodiazepines, Quantitative, Urine (06/05/2024 12:00 AM EST) Nordiazepam, GCMS Urine NEGATIVE [facility] Oxazepam, GCMS Urine NEGATIVE [facility] Lorazepam GCMS Urine NEGATIVE [facility] Alprazolam, GCMS Urine NEGATIVE [facility] Alphahydroxytriazolam, GCMS Ur NEGATIVE [facility] Temazepam, GCMS Urine NEGATIVE [facility] Alphahydroxymidazolam, GCMS Ur NEGATIVE [facility] Aminoclonazepam, GCMS Urine 84 (H) [facility] Comment:REFERENCE RANGE: <25 ng/mLTHIS TEST PERFORMED AT:[facility] [address] [phone] DIRECTOR: RINKU ANDREWS MD Flurazepam Metabolite,GCMS Ur NEGATIVE [facility] Benzodiazepines Comments SEE NOTE [facility] Comment:This drug testing is for medical treatment only.Analysis was performed as non-forensic testing andthese results should be used only by healthcareproviders to render diagnosis or treatment, or tomonitor progress of medical conditions.Benzodiazepines Notes:Aminoclonazepam detected is consistent with the use ofthe drug Clonazepam.LDT Notes:Confirmation tests were developed and their analyticalperformance characteristics have been determined by[employer]. It has not been cleared or approvedby the FDA. This assay has been validated pursuant tothe CLIA regulations and is used for clinical purposes.Healthcare Providers needing Interpretation assistance,please contact us at [phone] ( )M- F, 8am to 10pm EST 06/05/2024 06/05/2024 us Nicolle Pretty MD LAB URINE ORDERABLES Final Resul t [facility] [address] [place] [address] [phone] from Last 3 Months Insurance [facility] D[facility] - [facility] Care Teams Elder Counselor Relationship Specialty Start Date End Date Nicolle Pretty MD [address] [place] [phone] PCP - General Family Medicine 04/29/12 Dr. choudhary Consulting Physician 09/13/23 Dr. Cloud Consulting Physician Hematology 09/13/23 Dr. Adam Miller Consulting Physician Endocrinology 09/13/23
--- OUTSIDE RECORDS SUMMARY | 2024-08-28 18:08 | XMS_ITS | Encounter Summary ---
Demographics Address [address] [place] [address] Work Phone Mobile Phone Home Phone Preferred Language es Marital Status Single Congregational Affiliation Unknown Race Other Race Ethnic Group or Author Organization [employer] Address [address] [place] [address] Care Team Providers Care Meter Record Clerk Name Role Phone Nicolle Pretty MD Primary Care Provider [phone] Encounter Details Date Type Department Care Team ([facility] st Contact Info) Description 08/25/2024 Refill [facility] CHC MED & PEDS [address] [place] [address] Nolvia Gonzalez, RN 505 [place] [address] Anxiety Social History Tobacco Use Types Packs/Day Years [...] Telephone Encounter - Nicolle Pretty MD - 08/28/2024 9:29 AM EDT TIER 3 * Telephone Encounter - Nolvia Gonzalez RN - 08/25/2024 2:08 PM EDT .What PROJECT MANAGER ENTERTAINMENT AND MEDIA Tier would you like this patient to be? Tier 1 = HIGH RISK, Monthly PROJECT MANAGER ENTERTAINMENT AND MEDIA visits Tier 2 = MODerate RISK, Q3 Month visits Tier 3 = LOW RISK = Q4-6 month visits documented in this encounter Plan of Treatment Upcoming Encounters Date Type Department Care Team (Late st Contact Info) Description 09/26/2024 1:00 PM EDT Office Visit [facility] ADULT DENTAL [address] [place] [address] Elizabeth, Shahrzad [address] [place] [address] 10/16/2024 11:30 AM EDT Office Visit [facility] CHC MED & PEDS [address] [place] [address] Nicolle Pretty MD 505 [place] [address] 12/11/2024 11:00 AM EDT Office Visit [facility] OPTOMETRY [address] [place] [address] Whitney Mejía OD [address] [place] [address] documented as of this encounter Visit Diagnoses Diagnosis Anxiety Anxiety state, unspecified documented in this encounter Care Teams Meter Record Clerk Relationship Specialty Start Date End Date Nicolle Pretty MD [address] [place] [address] PCP - General Family Medicine 04/29/12 Dr. choudhary Consulting Physician 09/13/23 Dr. Cloud Consulting Physician Hematology 09/13/23 Dr. Adam Miller Consulting Physician Endocrinology 09/13/23 documented as of this encounter
--- OUTSIDE RECORDS SUMMARY | 2024-08-28 18:08 | XMS_ITS | Encounter Summary ---
Author Organization [employer] [facility] Address [address] [place] [address] 7 [place] [address] Care Team Providers Care Armament Installer Name Role Phone Nicolle Pretty MD Primary Care Provider [phone] Encounter Details Date Type Department Care Team (Latest Contact Info) Description 07/01/2018 Abstract [facility] CONVERSIONS Dental, Provider, DDS Social History Tobacco [...] 1:00 PM EDT Office Visit [facility] ADULT DENTAL [address] [place] [address] Elizabeth Shahrzad [address] [place] [address] 10/16/2024 11:30 AM EDT Office Visit [facility] CHC MED & PEDS [address] [place] [address] Nicolle Pretty MD [address] [place] [address] 12/11/2024 11:00 AM EDT Office Visit [facility] OPTOMETRY [address] [place] [address] Whitney Mejía, OD [address] [place] [address] documented as of this encounter Visit Diagnoses Not on filedocumented in this encounter Care Teams Armament Installer Relationship Specialty Start Date End Date Nicolle Pretty MD [address] [place] [address] PCP - General Family Medicine 04/29/12 Dr. choudhary Consulting Physician 09/13/23 Dr. Cloud Consulting Physician Hematology 09/13/23 Dr. Adam Miller Consulting Physician Endocrinology 09/13/23 documented as of this encounter
--- OUTSIDE RECORDS SUMMARY | 2024-08-28 18:08 | XMS_ITS | Encounter Summary ---
Demographics Address [address] [place] [address] Work Phone Mobile Phone Home Phone Preferred Language es Marital Status Single Taoism Affiliation Unknown Race Other Race Ethnic Group or Author Organization [employer] Address [address] [place] [address] Care Team Providers Care Radar Signal Processing Engineer Name Role Phone Nicolle Pretty MD Primary Care Provider [phone] Encounter Details Date Type Department Care Team (Late st Contact Info) Description 07/15/2024 Orders Only [facility] CHC MED & PEDS [address] [place], [place] [phone] Nicolle Pretty MD [address] [place], [place] [phone] Social History Tobacco Use Types Packs/Day Years [...] Description 09/26/2024 1:00 PM EDT Office Visit [facility] ADULT DENTAL [address] [place] [address] Elizabeth, Shahrzad [address] [place] [address] 10/16/2024 11:30 AM EDT Office Visit [facility] CHC MED & PEDS [address] [place], [place] [phone] Nicolle Pretty MD [address] [place] [address] 12/11/2024 11:00 AM EDT Office Visit [facility] OPTOMETRY [address] [place] [address] Whitney Mejía, OD [address] [place] [address] documented as of this encounter Visit Diagnoses Not on filedocumented in this encounter Care Teams Radar Signal Processing Engineer Relationship Specialty Start Date End Date Nicolle Pretty MD [address] [place] [address] PCP - General Family Medicine 04/29/12 Dr. choudhary Consulting Physician 09/13/23 Dr. Cloud Consulting Physician Hematology 09/13/23 Dr. Adam Miller Consulting Physician Endocrinology 09/13/23 documented as of this encounter
== END 2024-08-28 14:17 | disposition home or self-care (01) ==
LOC: HO.MAMMO 14:16
PROVIDERS: PCP Student in an Organized Health Care Education/Training Program; Visit Provider Internal Medicine Endocrinology, Diabetes & Metabolism
DX: M81.0 Age-related osteoporosis without current pathological fracture (principal)
CPT/HCPCS: 77081

== ENCOUNTER → 2024-08-28 14:30 | Outpatient (BNV) | payer OTHER, SELFPAY | PROVIDERS: PCP Student in an Organized Health Care Education/Training Program; Visit Provider Radiology Diagnostic Radiology | DX: M81.8 Other osteoporosis without current pathological fracture (principal) | CPT/HCPCS: 77081 ==

== ENCOUNTER 2024-10-27 12:56 | Outpatient (AMB) | payer OTHER, SELFPAY ==
--- NOTE | 2024-10-27 13:04 | MHC.OFFVIS ---
Vital Signs 10/27/24 13:05 BMI Reason not done Patient refused/unable BP 116/84 Blood Pressure Location Rt brachial Position Sitting Pulse 109 H Pulse Source Pulse Oximeter Pulse Oximetry (%) 97 Oxygen Delivery Method Room Air Intake Visit Reasons: f/u osteoporosis Intake Note: Patient present today for Osteoporosis follow up. Vehicle Controls Engineer Required: Yes Vehicle Controls Engineer Language: Patient Registration Representative Services: Vehicle Controls Engineer Present Vehicle Controls Engineer Name: Conrado CMI Information Interpreted: non-clinical & clinical Accompanied by: Self / Same As Patient Allergies No Known Allergies [No Known Allergies*] Allergy (Verified 10/27/24 13:05) Medication List - Last Reconciled 10/27/24 by Robin Miller MD abaloparatide (Tymlos) 80 mcg (0.04 mL) subcut DAILY abaloparatide (Tymlos) 80 mcg subcut DAILY ascorbic acid (vitamin C) 500 mg PO BID baclofen 20 mg PO BID cholecalciferol (vitamin D3) 25 mcg PO DAILY 30 days clonazepam 0.5 mg PO BEDTIME PRN famotidine 5 mL PO DAILY ketoconazole 2% 2 appl topical DAILY lansoprazole 30 mg PO BID lidocaine 5% 1 patch topical DAILY PRN metoclopramide HCl 10 mg (10 mL) PO QID ondansetron 4 mg PO Q6H PRN simvastatin 40 mg PO DAILY sucralfate 10 mL PO BID HPI Comments Details: 48 YO M with PMHx Iron Deficiency Anemia who is seen in F/U for hyperparathyroidism. He is also wheelchair bound and nonambulatory due to cerebral palsy. First noted to have high calcium in 2018, but was first made aware of this in 2019. Calcium dating back to 2018 has been as high as 12.0. He was recently evaluated by Heme-Onc for iron deficiency anemia and was noted to have labs consistent with hyperparathyroidism 02/10/2020 with Clacium 11.9, Albumin 4.4, Creatinine 0.86 and PTH 51. Unfortunately Vitamin D was not checked. He was on HCTZ at that time. I asked him to stop the HCTZ and labs were repeated 3 weeks later 05/18/2020. This confirmed hyperparathyroidism with Calcium 11.8, Albumin 4.7, Vitamin D 20 and PTH 44. 24 Hour urinary calcium was WNL. He did have a DEXA scan which revealed Osteoporosis of the spine, and Osteopenia of the hips. His distal forearm was WNL. He was treated with 1 dose of IV Reclast in Jun 2020 due to severe hypercalcemia with symptoms of intractable abdominal pain. Calcium did not decline after this, so he was started on Sensipar and continued this until shortly before his parathyroidectomy. He was referred to Dr. Nguyen Mir and underwent a R superior and R inferior parathyroidectomy 08/09/2020. Intraoperative PTH declined from 79-21, indicating cure. Remains on Citracal 2 tabs PO daily. Has not repeated labs. Sister states he received IV reclast in early 2022, but unable to locate documentation. DEXA: 07/05/2022 FINDINGS: AP SPINE L2-L4 (excluding L1):? The data of L1-L4 has been changed to exclude the L1 vertebral body because degenerative changes may cause overestimation of the lumbar spine density.? Current: BMD 0.841 g/cm2, T-score -3.3, Z-score -2.9, Z-score below expected range for age, -2.7% decrease from baseline (<5% change is not significant).? Baseline: BMD 0.864 g/cm2. LEFT FEMUR, NECK: Current: BMD 0.481 g/cm2, T-score -4.5, Z-score -3.8, Z-score below expected range for age. Baseline: BMD 0.777 g/cm2. LEFT FEMUR, TOTAL: Current: BMD 0.402 g/cm2, T-score -4.9, Z-score -4.4, Z-score below expected range for age, 51.0% decrease from baseline (<5% change is not significant).? Baseline: BMD 0.821 g/cm2. LEFT FOREARM RADIUS 33%: BMD 1.006 g/cm2, T-score 0.2, Z-score 0.2, Z-score within expected range for age.? Baseline: BMD 0.924 g/cm2. Thyroid US: 05/31/2020 FINDINGS: SIZE: Measurements of the thyroid lobes and nodules are given in sagittal, anteroposterior and transverse dimensions respectively. Right Thyroid Lobe: 3.8 x 1.3 x 1.4 cm, volume 3.6 mL. Parenchyma: The gland echotexture is homogeneous. Thyroid vascularity is normal. Left Thyroid Lobe: 3.1 x 1.0 x 1.5 cm, volume 2.4 mL. Parenchyma: The gland echotexture is homogeneous. Thyroid vascularity is normal. Isthmus: 0.3 cm in maximum AP dimension. RIGHT THYROID LOBE: No nodules. ISTHMUS: No nodules. LEFT THYROID LOBE: No nodules. NODES: No lymphadenopathy is seen in the tissue surrounding the thyroid gland. Labs: Laboratory Tests 06/16/22 06:00 Sodium 140 Potassium 3.7 Creatinine 0.69 Estimated GFR > 60 On Tymlos for 12 mos . No fx since last . Tolerating medication nicely. Significant gains in bone density but T-score is still -3.2 left femoral neck. The patient is a 48-year-old male presenting with osteoporosis. Over the past year, he has been treated with Tymlos for this condition, experiencing improved bone density and no fractures during this period. However, treatment continuity was disrupted due to insurance coverage issues. The planned 18-month duration for Tymlos has not been completed, and a subsequent transition to Prolia is anticipated to maintain bone health. Current management discussions focus on rectifying the insurance situation to ensure completion of Tymlos treatment. - Tymlos (abaloparatide): Used for osteoporosis; treatment duration has been 12 months as of this visit. The intention was an 18-month course, but insurance coverage issues interrupted continuation. [facility] Medical History Gastroparesis Anemia Constipation by delayed colonic transit Delayed gastric emptying Cerebral palsy Nausea Abdominal bloating Osteoporosis GERD (gastroesophageal reflux disease) HTN (hypertension) Iron deficiency anemia Hyperparathyroidism Vitamin D deficiency Hypercalcemia Surgical History S/P removal of parathyroid gland Hx of colonoscopy History of esophagogastroduodenoscopy (EGD) Hx of oral surgery Hx of cholecystectomy Family History Father Emphysema of lung Liver disease Mother Scoliosis Hepatitis Phlebitis Lymphoma Sister Nephrolithiasis Diabetes Lymphoma Social History Household Members: Family Housing: Apartment Are you a primary healthcare translator to a significant other at home: No Do you presently have visiting nurse or other home services: Yes (pt sister is his MONITOR CAR OPERATOR) Alcohol intake: never Patient Tobacco Use Status: Never used Tobacco Second Hand Smoke Exposure: No Advance Directives Date on File: 10/20/22 service: No Current occupational status: disabled Assessment & Plan Assessment & Plan (1) Osteoporosis: Code(s): M81.0 - Age-related osteoporosis without current pathological fracture Category: Medical Qualifiers: Osteoporosis type: unspecified Presence of current pathological fracture: unspecified Qualified Code(s): M81.0 - Age-related osteoporosis without current pathological fracture Plan: This is a 47-year-old male with a history of severe osteoporosis and cerebral palsy and primary hyperparathyroidism status post parathyroidectomy with normalization of PTH and calcium. He is currently on Tymlos for 12 months' time Plan is to continue the Tymlos for full 18 month course and then transition to Prolia in 6 months. 1. Osteoporosis The patient's osteoporosis is positively responding to Tymlos, as evidenced by improved bone density and no new fractures. Continuation of Tymlos therapy for the remaining duration of the planned 18 months is indicated, with close attention to resolving insurance issues. Transition to Prolia is scheduled post-Tymlos to maintain bone density gains, with monitoring plans in place to track outcomes and adjust therapy as needed. We discussed the patient's condition of osteoporosis and the positive impact of Tymlos on bone density. I emphasized the importance of completing the initially planned 18-month course to maximize treatment outcomes. We also discussed future transition to Prolia, with injections planned every six months. I advised the patient to consult with the primary care physician to address insurance hurdles for uninterrupted treatment. Follow-up was recommended in approximately five months to reassess and ensure treatment continuity. - Continue with current osteoporosis management as advised. - Discuss any insurance issues with your primary care doctor to resume Tymlos. - Plan for a follow-up visit in five months. - Prepare for future Prolia treatment as discussed after completing Tymlos. The patient had an opportunity to ask questions regarding treatment plan. The patient expressed understanding and agreement with the above treatment plan. Patient was informed and verbally consented to the use of an ambient scribe for clinic note documentation during this visit. Coding Level of Care Code Est Pt Level 3 (15823) Diagnoses Osteoporosis, unspecified osteoporosis type, unspecified pathological fracture presence M81.0 Osteoporosis type: unspecified Presence of current pathological fracture: unspecified
[2024-10-27 13:05] VITALS: BP 116/84; PULSE 109; O2SAT 97
--- OUTSIDE RECORDS SUMMARY | 2024-10-27 13:14 | XMS_ITS | Encounter Summary ---
Author Organization [employer] Address [address] [place] [address] Care Team Providers Care Transportation Security Officer Name Role Phone Nicolle Pretty MD Primary Care Provider [phone] Reason for Visit * Reason Onset Date Comments Appointment Request 01/29/2024 Encounter Details Date Type Department Care Team ([facility] st Contact Info) Description 01/29/2024 Telephone [facility] MEDICINE [address] [place] [address] Nicolle Pretty MD [address] [place], [place] [phone] Appointment Request Social History Tobacco Use Types [...] the past 12 months, has t he [employer], [employer], oil or water [employer] threatened to shut off services in your [...] Tc from pt sister requesting to r/s CUSTOMER SERVICE LEADER appt for 01/30/24 due to Brother being COVID POSITIVE documented in this encounter Plan of Treatment Upcoming Encounters Date Type Department Care Team (Late st Contact Info) Description 12/11/2024 11:00 AM EDT Office Visit [facility] OPTOMETRY [address] [place] [address] Whitney Mejía, CHRISTIANO [address] [place] [address] 05/04/2025 1:00 PM EST Office Visit [facility] ADULT DENTAL [address] [place] [address] Elizabeth, Shahrzad [address] [place] [address] documented as of this encounter Visit Diagnoses Not on filedocumented in this encounter Care Teams Transportation Security Officer Relationship Specialty Start Date End Date Nicolle Pretty MD [address] [place] [address] PCP - General Family Medicine 04/29/12 Dr. choudhary Consulting Physician 09/13/23 Dr. Colud Consulting Physician Hematology 09/13/23 Dr. Adam Miller Consulting Physician Endocrinology 09/13/23 documented as of this encounter
--- OUTSIDE RECORDS SUMMARY | 2024-10-27 13:14 | XMS_ITS | Encounter Summary ---
Author Organization [employer] Address [address] [place] [address] 7t [place] [address] Care Team Providers Care Manager Erp Name Role Phone Nicolle Pretty MD Primary Care Provider [phone] Reason for Visit * Reason Comments Med Refill Encounter Details Date Type Department Care Team (Late Contact Info) Description 01/31/2023 Refill [facility] CHC MED & PEDS [address] [place], [place] [phone] Nicolle Pretty MD [address] [place] [address] Anxiety disorder, unspecified Social History Tobacco Use [...] Department Care Team (Late Contact Info) Description 12/11/2024 11:00 AM EDT Office Visit [facility] OPTOMETRY [address] [place], [place] [phone] Whitney Mejía, CHRISTIANO [address] [place] [address] 05/04/2025 1:00 PM EST Office Visit [facility] ADULT DENTAL [address] [place] [address] Shahrzad Jhonson [address] [place] [address] documented as of this encounter Visit Diagnoses Diagnosis Anxiety disorder, unspecified documented in this encounter Care Teams Manager Erp Relationship Specialty Start Date End Date Nicolle Pretty MD [address] [place] [address] PCP - General Family Medicine 04/29/12 Dr. choudhary Consulting Physician 09/13/23 Dr. Cloud Consulting Physician Hematology 09/13/23 Dr. Adam Miller Consulting Physician Endocrinology 09/13/23 documented as of this encounter
--- OUTSIDE RECORDS SUMMARY | 2024-10-27 13:14 | XMS_ITS | Encounter Summary ---
Author Organization [employer] Address [address] [place] [address] Care Team Providers Care Auditing Specialist Name Role Phone Nicolle Pretty MD Primary Care Provider [phone] Reason for Visit * Reason Onset Date Comments Durable Medical Equipment 08/14/2023 Encounter Details Date Type Department Care Team ([facility] st Contact Info) Description 08/14/2023 Telephone [facility] MEDICINE [address] [place], [place] [phone] Nicolle Pretty MD [address] [place], [place] [phone] Durable Medical Equipment Social History Tobacco Use [...] t he electric, gas, oil or water [employer] threatened to shut off services in your [...] Description 12/11/2024 11:00 AM EDT Office Visit [facility] OPTOMETRY [address] [place] [address] Whitney Mejía OD [address] [place] [address] 05/04/2025 1:00 PM EST Office Visit [facility] ADULT DENTAL [address] [place] [address] Shahrzad Johnson [address] [place] [address] documented as of this encounter Visit Diagnoses Not on filedocumented in this encounter Care Teams Auditing Specialist Relationship Specialty Start Date End Date Nicolle Pretty MD [address] [place] [address] PCP - General Family Medicine 04/29/12 Dr. choudhary Consulting Physician 09/13/23 Dr. Cloud Consulting Physician Hematology 09/13/23 Dr. Adam Miller Consulting Physician Endocrinology 09/13/23 documented as of this encounter
--- OUTSIDE RECORDS SUMMARY | 2024-10-27 13:14 | XMS_ITS | Clinical Summary ---
Author Organization [employer] Address [address] [facility] 7t [place] [address] Care Team Providers Care Kapok And Cotton Machine Operator Name Role Phone Nicolle Pretty MD Primary Care Provider [phone] Allergies No known active allergies Medications lansoprazole [...] sprays into affected nostril(s) at bed time. Active Cholecalciferol 25 MCG (1000 UT) chewable tablet Acti ve cinacalcet (Sensipar) 30 MG tablet Take 1 tablet by mouth at bed time. Active ferrous sulfate 300 (60 Fe) MG/5ML syrup Take 10 mL by mouth at bed time. Active gemfibrozil (Lopid) 600 MG tablet Take [...] THE EVENING 90 tablet 3 024 Active clonazePAM (KlonoPIN) 0.5 MG tabletIndications :Anxiety TAKE 1 TABLET BY MOUTH AT BEDTIME NEEDED FOR ANXIETY 20 tablet 025 Active ketoconazole (NIZOral) 2 % shampooIndication s:Seborrheic dermatitis APPLY TOPICALLY TO THE AFFECTED AREA(S) EVERY DAY DIRECTED FOR 7 DAYS (LEAVE ON FOR 5 MINUTES THEN RINSE) 120 mL 2 025 Active baclofen (Lioresal) 20 MG tabletIndications :Spastic hemiplegic cerebral palsy (CMS/HCC) TAKE 1 TABLET BY MOUTH TWICE DAILY 60 tablet 2 025 Active baclofen (Lioresal) 20 MG tabletIndications :Spastic hemiplegic cerebral palsy (CMS/HCC) TAKE 1 TABLET BY MOUTH TWICE DAILY 60 tablet 2 025 2024 Discontinued ketoconazole (NIZOral) 2 % shampooIndication s:Seborrheic dermatitis APPLY TOPICALLY TO THE AFFECTED AREA(S) EVERY DAY FOR 7 DAYS (LEAVE ON FOR 5 MINUTES THEN RINSE) 120 mL 2 025 2024 Discontinued clonazePAM (KlonoPIN) 0.5 MG tabletIndications :Anxiety disorder, unspecified TAKE 1 TABLET BY MOUTH EVERY DAY AT BEDTIME NEEDED 20 tablet 025 2024 Discontinued(D uplicate order (will not trigger notification to Pharmacy)) Active [...] Encounters Date Type Department Care Team Description 10/20/2024 Refill [facility] [address] [place] [address] Nicolle Pretty MD Seborrheic dermatitis; Spastic hemiplegic cerebral palsy ([facility]/HCC) 10/16/2024 11:30 AM EDT Office Visit [facility] [address] [place] [address] Nicolle Pretty MD Essential hypertension (Primary Dx); Pure hypercholesterolemia; Iron deficiency anemia, unspecified iron deficiency anemia type; Encounter for annual wellness visit 10/16/2024 Travel 10/09/2024 Patient Outreach [facility] [address] [place] [address] Nicolle Pretty MD Pre-visit Planning (SDOH screening unable to be completed) 08/28/2024 Orders Only [facility] External Provider, [facility] 08/25/2024 2:30 PM EDT Telemedicine [facility] [address] [place] [address] Nolvia Gonzalez, RN Long-term current use of benzodiazepine 08/25/2024 Refill [facility] [address] [place] [address] Nolvia Gonzalez, DONAVAN Anxiety 08/25/2024 Travel 07/31/2024 Telephone [facility] [address] [place] [address] Nicolle Pretty MD Nurse Triage from Last 3 Months Immunizations Name Administration [...] drink = 0.6 oz pur e alcohol) Depression Answer Date Recorded Patient Health Questionnaire-9 Score 3 10/16/2024 Patient Health Questionnaire-9 Score 3 10/16/2024 Last PHQ-9: Questionnaire Data Not on file 0 10/16/2024 Housing Stability Answer Date Recorded What is your housing situation today? I have lelo moya 10/16/[address] you li ve. Do you have problems with any of the following? None of the above 10/16/2024 Food Insecurity Answer Date Recorded Within the past 12 months, y ou worried that your food would run out before you got money to buy more: Never True 10/16/2024 Within the past 12 months,th e food you bought just didn't last and you didn't have enough money to get more: Never True 06/2024 Transportation Answer Date Recorded In the past 12 months, has l ack of transportation kept you from medical appts, meetings, work or from getting things needed for daily living? No 10/16/2024 Utilities Answer Date Recorded In the past 12 months, has t he electric, gas, oil or water company threatened to shut off services in your home? No 10/16/2024 Depression Answer Date Recorded Patient Health Questionnaire-2 Score 2 10/16/2024 Internet Access Answer Date Recorded Internet Access Q1 No 10/16/2024 Internet Access Q2 I do not want or need it 06/2024 Sex and Gender Information Value Date Recorded Sex Assigned at Male 04/17/2022 10:17 AM EDT Legal Sex Male 10:17 AM EDT Gender Identity Male 08/08/2024 10:07 AM EST Sexual Orientation Straight 08/08/2024 10 :07 AM EST Last Filed Vital Signs Vital Sign Reading Time Taken Comments Blood Pressure 133/91 10/16/2024 11:15 AM EDT Pulse 78 10/16/2024 11:15 AM EDT Temperature 36.6 ??C (97.9 ??F) 10/16/2024 11:15 AM E DT Respiratory Rate 12 04/24/2024 10:37 AM EST Oxygen Saturation 96% 04/24/2024 10:37 AM EST Inhaled Oxygen Concentration - - Weight 68.9 kg (152 lb) 04/24/2024 10:37 AM EST Height - - Body Mass Index - - Plan of Treatment Upcoming Encounters Date Type Department Care Team (Late st Contact Info) Description 12/11/2024 11:00 AM EDT Office Visit [facility] [address] [place] [address] Whitney Mejía, OD [address] [place] [address] 05/04/2025 1:00 PM EST Office Visit [facility] ADULT DENTAL [address] [place] [address] Elizabeth, Shharzad [address] [place] [address] Health Maintenance Due Date Last Done Comments CT Colonography 1976 Colonoscopy 1976 Colorectal Cancer Screening 1976 FIT DNA/Cologuard 1976 FIT 1976 FOBT 1976 HIV Screening 1976 Sigmoidoscopy 1976 Alcohol/Substance Use Screening 1988 Family Planning (PISQ) 11/12/1991 Hepatitis C Screening 1994 Hepatitis B Vaccines (1 of 3 - 19+ 3-dose series) 11/12/1995 Dental Oral Exam 05/05/2024 11/02/2023, , 01/26/2022, Additional history exists Dental X-Ray: Bitewings 11/02/2024 11/02/19 24, 01/26/2022, 07/28/2020, Additional history exists Dental Prophylaxis 11/21/2024 05/22/2024, 0 02/20/2024, 11/02/2023, Additional history exists Depression Screening 10/16/2025 10/16/2024, 10/17/19 25 SDOH Screening 10/16/2025 10/16/2024 Tobacco Screening 10/16/2025 10/16/2024 Dental X-Ray: Full Mouth 11/02/2026 11/02/2023, 09/2015 [...] APPENDICULAR SKELETON Routine 08/28/2024 2:30 PM EDT LIPID PANEL, STANDARD Routine 07/14/2024 12:05 PM EST Essential hypertension Pure hypercholesterolemia PROPHYLAXIS - ADULT Routine 05/22/2024 1 :00 [...] EDT Narrative 08/28/2024 3:10 PM EDT ? [facility] ? [address] ?[place] [address] ? Mammography Report ? Signed ? Patient: Anavitate,Eliazar ?MR#: [id number] ?? [id number] ? : 1975 ?Acct:[id number] ? Age/Sex: 48 / M ?ADM Date: 03/13/25 ? Loc: HO.MAMMO ? Attending Dr: Robin Miller MD ? Ordering Physician: Robin Miller MD ?Results: ? Date of Service: 03/13/25 ?Follow Up: ? Procedure(s): XR DEXA appendicular skeleton ?? Accession Number(s): [id number] ? cc: Robin Miller MD; Nicolle Pretty MD ? EXAMINATION: ??DXA BONE DENSITY EXTREMITY ? HISTORY: ??Osteoporosis ? TECHNIQUE: [employer] [place] Dual energy absorptiometry (DEXA) ?? of the [...] is a trademark of the [employer]'s ?? [place] for Metabolic Bone Disease, a World Health Organization (WHO) ?? Collaborating Center. ? Electronically signed by: ??Robin Waldron MD ??08/28/2024 03:07 PM EDT ? Dictated By: ?Robin Waldron MD ? Signed By: ?<Electronically signed by Robin Waldron MD in OV> ?08/28/24 1507 ? DD/ 1430 ? TD/TT: 08/28/24 1459 ? Lang Path Therapist: ? Procedure Note Donshoaibter, Image - 08/28/2024 [facility] [address] [place] [address] Mammography Report Signed Patient: Eliazar WellsMR#: [id number] : 1975Acct:[id number] Age/Sex: 48 / MADM Date: 08/28/24 Loc: HO.MAMMO Attending Dr: Robin Miller MD Ordering Physician: Robin Milleresults: Date of Service: 08/28/24Follow Up: Procedure(s): XR DEXA appendicular skeleton Accession Number(s): [id number] cc: Robin Miller MD; Nicolle Pretty MD EXAMINATION: DXA BONE DENSITY EXTREMITY HISTORY: Osteoporosis TECHNIQUE: [employer] [place] Dual energy absorptiometry (DEXA) of the lumbar [...] of the [employer]'s [place] for Metabolic Bone Disease, a World Health Organization (WHO) Collaborating Center. Electronically signed by: Robin Waldron MD 08/28/2024 03:07 PM EDT Dictated By: Robin Waldron MD Signed By: <Electronically signed by Robin Waldron MD in OV> 08/28/24 1507 DD/ 1430 TD/TT: 08/28/24 1459 Lang Path Therapist: [facility] External Provider IMG XR PROCEDURES Edited Result - Final * (ABNORMAL) Lipid Panel, Standard (07/14/2024 12:05 PM EST) Triglycerides 368(H) <150 mg/dL [facility] Comment:Desirable Triglyceri de: less than 150 mg/dLBorderline High Triglyceride 150-199 mg/dLHigh Triglyceride: 200-499 mg/dLVery High Triglyceride: greater than or equal to 5OO mg/dL Cholesterol 142 <200 mg/dL [facility] Comment:Desirable Cholestero l: less than 200 mg/dLBorderline High Cholesterol: 200-239 mg/dLHigh Cholesterol: greater than 239 mg/dL LDL Cholesterol Calculated 34 <100 mg/dL [facility] Comment:Desirable LDL: less than 100 mg/dLNear Optimal/Above Optimal LDL: 110- 129 mg/dLBorderline High LDL: 130-159 mg/dLHigh LDL: 160-189 mg/dLVery High LDL: greater than or equal to 190 mg/dL HDL Cholesterol 35(L) >40 mg/dL [facility] Comment:Desirable HDL: great er than 40 mg/dL Note: This HDL assay may give artificially low results in patients with liver disease. Blood Venous blood specimen / Unknown 07/14/2024 12:05 PM EST 07/14/2024 1:22 PM EST us Nicolle Pretty MD LAB BLOOD ORDERABLES Final Resul t [facility] [address] [place] [address] [phone] from Last 3 Months or Most Recently Relevant to Health Maintenance Insurance [employer]ARE < 65 [place] [id number] DENTAL - [facility] Care Teams Kapok And Cotton Machine Operator Relationship Specialty Start Date End Date Nicolle Pretty MD [address] [place] [address] PCP - General Family Medicine 04/29/12 Dr. choudhary Consulting Physician 09/13/23 Dr. Cloud Consulting Physician Hematology 09/13/23 Dr. Adam Miller Consulting Physician Endocrinology 09/13/23
--- OUTSIDE RECORDS SUMMARY | 2024-10-27 13:14 | XMS_ITS | Encounter Summary ---
Author Organization [employer] Address [address] [place] [address] 7 [place] [address] Care Team Providers Care Hvac/R Instructor Name Role Phone Nicolle Pretty MD Primary Care Provider [phone] Encounter Details Date Type Department Care Team (Latest Contact Info) Description 01/26/2022 Abstract [facility] CONVERSIONS Dental, Provider, DDS Social [...] Description 12/11/2024 11:00 AM EDT Office Visit [facility] OPTOMETRY [address] [place] [address] Whitney Mejía, CHRISTIANO [address] [place] [address] 05/04/2025 1:00 PM EST Office Visit [facility] ADULT DENTAL [address] [place] [address] Bradford Johnsonaris [address] [place] [address] documented as of this encounter Visit Diagnoses Not on filedocumented in this encounter Care Teams Hvac/R Instructor Relationship Specialty Start Date End Date Nicolle Pretty MD [address] [place] [address] PCP - General Family Medicine 04/29/12 Dr. choudhary Consulting Physician 09/13/23 Dr. Cloud Consulting Physician Hematology 09/13/23 Dr. Adam Miller Consulting Physician Endocrinology 09/13/23 documented as of this encounter
--- OUTSIDE RECORDS SUMMARY | 2024-10-27 13:14 | XMS_ITS | Encounter Summary ---
Author Organization [employer] Address [address] [place] [address] 7 [place] [address] Care Team Providers Care Fiberglass Grinder Name Role Phone Nicolle Pretty MD Primary Care Provider [phone] Encounter Details Date Type Department Care Team (Latest Contact Info) Description 07/28/2020 Abstract [facility] CONVERSIONS Dental, Provider, DDS Social [...] Description 12/11/2024 11:00 AM EDT Office Visit [facility] OPTOMETRY [address] [place] [address] Whitney Mejía, CHRISTIANO [address] [place] [address] 05/04/2025 1:00 PM EST Office Visit [facility] ADULT DENTAL [address] [place] [address] Bradford Johnsonaris [address] [place] [address] documented as of this encounter Visit Diagnoses Not on filedocumented in this encounter Care Teams Fiberglass Grinder Relationship Specialty Start Date End Date Nicolle Pretty MD [address] [place] [address] PCP - General Family Medicine 04/29/12 Dr. choudhary Consulting Physician 09/13/23 Dr. Cloud Consulting Physician Hematology 09/13/23 Dr. Adam Miller Consulting Physician Endocrinology 09/13/23 documented as of this encounter
--- OUTSIDE RECORDS SUMMARY | 2024-10-27 13:14 | XMS_ITS | Encounter Summary ---
Author Organization [employer] Address [address] [facility] [address] 7t [place] [address] Care Team Providers Care Road Conductor Name Role Phone Nicolle Pretty MD Primary Care Provider [phone] Reason for Visit * Reason Onset Date Comments Durable Medical Equipment 12/31/2023 Encounter Details Date Type Department Care Team ([facility] st Contact Info) Description 12/31/2023 Telephone [facility] [address] [place], [place] [phone] Nicolle Pretty MD [address] [place], [place] [phone] Durable Medical Equipment Social History Tobacco Use [...] t he electric, gas, oil or water [employer] threatened to shut off services in your [...] EDT Please advise, tc from [facility]. Requesting for medical necessity letter for air [...] 11:00 AM EDT Office Visit [facility] OPTOMETRY [address] [place] [address] Whitney Mejía, CHRISTIANO [address] [place] [address] 05/04/2025 1:00 PM EST Office Visit [facility] ADULT DENTAL [address] [place] [address] Elizabeth, Shahrzad [address] [place] [address] documented as of this encounter Visit Diagnoses Not on filedocumented in this encounter Care Teams Road Conductor Relationship Specialty Start Date End Date Nicolle Pretty MD [address] [place] [address] PCP - General Family Medicine 04/29/12 Dr. choudhary Consulting Physician 09/13/23 Dr. Cloud Consulting Physician Hematology 09/13/23 Dr. Adam Miller Consulting Physician Endocrinology 09/13/23 documented as of this encounter
--- OUTSIDE RECORDS SUMMARY | 2024-10-27 13:14 | XMS_ITS | Encounter Summary ---
Author Organization [employer] Address [address] [place] [address] 7t [place] [address] Care Team Providers Care Radial Router Operator Name Role Phone Nicolle Pretty MD Primary Care Provider [phone] Encounter Details Date Type Department Care Team (Latest Contact Info) Description 07/01/2018 Abstract [facility] CONVERSIONS Dental, Provider, DDS Social [...] 12/11/2024 11:00 AM EDT Office Visit [facility] OPTOMETRY [address] [place] [address] Whitney Mejía, OD [address] [place] [address] 05/04/2025 1:00 PM EST Office Visit [facility] ADULT DENTAL [address] [place] [address] Bradford Johnsonaris [address] [place] [address] documented as of this encounter Visit Diagnoses Not on filedocumented in this encounter Care Teams Radial Router Operator Relationship Specialty Start Date End Date Nicolle Pretty MD [address] [place] [address] PCP - General Family Medicine 04/29/12 Dr. choudhary Consulting Physician 09/13/23 Dr. Cloud Consulting Physician Hematology 09/13/23 Dr. Adam Miller Consulting Physician Endocrinology 09/13/23 documented as of this encounter
--- OUTSIDE RECORDS SUMMARY | 2024-10-27 13:14 | XMS_ITS | Encounter Summary ---
Demographics Address [address] [place] [address] Work Phone Mobile Phone Home Phone Preferred Language es Marital Status Single Christianity Affiliation Unknown Race Other Race Ethnic Group Unknown Author Organization [employer] Address [address] [facility] [facility] [address] 7t [place] [address] Care Team Providers Care Clinical Biochemical Geneticist Name Role Phone Nicolle Pretty MD Primary Care Provider [phone] Encounter Details Date Type Department Care Team ([facility] st Contact Info) Description 07/15/2024 Orders Only [facility] [address] [place], [place] [phone] Nicolle Pretty MD [address] [place], [place] [phone] Social History Tobacco Use Types Packs/Day Years [...] Description 12/11/2024 11:00 AM EDT Office Visit [facility] OPT[facility]ET[facility] [address] [place] [address] Whitney Mejía, OD [address] [place] [address] 05/04/2025 1:00 PM EST Office Visit [facility] ADULT DENTAL [address] [place] [address] Elizabeth, Shahrzad [address] [place] [address] documented as of this encounter Visit Diagnoses Not on filedocumented in this encounter Care Teams Clinical Biochemical Geneticist Relationship Specialty Start Date End Date Nicolle Pretty MD [address] [place] [address] PCP - General Family Medicine 04/29/12 Dr. choudhary Consulting Physician 09/13/23 Dr. Cloud Consulting Physician Hematology 09/13/23 Dr. Adam Miller Consulting Physician Endocrinology 09/13/23 documented as of this encounter
== END 2024-10-27 13:18 | disposition home or self-care (01) ==
LOC: HO.ENCR 12:56
PROVIDERS: Visit Provider Internal Medicine Endocrinology, Diabetes & Metabolism
DX: M81.0 Age-related osteoporosis without current pathological fracture (principal)
CPT/HCPCS: 99213

== ENCOUNTER → 2024-10-27 12:56 | Outpatient (BNVA) | payer OTHER, SELFPAY | PROVIDERS: Visit Provider Internal Medicine Endocrinology, Diabetes & Metabolism | DX: M81.0 Age-related osteoporosis without current pathological fracture (principal) | CPT/HCPCS: 99212 ==

== ENCOUNTER 2024-12-22 10:09 | Outpatient (REF) | payer OTHER, SELFPAY ==
--- OUTSIDE RECORDS SUMMARY | 2024-12-22 10:55 | XMS_ITS | Patient Health Record ---
Demographics Address [address] [place] [address] Mobile Preferred Language Unknown Marital Status unmarried Restorationist Affiliation Unknown Race Unknown Ethnic Group Refused to Report Author Organization [employer] Address [address] [place] [address] Care Team Providers Care Online Merchant Name Role Phone Rayray Muñoz MD Primary Care Provider Robin Rios [phone] Reason For Referral No Information Plan Of Treatment No Information Insurance Providers Payer Name Payer Address Payer Phone Subscriber Number Group Number Insured Name Patient Relationship to Insured Coverage Start Date Coverage End Date MEDICARE OF [place] [address] [place] [id number] MIKALA MACHADO Self - patient is the insured MEDICAID OF [facility] [address] [place] [address] [id number] MIKALA MACHADO Self - patient is the insured
--- OUTSIDE RECORDS SUMMARY | 2024-12-22 10:55 | XMS_ITS | Encounter Summary ---
Author Organization [employer] Address [address] [facility] [address] 7[address] [place] [address] Care Team Providers Care Deadener Name Role Phone Nicolle Pretty MD Primary Care Provider Reason for Visit * Reason Onset Date Comments Durable Medical Equipment 08/14/2023 Encounter Details Date Type Department Care Team ([facility] st Contact Info) Description 08/14/2023 Telephone [facility] MED[facility] [address] [place], [place] [phone] Nicolle Pretty MD [address] [place], [place] [phone] Durable Medical Equipment Social History Tobacco Use [...] Care Team (Late st Contact Info) Description 02/09/2025 1:30 PM EDT Telemedicine [facility] [address] [place] [address] Nolvia Gonzalez, DONAVAN [address] [place] [address] 02/26/2025 2:00 PM EDT Office Visit [facility] OPTOMETRY [address] [place] [address] Whitney Mejía OD [address] [place] [address] 05/04/2025 1:00 PM EST Office Visit [facility] ADULT DENTAL [address] [place] [address] Shahrzad Johnson [address] [place] [address] documented as of this encounter Visit Diagnoses Not on filedocumented in this encounter Care Teams Deadener Relationship Specialty Start Date End Date Nicolle Pretty MD [address] [place] [address] PCP - General Family Medicine 04/29/12 Dr. choudhary Consulting Physician 09/13/23 Dr. Cloud Consulting Physician Hematology 09/13/23 Dr. Adam Miller Consulting Physician Endocrinology 09/13/23 documented as of this encounter
[2024-12-22 11:35] LABS: Appearance Urine Clear; Glucose Urine UA Negative (Negative); PH 7.5 (5.0-9.0); Specific Gravity - Urine 1.015 (1.005-1.025)
== END 2024-12-22 10:10 | disposition home or self-care (01) ==
LOC: HO.HHCL 10:09
PROVIDERS: PCP Student in an Organized Health Care Education/Training Program; Visit Provider Student in an Organized Health Care Education/Training Program
DX: R10.9 Unspecified abdominal pain (principal)
CPT/HCPCS: 81001

== ENCOUNTER 2025-04-27 12:43 | Outpatient (AMB) | payer OTHER, SELFPAY ==
--- NOTE | 2025-04-27 12:47 | A.OFFVIS_ITS ---
Vital Signs 04/27/25 12:58 BMI Reason not done Patient refused/unable BP 114/64 Blood Pressure Location Lt brachial Position Sitting Pulse 91 Pulse Source Pulse Oximeter Pulse Oximetry (%) 97 Oxygen Delivery Method Room Air Intake Visit Reasons: f/u osteoporosis Intake Note: Patient present today for Osteoporosis follow up. Gag Writer Required: Yes Gag Writer Language: Mortgage Closing Clerk Services: Gag Writer Present Gag Writer Name: [facility] Endo Zulieca Information Interpreted: non-clinical & clinical Accompanied by: Mother Allergies No Known Allergies (No Known Allergies*) Allergy (Verified 04/27/25 12:54) HPI Comments Details: 49 YO M with PMHx Iron Deficiency Anemia who is seen in F/U for hyperparathyroidism. He is also wheelchair bound and nonambulatory due to cerebral palsy. First noted to have high calcium in 2017, but was first made aware of this in 2019. Calcium dating back to 2018 has been as high as 12.0. He was recently evaluated by Heme-Onc for iron deficiency anemia and was noted to have labs consistent with hyperparathyroidism 02/10/2020 with Clacium 11.9, Albumin 4.4, Creatinine 0.86 and PTH 51. Unfortunately Vitamin D was not checked. He was on HCTZ at that time. I asked him to stop the HCTZ and labs were repeated 3 weeks later 05/18/2020. This confirmed hyperparathyroidism with Calcium 11.8, Albumin 4.7, Vitamin D 20 and PTH 44. 24 Hour urinary calcium was WNL. He did have a DEXA scan which revealed Osteoporosis of the spine, and Osteopenia of the hips. His distal forearm was WNL. He was treated with 1 dose of IV Reclast in Jun 2020 due to severe hypercalcemia with symptoms of intractable abdominal pain. Calcium did not decline after this, so he was started on Sensipar and continued this until shortly before his parathyroidectomy. He was referred to Dr. Nguyen Mir and underwent a R superior and R inferior parathyroidectomy 08/09/2020. Intraoperative PTH declined from 79-21, indicating cure. Remains on Citracal 2 tabs PO daily. Has not repeated labs. Sister states he received IV reclast in early 2022, but unable to locate documentation. DEXA: 07/05/2022 FINDINGS: AP SPINE L2-L4 (excluding L1):? The data of L1-L4 has been changed to exclude the L1 vertebral body because degenerative changes may cause overestimation of the lumbar spine density.? Current: BMD 0.841 g/cm2, T-score -3.3, Z-score -2.9, Z-score below expected range for age, -2.7% decrease from baseline (<5% change is not significant).? Baseline: BMD 0.864 g/cm2. LEFT FEMUR, NECK: Current: BMD 0.481 g/cm2, T-score -4.5, Z-score -3.8, Z-score below expected range for age. Baseline: BMD 0.777 g/cm2. LEFT FEMUR, TOTAL: Current: BMD 0.402 g/cm2, T-score -4.9, Z-score -4.4, Z-score below expected range for age, 51.0% decrease from baseline (<5% change is not significant).? Baseline: BMD 0.821 g/cm2. LEFT FOREARM RADIUS 33%: BMD 1.006 g/cm2, T-score 0.2, Z-score 0.2, Z-score within expected range for age.? Baseline: BMD 0.924 g/cm2. Thyroid US: 05/31/2020 FINDINGS: SIZE: Measurements of the thyroid lobes and nodules are given in sagittal, anteroposterior and transverse dimensions respectively. Right Thyroid Lobe: 3.8 x 1.3 x 1.4 cm, volume 3.6 mL. Parenchyma: The gland echotexture is homogeneous. Thyroid vascularity is normal. Left Thyroid Lobe: 3.1 x 1.0 x 1.5 cm, volume 2.4 mL. Parenchyma: The gland echotexture is homogeneous. Thyroid vascularity is normal. Isthmus: 0.3 cm in maximum AP dimension. RIGHT THYROID LOBE: No nodules. ISTHMUS: No nodules. LEFT THYROID LOBE: No nodules. NODES: No lymphadenopathy is seen in the tissue surrounding the thyroid gland. Labs: Laboratory Tests 06/16/22 06:00 Sodium 140 Potassium 3.7 Creatinine 0.69 Estimated GFR > 60 On Tymlos for 18 mos . No fx since last . Tolerating medication nicely. Significant gains in bone density but T-score is still -3.2 left femoral neck. About to transition to [facility] [address] Medical History Gastroparesis Anemia Constipation by delayed colonic transit Delayed gastric emptying Cerebral palsy Nausea Abdominal bloating Osteoporosis GERD (gastroesophageal reflux disease) HTN (hypertension) Iron deficiency anemia Hyperparathyroidism Vitamin D deficiency Hypercalcemia Surgical History S/P removal of parathyroid gland Hx of colonoscopy History of esophagogastroduodenoscopy (EGD) Hx of oral surgery Hx of cholecystectomy Family History Father Emphysema of lung Liver disease Mother Scoliosis Hepatitis Phlebitis Lymphoma Sister Nephrolithiasis Diabetes Lymphoma Social History Household Members: Family Housing: Apartment Are you a primary customer care team coach to a significant other at home: No Do you presently have visiting nurse or other home services: Yes (pt sister is his CARGO BRACER) Alcohol intake: never Patient Tobacco Use Status: Never used Tobacco Second Hand Smoke Exposure: No Advance Directives Date on File: 10/20/22 service: No Current occupational status: disabled Assessment & Plan Assessment & Plan (1) Osteoporosis: Code(s): M81.0 - Age-related osteoporosis without current pathological fracture Category: Medical Qualifiers: Osteoporosis type: unspecified Presence of current pathological fracture: unspecified Qualified Code(s): M81.0 - Age-related osteoporosis without current pathological fracture Plan: This is a 47-year-old male with a history of severe osteoporosis and cerebral palsy and primary hyperparathyroidism status post parathyroidectomy with normalization of PTH and calcium. He is currently on Tymlos for 12 months' time Plan is to transition to Prolia this month Coding Level of Care Code Est Pt Level 3 (13136) Diagnoses Osteoporosis, unspecified osteoporosis type, unspecified pathological fracture presence M81.0 Osteoporosis type: unspecified Presence of current pathological fracture: unspecified
[2025-04-27 12:58] VITALS: BP 114/64; PULSE 91; O2SAT 97
--- OUTSIDE RECORDS SUMMARY | 2025-04-27 14:50 | XMS_ITS | Clinical Summary ---
Author Organization [employer] Address [address] [facility] 7t [place] [address] Care Team Providers Care Master Automotive Technician Name Role Phone Adonay London TORSTEN Primary Care Provider [phone] Allergies No known active allergies Medications lansoprazole [...] MG tabletIndications :Spastic hemiplegic cerebral palsy (CMS/HCC) (HCC) TAKE 1 TABLET BY MOUTH TWICE DAILY 60 tablet 01/20/20 25 Active ketoconazole (NIZOral) 2 % shampooIndication s:Seborrheic dermatitis APPLY TOPICALLY TO AFFECTED AREA(S) EVERY DAY DIRECTED FOR 7 DAYS LEAVE ON FOR 5 MINUTES THEN RINSE 120 mL 04/23/20 25 Active clonazePAM (KlonoPIN) 0.5 MG tabletIndications :Anxiety TAKE 1 TABLET BY MOUTH EVERY DAY AT BEDTIME NEEDED FOR ANXIETY 20 tablet 04/23/20 25 Active ketoconazole (NIZOral) 2 % shampooIndication s:Seborrheic dermatitis APPLY TOPICALLY TO AFFECTED AREA(S) EVERY DAY DIRECTED FOR 7 DAYS LEAVE ON FOR 5 MINUTES THEN RINSE 120 mL 03/27/20 25 2024 Discontinued clonazePAM (KlonoPIN) 0.5 MG tabletIndications :Anxiety TAKE 1 TABLET BY MOUTH AT BEDTIME NEEDED ANXIETY 20 tablet 03/27/20 25 2024 Discontinued Active Problems Problem Noted Date [...] Encounters Date Type Department Care Team Description 04/22/2025 Refill [facility] [address] [place] [address] Nicolle Pretty MD Seborrheic dermatitis; Anxiety 03/26/2025 Refill [facility] [address] [place] [address] Nicolle Pretty MD Seborrheic dermatitis; Anxiety 02/26/2025 2:00 PM EDT Office Visit [facility] [address] [place] [address] Whitney Mejía, OD Optic atrophy (Primary Dx); Dry eyes; Myopia of both eyes 02/26/2025 Travel 02/25/2025 Refill [facility] [address] [place] [address] Bessie Mishra MD Seborrheic dermatitis 02/25/2025 Refill [facility] [address] [place] [address] Matthieu Keller MD Anxiety 02/09/2025 1:30 PM EDT Telemedicine [facility] [address] [place] [address] Nolvia Gonzalez RN Anxiety 02/09/2025 Travel 02/02/2025 Refill [facility] [address] [place] [address] Matthieu Keller MD Anxiety from Last 3 Months Immunizations Immunization Administration Dates Next Due Influenza injectable quadriv alent IIV4 with preservative 03/25/2019,05/02/2018,03/06/2017,03/02 Influenza injectable quadriv alent preservative free 03/19/2023,03/10/2022,03/10/2021,03/09 Influenza, IIV3, injectable 03/30/2014 Influenza, Injectable, MDCK, preservative free 03/20/2024 Influenza, Split (incl. esequiel fied surface antigen) 03/28/2012 Moderna Covid-19 Vaccine 12+ 06/02/2021,10/27/19 21,09/28/2020 Pfizer Covid-19 Vaccine 12+ 04/24/2024, Pfizer Covid-19 Vaccine 12+ Bivalent 05/17/2022 Pneumococcal Polysaccharide PPSV23 01/15/2015 Tdap 03/06/2017 Family History Medical History Relation Name Comments Glaucoma Mother Relation Name Status Comments Mother Social History Tobacco Use Types Packs/Day Years [...] Sign Reading Time Taken Comments Blood Pressure 130/86 12/22/2024 8:53 AM EDT Pulse 88 12/22/2024 8:53 AM EDT Temperature 36.6 C (97.9 F) 12/22/2024 8:53 AM EDT Respiratory Rate 23 12/22/2024 8:53 AM EDT Oxygen Saturation 96% 04/24/2024 10:37 AM EST Inhaled Oxygen Concentration - - Weight 68.9 kg (152 lb) 04/24/2024 10:37 AM EST Height - - Body Mass Index - - Plan of Treatment Upcoming Encounters Date Type Department Care Team (Late st Contact Info) Description 05/04/2025 1:30 PM EST Office Visit [facility] ADULT DENTAL [address] [place] [address] Elizabeth, Shahrzad [address] [place] [address] 05/25/2025 10:00 AM EST Telemedicine [facility] [address] [place] [address] Nolvia Gonzalez, RN [address] [place] [address] Health Maintenance Due Date Last Done Comments [...] 05/22/2024, 0 02/20/2024, 11/02/2023, Additional history exists Influenza Vaccine (#1) 2025 , 03/19/2023, 03/10/2022, Additional history exists Depression Screening 10/16/2025 10/16/2024, 10/17/19 Disability Screening 10/16/2025 10/16/2024 SDOH Screening 10/16/2025 10/16/2024 Tobacco Screening 12/22/2025 12/22/2024 Dental X-Ray: Full Mouth 11/02/2026 11/02/2023, 09/2015 Zoster Vaccines (1 of 2) 2026 DTaP/Tdap/Td Vaccines (2 - Td or Tdap) 03/06/2027 03/06/2017 Lipid Panel 07/14/2029 07/14/2024, 12/0 11/2021, 12/14/2021 RSV Patients and Patients Aged 60 years or older (1 - 1-dose 75+ series) 11/12/2051 Pneumococcal Vaccine: Pediatrics (0 to 5 Years) and At-Risk Patients (6 to 49) Years Aged Out 01/15/2015 No longer eligible based on patient's age to complete this topic COVID-19 Vaccine Completed 04/24/2024, , 05/17/2022, Additional [...] patient's age to complete this topic Meningococcal B Vaccine Aged Out No l onger eligible based on patient's age to complete [...] Procedure Name Priority Date/Time Associated Diagnosis Comments LIPID PANEL, STANDARD Routine 07/14/2024 12:05 PM [...] Relevant to Health Maintenance Results * (ABNORMAL) Lipid Panel, Standard (07/14/2024 12:05 PM EST) Triglycerides 368(H) <150 mg/dL [facility] Comment:Desirable Triglyceri de: less than 150 mg/dLBorderline High Triglyceride 150-199 mg/dLHigh Triglyceride: 200-499 mg/dLVery High Triglyceride: greater than or equal to 5OO mg/dL Cholesterol 142 <200 mg/dL [facility] Comment:Desirable Cholestero l: less than 200 mg/dLBorderline High Cholesterol: 200-239 mg/dLHigh Cholesterol: greater than 239 mg/dL LDL Cholesterol Calculated 34 <100 mg/dL [facility] Comment:Desirable LDL: less than 100 mg/dLNear Optimal/Above Optimal LDL: 110- 129 mg/dLBorderline High LDL: 130-159 mg/dLHigh LDL: 160-189 mg/dLVery High LDL: greater than or equal to 190 mg/dL HDL Cholesterol 35(L) >40 mg/dL [facility] Comment:Desirable HDL: great er than 40 mg/dL Note: This HDL assay may give artificially low results in patients with liver disease. Blood Venous blood specimen / Unknown 07/14/2024 12:05 PM EST 07/14/2024 1:22 PM EST us Nicolle Pretty MD LAB BLOOD ORDERABLES Final Resul t [facility] [address] [place] [phone] from Last 3 Months or Most Recently Relevant to Health Maintenance Insurance [facility] ONE CARE < 65 [facility] Care Teams Master Automotive Technician Relationship Specialty Start Date End Date Adonay London CNP [address] [place] [address] PCP - General Family Medicine 04/14/25 Dr. choudhary Consulting Physician 09/13/23 Dr. Cloud Consulting Physician Hematology 09/13/23 Dr. Adam Miller Consulting Physician Endocrinology 09/13/23
--- OUTSIDE RECORDS SUMMARY | 2025-04-27 14:50 | XMS_ITS | Encounter Summary ---
Author Organization [employer] Address [address] [facility] [address] 7[address] [place] [address] Care Team Providers Care Dairy Equipment Repairer Name Role Phone Nciolle Pretty MD Primary Care Provider [phone] Adonay London CNP Primary Care Provider [phone] Encounter Details Date Type Department Care Team ([facility] st Contact Info) Description 07/15/2024 Orders Only [facility] [address] [place], [place] [phone] Nicolle Pretty MD [address] [place], [place] [phone] Social History Tobacco Use Types Packs/Day Years [...] Description 05/04/2025 1:30 PM EST Office Visit [facility] ADULT DENTAL [address] [place] [address] Elizabeth, Shahrzad [address] [place] [address] 05/25/2025 10:00 AM EST Telemedicine [facility] [address] [place] [address] Nolvia Gonzalez RN [address] [place] [address] documented as of this encounter Visit Diagnoses Not on filedocumented in this encounter Care Teams Dairy Equipment Repairer Relationship Specialty Start Date End Date Nicolle Pretty MD [address] [place] [address] PCP - General Family Medicine 04/29/12 04/13/25 Adonay London CNP [address] [place] [address] PCP - General Family Medicine 04/14/25 Dr. choudhary Consulting Physician 09/13/23 Dr. Cloud Consulting Physician Hematology 09/13/23 Dr. Adam Miller Consulting Physician Endocrinology 09/13/23 documented as of this encounter
--- OUTSIDE RECORDS SUMMARY | 2025-04-27 14:50 | XMS_ITS | Encounter Summary ---
Author Organization [employer] Address [address] [facility] [address] 7[address] [place] [address] Care Team Providers Care Vp Purchasing Name Role Phone Nicolle Pretty MD Primary Care Provider [phone] Adonay London CNP Primary Care Provider [phone] Reason for Visit * Reason Onset Date Comments Durable Medical Equipment 12/31/2023 Encounter Details Date Type Department Care Team ([facility] st Contact Info) Description 12/31/2023 Telephone [facility] [address] [place] [address] Nicolle Pretty MD [address] [place], [place] [phone] Durable Medical Equipment Social History Tobacco Use [...] EDT Please advise, tc from [facility] at [facility]. Requesting for medical necessity letter for [...] Description 05/04/2025 1:30 PM EST Office Visit [facility] ADULT DENTAL [address] [place] [address] Elizabeth, Shahrzad [address] [place] [address] 05/25/2025 10:00 AM EST Telemedicine [facility] [address] [place] [address] Nolvia Gonzalez, RN [address] [place] [address] documented as of this encounter Visit Diagnoses Not on filedocumented in this encounter Care Teams Vp Purchasing Relationship Specialty Start Date End Date Nicolle Pretty MD [address] [place] [address] PCP - General Family Medicine 04/29/12 04/13/25 Adonay London CNP [address] [place] [address] PCP - General Family Medicine 04/14/25 Dr. choudhary Consulting Physician 09/13/23 Dr. Cloud Consulting Physician Hematology 09/13/23 Dr. Adam Miller Consulting Physician Endocrinology 09/13/23 documented as of this encounter
--- OUTSIDE RECORDS SUMMARY | 2025-04-27 14:50 | XMS_ITS | Encounter Summary ---
Author Organization [employer] Address [address] [facility] [address] 7[address] [place] [address] Care Team Providers Care Casual Shoe Inspector Name Role Phone LondonAdonay TORSTEN Primary Care Provider [phone] Reason for Visit * Reason Comments Med Refill Encounter Details Date Type Department Care Team (Late st Contact Info) Description 04/22/2025 Refill [facility] [address] [place] [address] Nicolle Pretty MD [address] [place] [address] Seborrheic dermatitis; Anxiety Social History Tobacco Use Types Packs/Day [...] 1:30 PM EST Office Visit [facility] ADULT DENT[facility] [address] [place] [address] Elizabeth, Shahrzad [address] [place] [address] 05/25/2025 10:00 AM EST Telemedicine [facility] [address] [place] [address] Nolvia Gonzalez, RN [address] [place] [address] documented as of this encounter Visit Diagnoses Diagnosis Seborrheic dermatitis Unspecified seborrheic dermatitis Anxiety Anxiety state, unspecified documented in this encounter Additional Health Concerns Assessment Noted Time PHQ-9 Depression Total Score: 3 10/17/19 25 11:17 AM EDT documented as of this encounter Care Teams Casual Shoe Inspector Relationship Specialty Start Date End Date Adonay London CNP [address] [place] [address] PCP - General Family Medicine 04/14/25 Dr. choudhary Consulting Physician 09/13/23 Dr. Cloud Consulting Physician Hematology 09/13/23 Dr. Adam Miller Consulting Physician Endocrinology 09/13/23 documented as of this encounter
--- OUTSIDE RECORDS SUMMARY | 2025-04-27 14:50 | XMS_ITS | Encounter Summary ---
Author Organization [employer] Address [address] [place] [address] 7 [place] [address] Care Team Providers Care Clay Dry Press Operator Name Role Phone Nicolle Pretty MD Primary Care Provider Adonay London CNP Primary Care Provider [phone] Encounter Details Date Type Department Care Team (Latest Contact Info) Description 07/01/2018 Abstract [facility] CONVERSIONS Dental, Provider, DDS Social [...] Upcoming Encounters Date Type Department Care Team ([facility] Contact Info) Description 05/04/2025 1:30 PM EST Office Visit [facility] ADULT DENTAL [address] [place] [address] Elizabeth, Shahrzad [address] [place] [address] 05/25/2025 10:00 AM EST Telemedicine [facility] MED [facility] PEDS [address] [place] [address] Nolvia Gonzalez, DONAVAN [address] [place] [address] documented as of this encounter Visit Diagnoses Not on filedocumented in this encounter Care Teams Clay Dry Press Operator Relationship Specialty Start Date End Date Nicolle Pretty MD [address] [place] [address] PCP - General Family Medicine 04/29/12 04/13/25 Adonay London CNP [address] [place] [address] PCP - General Family Medicine 04/14/25 Dr. choudhary Consulting Physician 09/13/23 Dr. Cloud Consulting Physician Hematology 09/13/23 Dr. Adam Miller Consulting Physician Endocrinology 09/13/23 documented as of this encounter
--- OUTSIDE RECORDS SUMMARY | 2025-04-27 14:50 | XMS_ITS | Encounter Summary ---
Author Organization [facility] Address [address] [facility] [address] [place] [phone] Phone Care Team Providers Care Burning Plant Operator Name Role Phone Nicolle Pretty MD Primary Care Provider [phone] Reason for Referral * Occupational Therapy (Routine) - Denied Specialty Diagnoses / Procedures Referred By Savana francois Referred To Contact Occupational Therapy Diagnoses Encounter for rehabilitation Cerebral Palsy Nicolle Pretty MD Phone: tel: fax: [address] [address] Phone: tel: Referral ID Status Reason Start Date Expiration Date Visits Re quested Visits Authorized [id number] Denied 03/31/2020 03/31/2021 1 0 Encounter Details Date Type Department Care Team (Latest Contact Info) Description 03/31/2020 Transcribe Orders [facility] [address] [place] [address] Nicolle Pretty MD [address] [place] [address] Encounter for rehabilitation (Primary Dx) Social History Tobacco Use Types Packs/Day Years Used Date Smoking Tobacco: Never Assessed Sex and Gender Information Value Date Recorded Sex Assigned at Not on file Legal Sex Male 9:26 PM EDT Gender Identity Not on file Sexual Orientation Not on file documented as of this encounter Plan of Treatment Scheduled Referrals Name Type Priority Associated Diagnoses Orde r Schedule Ambulatory referral to [facility] Occupational Therapy Outpatient Referral Routine Encounter for rehabilitation Ordered: 03/31/2020 documented as of this encounter Visit Diagnoses Diagnosis Encounter for rehabilitation- Primary documented in this encounter Care Teams Burning Plant Operator Relationship Specialty Start Date End Date Nicolle Pretty MD [address] [place] [address] PCP - General Family Medicine 03/31/20 documented as of this encounter Additional Source Comments The information contained in this document represents components of the legal health record. It is not the complete legal health record.[facility]
--- OUTSIDE RECORDS SUMMARY | 2025-04-27 14:50 | XMS_ITS | Encounter Summary ---
Author Organization [employer] Address [address] [facility] 7t [place] [address] Care Team Providers Care Button Pusher Name Role Phone Nicolle Pretty MD Primary Care Provider [phone] Adonay London CNP Primary Care Provider [phone] Reason for Visit * Reason Onset Date Comments Durable Medical Equipment 08/14/2023 Encounter Details Date Type Department Care Team ([facility] st Contact Info) Description 08/14/2023 Telephone [facility] [address] [place] [address] Nicolle Pretty MD [address] [place], [place] [phone] Durable Medical Equipment Social History Tobacco Use [...] Description 05/04/2025 1:30 PM EST Office Visit [facility] ADULT DENTAL [address] [place] [address] Shahrzad Johnson [address] [place] [address] 05/25/2025 10:00 AM EST Telemedicine [facility] PEDS [address] [place] [address] Nolvia Gonzalez, DONAVAN [address] [place] [address] documented as of this encounter Visit Diagnoses Not on filedocumented in this encounter Care Teams Button Pusher Relationship Specialty Start Date End Date Nicolle Pretty MD [address] [place] [address] PCP - General Family Medicine 04/29/12 04/13/25 Adonay London CNP [address] [place] [address] PCP - General Family Medicine 04/14/25 Dr. choudhary Consulting Physician 09/13/23 Dr. Cloud Consulting Physician Hematology 09/13/23 Dr. Adam Miller Consulting Physician Endocrinology 09/13/23 documented as of this encounter
--- OUTSIDE RECORDS SUMMARY | 2025-04-27 14:50 | XMS_ITS | Encounter Summary ---
Author Organization [employer] Address [address] [place] [address] 7 [place] [address] Care Team Providers Care Certified Nursing Attendant Name Role Phone Nicolle Pretty MD Primary Care Provider [phone] Adonay London CNP Primary Care Provider [phone] Reason for Visit * Reason Comments Med Refill Encounter Details Date Type Department Care Team (Late Contact Info) Description 01/31/2023 Refill [facility] MED & PEDS [address] [place] [address] Nicolle Pretty MD 505 [place] [address] Anxiety disorder, unspecified Social History Tobacco Use [...] Department Care Team (Late Contact Info) Description 05/04/2025 1:30 PM EST Office Visit [facility] ADULT DENTAL [address] [place] [address] Shahrzad Johnson 230 [place] [address] 05/25/2025 10:00 AM EST Telemedicine [facility] MED & PEDS 505 [place] [address] Nolvia Gonzalez, RN 505 [place] [address] documented as of this encounter Visit Diagnoses Diagnosis Anxiety disorder, unspecified documented in this encounter Care Teams Certified Nursing Attendant Relationship Specialty Start Date End Date Nicolle Pretty MD [address] [place] [address] PCP - General Family Medicine 04/29/12 04/13/25 Adonay London CNP 505 [place] [address] PCP - General Family Medicine 04/14/25 Dr. choudhary Consulting Physician 09/13/23 Dr. Cloud Consulting Physician Hematology 09/13/23 Dr. Adam Miller Consulting Physician Endocrinology 09/13/23 documented as of this encounter
--- OUTSIDE RECORDS SUMMARY | 2025-04-27 14:50 | XMS_ITS | Encounter Summary ---
Author Organization [employer] Address [address] [place] [address] 7 [place] [address] Care Team Providers Care Clinical Project Manager Name Role Phone Nicolle Pretty MD Primary Care Provider [phone] Adonay London CNP Primary Care Provider [phone] Encounter Details Date Type Department Care Team (Latest Contact Info) Description 07/28/2020 Abstract [facility] CONVERSIONS Dental, Provider, DDS Social History [...] Upcoming Encounters Date Type Department Care Team ([facility] st Contact Info) Description 05/04/2025 1:30 PM EST Office Visit [facility] ADULT DENTAL [address] [place] [address] Elizabeth, Shahrzad 230 [place] [address] 05/25/2025 10:00 AM EST Telemedicine [facility] CHC MED & PEDS 505 [place] [address] Nolvia Gonzalez, DONAVAN 505 [place] [address] documented as of this encounter Visit Diagnoses Not on filedocumented in this encounter Care Teams Clinical Project Manager Relationship Specialty Start Date End Date Nicolle Pretty MD 230 [place] [address] PCP - General Family Medicine 04/29/12 04/13/25 Adonay London CNP [address] [place] [address] PCP - General Family Medicine 04/14/25 Dr. choudhary Consulting Physician 09/13/23 Dr. Cloud Consulting Physician Hematology 09/13/23 Dr. Adam Miller Consulting Physician Endocrinology 09/13/23 documented as of this encounter
--- OUTSIDE RECORDS SUMMARY | 2025-04-27 14:50 | XMS_ITS | Encounter Summary ---
Author Organization [employer] Address [address] [facility] 7t [place] [address] Care Team Providers Care Teachers Aide Name Role Phone Nicolle Pretty MD Primary Care Provider [phone] Adonay London CNP Primary Care Provider [phone] Reason for Visit * Reason Onset Date Comments Med Refill 12/25/2024 Encounter Details Date Type Department Care Team (Late st Contact Info) Description 12/25/2024 Telephone [facility] MEDICINE 230 [place] [address] Nicolle Pretty MD 505 [place], [place] [id number] Med Refill Social History Tobacco Use Types Packs/Day Years [...] encounter Miscellaneous Notes * Telephone Encounter - Cameron Mcnally - 12/25/2024 12:45 PM EDT TC from pt requesting medication refill. Medications needing refill : clonazePAM (KlonoPIN) 0.5 MG tablet To be sent to: [facility] documented in this encounter Plan of Treatment Upcoming Encounters Date Type Department Care Team (Late st Contact Info) Description 05/04/2025 1:30 PM EST Office Visit [facility] ADULT DENTAL [address] [place] [address] Elizabeth, Shahrzad 230 [place] [address] 05/25/2025 10:00 AM EST Telemedicine [facility] CHC MED & PEDS 505 [place] [address] Nolvia Gonzalez, DONAVAN 505 [place] [address] documented as of this encounter Visit Diagnoses Not on filedocumented in this encounter Additional Health Concerns Assessment Noted Time PHQ-9 Depression Total Score: 3 10/17/19 25 11:17 AM EDT documented as of this encounter Care Teams Teachers Aide Relationship Specialty Start Date End Date Nicolle Pretty MD [address] [place] [address] PCP - General Family Medicine 04/29/12 04/13/25 Adonay London CNP [address] [place] [address] PCP - General Family Medicine 04/14/25 Dr. choudhary Consulting Physician 09/13/23 Dr. Cloud Consulting Physician Hematology 09/13/23 Dr. Adam Miller Consulting Physician Endocrinology 09/13/23 documented as of this encounter
--- OUTSIDE RECORDS SUMMARY | 2025-04-27 14:50 | XMS_ITS | Encounter Summary ---
Author Organization [employer] Address [address] [place] [address] 7 [place] [address] Care Team Providers Care Production Technician Name Role Phone Nicolle Pretty MD Primary Care Provider [phone] Adonay London CNP Primary Care Provider [phone] Encounter Details Date Type Department Care Team (Latest Contact Info) Description 01/26/2022 Abstract [facility] CONVERSIONS Dental, Provider, DDS Social History [...] Upcoming Encounters Date Type Department Care Team ([facility] st Contact Info) Description 05/04/2025 1:30 PM EST Office Visit [facility] ADULT DENTAL 230 [place] [address] Elizabeth, Shahrzad 230 [place] [address] 05/25/2025 10:00 AM EST Telemedicine [facility] CHC MED & PEDS 505 [place] [address] Nolvia Gonzalez, DONAVAN 505 [place] [address] documented as of this encounter Visit Diagnoses Not on filedocumented in this encounter Care Teams Production Technician Relationship Specialty Start Date End Date Nicolle Pretty MD 230 [place] [address] PCP - General Family Medicine 04/29/12 04/13/25 Adonay London CNP [address] [place] [address] PCP - General Family Medicine 04/14/25 Dr. choudhary Consulting Physician 09/13/23 Dr. Cloud Consulting Physician Hematology 09/13/23 Dr. Adam Miller Consulting Physician Endocrinology 09/13/23 documented as of this encounter
--- OUTSIDE RECORDS SUMMARY | 2025-04-27 14:50 | XMS_ITS | Encounter Summary ---
Author Organization [employer] Address [address] [facility] [address] 7t [place] [address] Care Team Providers Care Customer Resolution Specialist Name Role Phone Nicolle Pretty MD Primary Care Provider [phone] Adonay London CNP Primary Care Provider [phone] Reason for Visit * Reason Onset Date Comments Appointment Request 01/29/2024 Encounter Details Date Type Department Care Team ([facility] st Contact Info) Description 01/29/2024 Telephone [facility] MEDICINE 230 [place] [address] Nicolle Pretty MD 505 [place], [place] [phone] Appointment Request Social History Tobacco Use Types [...] encounter Miscellaneous Notes * Telephone Encounter - Maldonadobetsymikhailtyra Martir Diana - 01/29/2024 11:23 AM EDT Tc from pt sister requesting to r/s MANUFACTURING PLANT CONTROLLER appt for 01/30/24 due to Brother being COVID POSITIVE documented in this encounter Plan of Treatment Upcoming Encounters Date Type Department Care Team (Late st Contact Info) Description 05/04/2025 1:30 PM EST Office Visit [facility] ADULT DENTAL 230 [place] [address] Elizabeth, Shahrzad [address] [place] [address] 05/25/2025 10:00 AM EST Telemedicine [facility] CHC MED & PEDS [address] [place] [address] Nolvia Gonzalez, RN 505 [place] [address] documented as of this encounter Visit Diagnoses Not on filedocumented in this encounter Care Teams Customer Resolution Specialist Relationship Specialty Start Date End Date Nicolle Pretty MD 230 [place] [address] PCP - General Family Medicine 04/29/12 04/13/25 Adonay London CNP 505 [place] [address] PCP - General Family Medicine 04/14/25 Dr. choudhary Consulting Physician 09/13/23 Dr. Cloud Consulting Physician Hematology 09/13/23 Dr. Adam Miller Consulting Physician Endocrinology 09/13/23 documented as of this encounter
== END 2025-04-27 13:01 | disposition home or self-care (01) ==
LOC: HO.ENCR 12:43
PROVIDERS: Visit Provider Internal Medicine Endocrinology, Diabetes & Metabolism
DX: M81.0 Age-related osteoporosis without current pathological fracture (principal)
CPT/HCPCS: 99213

== ENCOUNTER → 2025-04-27 12:43 | Outpatient (BNVA) | payer OTHER, SELFPAY | PROVIDERS: Visit Provider Internal Medicine Endocrinology, Diabetes & Metabolism | DX: M81.0 Age-related osteoporosis without current pathological fracture (principal); G80.9 Cerebral palsy, unspecified; E21.3 Hyperparathyroidism, unspecified; Z90.89 Acquired absence of other organs | CPT/HCPCS: 99212 ==

== ENCOUNTER 2025-05-15 10:48 | Outpatient (REF) | payer OTHER, SELFPAY ==
--- OUTSIDE RECORDS SUMMARY | 2025-05-15 10:51 | XMS_ITS | Encounter Summary ---
Author Organization [employer] Address [address] [place] [address] 7 [place] [address] Care Team Providers Care Foam Tank Laminator Name Role Phone Nicolle Pretty MD Primary Care Provider [phone] Adonay London CNP Primary Care Provider [phone] Encounter Details Date Type Department Care Team (Latest Contact Info) Description 07/28/2020 Abstract [facility] CONVERSIONS Dental, Provider, DDS Social History [...] Upcoming Encounters Date Type Department Care Team ( st Contact Info) Description 05/19/2025 2:45 PM EST Office Visit [facility] MED & PEDS [address] [place] [address] Adonay London CNP 505 [place] [address] 05/25/2025 10:00 AM EST Telemedicine [facility] MED & PEDS 505 [place] [address] Nolvia Gonzalez, DONAVAN 505 [place] [address] 07/14/2025 12:45 PM EST Office Visit [facility] ADULT DENTAL 230 [place] [address] Shahrzad Johnson 230 [place] [address] documented as of this encounter Visit Diagnoses Not on filedocumented in this encounter Care Teams Foam Tank Laminator Relationship Specialty Start Date End Date Nicolle Pretty MD 230 [place] [address] PCP - General Family Medicine 04/29/12 04/13/25 Adonay London CNP [address] [place] [address] PCP - General Family Medicine 04/14/25 Dr. choudhary Consulting Physician 09/13/23 Dr. Cloud Consulting Physician Hematology 09/13/23 Dr. Adam Miller Consulting Physician Endocrinology 09/13/23 documented as of this encounter
--- OUTSIDE RECORDS SUMMARY | 2025-05-15 10:51 | XMS_ITS | Encounter Summary ---
Author Organization [employer] Address [address] [place] [address] 7 [place] [address] Care Team Providers Care Middle School Librarian Name Role Phone Nicolle Pretty MD Primary Care Provider [phone] Adonay London CNP Primary Care Provider [phone] Encounter Details Date Type Department Care Team (Latest Contact Info) Description 07/01/2018 Abstract [facility] CONVERSIONS Dental, Provider, DDS Social History Tobacco [...] Upcoming Encounters Date Type Department Care Team ([facility] st Contact Info) Description 05/19/2025 2:45 PM EST Office Visit [facility] MED & PEDS 505 [place] [address] Adonay London CNP 505 [place] [address] 05/25/2025 10:00 AM EST Telemedicine [facility] MED & PEDS 505 [place] [address] Nolvia Gonzalez, DONAVAN 505 [place] [address] 07/14/2025 12:45 PM EST Office Visit [facility] ADULT DENTAL [address] [place] [address] Shahrzad Johnson [address] [place] [address] documented as of this encounter Visit Diagnoses Not on filedocumented in this encounter Care Teams Middle School Librarian Relationship Specialty Start Date End Date Nicolle Pretty MD 230 [place] [address] PCP - General Family Medicine 04/29/12 04/13/25 Adonay London CNP [address] [place] [address] PCP - General Family Medicine 04/14/25 Dr. choudhary Consulting Physician 09/13/23 Dr. Cloud Consulting Physician Hematology 09/13/23 Dr. Adam Miller Consulting Physician Endocrinology 09/13/23 documented as of this encounter
--- OUTSIDE RECORDS SUMMARY | 2025-05-15 10:51 | XMS_ITS | Encounter Summary ---
Author Organization [employer] Address [address] [place] [address] 7 [place] [address] Care Team Providers Care Commercial Subcontractor Name Role Phone Nicolle Pretty MD Primary Care Provider Adonay London CNP Primary Care Provider [phone] Encounter Details Date Type Department Care Team (Latest Contact Info) Description 01/26/2022 Abstract [facility] CONVERSIONS Dental, Provider, DDS Social History Tobacco [...] Description 05/19/2025 2:45 PM EST Office Visit [facility] MED & PEDS 505 [place] [address] Adonay London CNP 505 [place] [address] 05/25/2025 10:00 AM EST Telemedicine [facility] MED & PEDS 505 [place] [address] Nolvia Gonzalez, DONAVAN 505 [place] [address] 07/14/2025 12:45 PM EST Office Visit [facility] ADULT DENTAL [address] [place] [address] Shahrzad Johnson [address] [place] [address] documented as of this encounter Visit Diagnoses Not on filedocumented in this encounter Care Teams Commercial Subcontractor Relationship Specialty Start Date End Date Nicolle Pretty MD 230 [place] [address] PCP - General Family Medicine 04/29/12 04/13/25 Adonay London CNP [address] [place] [address] PCP - General Family Medicine 04/14/25 Dr. choudhary Consulting Physician 09/13/23 Dr. Cloud Consulting Physician Hematology 09/13/23 Dr. Adam Miller Consulting Physician Endocrinology 09/13/23 documented as of this encounter
--- OUTSIDE RECORDS SUMMARY | 2025-05-15 10:51 | XMS_ITS | Encounter Summary ---
Author Organization [employer] Address [address] [facility] [address] 7t [place] [address] Care Team Providers Care Refrigeration Supervisor Name Role Phone Nicolle Pretty MD Primary Care Provider [phone] Adonay London CNP Primary Care Provider [phone] Encounter Details Date Type Department Care Team ([facility] st Contact Info) Description 07/15/2024 Orders Only [facility] CHC MED & PEDS [address] [place], [place] [phone] Nicolle Pretty MD 505 [place], [place] [phone] Social History Tobacco Use Types Packs/Day Years [...] Care Team (Late st Contact Info) Description 05/19/2025 2:45 PM EST Office Visit [facility] MED & PEDS 505 [place] [address] Adonay London CNP 505 [place] [address] 05/25/2025 10:00 AM EST Telemedicine [facility] MED & PEDS 505 [place] [address] Nolvia Gonzalez RN 505 [place] [address] 07/14/2025 12:45 PM EST Office Visit [facility] ADULT DENTAL [address] [place] [address] Elizabeth, Shahrzad [address] [place] [address] documented as of this encounter Visit Diagnoses Not on filedocumented in this encounter Care Teams Refrigeration Supervisor Relationship Specialty Start Date End Date Nicolle Pretty MD 230 [place] [address] PCP - General Family Medicine 04/29/12 04/13/25 Adonay London CNP [address] [place] [address] PCP - General Family Medicine 04/14/25 Dr. choudhary Consulting Physician 09/13/23 Dr. Cloud Consulting Physician Hematology 09/13/23 Dr. Adam Miller Consulting Physician Endocrinology 09/13/23 documented as of this encounter
--- OUTSIDE RECORDS SUMMARY | 2025-05-15 10:51 | XMS_ITS | Clinical Summary ---
Author Organization [employer] Address [address] [facility] 7t [place] [address] Care Team Providers Care Field Tech Name Role Phone Adonay London TORSTEN Primary Care Provider [phone] Allergies No known active allergies Medications lansoprazole [...] Encounters Date Type Department Care Team Description 05/07/2025 Patient Outreach [facility] MEDICINE [address] [place] [address] Adonay London CNP Pre-visit Planning (SDOH screening completed on 10/16/24 ) 05/05/2025 Telephone [facility] MED & PEDS 505 [place] [address] Adonay London CNP Appointment Request 04/22/2025 Refill [facility] MEDICINE [address] [place] [address] Nicolle Pretty MD Seborrheic dermatitis; Anxiety 03/26/2025 Refill [facility] MEDICINE [address] [place] [address] Nicolle Pretty MD Seborrheic dermatitis; Anxiety 02/26/2025 2:00 PM EDT Office Visit [facility] OPTOMETRY [address] [place] [address] Whitney Mejía, OD Optic atrophy (Primary Dx); Dry eyes; Myopia of both eyes 02/26/2025 Travel 02/25/2025 Refill [facility] MEDICINE [address] [place] [address] Bessie Mishra MD Seborrheic dermatitis 02/25/2025 Refill [facility] CHC MED & PEDS [address] [place] [address] Matthieu Keller MD Anxiety from Last 3 [...] Description 05/19/2025 2:45 PM EST Office Visit [facility] MED & PEDS 505 [place] [address] Adonay London, TORSTEN 505 [place] [address] 05/25/2025 10:00 AM EST Telemedicine [facility] MED & PEDS 505 [place] [address] Nolvia Gonzalez, RN 505 [place] [address] 07/14/2025 12:45 PM EST Office Visit [facility] ADULT DENTAL [address] [place] [address] Elizabeth Shahrzad [address] [place] [address] Health Maintenance Due Date Last Done Comments [...] 05/22/2024, 0 02/20/2024, 11/02/2023, Additional history exists COVID-19 Vaccine (2024- season) 2025 04/24/2024, 05/17/2022, 05/17/2022, Additional history exists Depression Screening 10/16/2025 10/16/2024, 10/17/19 25 Disability Screening 10/16/2025 10/16/2024 SDOH Screening 10/16/2025 10/16/2024 Tobacco Screening 12/22/2025 12/22/2024 Dental X-Ray: Full Mouth 11/02/2026 11/02/2023, 09/2015 Zoster Vaccines (1 of 2) 2026 DTaP/Tdap/Td Vaccines (2 - Td or Tdap) 03/06/2027 03/06/2017 Lipid Panel 07/14/2029 07/14/2024, 12/11/2021, 12/14/2021 RSV Patients and Patients Aged 60 years or older (1 - 1-dose 75+ series) 11/12/2051 Pneumococcal Vaccine: Pediatrics (0 to 5 Years) and At-Risk Patients (6 to 49) Years Aged Out 01/15/2015 No longer eligible based on patient's age to complete this topic Influenza Vaccine Completed 03/10/2025, , 03/19/2023, Additional history exists HIB Vaccines Aged Out [...] 12:05 PM EST) Triglycerides 368(H) <150 mg/dL [facility] Comment:Desirable Triglyceri de: less than 150 mg/dLBorderline High Triglyceride 150-199 mg/dLHigh Triglyceride: 200-499 mg/dLVery High Triglyceride: greater than or equal to 5OO mg/dL Cholesterol 142 <200 mg/dL [facility] Comment:Desirable Cholestero l: less than 200 mg/dLBorderline High Cholesterol: 200-239 mg/dLHigh Cholesterol: greater than 239 mg/dL LDL Cholesterol Calculated 34 <100 mg/dL [facility] Comment:Desirable LDL: less than 100 mg/dLNear Optimal/Above Optimal LDL: 110- 129 mg/dLBorderline High LDL: 130-159 mg/dLHigh LDL: 160-189 mg/dLVery High LDL: greater than or equal to 190 mg/dL HDL Cholesterol 35(L) >40 mg/dL [facility] Comment:Desirable HDL: great er than 40 mg/dL Note: This HDL assay may give artificially low results in patients with liver disease. Blood Venous blood specimen / Unknown 07/14/2024 12:05 PM EST 07/14/2024 1:22 PM EST us Nicolle Pretty MD LAB BLOOD ORDERABLES Final Resul t [facility] [address] [place] [address] [phone] from Last 3 Months or Most Recently Relevant to Health Maintenance Insurance [facility] [address] [id number] [facility] Care Teams Field Tech Relationship Specialty Start Date End Date Surya MjeduardosampsonTORSTEN [address] [place] [address] PCP - General Family Medicine 04/14/25 Dr. choudhary Consulting Physician 09/13/23 Dr. Cloud Consulting Physician Hematology 09/13/23 Dr. Adam Miller Consulting Physician Endocrinology 09/13/23
--- OUTSIDE RECORDS SUMMARY | 2025-05-15 10:52 | XMS_ITS | Encounter Summary ---
Author Organization [employer] Address [address] [place] [address] [address] [place] [address] Care Team Providers Care Wearing Apparel Assembler Name Role Phone Nicolle Pretty MD Primary Care Provider [phone] Adonay London CNP Primary Care Provider [phone] Reason for Visit * Reason Comments Med Refill Encounter Details Date Type Department Care Team (Late Contact Info) Description 01/31/2023 Refill [facility] MED & PEDS [address] [place] [address] Nicolle Pretty MD 505 [place] [address] Anxiety disorder, unspecified Social History Tobacco Use [...] Department Care Team (Late Contact Info) Description 05/19/2025 2:45 PM EST Office Visit [facility] MED & PEDS [address] [place] [address] Adonay London CNP 505 [place] [address] 05/25/2025 10:00 AM EST Telemedicine [facility] [address] [place] [address] Nolvia Gonzalez, DONAVAN 505 [place] [address] 07/14/2025 12:45 PM EST Office Visit [facility] [address] [place] [address] Elizabeth, Shahrzad [address] [place] [address] documented as of this encounter Visit Diagnoses Diagnosis Anxiety disorder, unspecified documented in this encounter Care Teams Wearing Apparel Assembler Relationship Specialty Start Date End Date Nicolle Pretty MD [address] [place] [address] PCP - General Family Medicine 04/29/12 04/13/25 Adonay London CNP 505 [place] [address] PCP - General Family Medicine 04/14/25 Dr. choudhary Consulting Physician 09/13/23 Dr. Cloud Consulting Physician Hematology 09/13/23 Dr. Adam Miller Consulting Physician Endocrinology 09/13/23 documented as of this encounter
--- OUTSIDE RECORDS SUMMARY | 2025-05-15 10:52 | XMS_ITS | Clinical Summary ---
Author Organization [facility] Address [address] [facility] [address] [place] [address] Phone Care Team Providers Care Catalyst Concentration Operator Name Role Phone Nicolle Pretty MD Primary Care Provider [phone] Social History Tobacco Use Types Packs/Day Years Used Date Smoking Tobacco: Never Assessed Education Answer Date Recorded Are you interested in more education? Not on sachin e 10/13/2022 Are you concerned about learning? Not on file 10/13/2022 No 10/13/2022 No 10/13/2022 Digital Access Answer Date Recorded No 11/10/2022 No 11/10/2022 No 11/10/2022 Reliable internet access at home? Not on file 11/10/2022 Device with a working camera? Not on file Sex and Gender Information Value Date Recorded Sex Assigned at Not on file Legal Sex Male 9:26 PM EDT Gender Identity Not on file Sexual Orientation Not on file Plan of Treatment Health Maintenance Due Date Last Done Comments Adult Td,Tdap Booster 1976 LIPID PANEL 1976 DEPRESSION SCREENING 1988 SMOKING Hx and SMOKELESS TOBACCO SCREENING 1989 HEPATITIS C SCREENING 1994 HIV ONE-TIME SCREENING (18-6 5 YEARS) 1994 COLOGUARD 2021 COLONOSCOPY 2021 COLORECTAL CANCER SCREENING 2021 FIT TEST 2021 FOBT 2021 SIGMOIDOSCOPY 2021 VIRTUAL COLONOSCOPY 2021 INFLUENZA VACCINE (#1) 2025 0, 03/25/2019 COVID-19 VACCINE (2 - 2024-2 6 season) 2025 09/28/2020 PNEUMOCOCCAL VACCINES (0-49 years) Aged Out 01/15/2015 No longer eligible b ased on patient's age to complete this topic HEPATITIS A VACCINES Aged Out No long er eligible based on patient's age to complete this topic HIB VACCINES Aged Out No longer eligi ble based on patient's age to complete this topic MENINGOCOCCAL VACCINES (ACWY) Aged Out No longer eligible based on patient's age to complete this topic MENINGOCOCCAL VACCINES (B) Aged Out N o longer eligible based on patient's age to complete this topic Medical Devices Not on file Insurance [facility] MEDICARE REPLACEMENT MANASA REMY [id number] [facility] MEDICARE REPLACEMENT [facility] MEDICARE REPLACEMENT MEDICARE [place] [address] [place] [address] MEDICARE REPLACEMENT [facility] MEDICARE [place] [address] [place] [address] [place] [place] [address] MEDICARE REPLACEMENT [facility] MEDICARE REPLACEMENT MANASA REMY [facility] Care Teams Catalyst Concentration Operator Relationship Specialty Start Date End Date Nicolle Pretty MD [address] [place] [address] PCP - General Family Medicine 03/31/20 Additional Source Comments The information contained in this document represents components of the legal health record. It is not the complete legal health record.[facility]
--- OUTSIDE RECORDS SUMMARY | 2025-05-15 10:52 | XMS_ITS | Patient Health Record ---
Demographics Address [address] [place] [address] Mobile Preferred Language Unknown Marital Status unmarried Presybeterian Affiliation Unknown Race Unknown Ethnic Group Refused to Report Author Organization [facility] Address [address] [place] [address] Care Team Providers Care Gang Rider Name Role Phone Rayray Muñoz MD Primary Care Provider Robin Rios [phone] Reason For Referral No Information Plan Of Treatment No Information Insurance Providers Payer Name Payer Address Payer Phone Subscriber Number Group Number Insured Name Patient Relationship to Insured Coverage Start Date Coverage End Date MEDICARE OF [place] [address] [place] [phone] [id number] MIKALA MACHADO Self - patient is the insured MEDICAID OF [facility] [address] [place] [phone] [id number] MIKALA MACHADO Self - patient is the insured
--- OUTSIDE RECORDS SUMMARY | 2025-05-15 10:52 | XMS_ITS | Encounter Summary ---
Author Organization [employer] Address [address] 7t [place] [address] Care Team Providers Care Cross Country Truck Driver Name Role Phone Nicolle Pretty MD Primary Care Provider [phone] Adonay London CNP Primary Care Provider [phone] Reason for Visit * Reason Onset Date Comments Appointment Request 01/29/2024 Encounter Details Date Type Department Care Team ([facility] st Contact Info) Description 01/29/2024 Telephone [facility] MEDICINE [address] [place] [address] Nicolle Pretty MD 505 [place], [place] [phone] Appointment Request Social History Tobacco Use Types [...] Tc from pt sister requesting to r/s HUM[employer] TEMP appt for 01/30/24 due to Brother being COVID POSITIVE documented in this encounter Plan of Treatment Upcoming Encounters Date Type Department Care Team (Late st Contact Info) Description 05/19/2025 2:45 PM EST Office Visit [facility] MED & PEDS 505 [place] [address] Adonay London CNP 505 [place] [address] 05/25/2025 10:00 AM EST Telemedicine [facility] MED & PEDS [address] [place] [address] Nolvia Gonzalez, RN 505 [place] [address] 07/14/2025 12:45 PM EST Office Visit [facility] ADULT DENTAL [address] [place] [address] Elizabeth, Shahrzad [address] [place] [address] documented as of this encounter Visit Diagnoses Not on filedocumented in this encounter Care Teams Cross Country Truck Driver Relationship Specialty Start Date End Date Nicolle Pretty MD [address] [place] [address] PCP - General Family Medicine 04/29/12 04/13/25 Adonay London CNP [address] [place] [address] PCP - General Family Medicine 04/14/25 Dr. choudhary Consulting Physician 09/13/23 Dr. Cloud Consulting Physician Hematology 09/13/23 Dr. Adam Miller Consulting Physician Endocrinology 09/13/23 documented as of this encounter
--- OUTSIDE RECORDS SUMMARY | 2025-05-15 10:52 | XMS_ITS | Encounter Summary ---
Author Organization [employer] Address [address] [facility] 7t [place] [address] Care Team Providers Care Cold Working Supervisor Name Role Phone Nicolle Pretty MD Primary Care Provider [phone] Adonay London CNP Primary Care Provider [phone] Reason for Visit * Reason Onset Date Comments Durable Medical Equipment 12/31/2023 Encounter Details Date Type Department Care Team ([facility] st Contact Info) Description 12/31/2023 Telephone [facility] MEDICINE [address] [place] [address] Nicolle Pretty MD 505 [place], [place] [phone] Durable Medical Equipment Social History Tobacco Use [...] advise, tc from [facility] at [facility]. Requesting for medical necessity letter for air [...] Description 05/19/2025 2:45 PM EST Office Visit [facility] & [facility]EDS [address] [place] [address] Adonay London CNP 505 [place] [address] 05/25/2025 10:00 AM EST Telemedicine [facility] MED [facility] [address] [place] [address] Nolvia Gonzalez RN 505 [place] [address] 07/14/2025 12:45 PM EST Office Visit [facility] ADULT DENTAL [address] [place] [address] Shahrzad Johnson 230 [place] [address] documented as of this encounter Visit Diagnoses Not on filedocumented in this encounter Care Teams Cold Working Supervisor Relationship Specialty Start Date End Date Nicolle Pretty MD [address] [place] [address] PCP - General Family Medicine 04/29/12 04/13/25 Adonay London CNP [address] [place] [address] PCP - General Family Medicine 04/14/25 Dr. choudhary Consulting Physician 09/13/23 Dr. Cloud Consulting Physician Hematology 09/13/23 Dr. Adam Miller Consulting Physician Endocrinology 09/13/23 documented as of this encounter
--- OUTSIDE RECORDS SUMMARY | 2025-05-15 10:52 | XMS_ITS | Encounter Summary ---
Author Organization [facility] Address [address] [facility] [address] [place] [address] Phone Care Team Providers Care Chimney Supervisor Brick Name Role Phone Nicolle Pretty MD Primary Care Provider [phone] Reason for Referral * Occupational Therapy (Routine) - Denied Specialty Diagnoses / Procedures Referred By Savana francois Referred To Contact Occupational Therapy Diagnoses Encounter for rehabilitation Cerebral Palsy Nicolle Pretty MD Phone: tel: fax: [address] [address] Phone: tel: Referral ID Status Reason Start Date Expiration Date Visits Re quested Visits Authorized [id number] Denied 03/31/2020 03/31/2021 1 0 Encounter Details Date Type Department Care Team (Latest Contact Info) Description 03/31/2020 Transcribe Orders [facility] [address] [place] [address] Nicolle Pretty MD [address] [place] [address] Encounter for rehabilitation (Primary Dx) Social History [...] Diagnoses Orde r Schedule Ambulatory referral to [facility] Occupational Therapy Outpatient Referral Routine Encounter for rehabilitation Ordered: 03/31/2020 documented as of this encounter Visit Diagnoses Diagnosis Encounter for rehabilitation- Primary documented in this encounter Care Teams Chimney Supervisor Brick Relationship Specialty Start Date End Date Nicolle Pretty MD [address] [place] [address] PCP - General Family Medicine 03/31/20 documented as of this encounter Additional Source Comments The information contained in this document represents components of the legal health record. It is not the complete legal health record.[facility]
--- OUTSIDE RECORDS SUMMARY | 2025-05-15 10:52 | XMS_ITS | Encounter Summary ---
Author Organization [employer] Address [address] [facility] 7t [place] [address] Care Team Providers Care Kidney Trimmer Name Role Phone Nicolle Pretty MD Primary Care Provider [phone] Adonay London CNP Primary Care Provider [phone] Reason for Visit * Reason Onset Date Comments Durable Medical Equipment 08/14/2023 Encounter Details Date Type Department Care Team ([facility] st Contact Info) Description 08/14/[address] [facility] MEDICINE [address] [place] [address] Nicolle Pretty MD 505 [place], [place] [phone] Durable Medical Equipment Social History Tobacco Use [...] Description 05/19/2025 2:45 PM EST Office Visit [facility] MED & PEDS [address] [place] [address] Adonay London CNP 505 [place] [address] 05/25/2025 10:00 AM EST Telemedicine [facility] MED & PEDS [address] [place] [address] Nolvia Gonzalez RN 505 [place] [address] 07/14/2025 12:45 PM EST Office Visit [facility] ADULT DENTAL [address] [place] [address] Bradford Johnsonaris [address] [place] [address] documented as of this encounter Visit Diagnoses Not on filedocumented in this encounter Care Teams Kidney Trimmer Relationship Specialty Start Date End Date Nicolle Pretty MD 230 [place] [address] PCP - General Family Medicine 04/29/12 04/13/25 Adonay London CNP [address] [place] [address] PCP - General Family Medicine 04/14/25 Dr. choudhary Consulting Physician 09/13/23 Dr. Cloud Consulting Physician Hematology 09/13/23 Dr. Adam Miller Consulting Physician Endocrinology 09/13/23 documented as of this encounter
--- OUTSIDE RECORDS SUMMARY | 2025-05-15 10:52 | XMS_ITS | Encounter Summary ---
Author Organization [employer] Address [address] [facility] 7t [place] [address] Care Team Providers Care Industrial Court Magistrate Name Role Phone Nicolle Pretty MD Primary Care Provider [phone] Adonay London CNP Primary Care Provider [phone] Reason for Visit * Reason Onset Date Comments Med Refill 12/25/2024 Encounter Details Date Type Department Care Team (Late st Contact Info) Description 12/25/2024 Telephone [facility] MED[facility]INE [address] [place] [address] Nicolle Pretty MD 505 [place], [place] [phone] Med Refill Social History Tobacco Use Types [...] 0.5 MG tablet To be sent to: [facility] documented in this encounter Plan of Treatment Upcoming Encounters Date Type Department Care Team (Late st Contact Info) Description 05/19/2025 2:45 PM EST Office Visit [facility] MED & PEDS 505 [place] [address] Adoany London CNP 505 [place] [address] 05/25/2025 10:00 AM EST Telemedicine [facility] MED & PEDS 505 [place] [address] Nolvia Gonzalez RN 505 [place] [address] 07/14/2025 12:45 PM EST Office Visit [facility] ADULT DENTAL [address] [place] [address] Shahrzad Johnson 230 [place] [address] documented as of this encounter Visit Diagnoses Not on filedocumented in this encounter Additional Health Concerns Assessment Noted Time PHQ-9 Depression Total Score: 3 10/17/19 25 11:17 AM EDT documented as of this encounter Care Teams Industrial Court Magistrate Relationship Specialty Start Date End Date Nicolle Pretty MD [address] [place] [address] PCP - General Family Medicine 04/29/12 04/13/25 Adonay London CNP [address] [place] [address] PCP - General Family Medicine 04/14/25 Dr. choudhary Consulting Physician 09/13/23 Dr. Cloud Consulting Physician Hematology 09/13/23 Dr. Adam Miller Consulting Physician Endocrinology 09/13/23 documented as of this encounter
[2025-05-15 12:10] LABS: Albumin Level 4.8 g/dL (3.5-5.0); Anion Gap 13 (12-20); Blood Urea Nitrogen 14 mg/dL (9-16); Calcium 9.2 mg/dL (8.4-10.2); Carbon Dioxide 26 mmol/L (22-29); Chloride 106 mmol/L (96-108); Estimated Glomerular Filt Rate > 60; Potassium 4.3 mmol/L (3.3-5.1); Sodium 141 mmol/L (135-145)
== END 2025-05-15 10:49 | disposition home or self-care (01) ==
LOC: HO.LABR 10:48
PROVIDERS: Visit Provider Internal Medicine Endocrinology, Diabetes & Metabolism
DX: M81.0 Age-related osteoporosis without current pathological fracture (principal)
CPT/HCPCS: 36415; 80048; 82040

== ENCOUNTER 2025-05-20 14:44 | Outpatient (AMB) | payer OTHER, SELFPAY ==
--- NOTE | 2025-05-20 15:17 | AM.OFFVISNUR ---
Intake Visit Reasons: 1st Prolia Injection Allergies No Known Allergies (No Known Allergies*) Allergy (Verified 04/27/25 12:54) Office Meds Prolia 60 mg/mL subcutaneous syringe Performing Provider: Robin Miller MD Performing Location: [facility] Endocrinology Administered by: Caro Bolton RN on 05/20/25 15:05 Dose Route Admin Location Dispensed Lot Number Expiration Date NDC New Car Make Ready Mechanic 60 mg subcut right upper arm 1 mL [id number] 06/17/27 07481-498-58 [facility] Total Dispensed Waste 1 mL 0 % Comments: Pt accompanied by mother. software designer via video call was used to interpret visit. ID # [id number]. Pt tolerated injection well. Pt advised that common side effects of prolia are site reactions such as redness and swelling at the site and a slight bump that should go away over time. Other common side effects are muscle aches and joint pains that should resolve over time as well. Pt's mother advised to call the office should the patient experience side effects listed above that is not resolving. Pt and pt's mother confirmed understanding. Pt stayed for 15 mins after injection. No adverse reactions were observed and patient denied any difficulty breathing or shortness of breath. Pt stated that the site where the injection was given is a little sore but other than that he feels okay. I advised again to call the office if side effects are too overwhelming or not resolving and if the patient starts to feel short of breath, having difficulty breathing or any other signs of anaphylaxis to call 911. Pt and pt's mother confirmed understanding and had no further questions. Assessment & Plan Assessment & Plan Orders: Orders AMB Denosumab Injection Practice Supplied Today M81.0 - Age-related osteoporosis without current pathological fracture Coding
--- OUTSIDE RECORDS SUMMARY | 2025-05-20 17:37 | XMS_ITS | Encounter Summary ---
Author Organization [employer] Address [address] [place] [address] 7 [place] [address] Care Team Providers Care Heel Stainer Name Role Phone Nicolle Pretty MD Primary Care Provider [phone] Adonay London CNP Primary Care Provider [phone] Encounter Details Date Type Department Care Team (Latest Contact Info) Description 01/26/2022 Abstract [facility] CONVERSIONS Dental, Provider, DDS Social History Tobacco [...] Care Team ( st Contact Info) Description 05/25/2025 10:00 AM EST Telemedicine [facility] MED & PEDS [address] [place] [address] Nolvia Gonzalez, DONAVAN 505 [place] [address] 07/14/2025 12:45 PM EST Office Visit [facility] ADULT DENTAL 230 [place] [address] Elizabeth, Shahrzad [address] [place] [address] documented as of this encounter Visit Diagnoses Not on filedocumented in this encounter Care Teams Heel Stainer Relationship Specialty Start Date End Date Nicolle Pretty MD 230 [place] [address] PCP - General Family Medicine 04/29/12 04/13/25 Adonay London CNP [address] [place] [address] PCP - General Family Medicine 04/14/25 Dr. choudhary Consulting Physician 09/13/23 Dr. Cloud Consulting Physician Hematology 09/13/23 Dr. Adam Miller Consulting Physician Endocrinology 09/13/23 documented as of this encounter
--- OUTSIDE RECORDS SUMMARY | 2025-05-20 17:37 | XMS_ITS | Encounter Summary ---
Author Organization [employer] Address [address] [place] [address] 7 [place] [address] Care Team Providers Care Counter Installer Name Role Phone Nicolle Pretty MD Primary Care Provider [phone] Adonay London CNP Primary Care Provider [phone] Encounter Details Date Type Department Care Team (Latest Contact Info) Description 07/28/2020 Abstract [facility] CONVERSIONS Dental, Provider, [...] Info) Description 05/25/2025 10:00 AM EST Telemedicine [facility] MED & PEDS [address] [place] [address] Nolvia Gonzalez, DONAVAN 505 [place] [address] 07/14/2025 12:45 PM EST Office Visit [facility] ADULT DENTAL [address] [place] [address] Elizabeth, Shahrzad [address] [place] [address] documented as of this encounter Visit Diagnoses Not on filedocumented in this encounter Care Teams Counter Installer Relationship Specialty Start Date End Date Nicolle Pretty MD 230 [place] [address] PCP - General Family Medicine 04/29/12 04/13/25 Adonay London CNP [address] [place] [address] PCP - General Family Medicine 04/14/25 Dr. choudhary Consulting Physician 09/13/23 Dr. Cloud Consulting Physician Hematology 09/13/23 Dr. Adam Miller Consulting Physician Endocrinology 09/13/23 documented as of this encounter
--- OUTSIDE RECORDS SUMMARY | 2025-05-20 17:37 | XMS_ITS | Encounter Summary ---
Author Organization [employer] Address [address] [place] [address] 7 [place] [address] Care Team Providers Care Bench Press Operator Name Role Phone Nicolle Pretty MD Primary Care Provider [phone] Adonay London CNP Primary Care Provider [phone] Encounter Details Date Type Department Care Team (Latest Contact Info) Description 07/01/2018 Abstract [facility] CONVERSIONS Dental, Provider, DDS Social [...] Upcoming Encounters Date Type Department Care Team ([facility] st Contact Info) Description 05/25/2025 10:00 AM EST Telemedicine [facility] CHC MED & PEDS [address] [place] [address] Nolvia Gonzalez, DONAVAN 505 [place] [address] 07/14/2025 12:45 PM EST Office Visit [facility] ADULT DENTAL 230 [place] [address] Elizabeth, Shahrzad [address] [place] [address] documented as of this encounter Visit Diagnoses Not on filedocumented in this encounter Care Teams Bench Press Operator Relationship Specialty Start Date End Date Nicolle Pretty MD 230 [place] [address] PCP - General Family Medicine 04/29/12 04/13/25 Adonay London CNP [address] [place] [address] PCP - General Family Medicine 04/14/25 Dr. chouhdary Consulting Physician 09/13/23 Dr. Cloud Consulting Physician Hematology 09/13/23 Dr. Adam Miller Consulting Physician Endocrinology 09/13/23 documented as of this encounter
--- OUTSIDE RECORDS SUMMARY | 2025-05-20 17:37 | XMS_ITS | Encounter Summary ---
Author Organization [employer] Address [address] 7t [place] [address] Care Team Providers Care Monitor Car Operator Name Role Phone Nicolle Pretty MD Primary Care Provider [phone] Adonay London CNP Primary Care Provider [phone] Encounter Details Date Type Department Care Team ([facility] st Contact Info) Description 07/15/2024 Orders Only [facility] MED & PEDS [address] [place], [place] [phone] Nicolle Pretty MD 505 [place], [place] [phone] Social History Tobacco Use Types Packs/Day Years [...] Care Team (Late st Contact Info) Description 05/25/2025 10:00 AM EST Telemedicine [facility] MED [facility] PEDS 505 [place] [address] Nolvia Gonzalez, DONAVAN 505 [place] [address] 07/14/2025 12:45 PM EST Office Visit [facility] ADULT DENTAL 230 [place] [address] Elizabeth Shahrzad 230 [place] [address] documented as of this encounter Visit Diagnoses Not on filedocumented in this encounter Care Teams Monitor Car Operator Relationship Specialty Start Date End Date Nicolle Pretty MD [address] [place] [address] PCP - General Family Medicine 04/29/12 04/13/25 Adonay London CNP 505 [place] [address] PCP - General Family Medicine 04/14/25 Dr. choudhary Consulting Physician 09/13/23 Dr. Cloud Consulting Physician Hematology 09/13/23 Dr. Adam Miller Consulting Physician Endocrinology 09/13/23 documented as of this encounter
--- OUTSIDE RECORDS SUMMARY | 2025-05-20 17:38 | XMS_ITS | Encounter Summary ---
Author Organization [employer] Address [address] [place] [address] 7 [place] [address] Care Team Providers Care Atm Servicer Name Role Phone Nicolle Pretty MD Primary Care Provider [phone] Adonay London CNP Primary Care Provider [phone] Reason for Visit * Reason Comments Med Refill Encounter Details Date Type Department Care Team (Late Contact Info) Description 01/31/2023 Refill [facility] MED & PEDS [address] [place] [address] Nicolle Pretty MD 505 [place] [address] Anxiety disorder, unspecified Social History Tobacco Use [...] Department Care Team (Late Contact Info) Description 05/25/2025 10:00 AM EST Telemedicine [facility] MED & PEDS [address] [place] [address] Nolvia Gonzalez RN 505 [place] [address] 07/14/2025 12:45 PM EST Office Visit [facility] ADULT DENTAL 230 [place], [place] [phone] Shahrzad Johnson 230 [place] [address] documented as of this encounter Visit Diagnoses Diagnosis Anxiety disorder, unspecified documented in this encounter Care Teams Atm Servicer Relationship Specialty Start Date End Date Nicolle Pretty MD 230 [place] [address] PCP - General Family Medicine 04/29/12 04/13/25 Adonay London CNP [address] [place] [address] PCP - General Family Medicine 04/14/25 Dr. choudhary Consulting Physician 09/13/23 Dr. Cloud Consulting Physician Hematology 09/13/23 Dr. Adam Miller Consulting Physician Endocrinology 09/13/23 documented as of this encounter
--- OUTSIDE RECORDS SUMMARY | 2025-05-20 17:38 | XMS_ITS | Encounter Summary ---
Demographics Address [address] [place] [address] Work Phone Mobile Phone Home Phone Preferred Language es Marital Status Single Sabianism Affiliation Unknown Race Other Race Ethnic Group Unknown Author Organization [employer] Address [address] 7[address] [place] [address] Care Team Providers Care Outlet Manager Name Role Phone SuryaMjeduardosampson TORSTEN Primary Care Provider [phone] Reason for Visit * Reason Comments Med Refill Encounter Details Date Type Department Care Team ([facility] st Contact Info) Description 05/19/2025 Refill [facility] [address] [place], [place] [phone] Nicolle Pretty MD [address] [place] [address] Social History Tobacco Use Types Packs/Day Years [...] Info) Description 05/25/2025 10:00 AM EST Telemedicine [facility] 505 [place] [address] Nolvia Gonzalez, DONAVAN 505 [place] [address] 07/14/2025 12:45 PM EST Office Visit [facility] ADULT DENTAL 230 [place] [address] Elizabeth, Shahrzad 230 [place] [address] documented as of this encounter Visit Diagnoses Not on filedocumented in this encounter Additional Health Concerns Assessment Noted Time PHQ-9 Depression Total Score: 3 10/17/19 25 11:17 AM EDT documented as of this encounter Care Teams Outlet Manager Relationship Specialty Start Date End Date Adonay London CNP 505 [place] [address] PCP - General Family Medicine 04/14/25 Dr. choudhary Consulting Physician 09/13/23 Dr. Cloud Consulting Physician Hematology 09/13/23 Dr. Adam Miller Consulting Physician Endocrinology 09/13/23 documented as of this encounter
--- OUTSIDE RECORDS SUMMARY | 2025-05-20 17:38 | XMS_ITS | Encounter Summary ---
Author Organization [employer] Address [address] [facility] [address] 7t [place] [address] Care Team Providers Care Patcher Helper Name Role Phone Nicolle Pretty MD Primary Care Provider [phone] Adonay London CNP Primary Care Provider [phone] Reason for Visit * Reason Onset Date Comments Durable Medical Equipment 12/31/2023 Encounter Details Date Type Department Care Team ([facility] st Contact Info) Description 12/31/2023 Telephone [facility] MEDICINE 230 [place] [address] Nicolle Pretty MD 505 [place], [place] [phone] Durable Medical Equipment Social History Tobacco Use [...] EDT Please advise, tc from [facility] at [facility]. Requesting for medical necessity letter for air [...] Info) Description 05/25/2025 10:00 AM EST Telemedicine [facility] PEDS [address] [place] [address] Nolvia Gonzalez, RN 505 [place] [address] 07/14/2025 12:45 PM EST Office Visit [facility] ADULT DENTAL [address] [place] [address] Elizabeth, Shahrzad [address] [place] [address] documented as of this encounter Visit Diagnoses Not on filedocumented in this encounter Care Teams Patcher Helper Relationship Specialty Start Date End Date Nicolle Pretty MD 230 [place] [address] PCP - General Family Medicine 04/29/12 04/13/25 Adonay London CNP 505 [place] [address] PCP - General Family Medicine 04/14/25 Dr. choudhary Consulting Physician 09/13/23 Dr. Cloud Consulting Physician Hematology 09/13/23 Dr. Adam Miller Consulting Physician Endocrinology 09/13/23 documented as of this encounter
--- OUTSIDE RECORDS SUMMARY | 2025-05-20 17:38 | XMS_ITS | Encounter Summary ---
Author Organization [employer] Address [address] [facility] 7t [place] [address] Care Team Providers Care Dry Starch Supervisor Name Role Phone Nicolle Pretty MD Primary Care Provider [phone] Adonay London CNP Primary Care Provider [phone] Reason for Visit * Reason Onset Date Comments Durable Medical Equipment 08/14/2023 Encounter Details Date Type Department Care Team ([facility] st Contact Info) Description 08/14/2023 Telephone [facility] MEDICINE [address] [place] [address] Nicolle Pretty MD 505 [place], [place] [phone] Durable Medical Equipment Social History Tobacco Use [...] Info) Description 05/25/2025 10:00 AM EST Telemedicine [facility] MED & PEDS 505 [place] [address] Nolvia Gonzalez RN 505 [place] [address] 07/14/2025 12:45 PM EST Office Visit [facility] ADULT DENTAL [address] [place] [address] Bradford Johnsonaris [address] [place] [address] documented as of this encounter Visit Diagnoses Not on filedocumented in this encounter Care Teams Dry Starch Supervisor Relationship Specialty Start Date End Date Nicolle Pretty MD 230 [place] [address] PCP - General Family Medicine 04/29/12 04/13/25 Adonay London CNP [address] [place] [address] PCP - General Family Medicine 04/14/25 Dr. choudhary Consulting Physician 09/13/23 Dr. Cloud Consulting Physician Hematology 09/13/23 Dr. Adam Miller Consulting Physician Endocrinology 09/13/23 documented as of this encounter
--- OUTSIDE RECORDS SUMMARY | 2025-05-20 17:38 | XMS_ITS | Encounter Summary ---
Author Organization [employer] Address [address] [facility] 7t [place] [address] Care Team Providers Care Banana Ripening Room Supervisor Name Role Phone Adonay London CNP Primary Care Provider [phone] Reason for Visit * Reason Comments Med Refill Encounter Details Date Type Department Care Team (Late st Contact Info) Description 05/18/2025 Refill [facility] MEDICINE [address] [place] [address] Adonay London CNP 505 [place], [place] [phone] Anxiety Social History Tobacco Use Types Packs/Day [...] Info) Description 05/25/2025 10:00 AM EST Telemedicine [facility] MED [facility] PEDS 505 [place] [address] Nolvia Gonzalez, DONAVAN 505 [place] [address] 07/14/2025 12:45 PM EST Office Visit [facility] ADULT DENTAL [address] [place] [address] Elizabeth, Shahrzad [address] [place] [address] documented as of this encounter Visit Diagnoses Diagnosis Anxiety Anxiety state, unspecified documented in this encounter Additional Health Concerns Assessment Noted Time PHQ-9 Depression Total Score: 3 10/17/19 25 11:17 AM EDT documented as of this encounter Care Teams Banana Ripening Room Supervisor Relationship Specialty Start Date End Date Adonay London CNP 505 [place] [address] PCP - General Family Medicine 04/14/25 Dr. choudhary Consulting Physician 09/13/23 Dr. Cloud Consulting Physician Hematology 09/13/23 Dr. Adam Miller Consulting Physician Endocrinology 09/13/23 documented as of this encounter
--- OUTSIDE RECORDS SUMMARY | 2025-05-20 17:38 | XMS_ITS | Patient Health Record ---
Demographics Address [address] [place] [address] Mobile Preferred Language Unknown Marital Status unmarried Adventism Affiliation Unknown Race Unknown Ethnic Group Refused to Report Author Organization [employer] Address [address] [place] [address] Care Team Providers Care Piece Dyer Name Role Phone Rayray Muñoz MD Primary Care Provider Robin Rios [phone] Reason For Referral No Information Plan Of Treatment No Information Insurance Providers Payer Name Payer Address Payer Phone Subscriber Number Group Number Insured Name Patient Relationship to Insured Coverage Start Date Coverage End Date MEDICARE OF [place] [address] [place] [id number] MIKALA MACHADO Self - patient is the insured MEDICAID OF [facility] [address] [place] [address] [id number] MIKALA MACHADO Self - patient is the insured
--- OUTSIDE RECORDS SUMMARY | 2025-05-20 17:38 | XMS_ITS | Clinical Summary ---
Author Organization [facility] Address [address] [place] [address] Phone Care Team Providers Care Information Assurance Specialist Name Role Phone Nicolle Pretty MD Primary Care Provider [phone] Social History Tobacco Use Types Packs/Day Years [...] topic Medical Devices Not on file Insurance [facility] MEDICARE REPLACEMENT [place] REM[place] [id number] [facility] MEDICARE REPLACEMENT [facility] MEDICARE REPLACEMENT MEDICARE [place] [address] [place] [address] MEDICARE REPLACEMENT [facility] MEDICARE [place] [place] [address] [place] [place] [address] MEDICARE REPLACEMENT [facility] MEDICARE REPLACEMENT MANASA REMY [facility] Care Teams Information Assurance Specialist Relationship Specialty Start Date End Date Nicolle Pretty MD [address] [place] [address] PCP - General Family Medicine 03/31/20 Additional Source Comments The information contained in this document represents components of the legal health record. It is not the complete legal health record.[facility]
--- OUTSIDE RECORDS SUMMARY | 2025-05-20 17:38 | XMS_ITS | Encounter Summary ---
Author Organization [facility] Address [address] [facility] [address] [place] [address] Phone Care Team Providers Care Sheriff Sergeant Name Role Phone Nicolle Pretty MD Primary Care Provider [phone] Reason for Referral * Occupational Therapy (Routine) - Denied Specialty Diagnoses / Procedures Referred By Savana francois Referred To Contact Occupational Therapy Diagnoses Encounter for rehabilitation Cerebral Palsy Nicolle Pretty MD Phone: tel: fax: [address] [address] Phone: tel: Referral ID Status Reason Start Date Expiration Date Visits Re quested Visits Authorized [id number] Denied 03/31/2020 03/31/2021 1 0 Encounter Details Date Type Department Care Team (Latest Contact Info) Description 03/31/2020 Transcribe Orders [facility] [address] [place] [address] Nicolle Pretty MD [address] [place] [address] Encounter for rehabilitation (Primary Dx) Social History [...] Diagnoses Orde r Schedule Ambulatory referral to [facility] Occupational Therapy Outpatient Referral Routine Encounter for rehabilitation Ordered: 03/31/2020 documented as of this encounter Visit Diagnoses Diagnosis Encounter for rehabilitation- Primary documented in this encounter Care Teams Sheriff Sergeant Relationship Specialty Start Date End Date Nicolle Pretty MD [address] [place] [address] PCP - General Family Medicine 03/31/20 documented as of this encounter Additional Source Comments The information contained in this document represents components of the legal health record. It is not the complete legal health record.[facility]
--- OUTSIDE RECORDS SUMMARY | 2025-05-20 17:38 | XMS_ITS | Clinical Summary ---
Author Organization [employer] Address [address] [facility] 7t [place] [address] Care Team Providers Care Printer'S Devil Name Role Phone Adonay London TORSTEN Primary Care Provider [phone] Allergies No known active allergies Medications lansoprazole [...] 3120 MCG/1.56ML solution pen-injector 10/29/19 24 Active baclofen (Lioresal) 20 MG tabletIndications [...] AT BEDTIME NEEDED FOR ANXIETY 20 tablet 05/18/20 25 Active lansoprazole (Prevacid SoluTab) 30 MG disintegrating tablet DISSOLVE 1 TABLET ON TONGUE TWICE DAILY 04/24/20 25 Active simvastatin (Zocor) 40 MG tablet TAKE 1 TABLET BY MOUTH EVERY DAY IN THE EVENING 90 tablet 3 05/19/20 25 Active simvastatin (Zocor) 40 MG tablet TAKE 1 TABLET BY MOUTH EVERY DAY IN THE EVENING 90 tablet 3 03/20/20 24 2024 Discontinued ketoconazole (NIZOral) 2 % shampooIndication s:Seborrheic dermatitis APPLY TOPICALLY TO AFFECTED AREA(S) EVERY DAY DIRECTED FOR 7 DAYS LEAVE ON FOR 5 MINUTES THEN RINSE 120 mL 03/27/20 25 2024 Discontinued clonazePAM (KlonoPIN) 0.5 MG tabletIndications :Anxiety TAKE 1 TABLET BY MOUTH AT BEDTIME NEEDED ANXIETY 20 tablet 03/27/20 25 2024 Discontinued clonazePAM (KlonoPIN) 0.5 MG tabletIndications :Anxiety TAKE 1 TABLET BY MOUTH EVERY DAY AT BEDTIME NEEDED FOR ANXIETY 20 tablet 04/23/20 25 2024 Discontinued Active Problems Problem Noted [...] Encounters Date Type Department Care Team Description 05/19/2025 Refill [facility]ED[facility] [address] [place] [address] Nicolle Pretty MD 05/18/2025 Telephone [facility] [address] [place] [address] Adonay London CNP chart prep 05/18/2025 Refill [facility] MEDICINE [address] [place] [address] Adonay London CNP Anxiety 05/07/2025 Patient Outreach [facility] MEDICINE [address] [place] [address] Adonay London CNP Pre-visit Planning (SDOH screening completed on 10/16/24 ) 05/05/2025 Telephone [facility] [address] [place] [address] Adonay London CNP Appointment Request 04/22/2025 Refill [facility] MEDICINE [address] [place] [address] Nicolle Pretty MD Seborrheic dermatitis; Anxiety 03/26/2025 Refill [facility] MEDICINE [address] [place] [address] Nicolle Pretty MD Seborrheic dermatitis; Anxiety 02/26/2025 2:00 PM EDT Office Visit [facility] OPTOMETRY [address] [place] [address] Whitney Mejía, OD Optic atrophy (Primary Dx); Dry eyes; Myopia of both eyes 02/26/2025 Travel 02/25/2025 Refill [facility] MEDICINE [address] [place] [address] Bessie Mishra MD Seborrheic dermatitis 02/25/2025 Refill [facility] MED & PEDS [address] [place] [address] Matthieu Keller MD Anxiety from Last 3 Months Immunizations Immunization Administration Dates Next Due Influenza injectable quadriv alent IIV4 with preservative 03/25/2019,05/02/2018,03/06/2017,03/02 Influenza injectable quadriv alent preservative free 03/19/2023,03/10/2022,03/10/2021,03/09 Influenza, IIV3, injectable 03/30/2014 Influenza, Injectable, MDCK, preservative free 03/10/2025,03/20/2024 Influenza, Split (incl. esequiel fied surface antigen) [...] your housing situation today? I have lelo nita 10/16/[address] you li [...] Info) Description 05/25/2025 10:00 AM EST Telemedicine [facility] MED [facility] PEDS [address] [place] [address] Nolvia Gonzalez, RN [address] [place] [address] 07/14/2025 12:45 PM EST Office Visit [facility] ADULT DENTAL [address] [place] [address] Shahrzad Johnson [address] [place] [address] Health Maintenance Due Date Last Done Comments [...] 02/20/2024, 11/02/2023, Additional history exists COVID-19 Vaccine ( season) 2025 04/24/2024, 05/17/2022, 05/17/2022, Additional history [...] 12:05 PM EST) Triglycerides 368(H) <150 mg/dL [facility] Comment:Desirable Triglyceri de: less than 150 mg/dLBorderline High Triglyceride 150-199 mg/dLHigh Triglyceride: 200-499 mg/dLVery High Triglyceride: greater than or equal to 5OO mg/dL Cholesterol 142 <200 mg/dL [facility] Comment:Desirable Cholestero l: less than 200 mg/dLBorderline High Cholesterol: 200-239 mg/dLHigh Cholesterol: greater than 239 mg/dL LDL Cholesterol Calculated 34 <100 mg/dL [facility] Comment:Desirable LDL: less than 100 mg/dLNear Optimal/Above Optimal LDL: 110- 129 mg/dLBorderline High LDL: 130-159 mg/dLHigh LDL: 160-189 mg/dLVery High LDL: greater than or equal to 190 mg/dL HDL Cholesterol 35(L) >40 mg/dL [facility] Comment:Desirable HDL: great er than 40 mg/dL Note: This HDL assay may give artificially low results in patients with liver disease. Blood Venous blood specimen / Unknown 07/14/2024 12:05 PM EST 07/14/2024 1:22 PM EST us Nicolle Pretty MD LAB BLOOD ORDERABLES Final Resul t [facility] [address] [place] [address] [phone] from Last 3 Months or Most Recently Relevant to Health Maintenance Insurance [facility] ONE CARE < 65 [place] [id number] [facility] * Guarantor: AnaUvaldo wilsontor Account Type Relation to Patient Date of Phone Billing Address Personal/Family Self [address] [place] [address] Care Teams Printer'S Devil Relationship Specialty Start Date End Date Adonay London CNP [address] [place] [address] PCP - General Family Medicine 04/14/25 Dr. choudhary Consulting Physician 09/13/23 Dr. Cloud Consulting Physician Hematology 09/13/23 Dr. Adam Miller Consulting Physician Endocrinology 09/13/23
--- OUTSIDE RECORDS SUMMARY | 2025-05-20 17:38 | XMS_ITS | Encounter Summary ---
Author Organization [employer] Address [address] 7t [place] [address] Care Team Providers Care Face And Fill Packer Name Role Phone Nicolle Pretty MD Primary Care Provider [phone] Adonay London CNP Primary Care Provider [phone] Reason for Visit * Reason Onset Date Comments Appointment Request 01/29/2024 Encounter Details Date Type Department Care Team ([facility] st Contact Info) Description 01/29/2024 Telephone [facility] MEDICINE [address] [place] [address] Nicolle Pretty MD [address] [place], [place] [phone] Appointment Request Social History Tobacco Use Types [...] Tc from pt sister requesting to r/s WATERPROOFING MACHINE OPERATOR appt for 01/30/24 due to Brother being COVID POSITIVE documented in this encounter Plan of Treatment Upcoming Encounters Date Type Department Care Team (Late st Contact Info) Description 05/25/2025 10:00 AM EST Telemedicine [facility] MED & PEDS 505 [place] [address] Nolvia Gonzalez RN [address] [place] [address] 07/14/2025 12:45 PM EST Office Visit [facility] ADULT DENTAL [address] [place] [address] Elizabeth, Shahrzad [address] [place] [address] documented as of this encounter Visit Diagnoses Not on filedocumented in this encounter Care Teams Face And Fill Packer Relationship Specialty Start Date End Date Nicolle Pretty MD [address] [place] [address] PCP - General Family Medicine 04/29/12 04/13/25 Adonay London CNP 505 [place] [address] PCP - General Family Medicine 04/14/25 Dr. choudhary Consulting Physician 09/13/23 Dr. Cloud Consulting Physician Hematology 09/13/23 Dr. Adam Miller Consulting Physician Endocrinology 09/13/23 documented as of this encounter
--- OUTSIDE RECORDS SUMMARY | 2025-05-20 17:38 | XMS_ITS | Encounter Summary ---
Author Organization [employer] Address [address] [facility] 7t [place] [address] Care Team Providers Care Real Estate Leasing Agent Name Role Phone Nicolle Pretty MD Primary Care Provider [phone] Adonay London CNP Primary Care Provider [phone] Reason for Visit * Reason Onset Date Comments Med Refill 12/25/2024 Encounter Details Date Type Department Care Team (Late st Contact Info) Description 12/25/2024 Telephone [facility] MEDICINE [address] [place] [address] Nicolle Pretty MD [address] [place], [place] [phone] Med Refill Social History Tobacco Use Types [...] 0.5 MG tablet To be sent to: [facility] documented in this encounter Plan of Treatment Upcoming Encounters Date Type Department Care Team (Late st Contact Info) Description 05/25/2025 10:00 AM EST Telemedicine [facility] CH[facility] MED & PEDS [address] [place] [address] Nolvia Gonzalez, DONAVAN [address] [place] [address] 07/14/2025 12:45 PM EST Office Visit [facility] ADULT DENTAL [address] [place], [place] [phone] Bradford Johnsonaris [address] [place] [address] documented as of this encounter Visit Diagnoses Not on filedocumented in this encounter Additional Health Concerns Assessment Noted Time PHQ-9 Depression Total Score: 3 10/17/19 25 11:17 AM EDT documented as of this encounter Care Teams Real Estate Leasing Agent Relationship Specialty Start Date End Date Nicolle Pretty MD [address] [place] [address] PCP - General Family Medicine 04/29/12 04/13/25 Adonay London CNP [address] [place] [address] PCP - General Family Medicine 04/14/25 Dr. choudhary Consulting Physician 09/13/23 Dr. Cloud Consulting Physician Hematology 09/13/23 Dr. Adam Miller Consulting Physician Endocrinology 09/13/23 documented as of this encounter
--- OUTSIDE RECORDS SUMMARY | 2025-05-20 17:38 | XMS_ITS | Encounter Summary ---
Demographics Address [address] [place] [address] Work Phone Mobile Phone Home Phone Preferred Language es Marital Status Single Synagogue Affiliation Unknown Race Other Race Ethnic Group Unknown Author Organization [employer] Address [address] [facility] 7t [place] [address] Care Team Providers Care Music Worker Name Role Phone Adnoay London CNP Primary Care Provider [phone] Reason for Visit * Reason Onset Date Comments chart prep 05/18/2025 Encounter Details Date Type Department Care Team ([facility] st Contact Info) Description 05/18/2025 Telephone [facility] MED & PEDS [address] [place], [place] [phone] Adonay London CNP [address] [place] [address] chart prep Social History Tobacco Use Types Packs/Day Years [...] encounter Miscellaneous Notes * Telephone Encounter - Sharifa Kennedy [place] - 05/18/2025 10:35 AM EST Chart Prep Labs: not applicable Images: not applicable Referrals: not applicable Vaccines due: Covid and Hep B Screenings: colonoscopy and STI screening Overdue care gaps: SBIRT documented in this encounter Plan of Treatment Upcoming Encounters Date Type Department Care Team (Late st Contact Info) Description 05/25/2025 10:00 AM EST Telemedicine [facility] MED [facility] PEDS [address] [place] [address] Nolvia Gonzalez, DONAVAN [address] [place] [address] 07/14/2025 12:45 PM EST Office Visit [facility] ADULT DENTAL [address] [place] [address] Bradford Johnsonaris [address] [place] [address] documented as of this encounter Visit Diagnoses Not on filedocumented in this encounter Additional Health Concerns Assessment Noted Time PHQ-9 Depression Total Score: 3 10/17/19 25 11:17 AM EDT documented as of this encounter Care Teams Music Worker Relationship Specialty Start Date End Date Adonay London CNP [address] [place] [address] PCP - General Family Medicine 04/14/25 Dr. choudhary Consulting Physician 09/13/23 Dr. Cloud Consulting Physician Hematology 09/13/23 Dr. Adam Miller Consulting Physician Endocrinology 09/13/23 documented as of this encounter
== END 2025-05-20 15:17 | disposition home or self-care (01) ==
LOC: HO.ENCR 14:45
PROVIDERS: Visit Provider Internal Medicine Endocrinology, Diabetes & Metabolism
DX: M81.0 Age-related osteoporosis without current pathological fracture (principal)

== ENCOUNTER → 2025-05-20 14:44 | Outpatient (BNVA) | payer OTHER, SELFPAY | PROVIDERS: Visit Provider Internal Medicine Endocrinology, Diabetes & Metabolism | DX: M81.0 Age-related osteoporosis without current pathological fracture (principal) | CPT/HCPCS: 96372; J0897 ==